=== PATIENT | male | born 1935 | race Caucasian/White ===

== ENCOUNTER 2019-03-29 10:15 | Observation (INO) | payer MEDICARE, SELFPAY ==
[2019-03-29] VITALS (11 sets, daily range): BP systolic 79–135; BP diastolic 46–67; PULSE 70–88; RESP 18–24; TEMP 36.3–36.8; O2SAT 90–99; BMI 31.0
--- NOTE | ~2019-03-29 | XR_ITS ---
EXAMINATION: XR chest 2V DATE: 03/29/2019 10:51 INDICATION: Syncope. TECHNIQUE: Frontal and lateral views of the chest were obtained. COMPARISON: Chest 2 views 10/17/2017 FINDINGS: The chest demonstrates clear lungs without pneumonia, pleural effusion, or pneumothorax. Th e heart size is normal. IMPRESSION: 1. No acute cardiopulmonary disease. Reviewed, dictated and finalized at location A. PRESS OPERATOR
--- NOTE | 2019-03-29 10:15 | ED.SYNCOPE ---
HPI - Syncope General Chief Complaint: Syncope Stated Complaint: SYNCOPE Time Seen by Provider: 03/29/19 10:29 Source: patient, family, EMS and RN notes reviewed Mode of arrival: EMS Limitations: clinical condition History of Present Illness HPI narrative: A 83 y/o male, with a hx of a CVA, presents to the ED via EMS after having a witnessed syncopal episode that last roughly 10 seconds this morning. The pt doesn't remember anything besides waking up on the floor. He states that he did take his insulin this morning and has eaten. He notes that he had a similar syncopal episode roughly 1 year ago. Per EMS reports that the witnessed the fall and states that the pt has LOC for roughly 10 seconds and that he did not hit his head. He denies any dysuria, urinary frequency, CP, decreased intake, body aches, ELLIS, or neck pain. MD complaint: loss of consciousness Onset (ago): minute(s) Duration of episode: 10 -: second(s) Witnessed: Yes - by Bystander () Injuries sustained associated with event: none Current symptoms: none History: previous syncopal episode Related Data Home Medications Medication Instructions Recorded Confirmed aspirin 81 mg PO DAILY 03/29/19 03/29/19 clonidine HCl 0.1 mg PO BID 03/29/19 03/29/19 insulin glargine [Lantus Solostar 30 unit SUBCUT DAILY 03/29/19 03/29/19 U-100 Insulin] metformin 500 mg PO BID 03/29/19 03/29/19 spironolactone 25 mg PO BID 03/29/19 03/29/19 tamsulosin [Flomax] 0.4 mg PO DAILY 03/29/19 03/29/19 Allergies Allergy/AdvReac Type Severity Reaction Status Date / Time No Known Allergies Allergy Unverified 03/29/19 10:26 Review of Systems Review of Systems: All systems reviewed & are unremarkable except as noted in HPI and below Constitutional: Constitutional: Denies body ache(s) and Denies poor appetite Cardiovascular: Cardiovascular: Denies chest pain Genitourinary: Genitourinary: Denies dysuria and Denies urinary frequency Musculoskeletal: Musculoskeletal: Denies neck pain Neurologic: Reports syncope and Denies headache(s) FORMERLY [facility], [facility] Past Medical History Medical History (Updated 03/29/19 @ 12:40 by John Haji MD) Arthritis CVA (cerebral vascular accident) Diverticulitis DM (diabetes mellitus) H/O: HTN (hypertension) History of rectal polyps HLD (hyperlipidemia) HTN (hypertension) Hypercholesteremia Leg fracture, left MVP (mitral valve prolapse) Polyuria Shingles Surgical History Surgical History (Updated 03/29/19 @ 10:41 by Ta Inman) History of orthopedic surgery Lt leg. Family History Family History Sibling Hypertension Cerebrovascular accident Family history of malignant neoplasm Family history of diabetes mellitus in first degree relative Mother Family history of malignant neoplasm, Onset Age: 75 Patient's mother is Father Carcinoma of colon, Onset Age: 67 Patient's father is Social History Social History Smoking status: Never smoker Alcohol intake: never Substance use: never Gender identity (if verbalized by the patient): Male Spiritual care concerns: No Agree to blood products: Yes Comments PCP: Dr. Uribe. Exam Narrative: Exam Narrative: GENERAL: Well-appearing, well-nourished, and in no acute distress. HEAD: Normocephalic, atraumatic. Eyes: Right eye reactive with normal movements. 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 ENT: Mucous membranes moist. CHEST: Clear to auscultation. No respiratory distress. HEART: Regular rate and rhythm. Normal peripheral pulses. ABDOMEN: Soft, nontender, nondistended. EXTREMITIES: Normal range of motion. No edema. SKIN: Warm, dry, no rash. NEURO: No focal deficits. Alert and oriented x3 but slow to answer questions.. Course Consultations Consultation #1: Discussed case with Dr. Kingston (Hospitalist). Accepts the pt. Date: 03/29
[2019-03-29] MEDS: DEXTROSE 50% 25 GM/50 ML SYRINGE IV PUSH (10:43)
[2019-03-29] MEDS: SODIUM CHLORIDE 0.9% IV 1,000 ML 999 ML IV CONT ×2 (10:44→11:47)
--- NOTE | 2019-03-29 10:52 | ECG_ITS ---
Measurements Intervals [place] Rate: 73 P: 88 WV: 178 QRS: -55 QRSD: 120 T: 20 QT: 394 QTc: 436 Interpretive Statements SINUS RHYTHM WITH MARKED SINUS ARRHYTHMIA LEFT ANTERIOR FASCICULAR BLOCK BASELINE WANDER- I, II ABNORMAL ECG Electronically Signed On 03-29-2019 11:51:15 DAILY SALES AUDIT CLERK by Marquis Haynes D.O.
[2019-03-29 11:09] LABS: Basophils Percent Auto 0.1 % (0.2-1.2); Eosinophils Absolute Auto 0.1 K/mm3 (0-0.3); Eosinophils Percent Auto 0.9 % (0-4.4); Hematocrit 34.1 % (42.0-52.0); Immature Granulocyte Absolute 0.03 K/mm3 (0.00-0.031); Immature Granulocyte Percent A 0.4 % (0-0.5); Lymphocytes Percent Auto 27.4 % (18.3-44.2); Mean Corpuscular HGB Conc 32.3 g/dl (32-36); Mean Corpuscular Hemoglobin 30.6 pg (26-34); Mean Platelet Volume 10.6 fl (7.4-10.4); Monocytes Absolute Auto 0.6 K/mm3 (0.1-0.6); Monocytes Percent Auto 7.6 % (2.6-8.5); Neutrophils Absolute Auto 5.1 K/mm3 (1.3-6.7); Neutrophils Percent Auto 63.6 % (45.5-73.1); Platelet Count Result 157 k/mm3 (150-375); Red Blood Count 3.59 M/mm3 (4.6-6.20)
[2019-03-29 11:28] LABS: Blood Urea Nitrogen 33 mg/dL (9-20); Carbon Dioxide 21 mmol/L (22-30); Chloride 100 mmol/L (98-107); Estimated CRCL calculation 43 ml/min; Estimated Glomerular Filt Rate 49; Glucose 116 mg/dL (75-110); Magnesium 2.2 mg/dL (1.6-2.3); Sodium 134 mmol/L (137-145)
[2019-03-29 11:28] LABS: Lactic Acid Reflex 2.2 mmol/L (0.7-2.1)
[2019-03-29 11:30] LABS: Glucose Point of Care 51 (65-105)
[2019-03-29 11:30] LABS: Glucose Point of Care 76 (65-105)
[2019-03-29 11:38] LABS: Troponin I < 0.012 ng/mL (0.000-0.034)
--- NOTE | 2019-03-29 13:41 | PC.NURSE ---
This patient, Derrell Berkowitz, was admitted to [facility] Surg Room 305-02. Patient/family oriented to hospital policies and general routines including ID bracelet, bed and alarms, visiting hours, pain management, procedures, bathroom and other care routines, personal items, smoking policy, room service/diet, and visiting hours. Valuables list has been completed. Information on how to activate the Rapid Response Team has been discussed. Patient/Family are encouraged to report perceived risks to care and to ask questions if they do not understand what they are told or what they should do.
[2019-03-29 14:06] LABS: Reflex Lactic Acid Yes or No Add Lactic
[2019-03-29] MEDS: SODIUM CHLORIDE 0.9% IV 1,000 ML 125 ML IV CONT ×2 (14:37→22:33)
[2019-03-29 14:50] LABS: Lactic Acid 2.5 mmol/L (0.7-2.1)
[2019-03-29 18:24] LABS: Glucose Point of Care 179 (65-105)
[2019-03-29 21:59] LABS: Glucose Point of Care 141 (65-105)
[2019-03-30] VITALS: PULSE 71
[2019-03-30 04:00] VITALS: PULSE 68
--- NOTE | 2019-03-30 04:30 | PM.IMHP ---
H&P: HPI History of Present Illness Chief complaint: Syncopal episode. Narrative: Derrell Berkowitz is a 83 year old male With history of stroke, hypertension, chronic kidney disease, and insulin-dependent type 2 diabetes mellitus who presented to the emergency department earlier this morning via EMS from home for evaluation after a syncopal episode. Upon waking from sleep yesterday, he reports feeling lightheaded /dizzy. That happens on occasion, and fact he has had a previous syncopal episode after similar symptoms about a year ago. Not long prior to arrival, he had a witnessed syncopal episode and was unresponsive for roughly 10 seconds. Patient tells me that he was standing in the kitchen when he felt lightheaded, and he woke up lying on his back on the kitchen floor. He denies sustaining any injuries in the fall. He was found to have orthostatic hypotension on arrival to the emergency department, and he was also hypoglycemic. He did take his insulin this morning, but did not really have much to eat prior to the syncopal episode. He denies recent cold and flu symptoms. He has not had any change in medications. He has not had chest pain, pleuritic pain, or shortness of breath. He denies palpitations. The only complaint he has at the time my evaluation is of sleeping poorly in the hospital and of sinus congestion, which is a chronic finding. Review of Systems Review of Systems: Narrative: Twelve systems were reviewed with pertinent positives and negatives as per HPI. No fever, chills, or sweats. No recent cold or flu-like symptoms. He denies blurry vision, polyuria, and polydipsia. He has not had nausea or vomiting. No diarrhea. No dysuria. Except as documented, all other systems were reviewed and are negative. FORMERLY [facility] Past Medical History Medical History (Updated 03/29/19 @ 23:13 by Delia Velasquez PA-C) Arthritis Chronic kidney disease, stage 3 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 Diverticulitis History of rectal polyps Hyperlipidemia Hypertension Insulin dependent type 2 diabetes mellitus hemoglobin A1c was 7.6 March 21, 2019. MVP (mitral valve prolapse) Prostate cancer Diagnosed in 2008. Shingles Surgical History Surgical History (Updated 03/29/19 @ 23:06 by Delia Velasquez PA-C) History of orthopedic surgery ORIF left tib-fib fracture. Family History Family History Sibling Hypertension Cerebrovascular accident Family history of malignant neoplasm Family history of diabetes mellitus in first degree relative Mother Family history of malignant neoplasm, Onset Age: 75 Patient's mother is Father Carcinoma of colon, Onset Age: 67 Patient's father is Social History Social History (Updated 03/30/19 @ 05:27 by Delia Velasquez PA-C) Social History: The patient lives with his in [place]. He is retired from [employer]. He designates his , Kaye, as his surrogate decision maker and he wishes to be a full code. He is a lifelong nonsmoker and denies alcohol and drug abuse. Spiritual care concerns: No Agree to blood products: Yes Meds Home Medications and Allergies Home Medications Medication Instructions Recorded Confirmed Type amlodipine 5 mg tablet 5 mg PO DAILY #30 tablet 12/19/18 03/29/19 Rx lisinopril 40 mg tablet 40 mg PO DAILY #90 tablet 12/19/18 03/29/19 Rx simvastatin 10 mg tablet 10 mg PO DAILY #90 tablet 02/03/19 03/29/19 Rx aspirin 81 mg PO DAILY 03/29/19 03/29/19 History clonidine HCl 0.1 mg PO BID 03/29/19 03/29/19 History insulin glargine [Lantus Solostar 30 unit SUBCUT DAILY 03/29/19 03/29/19 History U-100 Insulin] metformin 500 mg PO BID 03/29/19 03/29/19 History spironolactone 25 mg PO BID 03/29/19 03/29/19 History tamsulosin [Flomax] 0.4 mg PO DAILY 03/29/19 03/29/19 History Allergies Allergy/
[2019-03-30 06:00] VITALS: BP 117/59; PULSE 66; RESP 20; TEMP 37.1; O2SAT 97
[2019-03-30] MEDS: SODIUM CHLORIDE 0.9% IV 1,000 ML 125 ML IV CONT (06:48)
[2019-03-30 06:57] LABS: Hematocrit 34.1 % (42.0-52.0); Mean Corpuscular HGB Conc 32.3 g/dl (32-36); Mean Corpuscular Hemoglobin 30.4 pg (26-34); Mean Corpuscular Volume 94.2 fl (80-100); Mean Platelet Volume 11.1 fl (7.4-10.4); Platelet Count Result 157 k/mm3 (150-375); Red Blood Count 3.62 M/mm3 (4.6-6.20); Red Cell Distribution Width 12.9 % (11.5-14.5); White Blood Count 8.3 K/mm3 (4.5-10.0)
[2019-03-30 07:14] LABS: Blood Urea Nitrogen 21 mg/dL (9-20); Calcium 8.2 mg/dL (8.4-10.2); Carbon Dioxide 22 mmol/L (22-30); Chloride 108 mmol/L (98-107); Estimated CRCL calculation 54 ml/min; Estimated Glomerular Filt Rate > 60; Glucose 82 mg/dL (75-110); Potassium 4.5 mmol/L (3.4-5.0); Sodium 138 mmol/L (137-145)
[2019-03-30 07:48] LABS: Lactic Acid 0.8 mmol/L (0.7-2.1)
[2019-03-30 08:00] VITALS: PULSE 88
[2019-03-30 08:01] LABS: Glucose Point of Care 159 (65-105)
[2019-03-30] MEDS: INSULIN GLARGINE (*BKC) 100 UNITS/ML 30 UNITS SUB-Q (08:11)
[2019-03-30] MEDS: TAMSULOSIN HCL 0.4 MG CAPSULE PO (08:13)
[2019-03-30] MEDS: SIMVASTATIN 10 MG TABLET PO (08:13)
[2019-03-30] MEDS: ASPIRIN 81 MG CHEWABLE TABLET PO (08:13)
[2019-03-30 11:12] LABS: Glucose Point of Care 144 (65-105)
[2019-03-30 11:57] LABS: Glucose Point of Care 117 (65-105)
[2019-03-30 12:00] VITALS: PULSE 85
--- NOTE | 2019-03-30 13:38 | PC.NURSE ---
Discharged home with spouse, awake, alert, and oriented times four. Left with discharge paperwork and personal affects. PCT escorted out to [facility] in wheelchair.
--- NOTE | 2019-03-30 19:57 | PM.DS ---
DS: Diagnosis Admitting Diagnosis Admitting Diagnosis: Syncope and collapse Discharge Diagnosis (1) Syncope: Code(s): R55 - Syncope and collapse Status: Acute Assessment and Plan: Date of Service 03/30/19 Mr. Berkowitz is an 83yo M with history of stroke, hypertension, chronic kidney disease, and insulin-dependent type 2 diabetes mellitus who presented to the emergency department from home for evaluation after a syncopal episode. He reported standing in the kitchen when he felt lightheaded, and he woke up lying on his back on the kitchen floor, noted to be unresponsive for roughly 10 seconds. He noted he had felt lightheaded and dizzy since he woke up that morning and occasionally feels dizzy when he stands up. Upon arrival to the ED, blood pressures were as low as 79/51 and he was treated with IV fluid hydration. Blood pressures improved into the evening up to 135/66. On arrival his blood glucose was 51 and he was treated with 12.5 g IV dextrose. It was ultimately felt that his hypotension and possibly with the addition of his hypoglycemia caused his syncopal episode and dizziness. Cardiac telemetry revealed no evidence of arrhythmias. Lactic acid level elevated on arrival and resolved the following day, no evidence of infection and likely reactive to above. His home antihypertensive regimen included amlodipine, clonidine, lisinopril, and spironolactone. Blood pressures were stable on day of discharge, but still low at 117/59 and he was instructed to hold off on taking any of the antihypertensives listed above until he can follow up with his primary care provider. He notes that he already has an appointment with Dr. Uribe on Wednesday. His insulin regimen consisted of Lantus 30 units subcu daily which was decreased to 20 units subcu daily at discharge given his risk for hypoglycemia, metformin held. He noted he normally checks his blood sugar once daily. He was encouraged to check his blood sugar before each meal and at bedtime until he can see Dr. Uribe on Wednesday, record a log of his blood sugars to show to Dr. Uribe at his appointment. He was instructed to take his time when moving positions from sitting to standing and to take precautions to avoid falls. Blood pressure and blood sugar were improved day of discharge and the patient was feeling much better. On day of discharge, he denied dizziness. He was hemodynamically stable for discharge with plan to follow up with Dr. Uribe on Wednesday. (2) Orthostatic hypotension: Code(s): I95.1 - Orthostatic hypotension Status: Acute Assessment and Plan: Improved after IV hydration, stable at discharge. (3) Chronic kidney disease, stage 3: Code(s): N18.3 - Chronic kidney disease, stage 3 (moderate) Status: Chronic Assessment and Plan: Creatinine is elevated at 1.4 on arrival, improved to 1.1 after IV hydration, suspect associated with hypoperfusion from soft blood pressures. Baseline Cr is around 1.0 to 1.3 on review of old labs. (4) Elevated lactic acid level: Code(s): R79.89 - Other specified abnormal findings of blood chemistry Status: Resolved Assessment and Plan: No history to suggest underlying infection. Resolved. (5) Hypoglycemia: Code(s): E16.2 - Hypoglycemia, unspecified Status: Resolved Assessment and Plan: Treated with hypoglycemia protocol. Home metformin was held and his Lantus dose was reduced. Resolved, stable at discharge. 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 See above. (7) Hypertension
== END 2019-03-30 13:51 | disposition home or self-care (01) ==
LOC: ANHED 12:29 → ANH3MEDSUR 12:37
PROVIDERS: Physician Assistant; Admitting Provider Internal Medicine; Emergency Provider Emergency Medicine; PCP Emergency Medicine; Visit Provider Physician Assistant
DX: I95.1 Orthostatic hypotension (principal); E11.649 Type 2 diabetes mellitus with hypoglycemia without coma; E11.22 Type 2 diabetes mellitus with diabetic chronic kidney disease; I12.9 Hypertensive chronic kidney disease with stage 1 through stage 4 chronic kidney disease, or unspecified chronic kidney disease; N18.3 Chronic kidney disease, stage 3 (moderate); R79.89 Other specified abnormal findings of blood chemistry; I34.1 Nonrheumatic mitral (valve) prolapse; E78.5 Hyperlipidemia, unspecified; Z79.4 Long term (current) use of insulin; Z79.82 Long term (current) use of aspirin; Z79.899 Other long term (current) drug therapy; Z85.46 Personal history of malignant neoplasm of prostate; Z86.73 Personal history of transient ischemic attack (TIA), and cerebral infarction without residual deficits
CPT/HCPCS: 36415; 71046; 80048; 82948; 83605; 83735; 84484; 85025; 85027; 93005; 96361; 96374; 99291; A9270; G0378; J1815; J7030

== ENCOUNTER 2020-08-08 09:07 | Emergency (ER) | payer MEDICARE, SELFPAY ==
--- NOTE | ~2020-08-08 | CT_ITS ---
EXAMINATION: CT brain wo con DATE: 08/08/2020 10:19 INDICATION: Status post fall. Headache. TECHNIQUE: Computed tomography (CT) of the head was performed without intravenous contrast. The dose- length product was 605.33 mGy-cm. Automated exposure control and iterative reconstruction technique w ere employed. COMPARISON: CT dated 04/21/2017 FINDINGS: Generalized atrophy. There is intracranial atherosclerosis. There are scattered moderate pe riventricular and subcortical white matter changes, most likely related to small vessel ischemic dise ase (microangiopathy). There are chronic left lacunar and thalamic infarctions. No midline shift. Bas ilar cisterns are patent. 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 No significant abnormality of the sinuses or mastoids. IMPRESSION: 1. No acute intracranial abnormality. 2: Chronic left lacunar and thalamic infarctions. 3: Chronic age-related findings. Reviewed, dictated and finalized at location B.
--- NOTE | ~2020-08-08 | CT_ITS ---
EXAMINATION: CT cervical spine wo con DATE: 08/08/2020 10:19 INDICATION: Neck pain after fall TECHNIQUE: Computed tomography (CT) of the cervical spine was performed without intravenous contrast. The dose-length product was 437 mGy-cm. Automated exposure control and iterative reconstruction tech [employer] were employed. COMPARISON: None FINDINGS: Straightening of cervical lordosis. There is degenerative disc disease at C4-5, C5-6 and C6 -7. There is moderate multilevel uncinate and facet hypertrophy. Odontoid process within normal limit s. Craniovertebral junction is unremarkable. No evidence for perched facet. There is an old spinous p rocess avulsion at C7. There is carotid atherosclerosis. Lung apices are normal. No paraspinal soft t issue abnormality. IMPRESSION: 1. No acute abnormality of the cervical spine. 2: Severe cervical spondylosis. Reviewed, dictated and finalized at location B.
--- NOTE | ~2020-08-08 | XR_ITS ---
EXAMINATION: XR chest 2V DATE: 08/08/2020 09:51 INDICATION: Weakness TECHNIQUE: AP and lateral views of the chest are obtained. COMPARISON: 03/29/2019 FINDINGS: The lungs are free of acute opacities. There is no pleural effusion or pneumothorax. The ca rdiomediastinal silhouette is normal. There is moderate thoracic spondylosis. IMPRESSION: 1. No acute cardiopulmonary abnormality. Reviewed, dictated and finalized at location A.
[2020-08-08 09:23] VITALS: BP 129/79; PULSE 82; PULSE 85; RESP 18; TEMP 36.8; O2SAT 96
--- NOTE | 2020-08-08 09:27 | ECG_ITS ---
Measurements Intervals [place] Rate: 80 P: ND: 0 QRS: -17 QRSD: 114 T: -9 QT: 421 QTc: 489 Interpretive Statements SINUS RHYTHM ATRIAL COUPLET, ATRIAL AND VENTRICULAR PREMATURE COMPLEXES INCOMPLETE LEFT BUNDLE BRANCH BLOCK POOR R WAVE PROGRESSION, ANTERIOR LEADS BASELINE ARTIFACT- I, II, III, AVR, AVL, AVF, V1-V6 ABNORMAL ECG Electronically Signed On 08-08-2020 10:26:36 CDT by Marquis Haynes D.O.
--- NOTE | 2020-08-08 10:08 | ED.GENADULT ---
HPI - General Adult General Chief complaint: Weakness Stated complaint: weakness/fall Time Seen by Provider: 08/08/20 09:43 Source: EMS and RN notes reviewed Mode of arrival: EMS Limitations: dementia History of Present Illness HPI narrative: Patient is 84 years old white male brought to the ED by ambulance from home after found on the floor because of a fall probably within the last few hours prior to arrival, dry stools on the bottom, patient is alert to person only. History of multiple falls, weakness, hyperlipidemia, unsteady gait, hypertension, CKD. Related Data Home Medications Medication Instructions Recorded Confirmed aspirin 81 mg PO DAILY 03/29/19 03/29/19 lancets 33 gauge #100 each 06/28/19 Allergies Allergy/AdvReac Type Severity Reaction Status Date / Time No Known Allergies Allergy Verified 08/08/20 09:48 Review of Systems Review of Systems: ROS unobtainable: Yes unobtainable due to mental status PMFSH Past Medical History Medical History Arthritis Chronic kidney disease, stage 3 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 Diverticulitis History of rectal polyps Hyperlipidemia Hypertension Insulin dependent type 2 diabetes mellitus hemoglobin A1c was 7.6 March 21, 2019. MVP (mitral valve prolapse) Prostate cancer Diagnosed in 2008. Shingles Surgical History Surgical History History of orthopedic surgery ORIF left tib-fib fracture. Family History Family History Sibling Hypertension Cerebrovascular accident Family history of malignant neoplasm Family history of diabetes mellitus in first degree relative Mother Family history of malignant neoplasm, Onset Age: 75 Patient's mother is Father Carcinoma of colon, Onset Age: 67 Patient's father is Social History Social History Social History: The patient lives with his in [place]. He is retired from [employer]. He designates his , Kaye, as his surrogate decision maker and he wishes to be a full code. He is a lifelong nonsmoker and denies alcohol and drug abuse. Spiritual care concerns: No Agree to blood products: Yes Exam Narrative: Exam Narrative: General appearance: Well-developed, well-nourished, not in pain or distress Skin: Normal color Head: Normocephalic, nontraumatic Eyes: Clear conjunctiva, skin graft on the left eye ENT: Oropharynx normal, ears normal, nose normal Neck: Supple, nontender Chest and respiratory: Airway patent, no respiratory distress, no accessory muscle use Heart: Regular rate/rhythm Abdomen: Soft, nontender, no organomegaly, quiet bowel sounds Vascular: Normal peripheral pulses, normal capillary refill. Musculoskeletal: Normal range of motion, nontender back Neurologic: Alert and oriented to his name only Course Course Emergency Course: Stable Reevaluation(s) Reevaluation #1: Patient still asymptomatic, laying down comfortably in bed, at the bedside, declined any possibility for intermediate placement at this time and would like to take him home Date: 08/08/20 Time: 12:34 Vital Signs Vital signs: Vital Signs Temperature 36.8 C 08/08/20 09:23 Pulse Rate 85 08/08/20 09:23 Respiratory Rate 18 08/08/20 09:23 Blood Pressure 129/79 08/08/20 09:23 Pulse Oximetry 96 08/08/20 09:23 Temperature 36.8 C 08/08/20 09:23 Pulse Rate 90 08/08/20 11:15 Respiratory Rate 21 H 08/08/20 11:15 Bloo
[2020-08-08 11:02] LABS: Basophils Percent Auto 0.1 % (0.2-1.2); Eosinophils Percent Auto 0.1 % (0-4.4); Hematocrit 39.5 % (42.0-52.0); Hemoglobin 13.1 g/dL (14.0-18.0); Immature Granulocyte Absolute 0.04 K/mm3 (0.00-0.031); Immature Granulocyte Percent A 0.3 % (0-0.5); Lymphocytes Absolute Auto 1.13 K/mm3 (0.9-3.2); Lymphocytes Percent Auto 9.9 % (18.3-44.2); Mean Corpuscular HGB Conc 33.2 g/dl (32-36); Mean Corpuscular Hemoglobin 29.8 pg (26-34); Mean Corpuscular Volume 89.8 fl (80-100); Mean Platelet Volume 11.1 fl (7.4-10.4); Monocytes Absolute Auto 0.4 K/mm3 (0.1-0.6); Monocytes Percent Auto 3.8 % (2.6-8.5); Neutrophils Absolute Auto 9.8 K/mm3 (1.3-6.7); Neutrophils Percent Auto 85.8 % (45.5-73.1); Platelet Count Result 152 k/mm3 (150-375); Red Cell Distribution Width 13.3 % (11.5-14.5); White Blood Count 11.5 K/mm3 (4.5-10.0)
--- NOTE | 2020-08-08 11:02 | PC.NURSE ---
pt states is unable to void. family at bedside.
[2020-08-08 11:13] LABS: Alanine Aminotransferase 20 U/L (4-50); Albumin Level 3.9 g/dL (3.5-5.1); Alkaline Phosphatase 96 U/L (38-126); Anion Gap 9 mmol/L (8-16); Aspartate Amino Transferase 23 U/L (17-59); Bilirubin,Total 1.1 mg/dL (0.2-1.3); Blood Urea Nitrogen 18 mg/dL (9-20); Calcium 9.6 mg/dL (8.4-10.2); Carbon Dioxide 25 mmol/L (22-30); Chloride 103 mmol/L (98-107); Estimated CRCL calculation 50 ml/min; Estimated Glomerular Filt Rate > 60; Glucose 197 mg/dL (75-110); Potassium 3.9 mmol/L (3.4-5.0); Sodium 137 mmol/L (137-145)
[2020-08-08 11:14] LABS: Creatine Kinase 33 U/L (55-170)
[2020-08-08 11:15] VITALS: BP 145/93; PULSE 90; RESP 21; O2SAT 98
--- NOTE | 2020-08-08 11:16 | PC.NURSE ---
Assumed care of pt, pt is alert an upright. Unable to provide u/a, will straight cath per okay. VSS. Denies any pain.
[2020-08-08 12:03] LABS: Add Urine Microscopic? YES; Appearance Urine Cloudy (Clear); Bilirubin Urine Negative (Negative); Blood Urine 1+ (Negative); Color Urine Yellow (Yellow); Glucose Urine UA Negative (Negative); Ketones Urine Negative (Negative); Leukocyte Esterase Ur Negative LEU/UL (Negative); Mucus Urine Rare /lpf; Nitrate Urine Negative (Negative); Protein Urine 2+ mg/dL (Negative); Specific Grav Ur 1.013 (1.001-1.035); Squamous Epithelial Cell Urine Rare /hpf (Few); Urobilinogen Urine Negative mg/dL (<2.0)
[2020-08-08 12:24] VITALS: BP 140/66; PULSE 86; RESP 23; O2SAT 97
[2020-08-08 13:03] VITALS: BP 130/72; PULSE 80; RESP 27; O2SAT 96
== END 2020-08-08 13:10 | disposition home or self-care (01) ==
PROVIDERS: Emergency Provider Emergency Medicine; PCP Emergency Medicine
DX: I48.20 Chronic atrial fibrillation, unspecified (principal); E11.22 Type 2 diabetes mellitus with diabetic chronic kidney disease; I12.9 Hypertensive chronic kidney disease with stage 1 through stage 4 chronic kidney disease, or unspecified chronic kidney disease; N18.30 Chronic kidney disease, stage 3 unspecified; Z79.82 Long term (current) use of aspirin; Z86.73 Personal history of transient ischemic attack (TIA), and cerebral infarction without residual deficits; W18.30XA Fall on same level, unspecified, initial encounter; Y92.009 Unspecified place in unspecified non-institutional (private) residence as the place of occurrence of the external cause
CPT/HCPCS: 36415; 51701; 70450; 71046; 72125; 80053; 81001; 82550; 85025; 93005; 99284

== ENCOUNTER 2021-03-21 09:35 | Emergency (ER) | payer MEDICARE, SELFPAY ==
--- NOTE | ~2021-03-21 | XR_ITS ---
EXAMINATION: XR chest 2V DATE: 03/21/2021 10:26 INDICATION: Generalized weakness TECHNIQUE: frontal and lateral views of the chest were obtained. COMPARISON: Chest radiograph dated FINDINGS: New mild opacities in the bilateral lower lung zones. No pleural effusion or pneumothorax. The cardio mediastinal silhouette is within normal limits accounting for AP technique. There are bridging osteop hytes at multiple levels in the spine, consistent with diffuse idiopathic skeletal hyperostosis (DISH ). IMPRESSION: 1. Mild opacities in bilateral lower lung zones which could represent pneumonia, atelectasis or less likely mild pulmonary edema. Reviewed, dictated and finalized at location A. DITOR IMPRESSION: 1. Mild opacities in bilateral lower lung zones which could represent pneumonia , atelectasis or less likely mild pulmonary edema.
[2021-03-21 09:37] VITALS: BP 164/86; PULSE 86; RESP 29; O2SAT 96
--- NOTE | 2021-03-21 09:49 | ECG_ITS ---
Measurements Intervals [place] Rate: 85 P: 37 CA: 146 QRS: -55 QRSD: 113 T: 43 QT: 393 QTc: 470 Interpretive Statements SINUS RHYTHM WITH SINUS ARRHYTHMIA ATRIAL PREMATURE COMPLEXES LEFT ANTERIOR FASCICULAR BLOCK LEFT VENTRICULAR HYPERTROPHY AND ST-T CHANGE BASELINE WANDER- I, AVL, AVF ABNORMAL ECG Electronically Signed On 03-21-2021 12:06:00 BRICKLAYER APPRENTICE by Marquis Haynes D.O.
[2021-03-21 09:58] LABS: Basophils Percent Auto 0.1 % (0.2-1.2); Hematocrit 41.5 % (42.0-52.0); Hemoglobin 13.5 g/dL (14.0-18.0); Immature Granulocyte Absolute 0.02 K/mm3 (0.00-0.031); Immature Granulocyte Percent A 0.2 % (0-0.5); Lymphocytes Percent Auto 13.4 % (18.3-44.2); Mean Corpuscular HGB Conc 32.5 g/dl (32-36); Mean Corpuscular Hemoglobin 29.9 pg (26-34); Mean Platelet Volume 11.3 fl (7.4-10.4); Monocytes Absolute Auto 0.4 K/mm3 (0.1-0.6); Monocytes Percent Auto 4.6 % (2.6-8.5); Neutrophils Absolute Auto 6.7 K/mm3 (1.3-6.7); Neutrophils Percent Auto 81.7 % (45.5-73.1); Platelet Count Result 144 k/mm3 (150-375); Red Blood Count 4.51 M/mm3 (4.6-6.20); Red Cell Distribution Width 13.1 % (11.5-14.5); White Blood Count 8.2 K/mm3 (4.5-10.0)
[2021-03-21 10:11] LABS: Alanine Aminotransferase 18 U/L (4-50); Albumin Level 3.5 g/dL (3.5-5.1); Alkaline Phosphatase 64 U/L (38-126); Anion Gap 3 mmol/L (8-16); Aspartate Amino Transferase 33 U/L (17-59); Bilirubin,Total 1.5 mg/dL (0.2-1.3); Blood Urea Nitrogen 17 mg/dL (9-20); Calcium 8.6 mg/dL (8.4-10.2); Carbon Dioxide 28 mmol/L (22-30); Chloride 102 mmol/L (98-107); Estimated CRCL calculation 63 ml/min; Estimated Glomerular Filt Rate > 60; Glucose 112 mg/dL (65-110); Potassium 3.1 mmol/L (3.4-5.0); Sodium 133 mmol/L (137-145)
--- NOTE | 2021-03-21 10:19 | ED.WEAKNESS ---
HPI - Weakness General Chief complaint: Weakness Stated complaint: weakness Time Seen by Provider: 03/21/21 10:04 Source: patient History of Present Illness HPI Narrative: Patient presents with weakness has been progressively worse over the past few days. Patient does have a history of diabetes hypertension and prior CVA. Patient also reports mild cough over this time as well as shortness of breath. denies any focal areas of pain such as headache, chest pain, abdominal pain is denying any nausea vomiting or diarrhea denies any known sick contacts. Related Data Home Medications Medication Instructions Recorded Confirmed aspirin 81 mg PO DAILY 03/29/19 11/05/20 lancets 33 gauge #100 each 06/28/19 11/05/20 Allergies Allergy/AdvReac Type Severity Reaction Status Date / Time No Known Allergies Allergy Verified 11/05/20 14:06 Review of Systems Review of Systems: CONSTITUTIONAL: Denies fever, chills, or sweats. EYES: Denies visual changes, redness, or discharge. ENT: Denies rhinorrhea, congestion, sore throat, or otalgia. CARDIOVASCULAR: Denies chest pain, palpitations, or edema. RESPIRATORY: Denies cough or dyspnea. GASTROINTESTINAL: Denies abdominal pain, nausea, vomiting, or diarrhea. GENITOURINARY: Denies dysuria or hematuria. SKIN: Denies rash or itching. MUSCULOSKELETAL: Denies back pain, joint pain, or myalgia. NEUROLOGIC: Denies headache, numbness, dizziness, or focal weakness. PSYCHIATRIC: Denies anxiety or depression. All systems reviewed & are unremarkable except as noted in HPI and below PMFSH Past Medical History Medical History Arthritis Chronic kidney disease, stage 3 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 Diverticulitis History of rectal polyps Hyperlipidemia Hypertension Insulin dependent type 2 diabetes mellitus hemoglobin A1c was 7.6 March 21, 2019. MVP (mitral valve prolapse) Prostate cancer Diagnosed in 2008. Shingles Surgical History Surgical History History of orthopedic surgery ORIF left tib-fib fracture. Family History Family History Sibling Hypertension Cerebrovascular accident Family history of malignant neoplasm Family history of diabetes mellitus in first degree relative Mother Family history of malignant neoplasm, Onset Age: 75 Patient's mother is Father Carcinoma of colon, Onset Age: 67 Patient's father is Social History Social History Social History: The patient lives with his in [place]. He is retired from [employer]. He designates his , Kaye, as his surrogate decision maker and he wishes to be a full code. He is a lifelong nonsmoker and denies alcohol and drug abuse. Spiritual care concerns: No Agree to blood products: Yes Exam Narrative: GENERAL: Well-appearing, well-nourished, and in no acute distress. HEAD: Normocephalic, atraumatic. EYES: PERRLA and EOMI. ENT: Nares clear, no rhinorrhea or epistaxis. Mucous membranes moist. NECK: Supple. No masses. No JVD CHEST: Clear to auscultation. No respiratory distress. No wheezes rales or rhonchi HEART: Regular rate and rhythm. No murmur heard. Normal peripheral pulses. ABDOMEN: Soft, nontender, nondistended, normal active bowel sounds. EXTREMITIES: Normal range of motion. No edema. SKIN: Warm, dry, no rash. NEURO: No focal deficits. Alert and oriented to self, location, situation. PSYCH: Normal mood and affect. Course Reevaluation(s) Reevaluation #1: Patient reports feeling well results and plan reviewed with patient. Patient is comfortable with outpatient plan. Date: 03/21/21 Time: 12:03 Vital Signs Vital signs: Vital Signs Pulse Rate 86 03/21/21 09:37 Respiratory Rate
[2021-03-21 11:11] VITALS: BP 149/87; PULSE 98; RESP 18; O2SAT 97
[2021-03-21 11:54] LABS: Add Urine Microscopic? YES; Appearance Urine Clear (Clear); Bilirubin Urine Negative (Negative); Blood Urine Negative (Negative); Color Urine Yellow (Yellow); Glucose Urine UA Negative (Negative); Ketones Urine Trace mg/dL (Negative); Leukocyte Esterase Ur Negative LEU/UL (Negative); Mucus Urine Rare /lpf; Nitrate Urine Negative (Negative); Protein Urine 2+ mg/dL (Negative); RBC Urine 0-2 /hpf (0-2); Specific Grav Ur 1.025 (1.001-1.035); WBC Urine 0-3 /hpf
[2021-03-21] MEDS: AZITHROMYCIN 250 MG TABLET 500 MG PO (12:14)
[2021-03-21 14:01] VITALS: BP 165/94; PULSE 103; RESP 18; O2SAT 97
[2021-03-22 16:55] LABS: SARS-CoV-2 RNA PCR Positive
== END 2021-03-21 14:04 | disposition home or self-care (01) ==
PROVIDERS: Emergency Provider Emergency Medicine; PCP Emergency Medicine
DX: U07.1 COVID-19 (principal); J18.9 Pneumonia, unspecified organism; E11.22 Type 2 diabetes mellitus with diabetic chronic kidney disease; I12.9 Hypertensive chronic kidney disease with stage 1 through stage 4 chronic kidney disease, or unspecified chronic kidney disease; N18.30 Chronic kidney disease, stage 3 unspecified; E78.5 Hyperlipidemia, unspecified; I34.1 Nonrheumatic mitral (valve) prolapse; I69.954 Hemiplegia and hemiparesis following unspecified cerebrovascular disease affecting left non-dominant side; M19.90 Unspecified osteoarthritis, unspecified site; Z85.46 Personal history of malignant neoplasm of prostate; Z87.19 Personal history of other diseases of the digestive system; Z79.82 Long term (current) use of aspirin; I49.1 Atrial premature depolarization; I44.4 Left anterior fascicular block; I51.7 Cardiomegaly; Z79.4 Long term (current) use of insulin
CPT/HCPCS: 36415; 51701; 71046; 80053; 81001; 85025; 85055; 93005; 99283; A9270; C9803; U0003; U0005

== ENCOUNTER 2022-04-09 10:12 | Outpatient (RCR) | payer MEDICARE, SELFPAY ==
[2022-04-09 10:36] LABS: Alanine Aminotransferase 16 U/L (6-50); Albumin Level 3.9 g/dL (3.5-5.1); Alkaline Phosphatase 94 U/L (38-126); Anion Gap 6 mmol/L (8-16); Aspartate Amino Transferase 20 U/L (17-59); Bilirubin,Total 1.1 mg/dL (0.2-1.3); Blood Urea Nitrogen 20 mg/dL (9-20); Calcium 8.8 mg/dL (8.4-10.2); Carbon Dioxide 26 mmol/L (22-30); Chloride 107 mmol/L (98-107); Cholesterol 172 mg/dL (0-200); Estimated Glomerular Filt Rate > 60; Glucose 101 mg/dL (65-110); HDL Direct 38 mg/dL; LDL Cholesterol Direct 89 mg/dL; Potassium 3.8 mmol/L (3.4-5.0); Sodium 139 mmol/L (137-145); Triglycerides 122 mg/dL (<150)
[2022-04-09 10:37] LABS: Hemoglobin A1C 7.7 % (<5.7)
[2022-04-09 11:15] LABS: Creatinine Urine 173.8 mg/dL
[2022-04-09 11:20] LABS: MALB Creatinine Ratio 16.5 mg/g (0-30); Microalbumin Urine Random 28.7 mg/L (0-16.7)
== END 2022-07-08 23:59 | disposition home or self-care (01) ==
LOC: HOME HLTH 10:12
PROVIDERS: PCP Emergency Medicine; Visit Provider Emergency Medicine
DX: E78.5 Hyperlipidemia, unspecified (principal); E11.9 Type 2 diabetes mellitus without complications; Z79.4 Long term (current) use of insulin
CPT/HCPCS: 80053; 80061; 82043; 83036

== ENCOUNTER 2022-09-11 19:06 | Inpatient (IN) | payer MEDICARE, SELFPAY ==
[2022-09-11] VITALS (7 sets, daily range): BP systolic 145; BP diastolic 83; PULSE 95–100; RESP 22–35; TEMP 37.5; O2SAT 92–94
--- NOTE | ~2022-09-11 | US_ITS ---
EXAMINATION: US carotid duplex BI DATE: 09/11/2022 23:58 INDICATION: Strokelike symptoms TECHNIQUE: Grayscale, color Doppler, and pulsed Doppler images of the cervical carotid arteries were obtained. The degree of vessel stenosis is placed in one of the following categories: normal, <50%, 5 0-69%, >=70% but less than near-occlusion, near-occlusion, or total occlusion. Note that percent sten osis relative to normal distal artery lumen diameter is indirectly measured from velocity measurement s as described by Ajay, et al. Radiology 2003; 229:340-346. COMPARISON: 09/11/2022 CTA brain carotid FINDINGS: Prominent calcified plaque is noted at the carotid bulbs and proximal internal carotid teresa shara. RIGHT: The right common carotid artery (CCA) peak systolic velocity (PSV) is 113.9 cm/s. The right internal carotid artery (ICA) PSV is 96.2 cm/s. The right ICA end-diastolic velocity (EDV) is 23.9 cm/s. The r ight ICA/CCA PSV ratio is 0.84. Grayscale and color Doppler images yield an estimate of less than 50% diameter reduction from plaque in the ICA. The external carotid artery (ECA) PSV is 126.9 cm/s. Ther e is antegrade flow in the right vertebral artery. LEFT: The left CCA PSV is 109.3 cm/s. The left ICA PSV is 120.3 cm/s. The left ICA EDV is 17.3 cm/s. The le ft ICA/CCA PSV ratio is 1.10. Grayscale and color Doppler images yield an estimate of less than 50% d iameter reduction from plaque in the ICA. The ECA PSV is 184.4 cm/s. There is antegrade flow in the l eft vertebral artery. IMPRESSION: Bilateral calcified plaques of carotid bulbs and internal carotid arteries 1. Less than 50% stenosis in the right internal carotid artery. 2. Less than 50% stenosis in the left internal carotid artery. Reviewed, dictated and finalized at Location A. Reviewed, dictated and finalized at location A. IMPRESSION: Bilateral calcified plaques of carotid bulbs and internal carotid a rteries 1. Less than 50% stenosis in the right internal carotid artery. 2. Less than 50% stenosis in the left internal carotid artery.
--- NOTE | ~2022-09-11 | CT_ITS ---
EXAMINATION: CT BRAIN W/O DATE: 09/11/2022 19:49 INDICATION: Altered mental status TECHNIQUE: Computed tomography (CT) of the head was performed without intravenous contrast. The dose- length product was 681.00 mGy-cm. Automated exposure control and iterative reconstruction technique w ere employed. COMPARISON: CT dated 08/08/2020 FINDINGS: Generalized atrophy. There are scattered moderate periventricular and subcortical white mat ter changes, most likely related to small vessel ischemic disease (microangiopathy). There are chroni c left lacunar infarctions. No midline shift. No ventriculomegaly. There is intracranial atherosclero sis IMPRESSION: 1. No acute intracranial abnormality. 2: Chronic left lacunar infarctions. 3: Chronic age-related findings. Reviewed, dictated and finalized at location A.
--- NOTE | ~2022-09-11 | CT_ITS ---
EXAMINATION: CTA brain carotid DATE: 09/11/2022 20:19 INDICATION: neuro def TECHNIQUE: Computed tomographic angiography (CTA) of the head and neck was performed with 100 mL Omni paque-350 intravenous contrast. Automated exposure control and iterative reconstruction technique wer e employed. The dose-length product was 1231.30 mGy-cm. Maximum intensity projection and volume rende red 3D-reconstructions were created by the technologist on a separate workstation. COMPARISON: CT brain, same date; ultrasound carotid duplex 12/26/2015. FINDINGS: CTA HEAD: No large vessel occlusion, aneurysm, high flow vascular malformation, nidus or extravasation. Short s egment noncalcified plaque in the left M1 segment causing moderate stenosis (between 50-75%). Persist ent origin of the right posterior cerebral artery. Calcified plaques in the bilateral cavernous carotids and bilateral intradural distal vertebral arteries, without significant stenosis. Noncalcif ied plaque in the basilar artery, without significant stenosis. Uniform parenchymal enhancement. العلي nt cerebral veins. CTA NECK: Aortic arch and proximal great vessels: Moderate atherosclerotic calcifications at the visualized aor tic arch and proximal great vessels. Right common carotid, carotid bifurcation, and internal carotid artery: Calcified plaque at the bifur cation.There is 20% stenosis of the proximal right internal carotid artery relative to normal distal artery lumen diameter (NASCET criteria). Left common carotid, carotid bifurcation, and internal carotid artery: Calcified plaque at the bifurc ation.There is 40% stenosis of the proximal left internal carotid artery relative to normal distal ar azucena lumen diameter (NASCET criteria). Vertebral arteries: No significant plaque or stenosis. Left vertebral artery is dominant. Calcified p laque at the origin of the left vertebral artery, causing moderate stenosis. Other findings: Absent left globe. Mucoperiosteal thickening in the paranasal sinuses. Dental caries. Degenerative change in the left TMJ. Cervical spondylosis. Senescent/emphysematous changes in the vimal ngs. Mild interstitial edema. Dilated central pulmonary arteries as can be seen with pulmonary arteri al hypertension. IMPRESSION: No large vessel occlusion. No severe carotid or vertebral artery stenosis. Chronic and incidental findings are detailed above. Reviewed, dictated and finalized at location K.
--- NOTE | ~2022-09-11 | MR_ITS ---
EXAMINATION: MR brain/brain stem wo/w con DATE: 09/12/2022 14:48 INDICATION: Left-sided weakness TECHNIQUE: Magnetic resonance imaging (MRI) of the brain and brainstem was performed without and with 18 mL MultiHance intravenous contrast. Sequences included sagittal and axial T1-weighted SE, axial d iffusion-weighted FS EPI ASSET, axial T2*-weighted GRE, axial T2-weighted FLAIR Propeller, and axial T2-weighted Propeller. Postcontrast axial and coronal T1-weighted SE was obtained. Apparent diffusion coefficient (ADC) maps were created. COMPARISON: CT brain and CTA brain/carotid 09/11/2022. FINDINGS: No abnormal restricted diffusion to suggest acute ischemic infarct. Chronic left basal ganglia and pe riventricular lacunar infarction. No MRI evidence of hemorrhage or extra-axial collection. No abnorma l enhancing lesion. No suspicious foci of susceptibility to suggest prior intraparenchymal hemorrhage . Moderate patchy white matter hyperintensity, likely representing moderate small vessel ischemic dis ease. Moderate generalized parenchymal volume loss. The basilar cisterns are patent. Flow voids are p reserved. Pansinus mucosal thickening, with air-fluid levels in the left maxillary and sphenoid sinus es. Absent left globe. Right globe and orbital contents are within normal limits. IMPRESSION: No MR evidence of acute infarct. Possible acute left maxillary and sphenoid sinusitis. Reviewed, dictated and finalized at location K.
--- NOTE | ~2022-09-11 | XR_ITS ---
EXAM: XR ankle RT min 3V DATE: 09/12/2022 14:48 HISTORY: swelling and tenderness, BRUSING MEDIAL AND LATERAL ANKLE . COMPARISON: None available. FINDINGS: Decreased mineralization. Mildly distracted transverse fracture of the medial malleolus. M inimally displaced oblique fracture of the distal right radius at the level of the joint line. No lyt ic or blastic lesion. Mild scattered degenerative changes. Achilles and plantar enthesopathy. No eros ion or periosteal change. Diffuse vascular calcifications. IMPRESSION: Bimalleolar fracture of the right ankle. Reviewed, dictated and finalized at location K.
--- NOTE | ~2022-09-11 | XR_ITS ---
EXAMINATION: XR chest 1V portable 09/11/2022 19:39 INDICATION: Cough PROCEDURE: AP portable chest COMPARISON: 03/21/2021 FINDINGS: The lungs are clear. The cardiomediastinal silhouette is mildly enlarged. There are no ple ural effusions. There is no pneumothorax suspected. IMPRESSION: 1: NO ACUTE CARDIOPULMONARY DISEASE. Reviewed, dictated and finalized at location A.
--- NOTE | ~2022-09-11 | XR_ITS ---
MODIFIED ESOPHAGRAM HISTORY: Witnessed choking. TECHNIQUE: Modified barium esophagram was performed on 09/17/2022. I administered fluoroscopy and perfo rmed the exam with speech pathologist. Patient was seated for lateral fluoroscopic imaging for inges tion of thin liquids, pudding, solids and quantified amounts, followed by thin liquids in uncontrolle d amounts. This was recorded on tape. A single fluoroscopic spot image was also recorded. The DAP for this procedure was 1.2 Gycm2. The amount of fluoroscopy time used during this procedure was 1.9 keyanna moris. FINDINGS: Oral stage: Adequate function. Pharyngeal stage: Reduced tongue base retraction with piriform sinus residue. No laryngeal penetratio n or aspiration. Cervical/esophageal stage: Adequate function. IMPRESSION: Minimal pharyngeal dysphagia without laryngeal penetration or aspiration. Please correla te with speech pathologist findings and specific feeding recommendations. Reviewed, dictated and finalized at location A. IMPRESSION: Minimal pharyngeal dysphagia without laryngeal penetration or aspir ation. Please correlate with speech pathologist findings and specific feeding recommendations.
--- NOTE | 2022-09-11 19:14 | ECG_ITS ---
Measurements Intervals [place] Rate: 93 P: 27 OH: 195 QRS: -53 QRSD: 118 T: 2 QT: 388 QTc: 485 Interpretive Statements SINUS RHYTHM VENTRICULAR PREMATURE COMPLEX LEFT ANTERIOR FASCICULAR BLOCK ABNORMAL ECG COMPARED TO ECG 03/21/2021 10:02:31 NO SIGNIFICANT CHANGES Electronically Signed On 09-11-2022 20:27:33 CDT by Marquis Haynes D.O.
[2022-09-11] MEDS: SODIUM CHLORIDE 0.9% IV 1,000 ML 999 ML IV CONT (19:34)
[2022-09-11 20:05] LABS: Basophils Percent Auto 0.1 % (0.2-1.2); Hemoglobin 11.7 g/dL (14.0-18.0); Immature Granulocyte Absolute 0.05 K/mm3 (0.00-0.031); Immature Granulocyte Percent A 0.5 % (0-0.5); Immature Platelet Fraction Pct 5.9 % (0.9-11.2); Mean Corpuscular HGB Conc 32.5 g/dl (32-36); Mean Corpuscular Hemoglobin 30.1 pg (26-34); Mean Corpuscular Volume 92.5 fl (80-100); Mean Platelet Volume 10.8 fl (7.4-10.4); Monocytes Absolute Auto 0.5 K/mm3 (0.1-0.6); Monocytes Percent Auto 5.2 % (2.6-8.5); Neutrophils Absolute Auto 8.7 K/mm3 (1.3-6.7); Neutrophils Percent Auto 87.2 % (45.5-73.1); Platelet Count Result 126 k/mm3 (150-375); Red Blood Count 3.89 M/mm3 (4.6-6.20); Red Cell Distribution Width 13.5 % (11.5-14.5); White Blood Count 9.9 K/mm3 (4.5-10.0)
[2022-09-11 20:06] LABS: Estimated CRCL calculation 60 ml/min; Estimated Glomerular Filt Rate > 60
--- NOTE | 2022-09-11 20:07 | PC.NURSE ---
Patient in CT at this time.
[2022-09-11 20:10] LABS: Lactic Acid Reflex 1.3 mmol/L (0.7-2.0)
[2022-09-11 20:11] LABS: Alanine Aminotransferase 27 U/L (6-50); Albumin Level 3.3 g/dL (3.5-5.1); Alkaline Phosphatase 79 U/L (38-126); Anion Gap 4 mmol/L (8-16); Aspartate Amino Transferase 31 U/L (17-59); Bilirubin,Total 1.5 mg/dL (0.2-1.3); Blood Urea Nitrogen 21 mg/dL (9-20); Carbon Dioxide 24 mmol/L (22-30); Chloride 104 mmol/L (98-107); Estimated CRCL calculation 74 ml/min; Estimated Glomerular Filt Rate > 60; Glucose 179 mg/dL (65-110); Magnesium 1.8 mg/dL (1.6-2.3); Potassium 3.6 mmol/L (3.4-5.0); Sodium 132 mmol/L (137-145)
[2022-09-11 20:14] LABS: INR 1.1; Partial Thromboplastin Time 31.5 SECONDS (22.3-36.8); Prothrombin Time 14.9 Seconds (11.1-14.7)
[2022-09-11 20:23] LABS: Troponin I 0.012 ng/mL (0.000-0.034)
[2022-09-11 20:27] LABS: Procalcitonin 0.3 ng/mL
--- NOTE | 2022-09-11 21:21 | ED.GENADULT ---
HPI - General Adult General Chief complaint: Altered Mental Status Stated complaint: AMS Time Seen by Provider: 09/11/22 19:12 History of Present Illness HPI narrative: Patient 86-year-old gentleman who presents the emergency department with chief complaint of altered mental status and vomiting. Per the patient's family the patient was last known well around 2 PM but they think maybe an hour to an hour and a half but they are unsure that he was not acting his usual self and had vomited on himself. Patient does normally have a left-sided facial droop from a prior CVA the patient also has some intermittent confusion as well the family's biggest concern was that he had actually vomited on himself while he was playing in the bed. The patient currently has no real significant complaints Related Data Home Medications Medication Instructions Recorded Confirmed aspirin 81 mg chewable tablet 81 mg PO DAILY 03/29/19 03/26/21 Allergies Allergy/AdvReac Type Severity Reaction Status Date / Time No Known Allergies Allergy Verified 07/15/22 14:13 Review of Systems Review of Systems: A 10 system review of systems was completed on the patient and is negative except for what is stated in the HPI. Nursing and ancillary documentation was reviewed. 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 Diverticulitis History of rectal polyps Hyperlipidemia Hypertension Insulin dependent type 2 diabetes mellitus hemoglobin A1c was 7.6 March 21, 2019. MVP (mitral valve prolapse) Prostate cancer Diagnosed in 2008. Shingles Surgical History Surgical History History of orthopedic surgery ORIF left tib-fib fracture. Family History Family History Sibling Hypertension Cerebrovascular accident Family history of malignant neoplasm Family history of diabetes mellitus in first degree relative Mother Family history of malignant neoplasm, Onset Age: 75 Patient's mother is Father Carcinoma of colon, Onset Age: 67 Patient's father is Social History Social History Social History: The patient lives with his in [place]. He is retired from [employer]. He designates his , Kaye, as his surrogate decision maker and he wishes to be a full code. He is a lifelong nonsmoker and denies alcohol and drug abuse. Smoking status: Former smoker Spiritual care concerns: No Agree to blood products: Yes Exam Narrative: GENERAL: Well-appearing, well-nourished, and in no acute distress. HEAD: Normocephalic, atraumatic. EYES: PERRLA and EOMI. on right eye left eye is absent ENT: Nares clear, no rhinorrhea or epistaxis. Mucous membranes moist. Slight facial asymmetry of the left mouth NECK: Supple. CHEST: Clear to auscultation. No respiratory distress. HEART: Regular rate and rhythm. No murmur heard. Normal peripheral pulses. ABDOMEN: Soft, nontender, nondistended, normal active bowel sounds. EXTREMITIES: Normal range of motion. No edema. SKIN: Warm, dry, no rash. NEURO: No focal deficits. Alert and oriented x2. PSYCH: Normal mood and affect. Course Vital Signs Vital signs: Vital Signs Temperature 37.5 C 09/11/22 19:07 Pulse Rate 99 09/11/22 19:07 Respiratory Rate 26 H 09/11/22 19:07 Blood Pressure 145/83 H 09/11/22 19:07 Pulse Oximetry 93 09/11/22 19:07 Oxygen Delivery Room Air 09/11/22 19:07 Temperature 37.5 C 09/11/22 19:07 Pulse Rate 97 09/11/22 20:45 Respiratory Rate 24 H 09/11/22 20:45 Blood Pressure 145/83 H 09/11/22 19:07 Pulse Oximetry 92 09/11/22 20:45 Oxy
[2022-09-11 21:55] LABS: Appearance Urine Clear (Clear); Bacteria Urine None Seen /hpf; Bilirubin Urine Negative (Negative); Blood Urine Negative (Negative); Color Urine Yellow (Yellow); Glucose Urine UA Trace mg/dL (Negative); Ketones Urine Trace mg/dL (Negative); Leukocyte Esterase Ur Negative LEU/UL (Negative); Nitrate Urine Negative (Negative); Non Pathogenic Casts 0-2; Protein Urine 1+ mg/dL (Negative); RBC Urine 0-2 /hpf (0-2); Squamous Epithelial Cell Urine None seen /hpf (Few); WBC Urine 0-5 /hpf; pH Urine 7.5 (5.0-9.0)
[2022-09-11 21:56] LABS: Specific Grav Ur 1.041 (1.001-1.035)
[2022-09-11 21:57] LABS: Add Urine Microscopic? YES
--- NOTE | 2022-09-11 22:12 | PM.IMHP ---
H&P: HPI History of Present Illness Date/Time: 09/11/22 22:12 Chief Complaint: Altered mental status Narrative: This is an 86-year-old male with past medical history significant for hypertension insulin-dependent diabetes mellitus benign prostatic hyperplasia left eye enucleation. Patient was brought to the emergency room for evaluation due to altered mental status, left-sided facial droop. Most of the history has been obtained upon reviewing medical records and emergency room physician. Patient has been in his usual state of health up until this point apparently patient had vomiting and altered mental status with facial droop left-sided. EXAMINATION: XR chest 1V portable 09/11/2022 19:39 INDICATION: Cough PROCEDURE:? AP portable chest COMPARISON: 03/21/2021 FINDINGS: The lungs are clear.? The cardiomediastinal silhouette is mildly enlarged. There are no pleural effusions.? There is no pneumothorax suspected.? IMPRESSION: 1:? NO ACUTE CARDIOPULMONARY DISEASE. EXAMINATION: CT BRAIN W/O DATE: 09/11/2022 19:49 INDICATION: Altered mental status TECHNIQUE: Computed tomography (CT) of the head was performed without intravenous contrast. The dose-length product was 681.00 mGy-cm. Automated exposure control and iterative reconstruction technique were employed. COMPARISON: CT dated 08/08/2020 FINDINGS: Generalized atrophy. There are scattered moderate periventricular and subcortical white matter changes, most likely related to small vessel ischemic disease (microangiopathy). There are chronic left lacunar infarctions. No midline shift. No ventriculomegaly. There is intracranial atherosclerosis ? IMPRESSION: 1. No acute intracranial abnormality. 2: Chronic left lacunar infarctions. 3:? Chronic age-related findings. 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 Diverticulitis History of rectal polyps Hyperlipidemia Hypertension Insulin dependent type 2 diabetes mellitus hemoglobin A1c was 7.6 March 21, 2019. MVP (mitral valve prolapse) Prostate cancer Diagnosed in 2008. Shingles Surgical History Surgical History History of orthopedic surgery ORIF left tib-fib fracture. Family History Family History Sibling Hypertension Cerebrovascular accident Family history of malignant neoplasm Family history of diabetes mellitus in first degree relative Mother Family history of malignant neoplasm, Onset Age: 75 Patient's mother is Father Carcinoma of colon, Onset Age: 67 Patient's father is Social History Social History Social History: The patient lives with his in [place]. He is retired from [employer]. He designates his , Kaye, as his surrogate decision maker and he wishes to be a full code. He is a lifelong nonsmoker and denies alcohol and drug abuse. Smoking status: Never smoker Alcohol intake: unknown Substance use: unknown Spiritual care concerns: No Agree to blood products: Yes Meds Home Medications and Allergies Home Medications Medication Instructions Recorded Confirmed Type aspirin 81 mg chewable tablet 81 mg PO DAILY 03/29/19 09/12/22 History pen needle, diabetic 31 gauge x #100 ea 04/09/20 09/12/22 Rx 3/16 (BD Ultra-Fine Mini Pen Needle) amlodipine 5 mg tablet See Rx Instructions .Route 06/01/22 09/12/22 Rx .COMPLEX #90 tabs lisinopril 10 mg tablet See Rx Instructions .Route 06/15/22 09/12/22 Rx .COMPLEX #90 tabs simvastatin 10 mg tablet See Rx In
[2022-09-11 23:38] LABS: Troponin I 0.013 ng/mL (0.000-0.034)
[2022-09-11] MEDS: SODIUM CHLORIDE 0.9% IV 1,000 ML 125 ML IV CONT (23:53)
[2022-09-12] VITALS (15 sets, daily range): BP systolic 125–154; BP diastolic 57–72; PULSE 77–100; RESP 16–32; TEMP 36.4–37.5; O2SAT 94–100; BMI 28.7
--- NOTE | 2022-09-12 00:44 | ADMGEN ---
This patient, Derrell Berkowitz, was admitted to IMU Room 206-02 at 0025. Patient/family oriented to hospital policies and general routines including ID bracelet, bed and alarms, visiting hours, pain management, procedures, bathroom and other care routines, personal items, smoking policy, room service/diet, and visiting hours. Information on how to activate the Rapid Response Team has been discussed. Patient/Family are encouraged to report perceived risks to care and to ask questions if they do not understand what they are told or what they should do.
--- NOTE | 2022-09-12 00:45 | PC.NURSE ---
Called to ask admit questions due to patient confusion; call went to voicemail and would not accept messages. Call also placed to daughter and voicemail left.
--- NOTE | 2022-09-12 06:00 | ECHO_ITS ---
Patient Info Name: Derrell Berkowitz Age: 86 years : 1935 Gender: Male Ht: 70 in Wt: 250 lbs BSA: 2.41 m2 HR: 89 bpm BP: 129 / 66 mmHg Heart Rhythm: Sinus Rhythm Technical Quality: Fair Exam Date: 09/12/2022 10:24 AM Exam Location: [facility] Exam Room: [facility] Patient Status: Outpatient Admit Date: 09/11/2022 Staff Ordering Physician: Mo Worthington MD [facility] Animal Care: Barb Gonzalez RDCS Attending Provider: Roby Zhang MD Referring Physician: Elin KING; Exam Type: CA echo doppler color flow Study Info Indications - left side weakness Complete two-dimensional, color flow and Doppler transthoracic echocardiogram is performed. Summary 1. Complete two-dimensional, color flow and Doppler transthoracic echocardiogram is performed. 2. Normal left ventricular size and systolic function. 3. Grade 1 diastolic noncompliance. 4. No significant valvular dysfunction. 5. No likely cardioembolic source was identified. 6. Normal sinus rhythm. Left Ventricle Left ventricular chamber dimension is normal. Left ventricular systolic function is normal, estimated at 60-65%. The left ventricular diastolic function is grade I diastolic dysfunction. Right Ventricle Right ventricular chamber dimension is normal. Left Atria Left atrial chamber dimension is normal. Right Atria Right atrial chamber dimension is normal. Aortic Valve The aortic valve is trileaflet. There is mild aortic valve sclerosis. Pulmonic Valve The pulmonic valve is not well visualized. Mitral Valve The mitral valve has normal leaflets. Tricuspid Valve The tricuspid valve leaflets are normal. Pericardium/Pleural The pericardium appears normal. Aorta The aortic root size at the sinus of Valsalva is normal. Left Ventricular Outflow Tract Name Value Normal LVOT 2D LVOT Diameter 2.1 cm LVOT Doppler LVOT Peak Gradient 5 mmHg LVOT Mean Gradient 3 mmHg LVOT VTI 22 cm LVOT VTI/AV VTI Ratio 0.9 LVOT Stroke Volume 77 ml LVOT CO 16.8 l/min LVOT CI 7.0 l/min/m2 Pulmonic Valve Name Value Normal PV Doppler PV Peak Gradient 3 mmHg Mitral Valve Name Value Normal MV Doppler MV Decel [place] 369 cm/s2 MV PHT 55 ms MV Area (PHT) 4.0 cm2 4.0-5.0 MV Diastolic Function MV E Peak Velocity 70 cm/s
--- NOTE | 2022-09-12 06:37 | PC.NURSE ---
Dr Zhang called for VTE prophylaxis and order for SCD received.
[2022-09-12 08:05] LABS: Glucose Point of Care 136 mg/dl (65-105)
[2022-09-12] MEDS: SODIUM CHLORIDE 0.9% IV 1,000 ML 125 ML IV CONT ×2 (09:59→22:38)
[2022-09-12] MEDS: ASPIRIN 81 MG CHEWABLE TABLET PO (10:25)
[2022-09-12] MEDS: amLODIPine BESYLATE 5 MG TABLET BY MOUTH (10:27)
[2022-09-12] MEDS: SIMVASTATIN 10 MG TABLET BY MOUTH (10:28)
[2022-09-12] MEDS: lisinopriL 10 MG TABLET BY MOUTH (10:28)
[2022-09-12] MEDS: INSULIN GLARGINE (*BKC) 100 UNITS/ML 48 UNITS SUB-Q (10:28)
[2022-09-12] MEDS: TAMSULOSIN HCL 0.4 MG CAPSULE BY MOUTH (10:28)
[2022-09-12 13:01] LABS: Glucose Point of Care 240 mg/dl (65-105)
--- NOTE | 2022-09-12 13:47 | PCOTNOTE ---
Attempted OT evaluation. Patient waiting ankle x-ray. Will follow.
--- NOTE | 2022-09-12 13:49 | PCPTNOTE ---
Attempted PT evaluation. Patient waiting ankle x-ray. Will follow.
--- NOTE | 2022-09-12 14:04 | WPDNEURCNPN ---
Assessment and Plan Assessment and plan (1) Acute left-sided muscle weakness: Code(s): M62.81 - Muscle weakness (generalized) Status: Acute (2) Diabetes mellitus: Qualifiers: Diabetes mellitus type: type 2 Diabetes mellitus penitentiary insulin use: with penitentiary use Diabetes mellitus complication status: with neurologic complications Code(s): E11.9 - Type 2 diabetes mellitus without complications Status: Acute Plan 1. Change in the mental status with noted facial droop could very well be related to the TIA, MRI obviously cannot be done but the CTA has already been done which documents a focal plaque in M1 in the left MCA bilateral carotid bulb disease with stenosis (50% but right moderate stenosis of left vertebral artery, considering the will continue aspirin and Plavix for longer duration 2 diabetic neuropathy 3. Other medical problems as documented treatment will be as such along with the physical therapy Consult date: 09/12/22 HPI: Derrell Berkowitz is a 86 year old male Admitted to the hospital through the emergency room where he presented with the complaints of change in the mental status along with vomiting. As per the information available from the family he was last known well around 2:00 p.m. when he was not acting his usual self had vomited was noted to have left-sided facial droop from the previous central cerebrovascular accident along with the intermittent confusion but the family main concern was that he vomited on himself. He has been taking aspirin 81 mg daily, he is not allergic to any medication, in the past has been documented to have the conditions of 1. Chronic renal disease stage III 2. 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 Hypertension 4. Insulin-dependent diabetes mellitus and 5. Mitral valve prolapse 6. History of prostatic cancer diagnosed in 2008 and 7. Shingles. 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 normal vital signs negative CT scan of the head for the bleed and CTA with no large vessel occlusion but focal plaque in the M1 in the left MCA with underlying atherosclerotic disease in bilateral carotid bulbs and 50% stenosis with left and less than 50 on the right side also moderate stenosis of the left vertebral artery initial CBC with low platelet count of 126 hemoglobin of 11.7 negative UA negative chest x-ray Review of Systems Review of Systems: All systems reviewed & are unremarkable except as noted in HPI and below PMFSH Past Medical History Medical History Arthritis Chronic kidney disease, stage 3 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 Diverticulitis History of rectal polyps Hyperlipidemia Hypertension Insulin dependent type 2 diabetes mellitus hemoglobin A1c was 7.6 March 21, 2019. MVP (mitral valve prolapse) Prostate cancer Diagnosed in 2008. Shingles Surgical History Surgical History History of orthopedic surgery ORIF left tib-fib fracture. Family History Family History Sibling Hypertension Cerebrovascular accident Family history of malignant neoplasm Family history of diabetes mellitus in first degree relative Mother Family history of malignant neoplasm, Onset Age: 75 Patient's mother is Father Carcinoma of colon, Onset Age: 67 Patient's father is Social History Social History Social History: The patient lives with his in [place]. He is retired from [employer]. He designates his , Kaye, as his surrogate decision maker and he wishes to be a full code. He is a lifelong nonsmoker and denies alcohol and drug abuse. Smoking status: Never smoker
[2022-09-12 16:40] LABS: Glucose Point of Care 176 mg/dl (65-105)
--- NOTE | 2022-09-12 17:10 | PM.IMPN ---
Progress Note: A&P Assessment and Plan (1) Acute left-sided muscle weakness: Code(s): M62.81 - Muscle weakness (generalized) Status: Acute Assessment and Plan: Neurology consult, MRI, echo (2) Nausea & vomiting: Code(s): R11.2 - Nausea with vomiting, unspecified Status: Acute (3) Hemiparesis affecting right side as late effect of cerebrovascular accident: Code(s): I69.351 - Hemiplegia and hemiparesis following cerebral infarction affecting right dominant side Status: Acute (4) Frequent falls: Code(s): R29.6 - Repeated falls Status: Acute Assessment and Plan: PT/OT (5) Weakness: Code(s): R53.1 - Weakness Status: Acute (6) Chronic kidney disease, stage 3: Code(s): N18.3 - Chronic kidney disease, stage 3 (moderate) Status: Chronic Assessment and Plan: Monitor, stable (7) Insulin dependent type 2 diabetes mellitus: Code(s): E11.9 - Type 2 diabetes mellitus without complications; 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 No overnight events noted. No chest pain or shortness of breath. No nausea, vomiting or diarrhea. No fevers or chills. Review of Systems Review of Systems: 12 point review of systems was assessed and was negative except as noted in the HPI Exam Narrative: General: No acute distress, alert and oriented per baseline HEENT: Atraumatic, normocephalic, mucous membranes moist CV: Regular rate and rhythm, S1, S2 Lungs: Clear to auscultation bilaterally, no rales or crackles noted, no wheezes, good air entry Abdomen: Soft, nontender, nondistended Extremities: Normal to inspection Skin: No rashes noted, no lesions or wounds seen Psych: Euthymic, normal affect Objective Data Vital Signs Vital Signs: Vital Signs - 24 hr 09/11/22 19:07 09/11/22 19:15 09/11/22 19:50 Temperature 99.5 F Pulse Rate 99 96 95 Respiratory Rate 26 H 35 H 31 H Blood Pressure 145/83 H Pulse Oximetry 93 93 94 Oxygen Delivery Room Air 09/11/22 20:02 09/11/22 20:18 09/11/22 20:30 Temperature Pulse Rate 96 100 99 Respiratory Rate 31 H 22 H 27 H Blood Pressure Pulse Oximetry 93 92 93 Oxygen Delivery 09/11/22 20:45 09/12/22 00:13 09/12/22 00:25 Temperature 99.5 F Pulse Rate 97 93 90 Respiratory Rate 24 H 17 20 Blood Pressure 136/67 132/62 Pulse Oximetry 92 97 98 Oxygen Delivery 09/12/22 00:40 09/12/22 02:00 09/12/22 00:33 Temperature Pulse Rate 90 96 Respiratory Rate Blood Pressure Pulse Oximetry Oxygen Delivery Room Air 09/12/22 03:53 09/12/22 04:00 09/12/22 04:00 Temperature 97.5 F L Pulse Rate 88 88 Respiratory Rate 18 Blood Pressure 129/66 Pulse Oximetry 100 Oxygen Delivery Room Air 09/12/22 06:00 09/12/22 08:00 09/12/22 08:00 Temperature 98.7 F Pulse Rate 88 82 100 Respiratory Rate 16 Blood Pressure 125/57 L Pulse Oximetry 96 Oxygen Delivery 09/12/22 10:00 09/12/22 08:00 09/12/22 12:00 Temperature 98.4 F Pulse Rate 78 78 77 Respiratory Rate 16 24 H Blood Pressure 134/61 Pulse Oximetry 96 96 Oxygen Delivery Room Air 09/12/22 12:00 09/12/22 14:00 09/12/22 12:00 Temperature Pulse Rate 78 91 Respiratory Rate Blood Pressure Pulse Oximetry Oxygen Delivery Room Air 09/12/22 16:00 Temperature 98.7 F Pulse Rate 84 Respiratory Rate 20 Blood Pressure 148/72 H Pulse Oximetry 95 Oxygen Delivery Intake/Output Intake/Output: Intake & Output 09/09/22 09/10/22 09/11/22 09/12/22 23:59 23:59 23:59 23:59 Intake Total 100
[2022-09-12 18:48] LABS: Basophils Percent Auto 0.1 % (0.2-1.2); Eosinophils Percent Auto 0.1 % (0-4.4); Hematocrit 36.4 % (42.0-52.0); Hemoglobin 11.5 g/dL (14.0-18.0); Immature Granulocyte Absolute 0.03 K/mm3 (0.00-0.031); Immature Granulocyte Percent A 0.4 % (0-0.5); Immature Platelet Fraction Pct 6.7 % (0.9-11.2); Lymphocytes Absolute Auto 1.53 K/mm3 (0.9-3.2); Lymphocytes Percent Auto 18.3 % (18.3-44.2); Mean Corpuscular HGB Conc 31.6 g/dl (32-36); Mean Corpuscular Hemoglobin 30.2 pg (26-34); Mean Corpuscular Volume 95.5 fl (80-100); Mean Platelet Volume 10.7 fl (7.4-10.4); Monocytes Absolute Auto 0.8 K/mm3 (0.1-0.6); Monocytes Percent Auto 9.2 % (2.6-8.5); Neutrophils Percent Auto 71.9 % (45.5-73.1); Platelet Count Result 125 k/mm3 (150-375); Red Blood Count 3.81 M/mm3 (4.6-6.20); Red Cell Distribution Width 13.7 % (11.5-14.5); White Blood Count 8.4 K/mm3 (4.5-10.0)
[2022-09-12 18:58] LABS: Alanine Aminotransferase 30 U/L (6-50); Albumin Level 3.6 g/dL (3.5-5.1); Alkaline Phosphatase 78 U/L (38-126); Anion Gap 8 mmol/L (8-16); Aspartate Amino Transferase 49 U/L (17-59); Bilirubin,Total 1.4 mg/dL (0.2-1.3); Blood Urea Nitrogen 18 mg/dL (9-20); Calcium 8.3 mg/dL (8.4-10.2); Carbon Dioxide 25 mmol/L (22-30); Chloride 101 mmol/L (98-107); Estimated CRCL calculation 61 ml/min; Estimated Glomerular Filt Rate > 60; Glucose 176 mg/dL (65-110); Potassium 3.5 mmol/L (3.4-5.0); Sodium 134 mmol/L (137-145)
[2022-09-12 21:32] LABS: Glucose Point of Care 178 mg/dl (65-105)
[2022-09-13] VITALS (14 sets, daily range): BP systolic 134–148; BP diastolic 54–79; PULSE 64–91; RESP 16–26; TEMP 36.3–38.4; O2SAT 82–99
[2022-09-13 02:47] LABS: Basophils Percent Auto 0.2 % (0.2-1.2); Eosinophils Percent Auto 0.2 % (0-4.4); Hemoglobin 10.2 g/dL (14.0-18.0); Immature Granulocyte Absolute 0.03 K/mm3 (0.00-0.031); Immature Granulocyte Percent A 0.5 % (0-0.5); Immature Platelet Fraction Pct 6.9 % (0.9-11.2); Lymphocytes Absolute Auto 1.43 K/mm3 (0.9-3.2); Lymphocytes Percent Auto 21.7 % (18.3-44.2); Mean Corpuscular HGB Conc 31.9 g/dl (32-36); Mean Corpuscular Volume 94.1 fl (80-100); Monocytes Absolute Auto 0.6 K/mm3 (0.1-0.6); Monocytes Percent Auto 9.1 % (2.6-8.5); Neutrophils Absolute Auto 4.5 K/mm3 (1.3-6.7); Neutrophils Percent Auto 68.3 % (45.5-73.1); Platelet Count Result 108 k/mm3 (150-375); Red Cell Distribution Width 13.6 % (11.5-14.5); White Blood Count 6.6 K/mm3 (4.5-10.0)
[2022-09-13 02:57] LABS: Alanine Aminotransferase 24 U/L (6-50); Albumin Level 2.8 g/dL (3.5-5.1); Alkaline Phosphatase 67 U/L (38-126); Anion Gap 3 mmol/L (8-16); Aspartate Amino Transferase 40 U/L (17-59); Bilirubin,Total 1.1 mg/dL (0.2-1.3); Blood Urea Nitrogen 16 mg/dL (9-20); Calcium 7.8 mg/dL (8.4-10.2); Carbon Dioxide 26 mmol/L (22-30); Chloride 102 mmol/L (98-107); Estimated CRCL calculation 61 ml/min; Estimated Glomerular Filt Rate > 60; Glucose 147 mg/dL (65-110); Potassium 3.1 mmol/L (3.4-5.0); Sodium 131 mmol/L (137-145)
[2022-09-13] MEDS: SODIUM CHLORIDE 0.9% IV 1,000 ML 125 ML IV CONT ×3 (06:20→22:35)
--- NOTE | 2022-09-13 08:40 | PM.IMPN ---
Progress Note: A&P Assessment and Plan (1) Acute left-sided muscle weakness: Code(s): M62.81 - Muscle weakness (generalized) Status: Acute Assessment and Plan: Neurology consult, MRI, echo (2) Ankle fracture, bimalleolar, closed: Code(s): S82.843A - Displaced bimalleolar fracture of unspecified lower leg, initial encounter for closed fracture Status: Acute Assessment and Plan: uncertain etiology, ortho consult pending (3) Nausea & vomiting: Code(s): R11.2 - Nausea with vomiting, unspecified Status: Acute (4) Hemiparesis affecting right side as late effect of cerebrovascular accident: Code(s): I69.351 - Hemiplegia and hemiparesis following cerebral infarction affecting right dominant side Status: Acute (5) Frequent falls: Code(s): R29.6 - Repeated falls Status: Acute Assessment and Plan: PT/OT (6) Weakness: Code(s): R53.1 - Weakness Status: Acute Assessment and Plan: unsure of etiology, also somnolent 09/13, check ammonia, ABG, urinalysis (7) Chronic kidney disease, stage 3: Code(s): N18.3 - Chronic kidney disease, stage 3 (moderate) Status: Chronic Assessment and Plan: Monitor, stable (8) Insulin dependent type 2 diabetes mellitus: Code(s): E11.9 - Type 2 diabetes mellitus without complications; 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 No overnight events noted. No chest pain or shortness of breath. No nausea, vomiting or diarrhea. No fevers or chills. Still c/o ankle pain, found to have fracture. Seems more somnolent today, easily arousable and alert and appropriate, but then seems more drowsy again. Review of Systems Review of Systems: 12 point review of systems was assessed and was negative except as noted in the HPI Exam Narrative: General: No acute distress, alert and oriented per baseline, somnolent HEENT: Atraumatic, normocephalic, mucous membranes moist CV: Regular rate and rhythm, S1, S2 Lungs: Clear to auscultation bilaterally, diminished at bases, no wheeze Abdomen: Soft, nontender, nondistended Extremities: Normal to inspection Skin: No rashes noted, no lesions or wounds seen Psych: unable to assess Objective Data Vital Signs Vital Signs: Vital Signs - 24 hr 09/12/22 10:00 09/12/22 12:00 09/12/22 12:00 Temperature 98.4 F Pulse Rate 78 77 78 Respiratory Rate 24 H Blood Pressure 134/61 Pulse Oximetry 96 Oxygen Delivery 09/12/22 14:00 09/12/22 12:00 09/12/22 16:00 Temperature 98.7 F Pulse Rate 91 84 Respiratory Rate 20 Blood Pressure 148/72 H Pulse Oximetry 95 Oxygen Delivery Room Air 09/12/22 16:00 09/12/22 16:00 09/12/22 18:00 Temperature Pulse Rate 84 82 92 Respiratory Rate 20 Blood Pressure Pulse Oximetry 95 Oxygen Delivery Room Air 09/12/22 19:45 09/12/22 20:00 09/12/22 22:00 Temperature 98.8 F Pulse Rate 81 81 83 Respiratory Rate 32 H Blood Pressure 154/72 H Pulse Oximetry 94 Oxygen Delivery 09/12/22 20:00 09/13/22 00:00 09/13/22 00:00 Temperature 99.4 F 101.1 F H Pulse Rate 85 Respiratory Rate 26 H Blood Pressure 142/79 H Pulse Oximetry 92 Oxygen Delivery Room Air 09/13/22 00:00 09/13/22 00:00 09/13/22 02:00 Temperature Pulse Rate 82 87 Respiratory Rate Blood Pressure Pulse Oximetry 92 Oxygen Delivery Room Air 09/13/22 04:00 09/13/22 04:00 09/13/22 04:00 Temperature 99.2 F Pul
--- NOTE | 2022-09-13 09:03 | PM.CNOR ---
Assessment and Plan Assessment and plan (1) Ankle fracture, bimalleolar, closed: Qualifiers: Encounter type: initial encounter Laterality: right Qualified Code(s): S82.841A - Displaced bimalleolar fracture of right lower leg, initial encounter for closed fracture Code(s): S82.843A - Displaced bimalleolar fracture of unspecified lower leg, initial encounter for closed fracture Status: Acute Assessment and Plan: 86-year-old gentleman with history of stroke in several falls recently. Found to have right ankle fracture. Fracture is well aligned at this time and may be treated conservatively. We will try to have fracture boot applied tomorrow. nonweightbearing in the interim. Conservative treatment with ice and elevation. Patient is not a very good surgical candidate but at this time there is no surgical indication as the fracture is well aligned. History of Present Illness HPI Consult date: 09/13/22 Requesting physician: Bhavna Marie DO Consult reason: fracture (Right ankle) Chief complaint: right ankle fracture Narrative: 86-year-old with history of stroke admitted for mental status changes and weakness. Found to have swelling, bruising and tenderness of the right ankle by physical therapy working with patient. Radiographs show fracture. Patient unaware of injury although by history has had several recent falls. Review of Systems Constitutional: Constitutional: Denies fever(s) ENT: Reports Normal hearing present Cardiovascular: Cardiovascular: Denies chest pain and Denies dyspnea Respiratory: Respiratory: Denies dyspnea and Denies wheezing Gastrointestinal: Gastrointestinal: Denies abdominal pain Genitourinary: Genitourinary: Denies urinary urgency Musculoskeletal: Musculoskeletal: Reports as per HPI and Denies numbness Integumentary/Breasts: Skin/Breast: Denies changing lesions and Denies sores Endocrine: Endocrine: Denies heat intolerance Hematologic/Lymphatic: Hematologic/Lymphatic: Denies easy bleeding Allergic/Immunologic: Allergic/Immunologic: Denies wheezing PMFSH Past Medical History Medical History Arthritis Chronic kidney disease, stage 3 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 Diverticulitis History of rectal polyps Hyperlipidemia Hypertension Insulin dependent type 2 diabetes mellitus hemoglobin A1c was 7.6 March 21, 2019. MVP (mitral valve prolapse) Prostate cancer Diagnosed in 2008. Shingles Surgical History Surgical History History of orthopedic surgery ORIF left tib-fib fracture. Family History Family History Sibling Hypertension Cerebrovascular accident Family history of malignant neoplasm Family history of diabetes mellitus in first degree relative Mother Family history of malignant neoplasm, Onset Age: 75 Patient's mother is Father Carcinoma of colon, Onset Age: 67 Patient's father is Social History Social History Social History: The patient lives with his in [place]. He is retired from [employer]. He designates his , Kaye, as his surrogate decision maker and he wishes to be a full code. He is a lifelong nonsmoker and denies alcohol and drug abuse. Smoking status: Never smoker Alcohol intake: unknown Substance use: unknown Spiritual care concerns: No Agree to blood products: Yes Meds Home Medications and Allergies Home Medications Medication Instructions Recorded Confirmed Type aspirin 81 mg chewable tablet 81 mg PO DAILY 03/29/19 09/12/22 History pen needle, diabetic 31 gauge x #100 ea 04/09/20 09/12/22 Rx 3/16 (BD Ultra-Fine Mini Pen Needle) amlodipine 5 mg
[2022-09-13 09:19] LABS: Glucose Point of Care 120 mg/dl (65-105)
--- NOTE | 2022-09-13 09:54 | PCPTNOTE ---
Pt will being getting CAM boot for R ankle. CAM boot will likely not be present until tomorrow. Will Follow.
--- NOTE | 2022-09-13 10:50 | PCOTNOTE ---
Pt will be getting CAM boot for R ankle. CAM boot will likely not be present until tomorrow. Will Follow.
[2022-09-13] MEDS: ASPIRIN 81 MG CHEWABLE TABLET PO (11:23)
[2022-09-13] MEDS: amLODIPine BESYLATE 5 MG TABLET BY MOUTH (11:24)
[2022-09-13] MEDS: lisinopriL 10 MG TABLET BY MOUTH (11:36)
[2022-09-13] MEDS: INSULIN GLARGINE (*BKC) 100 UNITS/ML 48 UNITS SUB-Q (11:36)
[2022-09-13] MEDS: SIMVASTATIN 10 MG TABLET BY MOUTH (11:36)
[2022-09-13] MEDS: TAMSULOSIN HCL 0.4 MG CAPSULE BY MOUTH (11:36)
[2022-09-13 12:41] LABS: Glucose Point of Care 275 mg/dl (65-105)
[2022-09-13 15:53] LABS: Ammonia 13 umol/L (9-30)
[2022-09-13 16:23] LABS: Fractional Inspired Oxygen 21 %; HCO3 VBG 23.3 mEq/l (24.0-30.0); PCO2 VBG 40.7 mmHg (42.0-48.0); PO2 VBG 119.8 mmHg (35.0-45.0); pH VBG 7.376 (7.300-7.400)
[2022-09-13 16:24] LABS: Device ROOM AIR
[2022-09-13 17:23] LABS: Glucose Point of Care 213 mg/dl (65-105)
[2022-09-13] MEDS: oxyCODONE/ACETAMINOPHEN (*CRX) 5-325 MG TABLET 1 TABLET PO (20:00)
[2022-09-13 22:06] LABS: Glucose Point of Care 177 mg/dl (65-105)
[2022-09-13 22:22] LABS: Add Urine Microscopic? YES; Appearance Urine Cloudy (Clear); Bacteria Urine 4+ /hpf; Bilirubin Urine Negative (Negative); Blood Urine Trace (Negative); Color Urine Yellow (Yellow); Glucose Urine UA 1+ mg/dL (Negative); Ketones Urine Negative (Negative); Leukocyte Esterase Ur 2+ LEU/UL (Negative); Nitrate Urine Positive (Negative); Non Pathogenic Casts 0-2; Protein Urine 1+ mg/dL (Negative); RBC Urine 0-2 /hpf (0-2); Specific Grav Ur 1.012 (1.001-1.035); Squamous Epithelial Cell Urine None seen /hpf (Few); WBC Urine 21-50 /hpf
[2022-09-14] VITALS (15 sets, daily range): BP systolic 122–153; BP diastolic 61–81; PULSE 70–92; RESP 17–28; TEMP 36.3–37.1; O2SAT 94–100
[2022-09-14 05:21] LABS: Alanine Aminotransferase 26 U/L (6-50); Alkaline Phosphatase 74 U/L (38-126); Anion Gap 0 mmol/L (8-16); Aspartate Amino Transferase 42 U/L (17-59); Bilirubin,Total 0.8 mg/dL (0.2-1.3); Blood Urea Nitrogen 13 mg/dL (9-20); Calcium 7.8 mg/dL (8.4-10.2); Carbon Dioxide 29 mmol/L (22-30); Chloride 104 mmol/L (98-107); Estimated CRCL calculation 78 ml/min; Estimated Glomerular Filt Rate > 60; Glucose 127 mg/dL (65-110); Potassium 3.2 mmol/L (3.4-5.0); Sodium 133 mmol/L (137-145)
[2022-09-14 05:36] LABS: Basophils Percent Auto 0.2 % (0.2-1.2); Eosinophils Absolute Auto 0.1 K/mm3 (0-0.3); Eosinophils Percent Auto 2.5 % (0-4.4); Hematocrit 34.7 % (42.0-52.0); Immature Granulocyte Absolute 0.02 K/mm3 (0.00-0.031); Immature Granulocyte Percent A 0.4 % (0-0.5); Immature Platelet Fraction Pct 6.6 % (0.9-11.2); Lymphocytes Absolute Auto 1.44 K/mm3 (0.9-3.2); Lymphocytes Percent Auto 27.4 % (18.3-44.2); Mean Corpuscular HGB Conc 31.7 g/dl (32-36); Mean Corpuscular Hemoglobin 29.9 pg (26-34); Mean Corpuscular Volume 94.3 fl (80-100); Mean Platelet Volume 11.1 fl (7.4-10.4); Monocytes Absolute Auto 0.4 K/mm3 (0.1-0.6); Monocytes Percent Auto 8.2 % (2.6-8.5); Neutrophils Absolute Auto 3.2 K/mm3 (1.3-6.7); Neutrophils Percent Auto 61.3 % (45.5-73.1); Platelet Count Result 110 k/mm3 (150-375); Red Blood Count 3.68 M/mm3 (4.6-6.20); Red Cell Distribution Width 13.2 % (11.5-14.5); White Blood Count 5.3 K/mm3 (4.5-10.0)
[2022-09-14 07:59] LABS: Glucose Point of Care 119 mg/dl (65-105)
--- NOTE | 2022-09-14 08:11 | PCPTNOTE ---
Waiting for arrival of CAM boot prior to PT evaluation. Will follow
--- NOTE | 2022-09-14 08:31 | PCOTNOTE ---
Waiting for arrival of CAM boot prior to OT evaluation. Will follow
--- NOTE | 2022-09-14 08:36 | PM.IMPN ---
Progress Note: A&P Assessment and Plan (1) Acute left-sided muscle weakness: Code(s): M62.81 - Muscle weakness (generalized) Status: Acute Assessment and Plan: MRI negative for CVA Neurology consult, suspect TIA, recommend DAPT Switch to high intensity statin with crestor 20 mg daily (2) Ankle fracture, bimalleolar, closed: Code(s): S82.843A - Displaced bimalleolar fracture of unspecified lower leg, initial encounter for closed fracture Status: Acute Assessment and Plan: Uncertain etiology, ortho consult appreciated Fracture boot to be applied 09/14 (3) Frequent falls: Code(s): R29.6 - Repeated falls Status: Acute Assessment and Plan: PT/OT once cleared by ortho (4) Weakness: Code(s): R53.1 - Weakness Status: Acute Assessment and Plan: unsure of etiology, also somnolent 09/13, check ammonia, ABG, urinalysis (5) Chronic kidney disease, stage 3: Code(s): N18.3 - Chronic kidney disease, stage 3 (moderate) Status: Chronic Assessment and Plan: Monitor, stable (6) Insulin dependent type 2 diabetes mellitus: Code(s): E11.9 - Type 2 diabetes mellitus without complications; Z79.4 - half-way (current) use of insulin Status: Chronic Assessment and Plan: Accu-Cheks, sliding scale insulin, check A1c Blood glucose reviewed 09/14 (7) Hemiparesis affecting right side as late effect of cerebrovascular accident: Code(s): I69.351 - Hemiplegia and hemiparesis following cerebral infarction affecting right dominant side Status: Acute Assessment and Plan: stable (8) Nausea & vomiting: Code(s): R11.2 - Nausea with vomiting, unspecified Status: Acute Assessment and Plan: resolved Plan DVT prophylaxis with SCDs GI prophylaxis not indicated Code status full code Subjective Date/time seen: 09/14/22 08:36 Interval history: 86-year-old male with history of diabetes presenting with altered mental status and left facial droop and currently being worked up for CVA. No overnight events noted. No chest pain or shortness of breath. No nausea, vomiting or diarrhea. No fevers or chills. Still c/o ankle pain, improving with oxycodone. Review of Systems Review of Systems: 12 point review of systems was assessed and was negative except as noted in the HPI Exam Narrative: General: No acute distress, alert and oriented per baseline, somnolent HEENT: Atraumatic, normocephalic, mucous membranes moist CV: Regular rate and rhythm, S1, S2 Lungs: Clear to auscultation bilaterally, diminished at bases, no wheeze Abdomen: Soft, nontender, nondistended Extremities: Normal to inspection Skin: No rashes noted, no lesions or wounds seen Psych: unable to assess Objective Data Vital Signs Vital Signs: Vital Signs - 24 hr 09/13/22 10:00 09/13/22 12:00 09/13/22 12:00 Temperature 97.7 F Pulse Rate 64 91 74 Respiratory Rate 20 Blood Pressure 139/62 Pulse Oximetry 99 Oxygen Delivery 09/13/22 11:21 09/13/22 12:00 09/13/22 14:00 Temperature Pulse Rate 74 81 Respiratory Rate 20 Blood Pressure Pulse Oximetry 95 99 Oxygen Delivery Room Air Room Air 09/13/22 16:00 09/13/22 16:00 09/13/22 16:00 Temperature 97.3 F L Pulse Rate 82 80 80 Respiratory Rate 16 16 Blood Pressure 148/67 H Pulse Oximetry 97 97 Oxygen Delivery Room Air 09/13/22 18:00 09/13/22 20:00 09/13/22 20:00 Temperature 97.3 F L Pulse Rate 91 82 Respiratory Rate 16 Blood Pressure 134/54 L Pulse Oximetry 82 L Oxygen Delivery Room Air 09/13/22 20:00 09/13/22 22:00 09/13/22 23:17 Temperature 97.8 F Pulse Rate 82 80 86 Respiratory Rate 16 Blood Pressure 148/79 H Pulse Oximetry 98 Oxygen Delivery 09/14/22 00:00 09/14/22 00:00 09/14/22 02:00 Temperature Pulse Rate 80 92 Respiratory Rate B
[2022-09-14] MEDS: lisinopriL 10 MG TABLET BY MOUTH (09:48)
[2022-09-14] MEDS: ACETAMINOPHEN 500 MG TABLET 1000 MG PO (09:48)
[2022-09-14] MEDS: SODIUM CHLORIDE 0.9% IV 1,000 ML 125 ML IV CONT ×2 (09:48→15:31)
[2022-09-14] MEDS: ASPIRIN 81 MG CHEWABLE TABLET PO (09:48)
[2022-09-14] MEDS: amLODIPine BESYLATE 5 MG TABLET BY MOUTH (09:49)
[2022-09-14] MEDS: CLOPIDOGREL BISULFATE 75 MG TABLET PO (09:49)
[2022-09-14] MEDS: INSULIN GLARGINE (*BKC) 100 UNITS/ML 48 UNITS SUB-Q (09:49)
[2022-09-14] MEDS: TAMSULOSIN HCL 0.4 MG CAPSULE BY MOUTH (09:49)
[2022-09-14] MEDS: ROSUVASTATIN 20 MG TABLET PO (09:49)
[2022-09-14] MEDS: POTASSIUM CHLORIDE 20 MEQ ER TABLET 40 MEQ PO (09:57)
[2022-09-14 10:17] LABS: Hemoglobin A1C 7.3 % (<5.7)
[2022-09-14 11:30] LABS: Glucose Point of Care 175 mg/dl (65-105)
[2022-09-14 16:20] LABS: Glucose Point of Care 138 mg/dl (65-105)
[2022-09-14 19:59] LABS: Glucose Point of Care 196 mg/dl (65-105)
[2022-09-14] MEDS: oxyCODONE/ACETAMINOPHEN (*CRX) 5-325 MG TABLET 1 TABLET PO (20:48)
[2022-09-15] VITALS (13 sets, daily range): BP systolic 110–173; BP diastolic 69–82; PULSE 71–119; RESP 18–24; TEMP 36–36.5; O2SAT 96–100
[2022-09-15 05:02] LABS: Basophils Percent Auto 0.2 % (0.2-1.2); Eosinophils Absolute Auto 0.1 K/mm3 (0-0.3); Eosinophils Percent Auto 1.9 % (0-4.4); Hematocrit 35.8 % (42.0-52.0); Hemoglobin 11.5 g/dL (14.0-18.0); Immature Granulocyte Absolute 0.01 K/mm3 (0.00-0.031); Immature Granulocyte Percent A 0.2 % (0-0.5); Immature Platelet Fraction Pct 5.8 % (0.9-11.2); Lymphocytes Absolute Auto 1.45 K/mm3 (0.9-3.2); Lymphocytes Percent Auto 34.1 % (18.3-44.2); Mean Corpuscular HGB Conc 32.1 g/dl (32-36); Mean Corpuscular Hemoglobin 30.1 pg (26-34); Mean Corpuscular Volume 93.7 fl (80-100); Mean Platelet Volume 10.7 fl (7.4-10.4); Monocytes Absolute Auto 0.3 K/mm3 (0.1-0.6); Monocytes Percent Auto 7.8 % (2.6-8.5); Neutrophils Absolute Auto 2.4 K/mm3 (1.3-6.7); Neutrophils Percent Auto 55.8 % (45.5-73.1); Platelet Count Result 130 k/mm3 (150-375); Red Blood Count 3.82 M/mm3 (4.6-6.20); Red Cell Distribution Width 13.4 % (11.5-14.5); White Blood Count 4.3 K/mm3 (4.5-10.0)
[2022-09-15 05:12] LABS: Alanine Aminotransferase 23 U/L (6-50); Alkaline Phosphatase 67 U/L (38-126); Anion Gap 2 mmol/L (8-16); Aspartate Amino Transferase 37 U/L (17-59); Bilirubin,Total 0.8 mg/dL (0.2-1.3); Blood Urea Nitrogen 11 mg/dL (9-20); Calcium 7.9 mg/dL (8.4-10.2); Carbon Dioxide 29 mmol/L (22-30); Chloride 101 mmol/L (98-107); Estimated CRCL calculation 79 ml/min; Estimated Glomerular Filt Rate > 60; Glucose 91 mg/dL (65-110); Sodium 132 mmol/L (137-145)
--- NOTE | 2022-09-15 07:53 | PM.IMPN ---
Progress Note: A&P Assessment and Plan (1) Acute left-sided muscle weakness: Code(s): M62.81 - Muscle weakness (generalized) Status: Acute Assessment and Plan: MRI negative for CVA Neurology consult, suspect TIA, recommend DAPT Switch to high intensity statin with crestor 20 mg daily (2) Ankle fracture, bimalleolar, closed: Code(s): S82.843A - Displaced bimalleolar fracture of unspecified lower leg, initial encounter for closed fracture Status: Acute Assessment and Plan: Uncertain etiology, ortho consult appreciated Fracture boot applied 09/14 Schedule pain meds (3) Frequent falls: Code(s): R29.6 - Repeated falls Status: Acute Assessment and Plan: PT/OT once cleared by ortho (4) Weakness: Code(s): R53.1 - Weakness Status: Acute Assessment and Plan: unsure of etiology, also somnolent 09/13, check ammonia, ABG, urinalysis resolved (5) Chronic kidney disease, stage 3: Code(s): N18.3 - Chronic kidney disease, stage 3 (moderate) Status: Chronic Assessment and Plan: Monitor, stable (6) Insulin dependent type 2 diabetes mellitus: Code(s): E11.9 - Type 2 diabetes mellitus without complications; 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 Status: Chronic Assessment and Plan: Accu-Cheks, sliding scale insulin, check A1c Blood glucose reviewed 09/15 (7) Hemiparesis affecting right side as late effect of cerebrovascular accident: Code(s): I69.351 - Hemiplegia and hemiparesis following cerebral infarction affecting right dominant side Status: Acute Assessment and Plan: stable (8) Nausea & vomiting: Code(s): R11.2 - Nausea with vomiting, unspecified Status: Acute Assessment and Plan: resolved Plan DVT prophylaxis with SCDs GI prophylaxis not indicated Code status full code Subjective Date/time seen: 09/15/22 07:53 Interval history: 86-year-old male with history of diabetes presenting with altered mental status and left facial droop and currently being worked up for CVA. No overnight events noted. No chest pain or shortness of breath. No nausea, vomiting or diarrhea. No fevers or chills. Still c/o ankle pain, improving with oxycodone. Requesting it be scheduled. Review of Systems Review of Systems: 12 point review of systems was assessed and was negative except as noted in the HPI Exam Narrative: General: No acute distress, alert and oriented per baseline, somnolent HEENT: Atraumatic, normocephalic, mucous membranes moist CV: Regular rate and rhythm, S1, S2 Lungs: Clear to auscultation bilaterally, diminished at bases, no wheeze Abdomen: Soft, nontender, nondistended Extremities: Normal to inspection Skin: No rashes noted, no lesions or wounds seen Psych: unable to assess Objective Data Vital Signs Vital Signs: Vital Signs - 24 hr 09/14/22 08:00 09/14/22 08:00 09/14/22 08:00 Temperature 98.0 F Pulse Rate 85 92 Respiratory Rate 17 Blood Pressure 146/81 H Pulse Oximetry 97 97 Oxygen Delivery Room Air 09/14/22 10:00 09/14/22 11:44 09/14/22 12:00 Temperature 98.8 F Pulse Rate 82 80 86 Respiratory Rate 28 H Blood Pressure 148/71 H Pulse Oximetry 94 Oxygen Delivery 09/14/22 12:00 09/14/22 14:00 09/14/22 16:00 Temperature Pulse Rate 80 Respiratory Rate Blood Pressure Pulse Oximetry 94 94 Oxygen Delivery Room Air Room Air 09/14/22 16:00 09/14/22 16:00 09/14/22 18:00 Temperature 98.6 F Pulse Rate 82 79 87 Respiratory Rate 19 Blood Pressure 132/77 Pulse Oximetry 96 Oxygen Delivery 09/14/22 20:00 09/14/22 23:58 09/14/22 20:00 Temperature 97.3 F L 97.6 F Pulse Rate 84 82 84 Respiratory Rate 18 18 Blood Pressure 148/61 H 153/80 H Pulse Oximetry 96 97 Oxygen Delivery 09/14/22 22:00 09/15/22 00:00 09/14/22 20:00 Tem
[2022-09-15 08:15] LABS: Glucose Point of Care 78 mg/dl (65-105)
[2022-09-15] MEDS: ROSUVASTATIN 20 MG TABLET PO (09:40)
[2022-09-15] MEDS: ASPIRIN 81 MG CHEWABLE TABLET PO (09:40)
[2022-09-15] MEDS: CLOPIDOGREL BISULFATE 75 MG TABLET PO (09:40)
[2022-09-15] MEDS: POTASSIUM CHLORIDE 20 MEQ ER TABLET 80 MEQ PO (09:40)
[2022-09-15] MEDS: TAMSULOSIN HCL 0.4 MG CAPSULE BY MOUTH (09:40)
[2022-09-15] MEDS: lisinopriL 10 MG TABLET BY MOUTH (09:40)
[2022-09-15] MEDS: amLODIPine BESYLATE 5 MG TABLET BY MOUTH (09:40)
[2022-09-15] MEDS: INSULIN GLARGINE (*BKC) 100 UNITS/ML 35 UNITS SUB-Q (09:59)
[2022-09-15 12:30] LABS: Glucose Point of Care 181 mg/dl (65-105)
--- NOTE | 2022-09-15 12:48 | PM.PNORT ---
Progress Note: A&P Assessment and Plan (1) Ankle fracture, bimalleolar, closed: Qualifiers: Encounter type: subsequent encounter Laterality: right Fracture healing: with routine healing Qualified Code(s): S82.841D - Displaced bimalleolar fracture of right lower leg, subsequent encounter for closed fracture with routine healing Code(s): S82.843A - Displaced bimalleolar fracture of unspecified lower leg, initial encounter for closed fracture Status: Acute Assessment and Plan: 86-year-old gentleman with history of stroke. Right ankle bimalleolar fracture. Fracture boot applied yesterday. Continue with therapy. Will advance weight-bearing restrictions. Okay to discharge from an orthopedic standpoint when medically stable. Subjective Subjective Date/Time Seen: 09/15/22 12:48 Principal diagnosis: Right ankle bimalleolar fracture Interval history: patient awake and alert. Up in chair eating lunch. Fracture boot applied yesterday. States pain better. Exam Neck: Neck: supple and nontender Chest: Chest palpation & inspection: normal inspection of the chest Neuro: Cranial nerves: Yes Normal hearing present Extrem: General: capillary refill normal Right upper extremity: normal to inspection Left upper extremity: normal to inspection Right lower extremity: hip/thigh Details: no tenderness, knee Details: abnormal ROM ( Knee range of motion deferred secondary to fracture); no tenderness and no swelling, ankle Details: tenderness Location: of the lateral malleolus and anteromedially, swelling ( moderate) Details: laterally and medially, abnormal ROM Details: pain with active ROM and ecchymosis ( moderate diffusely ankle) and foot Details: vascular exam Details: dorsalis pedis pulse present and normal capillary refill, tendon exam (intact, able to flex and extend toes) and motor-sensory exam Details: light-touch normal Location: in all toes Left lower extremity: normal to inspection, hip/thigh Details: normal to inspection, knee Details: normal to inspection, ankle Details: normal to inspection and normal ROM ( Active flexion and extension intact); no tenderness and no swelling and foot Details: vascular exam Details: dorsalis pedis pulse present and normal capillary refill, tendon exam active flexion normal and active flexion abnormal and motor-sensory exam light-touch normal; no tenderness Objective Data Vital Signs Vital Signs: Vital Signs - 24 hr 09/14/22 14:00 09/14/22 16:00 09/14/22 16:00 Temperature Pulse Rate 80 82 Respiratory Rate Blood Pressure Pulse Oximetry 94 Oxygen Delivery Room Air 09/14/22 16:00 09/14/22 18:00 09/14/22 20:00 Temperature 98.6 F 97.3 F L Pulse Rate 79 87 84 Respiratory Rate 19 18 Blood Pressure 132/77 148/61 H Pulse Oximetry 96 96 Oxygen Delivery 09/14/22 23:58 09/14/22 20:00 09/14/22 22:00 Temperature 97.6 F Pulse Rate 82 84 85 Respiratory Rate 18 Blood Pressure 153/80 H Pulse Oximetry 97 Oxygen Delivery 09/15/22 00:00 09/14/22 20:00 09/14/22 22:07 Temperature Pulse Rate 82 Respiratory Rate Blood Pressure Pulse Oximetry 95 Oxygen Delivery Room Air Room Air 09/15/22 02:00 09/15/22 00:00 09/15/22 04:00 Temperature 97.3 F L Pulse Rate 84 83 Respiratory Rate 18 Blood Pressure 148/77 H Pulse Oximetry 96 Oxygen Delivery Room Air 09/15/22 04:00 09/15/22 04:00 09/15/22 06:00 Temperature Pulse Rate 82 76 Respiratory Rate Blood Pressure Pulse Oximetry Oxygen Delivery Room Air 09/15/22 08:00 09/15/22 09:31 09/15/22 08:00 Temperature 97.2 F L Pulse Rate 78 Respiratory Rate 22 H Blood Pressure 150/78 H Pulse Oximetry 98 Oxygen Delivery Room Air Room Air 09/15/22 12:00 Temperature 96.8 F L Pulse Rate 112 H Respiratory Rate 20 Blood Pressure 110/72 Pulse Oximetry 97 Oxygen Delivery Intake/Output Intake/Output: Intake & Outp
[2022-09-15] MEDS: oxyCODONE/ACETAMINOPHEN (*CRX) 5-325 MG TABLET 1 TABLET PO ×2 (13:00→21:26)
[2022-09-15 16:39] LABS: Glucose Point of Care 216 mg/dl (65-105)
[2022-09-15 20:09] LABS: Glucose Point of Care 216 mg/dl (65-105)
[2022-09-16] VITALS (11 sets, daily range): BP systolic 110–154; BP diastolic 59–78; PULSE 74–110; RESP 13–20; TEMP 36.1–37.5; O2SAT 98–100
[2022-09-16 05:06] LABS: Basophils Percent Auto 0.4 % (0.2-1.2); Eosinophils Absolute Auto 0.1 K/mm3 (0-0.3); Eosinophils Percent Auto 2.3 % (0-4.4); Hematocrit 33.7 % (42.0-52.0); Hemoglobin 10.8 g/dL (14.0-18.0); Immature Granulocyte Absolute 0.02 K/mm3 (0.00-0.031); Immature Granulocyte Percent A 0.4 % (0-0.5); Immature Platelet Fraction Pct 5.6 % (0.9-11.2); Lymphocytes Absolute Auto 1.99 K/mm3 (0.9-3.2); Lymphocytes Percent Auto 42.3 % (18.3-44.2); Mean Corpuscular Hemoglobin 29.8 pg (26-34); Mean Corpuscular Volume 93.1 fl (80-100); Mean Platelet Volume 10.4 fl (7.4-10.4); Monocytes Absolute Auto 0.4 K/mm3 (0.1-0.6); Monocytes Percent Auto 8.1 % (2.6-8.5); Neutrophils Absolute Auto 2.2 K/mm3 (1.3-6.7); Neutrophils Percent Auto 46.5 % (45.5-73.1); Platelet Count Result 137 k/mm3 (150-375); Red Blood Count 3.62 M/mm3 (4.6-6.20); Red Cell Distribution Width 13.3 % (11.5-14.5); White Blood Count 4.7 K/mm3 (4.5-10.0)
[2022-09-16 05:18] LABS: Alanine Aminotransferase 23 U/L (6-50); Alkaline Phosphatase 65 U/L (38-126); Anion Gap 4 mmol/L (8-16); Aspartate Amino Transferase 30 U/L (17-59); Bilirubin,Total 0.8 mg/dL (0.2-1.3); Blood Urea Nitrogen 13 mg/dL (9-20); Calcium 8.1 mg/dL (8.4-10.2); Carbon Dioxide 30 mmol/L (22-30); Chloride 102 mmol/L (98-107); Estimated CRCL calculation 69 ml/min; Estimated Glomerular Filt Rate > 60; Glucose 147 mg/dL (65-110); Potassium 3.6 mmol/L (3.4-5.0); Sodium 136 mmol/L (137-145)
[2022-09-16] MEDS: oxyCODONE/ACETAMINOPHEN (*CRX) 5-325 MG TABLET 1 TABLET PO ×3 (06:10→21:24)
[2022-09-16 08:40] LABS: Glucose Point of Care 126 mg/dl (65-105)
[2022-09-16] MEDS: INSULIN GLARGINE (*BKC) 100 UNITS/ML 48 UNITS SUB-Q (09:13)
[2022-09-16] MEDS: ROSUVASTATIN 20 MG TABLET PO (09:18)
[2022-09-16] MEDS: CLOPIDOGREL BISULFATE 75 MG TABLET PO (09:18)
[2022-09-16] MEDS: amLODIPine BESYLATE 5 MG TABLET BY MOUTH (09:18)
[2022-09-16] MEDS: ASPIRIN 81 MG CHEWABLE TABLET PO (09:18)
[2022-09-16] MEDS: TAMSULOSIN HCL 0.4 MG CAPSULE BY MOUTH (09:18)
[2022-09-16] MEDS: lisinopriL 10 MG TABLET BY MOUTH (09:18)
[2022-09-16 11:47] LABS: Glucose Point of Care 155 mg/dl (65-105)
--- NOTE | 2022-09-16 15:34 | PCSTNOTE ---
Please refer to the Bedside Swallow Evaluation in the EMR. Please note, silent aspiration cannot be ruled out at bedside.
[2022-09-16 17:11] LABS: Glucose Point of Care 187 mg/dl (65-105)
--- NOTE | 2022-09-16 17:20 | PM.IMPN ---
Progress Note: A&P Assessment and Plan (1) Acute left-sided muscle weakness: Code(s): M62.81 - Muscle weakness (generalized) Status: Acute Assessment and Plan: MRI negative for CVA Neurology consult, suspect TIA, recommend DAPT Switch to high intensity statin with crestor 20 mg daily (2) Ankle fracture, bimalleolar, closed: Qualifiers: Encounter type: subsequent encounter Laterality: right Fracture healing: with routine healing Qualified Code(s): S82.841D - Displaced bimalleolar fracture of right lower leg, subsequent encounter for closed fracture with routine healing Code(s): S82.843A - Displaced bimalleolar fracture of unspecified lower leg, initial encounter for closed fracture Status: Acute Assessment and Plan: Uncertain etiology, ortho consult appreciated Fracture boot applied 09/14 Schedule pain meds (3) Frequent falls: Code(s): R29.6 - Repeated falls Status: Acute Assessment and Plan: PT/OT once cleared by ortho (4) Weakness: Code(s): R53.1 - Weakness Status: Acute Assessment and Plan: unsure of etiology, son states he has generalized weakness normally (5) Chronic kidney disease, stage 3: Code(s): N18.3 - Chronic kidney disease, stage 3 (moderate) Status: Chronic Assessment and Plan: Monitor, stable (6) Insulin dependent type 2 diabetes mellitus: Code(s): E11.9 - Type 2 diabetes mellitus without complications; Z79.4 - [facility] (current) use of insulin Status: Chronic Assessment and Plan: Accu-Cheks, sliding scale insulin, check A1c Blood glucose reviewed 09/15 (7) Hemiparesis affecting right side as late effect of cerebrovascular accident: Code(s): I69.351 - Hemiplegia and hemiparesis following cerebral infarction affecting right dominant side Status: Acute Assessment and Plan: stable (8) Nausea & vomiting: Code(s): R11.2 - Nausea with vomiting, unspecified Status: Acute Assessment and Plan: resolved Plan DVT prophylaxis with SCDs GI prophylaxis not indicated Code status full code Subjective Date/time seen: 09/16/22 1045 Interval history: on rounding patient in the mid fowlers position alert and oriented to person only. Has somewhat slurred speech and asks repetitive questions stating he wants to go home. Patient denies any complaints of pain, shortness a breath, nausea. Patient gave me permission to call his son Derrell since he was having some confusion. Patient's son Derrell Berkowitz states they have extra help coming to help him at home and when he is discharged he would like to go home and not to the [facility]. States they have a lift chair and wheelchair any current received home health. Review of Systems Review of Systems: All systems reviewed & are unremarkable except as noted in HPI and below Musculoskeletal: Musculoskeletal: Reports arthralgias (right ankle/foot pain) Neurologic: Reports Abnormal speech present (H/O CVA with left sided facial droop and slurred speech) and Reports confusion Exam Narrative: General: No acute distress, alert and oriented per baseline, somnolent HEENT: Atraumatic, normocephalic, mucous membranes moist CV: Regular rate and rhythm, S1, S2 Lungs: Clear to auscultation bilaterally, diminished at bases, no wheeze Abdomen: Soft, nontender, nondistended Extremities: Normal to inspection Skin: No rashes noted, no lesions or wounds seen Psych: unable to assess Const: General: comfortable, no acute distress, well developed, alert, awake and average body habitus Nutritional Appearance: average body habitus Orientation/consciousness: oriented to person HENMT: Head: normal to inspection, normocephalic and atraumatic Ears: hearing grossly normal bilaterally Face/Nose/Sinus: normal facial exam Face and sinus: normal facial exam Other: Left eye enucle
[2022-09-16] MEDS: CEPHALEXIN 500 MG CAPSULE BY MOUTH ×2 (18:12→21:24)
[2022-09-16 20:12] LABS: Glucose Point of Care 181 mg/dl (65-105)
--- NOTE | 2022-09-16 21:34 | PC.NURSE ---
This patient, Derrell Berkowitz, was transferred to [room 261 ] on 09/16/22 at 2134. Personal belongings sent with patient. Report given to [ CHARMAINE Mcconnell]. Appropriate documentation sent with patient. Notified pt's son, Derrell, of transfer to 261.
[2022-09-17] VITALS: BP 156/70; PULSE 82; RESP 18; TEMP 36.3; O2SAT 99
[2022-09-17 05:54] LABS: Basophils Percent Auto 0.1 % (0.2-1.2); Eosinophils Absolute Auto 0.1 K/mm3 (0-0.3); Eosinophils Percent Auto 1.3 % (0-4.4); Hematocrit 34.6 % (42.0-52.0); Hemoglobin 10.9 g/dL (14.0-18.0); Immature Granulocyte Absolute 0.02 K/mm3 (0.00-0.031); Immature Granulocyte Percent A 0.3 % (0-0.5); Immature Platelet Fraction Pct 6.2 % (0.9-11.2); Lymphocytes Absolute Auto 2.67 K/mm3 (0.9-3.2); Lymphocytes Percent Auto 38.6 % (18.3-44.2); Mean Corpuscular HGB Conc 31.5 g/dl (32-36); Mean Corpuscular Hemoglobin 29.9 pg (26-34); Mean Corpuscular Volume 94.8 fl (80-100); Mean Platelet Volume 10.3 fl (7.4-10.4); Monocytes Absolute Auto 0.4 K/mm3 (0.1-0.6); Monocytes Percent Auto 5.8 % (2.6-8.5); Neutrophils Absolute Auto 3.7 K/mm3 (1.3-6.7); Neutrophils Percent Auto 53.9 % (45.5-73.1); Platelet Count Result 158 k/mm3 (150-375); Red Blood Count 3.65 M/mm3 (4.6-6.20); Red Cell Distribution Width 13.4 % (11.5-14.5); White Blood Count 6.9 K/mm3 (4.5-10.0)
[2022-09-17 06:00] VITALS: BP 136/66; PULSE 76; RESP 18; TEMP 36.4; O2SAT 95
[2022-09-17 06:11] LABS: Alanine Aminotransferase 23 U/L (6-50); Albumin Level 3.1 g/dL (3.5-5.1); Alkaline Phosphatase 64 U/L (38-126); Anion Gap 2 mmol/L (8-16); Aspartate Amino Transferase 31 U/L (17-59); Bilirubin,Total 0.9 mg/dL (0.2-1.3); Blood Urea Nitrogen 15 mg/dL (9-20); Calcium 8.2 mg/dL (8.4-10.2); Carbon Dioxide 31 mmol/L (22-30); Chloride 102 mmol/L (98-107); Estimated CRCL calculation 69 ml/min; Estimated Glomerular Filt Rate > 60; Glucose 64 mg/dL (65-110); Potassium 3.8 mmol/L (3.4-5.0); Sodium 135 mmol/L (137-145)
[2022-09-17 08:51] LABS: Glucose Point of Care 57 mg/dl (65-105)
[2022-09-17] MEDS: DEXTROSE 50% 25 GM/50 ML SYRINGE IV PUSH ×2 (09:13→09:16)
[2022-09-17] MEDS: lisinopriL 10 MG TABLET BY MOUTH (09:14)
[2022-09-17] MEDS: ASPIRIN 81 MG CHEWABLE TABLET PO (09:14)
[2022-09-17] MEDS: CEPHALEXIN 500 MG CAPSULE BY MOUTH ×4 (09:14→21:27)
[2022-09-17] MEDS: CLOPIDOGREL BISULFATE 75 MG TABLET PO (09:14)
[2022-09-17] MEDS: TAMSULOSIN HCL 0.4 MG CAPSULE BY MOUTH (09:14)
--- NOTE | 2022-09-17 09:20 | PM.IMPN ---
Progress Note: A&P Assessment and Plan (1) Acute left-sided muscle weakness: Code(s): M62.81 - Muscle weakness (generalized) Status: Acute Assessment and Plan: MRI negative for CVA Neurology consult, suspect TIA, recommend DAPT Switch to high intensity statin with crestor 20 mg daily (2) Ankle fracture, bimalleolar, closed: Qualifiers: Encounter type: subsequent encounter Fracture healing: with routine healing Laterality: right Qualified Code(s): S82.841D - Displaced bimalleolar fracture of right lower leg, subsequent encounter for closed fracture with routine healing Code(s): S82.843A - Displaced bimalleolar fracture of unspecified lower leg, initial encounter for closed fracture Status: Acute Assessment and Plan: Uncertain etiology, ortho consult appreciated Fracture boot applied 09/14 Schedule pain meds (3) Frequent falls: Code(s): R29.6 - Repeated falls Status: Acute Assessment and Plan: PT/OT once cleared by ortho (4) Weakness: Code(s): R53.1 - Weakness Status: Acute Assessment and Plan: unsure of etiology, son states he has generalized weakness normally (5) Chronic kidney disease, stage 3: Code(s): N18.3 - Chronic kidney disease, stage 3 (moderate) Status: Chronic Assessment and Plan: Monitor, stable (6) Insulin dependent type 2 diabetes mellitus: Code(s): E11.9 - Type 2 diabetes mellitus without complications; Z79.4 - [facility] (current) use of insulin Status: Chronic Assessment and Plan: Accu-Cheks, sliding scale insulin, check A1c Blood glucose reviewed 09/17 (7) Hemiparesis affecting right side as late effect of cerebrovascular accident: Code(s): I69.351 - Hemiplegia and hemiparesis following cerebral infarction affecting right dominant side Status: Acute Assessment and Plan: stable (8) Nausea & vomiting: Code(s): R11.2 - Nausea with vomiting, unspecified Status: Acute Assessment and Plan: resolved Plan DVT prophylaxis with SCDs GI prophylaxis not indicated Code status full code Subjective Date/time seen: 09/17/22 09:20 Interval history: 86-year-old male with history of diabetes presenting with altered mental status and left facial droop and currently being worked up for CVA. No overnight events noted. No chest pain or shortness of breath. No nausea, vomiting or diarrhea. No fevers or chills. Still c/o ankle pain, improving with oxycodone. Requesting it be scheduled. Review of Systems Review of Systems: 12 point review of systems was assessed and was negative except as noted in the HPI Exam Narrative: General: No acute distress, alert and oriented per baseline, somnolent HEENT: Atraumatic, normocephalic, mucous membranes moist CV: Regular rate and rhythm, S1, S2 Lungs: Clear to auscultation bilaterally, diminished at bases, no wheeze Abdomen: Soft, nontender, nondistended Extremities: Normal to inspection Skin: No rashes noted, no lesions or wounds seen Psych: unable to assess Objective Data Vital Signs Vital Signs: Vital Signs - 24 hr 09/16/22 12:00 09/16/22 10:00 09/16/22 12:00 Temperature 99.5 F Pulse Rate 110 H 98 105 H Respiratory Rate 19 Blood Pressure 154/78 H Pulse Oximetry 100 Oxygen Delivery 09/16/22 14:00 09/16/22 12:00 09/16/22 16:00 Temperature 97.8 F Pulse Rate 96 95 Respiratory Rate 13 Blood Pressure 110/59 L Pulse Oximetry 100 Oxygen Delivery Room Air 09/16/22 16:00 09/16/22 16:00 09/16/22 18:00 Temperature Pulse Rate 96 88 Respiratory Rate Blood Pressure Pulse Oximetry Oxygen Delivery Room Air 09/16/22 20:00 09/16/22 20:00 09/17/22 00:00 Temperature 97.0 F L 97.3 F L Pulse Rate 79 82 Respiratory Rate 18 18 Blood Pressure 154/68 H 156/70 H Pulse Oximetry 98 99 Oxygen Delive
[2022-09-17] MEDS: ROSUVASTATIN 20 MG TABLET PO (09:22)
[2022-09-17] MEDS: oxyCODONE/ACETAMINOPHEN (*CRX) 5-325 MG TABLET 1 TABLET PO ×2 (09:22→21:28)
[2022-09-17] MEDS: amLODIPine BESYLATE 5 MG TABLET BY MOUTH (09:22)
--- NOTE | 2022-09-17 09:26 | PM.DS ---
DS: Admitting Diagnosis Discharge Date 09/17/22 <Bhavna Marie DO - Last Filed: 10/21/22 08:49> 09/18/22 <Sowmya Urbina MD - Last Filed: 09/18/22 11:58> Admitting Diagnosis ams <Bhavna MaximusBriseida Marie DO - Last Filed: 10/21/22 08:49> Altered Mental Status <Sowmya Urbina MD - Last Filed: 09/18/22 11:58> DS: Discharge Diagnosis Discharge Diagnosis (1) Acute left-sided muscle weakness: Code(s): M62.81 - Muscle weakness (generalized) <Bhavna MaximusBriseida Marie DO - Last Filed: 10/21/22 08:49> Status: Acute <Bhavna Marie DO - Last Filed: 10/21/22 08:49> Assessment and Plan: MRI negative for CVA Neurology consult, suspect TIA, recommend DAPT Switch to high intensity statin with crestor 20 mg daily <Bhavna Marie DO - Last Filed: 10/21/22 08:49> (2) Ankle fracture, bimalleolar, closed: Qualifiers: Encounter type: subsequent encounter Fracture healing: with routine healing Laterality: right Qualified Code(s): S82.841D - Displaced bimalleolar fracture of right lower leg, subsequent encounter for closed fracture with routine healing <Bhavna Marie DO - Last Filed: 10/21/22 08:49> Code(s): S82.843A - Displaced bimalleolar fracture of unspecified lower leg, initial encounter for closed fracture <Bhavna Marie DO - Last Filed: 10/21/22 08:49> Status: Acute <Bhavna Marie DO - Last Filed: 10/21/22 08:49> Assessment and Plan: Uncertain etiology, ortho consult appreciated Fracture boot applied 09/14 Schedule pain meds <Bhavna Marie DO - Last Filed: 10/21/22 08:49> (3) Frequent falls: Code(s): R29.6 - Repeated falls <Bhavna Marie DO - Last Filed: 10/21/22 08:49> Status: Acute <Bhavna Marie DO - Last Filed: 10/21/22 08:49> Assessment and Plan: PT/OT once cleared by ortho <Bhavna Marie, DO - Last Filed: 10/21/22 08:49> (4) Weakness: Code(s): R53.1 - Weakness <Bhavna Marie, DO - Last Filed: 10/21/22 08:49> Status: Acute <Bhavna Marie DO - Last Filed: 10/21/22 08:49> Assessment and Plan: unsure of etiology, son states he has generalized weakness normally <Bhavna Marie, DO - Last Filed: 10/21/22 08:49> (5) Chronic kidney disease, stage 3: Code(s): N18.3 - Chronic kidney disease, stage 3 (moderate) <Bhavna Marie DO - Last Filed: 10/21/22 08:49> Status: Chronic <Bhavna Maire, DO - Last Filed: 10/21/22 08:49> Assessment and Plan: Monitor, stable <Bhavna Marie DO - Last Filed: 10/21/22 08:49> (6) Insulin dependent type 2 diabetes mellitus: Code(s): E11.9 - Type 2 diabetes mellitus without complications; Z79.4 - [employer] (current) use of insulin <Bhavna Marie DO - Last Filed: 10/21/22 08:49> Status: Chronic <Bhavna Marie DO - Last Filed: 10/21/22 08:49> Assessment and Plan: Accu-Cheks, sliding scale insulin, check A1c Blood glucose reviewed 09/17 <Bhavna Marie, DO - Last Filed: 10/21/22 08:49> (7) Hemiparesis affecting right side as late effect of cerebrovascular accident: Code(s): I69.351 - Hemiplegia and hemiparesis following cerebral infarction affecting right dominant side <Bhavna Marie DO - Last Filed: 10/21/22 08:49> Status: Acute <Bhavna Marie, DO - Last Filed: 10/21/22 08:49> Assessment and Plan: stable <Bhavna Marie DO - Last Filed: 10/21/22 08:49> (8) Nausea & vomiting: Code(s): R11.2 - Nausea with vomiting, unspecified <Bhavna Marie DO - Last Filed: 10/21/22 08:49> Status: Acute <Bhavna Marie DO - Last Filed: 10/21/22 08:49> Assessment and Plan: resolved <Bhavna Marie, DO - Last Filed: 10/21/22 08:49> Assessment and Plan: DVT prophylaxis with SCDs GI prophylaxis not indicated Code status full code <Bhavna Espinoza
[2022-09-17 11:14] LABS: Glucose Point of Care 89 mg/dl (65-105)
--- NOTE | 2022-09-17 13:09 | PC.NURSE ---
0600 dose of scheduled Q8hr Percocet 5mg not given on previous shift. Percocet given late @ 09. Subsequent doses will be given accordingly.
[2022-09-17 14:43] VITALS: BP 113/68; PULSE 88; RESP 18; TEMP 36.4; O2SAT 99
--- NOTE | 2022-09-17 17:31 | PCCCNOTE ---
Late entry: Phone call received from Arnaldo, bedside RN stating that patient has a dc order and asking about a packet and which facility. Called to Bertha at [facility], who confirms acceptance and that patient can be transferred this evening. Will need a CHARMAINE REYEZ Report and Fax written on packet. Called to brendon Bacon with no answer, left vm message that patient has a dc and he has been accepted to [facility] for admission tonight to start his rehab. Requested a call back to confirm that message was received and to confirm transportation. Provided [address] [place] [address] [facility] phone number for a return call. CHARMAINE Mcintosh aware, will proceed with rowdy while awaiting phone call from daughter.
[2022-09-17 17:38] LABS: Glucose Point of Care 200 mg/dl (65-105)
[2022-09-17 21:21] VITALS: BP 133/63; PULSE 84; RESP 16; TEMP 36.9; O2SAT 100
[2022-09-17 21:33] LABS: Glucose Point of Care 202 mg/dl (65-105)
[2022-09-18 01:19] LABS: SARS-CoV-2 RNA PCR Positive (Negative)
[2022-09-18 05:48] VITALS: BP 119/60; PULSE 83; RESP 16; TEMP 36.5; O2SAT 95
[2022-09-18] MEDS: oxyCODONE/ACETAMINOPHEN (*CRX) 5-325 MG TABLET 1 TABLET PO ×2 (06:01→13:01)
[2022-09-18 07:08] LABS: Basophils Percent Auto 0.3 % (0.2-1.2); Eosinophils Absolute Auto 0.1 K/mm3 (0-0.3); Eosinophils Percent Auto 1.7 % (0-4.4); Hematocrit 34.3 % (42.0-52.0); Hemoglobin 10.6 g/dL (14.0-18.0); Immature Granulocyte Absolute 0.02 K/mm3 (0.00-0.031); Immature Granulocyte Percent A 0.3 % (0-0.5); Lymphocytes Absolute Auto 2.17 K/mm3 (0.9-3.2); Lymphocytes Percent Auto 36.2 % (18.3-44.2); Mean Corpuscular HGB Conc 30.9 g/dl (32-36); Mean Corpuscular Hemoglobin 29.2 pg (26-34); Mean Corpuscular Volume 94.5 fl (80-100); Mean Platelet Volume 10.1 fl (7.4-10.4); Monocytes Absolute Auto 0.4 K/mm3 (0.1-0.6); Monocytes Percent Auto 7.2 % (2.6-8.5); Neutrophils Absolute Auto 3.3 K/mm3 (1.3-6.7); Neutrophils Percent Auto 54.3 % (45.5-73.1); Platelet Count Result 150 k/mm3 (150-375); Red Blood Count 3.63 M/mm3 (4.6-6.20); Red Cell Distribution Width 13.3 % (11.5-14.5)
[2022-09-18 07:22] LABS: Alanine Aminotransferase 23 U/L (6-50); Alkaline Phosphatase 75 U/L (38-126); Anion Gap 2 mmol/L (8-16); Aspartate Amino Transferase 25 U/L (17-59); Bilirubin,Total 1.1 mg/dL (0.2-1.3); Blood Urea Nitrogen 18 mg/dL (9-20); Calcium 8.2 mg/dL (8.4-10.2); Carbon Dioxide 30 mmol/L (22-30); Chloride 100 mmol/L (98-107); Estimated CRCL calculation 56 ml/min; Estimated Glomerular Filt Rate > 60; Glucose 139 mg/dL (65-110); Potassium 4.6 mmol/L (3.4-5.0); Sodium 132 mmol/L (137-145)
[2022-09-18 08:00] VITALS: PULSE 83; RESP 16; O2SAT 95
[2022-09-18] MEDS: amLODIPine BESYLATE 5 MG TABLET BY MOUTH (08:49)
[2022-09-18] MEDS: CEPHALEXIN 500 MG CAPSULE BY MOUTH ×2 (08:49→13:01)
[2022-09-18] MEDS: lisinopriL 10 MG TABLET BY MOUTH (08:49)
[2022-09-18] MEDS: ASPIRIN 81 MG CHEWABLE TABLET PO (08:49)
[2022-09-18] MEDS: TAMSULOSIN HCL 0.4 MG CAPSULE BY MOUTH (08:49)
[2022-09-18] MEDS: CLOPIDOGREL BISULFATE 75 MG TABLET PO (08:49)
[2022-09-18] MEDS: ROSUVASTATIN 20 MG TABLET PO (08:52)
[2022-09-18 09:05] LABS: Glucose Point of Care 118 mg/dl (65-105)
[2022-09-18] MEDS: INSULIN GLARGINE (*BKC) 100 UNITS/ML 48 UNITS SUB-Q (09:05)
--- NOTE | 2022-09-18 11:25 | PM.IMPN ---
Progress Note: A&P Assessment and Plan (1) Acute left-sided muscle weakness: Code(s): M62.81 - Muscle weakness (generalized) Status: Acute (2) Ankle fracture, bimalleolar, closed: Qualifiers: Encounter type: subsequent encounter Laterality: right Fracture healing: with routine healing Qualified Code(s): S82.841D - Displaced bimalleolar fracture of right lower leg, subsequent encounter for closed fracture with routine healing Code(s): S82.843A - Displaced bimalleolar fracture of unspecified lower leg, initial encounter for closed fracture Status: Acute (3) Frequent falls: Code(s): R29.6 - Repeated falls Status: Acute (4) Weakness: Code(s): R53.1 - Weakness Status: Acute (5) Chronic kidney disease, stage 3: Code(s): N18.3 - Chronic kidney disease, stage 3 (moderate) Status: Chronic (6) Insulin dependent type 2 diabetes mellitus: Code(s): E11.9 - Type 2 diabetes mellitus without complications; Z79.4 - intermediate [employer] (current) use of insulin Status: Chronic (7) Hemiparesis affecting right side as late effect of cerebrovascular accident: Code(s): I69.351 - Hemiplegia and hemiparesis following cerebral infarction affecting right dominant side Status: Acute (8) Nausea & vomiting: Code(s): R11.2 - Nausea with vomiting, unspecified Status: Acute Plan 86-year-old male with history of diabetes presenting with altered mental status and left facial droop. 1)Acute Left sided Weakness: MRI negative for CVA Neurology consult, suspect TIA, recommend DAPT Switch to high intensity statin with crestor 20 mg daily 2)Right Ankle Fracture: Uncertain etiology, ortho consult appreciated Fracture boot applied 09/14 c/w pain meds 3)CKD Stage 3: Stable kidney function 4)Diabetes Mellitus: BG check TID AC and HS C/w Insulin Adjust dose as needed 5)COVID 19: On RA Asymptomatic c/w isolation precautions 6)DVT ppx:Hep SQ 7)Code:Full 8)Dispo:Await placement, could have discharged to Rehab yesterday, but tested positive for COVID 19 Time Spent With Patient Time with patient: 15 - 25 minutes Subjective Date/time seen: 09/18/22 11:25 Interval history: no acute events tested positive for COVID 19, asymptomatic Is ready for Discharge since yesterday, but tested positive for COVID 19 Review of Systems Review of Systems: 12 point review of systems was assessed and was negative except as noted in the HPI Exam Narrative: General: No acute distress, alert and oriented per baseline, somnolent HEENT: Atraumatic, normocephalic, mucous membranes moist CV: Regular rate and rhythm, S1, S2 Lungs: Clear to auscultation bilaterally, diminished at bases, no wheeze Abdomen: Soft, nontender, nondistended Extremities: Normal to inspection Skin: No rashes noted, no lesions or wounds seen Psych: unable to assess Objective Data Vital Signs Vital Signs: Vital Signs - 24 hr 09/17/22 14:43 09/17/22 21:21 09/18/22 05:48 Temperature 97.6 F 98.5 F 97.7 F Pulse Rate 88 84 83 Respiratory Rate 18 16 16 Blood Pressure 113/68 133/63 119/60 Pulse Oximetry 99 100 95 Intake/Output Intake/Output: Intake & Output 09/15/22 09/16/22 09/17/22 09/18/22 23:59 23:59 23:59 23:59 Intake Total 1790 810 490 660 Output Total 2050 1500 1025 1650 Balance -260 -690 -535 -990 Meds/Results Medications: Active Medications Generic Name Dose Route Start Last Admin Trade Name Freq PRN Reason Stop Dose Admin Acetaminophen 1,000 mg 09/13/22 13:25 09/14/22 09:48 Acetaminophen 500 Mg Tablet PO 1,000 mg Q6H PRN Administration Mild Pain (1-3) or Fever Amlodipine Besylate 5 mg 09/12/22 09:00 09/18/22 08:49 Amlodipine Besylate 5 Mg Tablet BY MOUTH 5 mg DAILY JESSI Administration Aspirin 81 mg 09/12/22 08:00 09/18/22 08:49 Aspirin 81 Mg Chewable Tablet PO 81 mg DAILY@0800 [facility] Administ
[2022-09-18 12:16] LABS: Glucose Point of Care 157 mg/dl (65-105)
== END 2022-09-18 17:00 | disposition home health service (06) | DRG 69 ==
LOC: ANHED 22:50 → ANHIMU 09-12 00:05 → ANH2MED 09-16 21:43
PROVIDERS: Admitting Provider Internal Medicine; Emergency Provider Emergency Medicine; PCP Emergency Medicine; Visit Provider Student in an Organized Health Care Education/Training Program
DX: G45.9 Transient cerebral ischemic attack, unspecified (principal); U07.1 COVID-19; I69.351 Hemiplegia and hemiparesis following cerebral infarction affecting right dominant side; M62.81 Muscle weakness (generalized); R29.810 Facial weakness; R41.82 Altered mental status, unspecified; R11.2 Nausea with vomiting, unspecified; S82.843A Displaced bimalleolar fracture of unspecified lower leg, initial encounter for closed fracture; I12.9 Hypertensive chronic kidney disease with stage 1 through stage 4 chronic kidney disease, or unspecified chronic kidney disease; N18.30 Chronic kidney disease, stage 3 unspecified; E11.22 Type 2 diabetes mellitus with diabetic chronic kidney disease; I25.10 Atherosclerotic heart disease of native coronary artery without angina pectoris; R29.6 Repeated falls; E78.5 Hyperlipidemia, unspecified; I34.1 Nonrheumatic mitral (valve) prolapse; E11.42 Type 2 diabetes mellitus with diabetic polyneuropathy; I69.392 Facial weakness following cerebral infarction; Z85.46 Personal history of malignant neoplasm of prostate; Z87.891 Personal history of nicotine dependence; Z79.4 Long term (current) use of insulin
CPT/HCPCS: 36415; 70450; 70496; 70498; 70553; 71045; 73610; 80053; 81001; 82140; 82803; 82948; 83036; 83605; 83735; 84145; 84484; 85025; 85055; 85610; 85730; 87040; 87077; 87086; 87186; 87635; 92610; 92611; 93005; 93306; 93880; 96360; 96361; 97110; 97161; 97165; 97530; 97535; 99285; A9270; A9577; G0378; J0696; J1815; J7030; Q9967

== ENCOUNTER 2022-12-09 12:33 | Outpatient (CLI) | payer MEDICARE, SELFPAY ==
--- NOTE | ~2022-12-09 | PE_ITS ---
EXAMINATION: PET_PETPSMAST_PT DATE: 12/09/2022 14:53 INDICATION: Rising PSA level following treatment for prostate cancer TECHNIQUE: 8.867 mCi of pipflufolastat F-18 (18-F-DCFPyL) was administered i.v. Low dose computed to mography (CT) images were acquired from the base of the brain to the base of the brain to the proxima l thighs for attenuation correction and anatomic localization. Positron emission tomography (PET) angie ges were acquired in the same distribution beginning 85 minutes after injection. Images including fus ed PET/CT images were reconstructed in axial, coronal, and sagittal planes. Automated exposure contro l technique was employed. The dose-length product was 936.23mGy-cm. COMPARISON: None FINDINGS: Head/neck: Some involvement of the head compared between the CT and PET images resulting in misregistration of t he PET and CT images on the fused images. Typical pattern of symmetric physiologic increased activity in the parotid and submandibular glands as well as along the mucosa of the nasal and oral cavities, the joshua-, naso- and hypopharynx, the glottis and esophagus. Typical uptake at the right lacrimal glan d. 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 There is also a typical pattern of symmetr ic tiny foci of mild likely physiologic neural ganglia uptake at a few bilateral cervical neural fora elmer. No pathologically enlarged cervical lymphadenopathy or suspicious foci of increased uptake in t he visualized head or neck. Chest: Lungs are clear with no suspicious pulmonary nodules, pneumonia or other pulmonary infiltrates. No pl eural effusion. Heart size is normal. No pericardial effusion. Atherosclerotic coronary artery calcif ications. Thoracic aorta is normal in caliber. Calcified mediastinal lymph nodes consistent with old granulomatous disease. There is diffuse mild synovial uptake about the left glenohumeral joint and le ft supraspinatus muscle belly which are without radiologic correlate and likely physiologic. Abdomen/pelvis/proximal thighs: Physiologic renal accumulation and excretion of activity in the kidneys, bladder and along portions o f ureters. There a few low-attenuation renal cysts in the right kidney measuring up to 2 cm with ortega esponding photopenic defects on PET images. Additional indeterminate 1.5 cm low-attenuation lesion at the lateral interpolar region of the right kidney without corresponding photopenic defect on the sta ndard windowing. With window just to the higher level of activity in the kidneys or does appear to be a corresponding defect with maximal SUV of 21.9 relative to the adjacent renal cortex with maximal S UV of 56.9. Prostatomegaly with approximately 3.5 x 2 cm region of prominent increased FDG uptake wit h maximal SUV of 19.8 at the anterior inferior gland consistent with primary prostate cancer. This is more prominent on the right where there is a subtle bulge in the contour of the gland on CT imaging. There is a left obturator lymph node measuring 1.5 x 0.6 cm which is slightly larger and with higher but still not significantly elevated PSMA activity with maximal SUV of 3.4 which are equivocal for e carly metastatic disease. Normal degree and slightly heterogenous pattern of increased uptake througho ut the liver and spleen without radiologic correlate or dominant PSMA avid lesion. The gallbladder, p ancreas and right adrenal glands are normal. 2 cm low-attenuation left adrenal adenoma which without PSMA activity. Moderate uptake scattered throughout the bowels with typical duodenal and proximal jej unal predominance and without radiologic correlate, also likely physiologic. No other abnormal foci o f increased uptake or pathologically enlarged lymphadenopathy in the abdomen, pelvis or proximal thig hs. Musculoskeletal: Severe lower cervical and mild to moderate thoracic and lumbar spondylosis. No suspicious lytic, alfa tic or PSMA avid bone lesions.
== END 2022-12-09 12:34 | disposition home or self-care (01) ==
PROVIDERS: PCP Emergency Medicine; Visit Provider Nurse Practitioner Adult Health
DX: R97.21 Rising PSA following treatment for malignant neoplasm of prostate (principal); R59.0 Localized enlarged lymph nodes; N28.1 Cyst of kidney, acquired
CPT/HCPCS: 78815; A9595

== ENCOUNTER 2022-12-29 09:38 | Outpatient (CLI) | payer MEDICARE, SELFPAY ==
--- NOTE | ~2022-12-29 | MR_ITS ---
EXAMINATION: MR pelvis wo/w con DATE: 12/29/2022 12:01 INDICATION: Prostate cancer metastatic to multiple sites. TECHNIQUE: Magnetic resonance imaging (MRI) of the pelvis was performed without and with 18 mL MultiH ance intravenous contrast. COMPARISON: PET/CT 12/09/2022 FINDINGS: The bladder is markedly distended. The prostate is moderately enlarged. There are no pathologically e nlarged lymph nodes. There is no free intraperitoneal fluid. There are no dilated loops of bowel. IMPRESSION: 1. No evidence of metastatic disease. Reviewed, dictated and finalized at location A. IT DRESSER
--- NOTE | ~2022-12-29 | MR_ITS ---
EXAMINATION: MR abdomen wo/w con DATE: 12/29/2022 12:01 INDICATION: Prostate cancer metastatic to multiple sites. TECHNIQUE: Magnetic resonance imaging (MRI) of the abdomen was performed without and with 18 mL Multi Dawit intravenous contrast. COMPARISON: PET/CT 12/09/2022 FINDINGS: The liver, gallbladder, spleen, pancreas, and right adrenal gland are normal. There is a 2.2 cm mass in left kidney containing microscopic fat, consistent with an adenoma. There are cysts and hemorrhagi c cysts in the kidneys measuring up to 2.0 cm on the right. There is mild bilateral hydronephrosis, l ikely secondary to the marked bladder distention. There are no dilated loops of bowel. There are no p athologically enlarged lymph nodes. There is no free intraperitoneal fluid. IMPRESSION: 1. No evidence of metastatic disease. 2. Benign cysts in the kidneys. Reviewed, dictated and finalized at location A. ADMINISTRATOR
== END 2022-12-29 09:39 | disposition home or self-care (01) ==
PROVIDERS: PCP Emergency Medicine; Visit Provider Nurse Practitioner Adult Health
DX: C61 Malignant neoplasm of prostate (principal); Q61.02 Congenital multiple renal cysts
CPT/HCPCS: 72197; 74183; A9577

== ENCOUNTER 2022-12-30 15:40 | Outpatient (CLI) | payer MEDICARE, SELFPAY ==
--- NOTE | ~2022-12-30 | XR_ITS ---
Supine and upright views of the abdomen Clinical history: Abdominal pain Findings: Multiple air distention of the large and small bowel are present. No evidence for obstructi on or free air. No abnormal mass lesion or calcification is seen. Osseous structures are intact. Impression: Possible generalized ileus. Reviewed, dictated and finalized at [facility]. CUT OUT WORKER Impression: Possible generalized ileus.
== END 2022-12-30 15:41 | disposition home or self-care (01) ==
PROVIDERS: PCP Emergency Medicine; Visit Provider Emergency Medicine
DX: R10.9 Unspecified abdominal pain (principal)
CPT/HCPCS: 74019

== ENCOUNTER 2022-12-31 11:47 | Inpatient (IN) | payer MEDICARE, SELFPAY ==
[2022-12-31] VITALS (19 sets, daily range): BP systolic 119–152; BP diastolic 61–90; PULSE 88–101; RESP 15–26; TEMP 36.3–37.1; O2SAT 95–98; BMI 31.1
--- NOTE | ~2022-12-31 | US_ITS ---
EXAMINATION: US renal BI DATE: 01/01/2023 08:21 INDICATION: Bilateral hydronephrosis. TECHNIQUE: Multiple ultrasound grayscale images of the kidneys were obtained. COMPARISON: CT abdomen and pelvis 12/31/2022 FINDINGS: The right kidney measures 12.5 x 6.2 x 5.4 cm. The left kidney measures 12.2 x 5.7 x 5.1 cm. The kidn eys demonstrate normal parenchymal echogenicity. There are cysts in the kidneys measuring up to 2.2 c m on the left. There is no hydronephrosis. The bladder is decompressed by a Singh catheter. IMPRESSION: 1. Normal kidney sizes. No hydronephrosis. Reviewed, dictated and finalized at location A. MERCERIZER OPERATOR
--- NOTE | ~2022-12-31 | CT_ITS ---
EXAMINATION: CT abdomen pelvis w con DATE: 12/31/2022 13:42 INDICATION: Abdominal distention TECHNIQUE: Computed tomography (CT) of the abdomen and pelvis was performed with 100 CC Omnipaque 350 intravenous contrast. Automated exposure control and iterative reconstruction technique were employe d. Exam dose: 995.89 mGy-cm total exam DLP. COMPARISON: 12/30/2022 obstructive series 12/29/2022 MRI abdomen FINDINGS: There is discoid atelectasis at the middle and right lower lobes. Cardiomegaly. Prominent coronary artery calcifications. No pericardial or pleural effusion. No hepatic, splenic, pancreatic space-occupying mass lesion. There is a calcification of the pancreat ic head which may be due to mild chronic pancreatitis. No peripancreatic fluid or fat stranding. No b ile duct or pancreatic duct dilatation. The gallbladder is unremarkable. 1.5 x 2.2 cm left adrenal mass with attenuation of 59.7 Hounsfield units. The adrenal glands are othe rwise unremarkable. Multiple bilateral renal cysts, measuring up to 2 cm on the right, 2.3 cm on the left. Mild to moderate bilateral hydroureteronephrosis. There is severe urinary bladder distention which ex tends above the umbilicus, measuring 21 cm vertical, 1.5 cm anteroposterior and 15.4 cm transverse di mension. No urinary bladder wall thickening is evident. There is prominent prostatomegaly, impressing the base of the urinary bladder. There are prostate calcifications. There is atherosclerotic calcification of the abdominal aorta and calcification at the origins of the celiac and particularly superior mesenteric artery addition to some proximal bilateral renal artery calcifications. No abdominal aortic aneurysm. No intraperitoneal or retroperitoneal or pelvic mass le stan or adenopathy or ascites is evident. Moderately prominent bilateral hip osteoarthritis. Diffuse idiopathic skeletal hyperostosis of the th oracic spine Degenerative change at the apophyseal joints of the lumbar spine with associated minimal grade 1 ante rolisthesis at L4-5. No suspicious osteolytic or osteoblastic lesions are noted. IMPRESSION: Very prominent distention of the urinary bladder likely secondary to prostatomegaly; ass ociated mild to moderate right and left hydroureteronephrosis Cardiomegaly 1.5 x 2.2 cm left adrenal mass Bilateral renal cysts Calcification pancreatic head which may be due to mild chronic pancreatitis Reviewed, dictated and finalized at Location A. Reviewed, dictated and finalized at location L. OLE BASTER HAND IMPRESSION: Very prominent distention of the urinary bladder likely secondary to prostatomegaly; associated mild to moderate right and left hydroureteronephr osis Cardiomegaly 1.5 x 2.2 cm left adrenal mass Bilateral renal cysts Calcification pancreatic head which may be due to mild chronic pancreatitis
--- NOTE | ~2022-12-31 | US_ITS ---
EXAMINATION: US venous doppler LE RT DATE: 12/31/2022 14:08 INDICATION: Right lower limb swelling. TECHNIQUE: Grayscale ultrasound images without and with compression and Doppler ultrasound images of the right lower extremity veins were obtained. COMPARISON: None. FINDINGS: The visualized portions of right common femoral vein, profunda (deep) femoral vein, popliteal vein, p eroneal veins, posterior tibial veins, and greater saphenous vein outflow are patent. There is nonocc lusive thrombus in femoral vein. IMPRESSION: 1. Deep vein thrombosis involving right femoral vein. I called this result to José Miguel. Reviewed, dictated and finalized at location A. LIFE POLICY PROFESSIONAL
--- NOTE | ~2022-12-31 | XR_ITS ---
EXAMINATION: XR abdomen/kub 1V DATE: 01/04/2023 06:29 INDICATION: Adynamic ileus. TECHNIQUE: A supine view of the abdomen on 2 radiographs was obtained. COMPARISON: Abdomen radiographs 12/30/2022, CT abdomen and pelvis 12/31/2022 FINDINGS: There is gaseous distention of the sigmoid colon. There is a moderate volume of stool in th e colon. A catheter overlies the bladder. IMPRESSION: 1. Gaseous distention of the sigmoid colon, likely adynamic ileus. Reviewed, dictated and finalized at location E. IER TICKET SELLING
--- NOTE | 2022-12-31 12:32 | ED.GENADULT ---
HPI - General Adult General Chief complaint: Recheck/Abnormal Lab/Rx Stated complaint: constipation Time Seen by Provider: 12/31/22 12:18 History of Present Illness HPI narrative: Patient is an 87-year-old male with history of prostate cancer, not currently receiving chemotherapy or radiation, here with abdominal distension and abnormal outpatient x-ray. Family notes that it has been about 4 days since he last had a bowel movement. They have noted progressive abdominal distention. He does notice that he continues to have flatulence with the last flatulence this morning. He denies any fever or chills. Denies any urinary symptoms. Of note patient additionally is having some right lower leg swelling. believes that it has been present for about 2 weeks. No prior history of PE or DVT. 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 Diverticulitis History of rectal polyps Hyperlipidemia Hypertension Insulin dependent type 2 diabetes mellitus hemoglobin A1c was 7.6 March 21, 2019. MVP (mitral valve prolapse) Prostate cancer Diagnosed in 2008. Shingles Surgical History Surgical History History of orthopedic surgery ORIF left tib-fib fracture. Family History Family History Sibling Hypertension Cerebrovascular accident Family history of malignant neoplasm Family history of diabetes mellitus in first degree relative Mother Family history of malignant neoplasm, Onset Age: 75 Patient's mother is Father Carcinoma of colon, Onset Age: 67 Patient's father is Social History Social History Social History: The patient lives with his in [place]. He is retired from [employer]. He designates his , Kaye, as his surrogate decision maker and he wishes to be a full code. He is a lifelong nonsmoker and denies alcohol and drug abuse. Smoking status: Never smoker Alcohol intake: never Substance use: never Substance use type: does not use Lack of Transportation: No Lack of Food: Never True Current Housing: I Do Not Have Housing Concerned About Future Housing: No Difficulty Paying Gas/Electric Bills: No Difficulty Paying for Meds: No Currently Unemployed: No Education: High School Diploma/GED Difficulty w/ Childcare or Family Care: No Spiritual care concerns: No Agree to blood products: Yes Exam Narrative: GENERAL: Well-appearing, well-nourished, and in no acute distress. HEAD: Normocephalic, atraumatic. EYES: Normal EOMI on the right, eye patch present on the left ENT: Nares clear. Mucous membranes moist. NECK: Supple. CHEST: Clear to auscultation. No respiratory distress. HEART: Regular rate and rhythm. Normal peripheral pulses. ABDOMEN: Soft, distended. Diffusely tender. No rebound or guarding. EXTREMITIES: Normal range of motion. Pitting edema on the right past the knee, non on the left. SKIN: Warm, dry, no rash. NEURO: No focal deficits. Alert and oriented x2. Course Course Emergency Course: Chart review performed. Patient was called to come to the ED due to bowel obstruction. Haja
[2022-12-31 13:01] LABS: Basophils Percent Auto 0.1 % (0.2-1.2); Eosinophils Percent Auto 0.3 % (0-4.4); Hematocrit 34.2 % (42.0-52.0); Hemoglobin 10.8 g/dL (14.0-18.0); Immature Granulocyte Absolute 0.02 K/mm3 (0.00-0.031); Immature Granulocyte Percent A 0.2 % (0-0.5); Lymphocytes Absolute Auto 1.54 K/mm3 (0.9-3.2); Lymphocytes Percent Auto 16.5 % (18.3-44.2); Mean Corpuscular HGB Conc 31.6 g/dl (32-36); Mean Corpuscular Hemoglobin 28.4 pg (26-34); Mean Platelet Volume 10.7 fl (7.4-10.4); Monocytes Absolute Auto 0.7 K/mm3 (0.1-0.6); Monocytes Percent Auto 7.2 % (2.6-8.5); Neutrophils Absolute Auto 7.1 K/mm3 (1.3-6.7); Neutrophils Percent Auto 75.7 % (45.5-73.1); Platelet Count Result 179 k/mm3 (150-375); Red Cell Distribution Width 14.2 % (11.5-14.5); White Blood Count 9.3 K/mm3 (4.5-10.0)
[2022-12-31 13:09] LABS: Alanine Aminotransferase 20 U/L (6-50); Albumin Level 3.9 g/dL (3.5-5.1); Alkaline Phosphatase 79 U/L (38-126); Anion Gap 10 mmol/L (8-16); Aspartate Amino Transferase 23 U/L (17-59); Bilirubin,Total 1.2 mg/dL (0.2-1.3); Blood Urea Nitrogen 36 mg/dL (9-20); Carbon Dioxide 24 mmol/L (22-30); Chloride 100 mmol/L (98-107); Estimated CRCL calculation 30 ml/min; Estimated Glomerular Filt Rate 34; Glucose 149 mg/dL (65-110); Lipase 35 U/L (23-300); Potassium 5.1 mmol/L (3.4-5.0); Sodium 134 mmol/L (137-145)
[2022-12-31 13:10] LABS: Lactic Acid Reflex 1.2 mmol/L (0.7-2.0)
[2022-12-31 13:11] LABS: INR 1.1; Partial Thromboplastin Time 33.5 SECONDS (22.3-36.8); Prothrombin Time 14.5 Seconds (11.1-14.7)
[2022-12-31 13:20] LABS: NT Pro B Type Natriuretic Pept 1940 pg/mL (19.9-100)
[2022-12-31] MEDS: ENOXAPARIN 100 MG/ML SYRINGE SUB-Q (15:38)
--- NOTE | 2022-12-31 16:00 | PC.NURSE ---
2500mL of dark yellow urine emptied from patient' saini bag. Catheter is patent and still flowing
[2022-12-31 16:23] LABS: Appearance Urine Clear (Clear); Bacteria Urine None Seen /hpf; Bilirubin Urine Negative (Negative); Blood Urine 1+ (Negative); Color Urine Yellow (Yellow); Glucose Urine UA Trace mg/dL (Negative); Ketones Urine Negative (Negative); Leukocyte Esterase Ur Trace LEU/UL (Negative); Nitrate Urine Negative (Negative); Non Pathogenic Casts 0-2; Protein Urine Trace mg/dL (Negative); Specific Grav Ur 1.016 (1.001-1.035); Squamous Epithelial Cell Urine None seen /hpf (Few); Urobilinogen Urine 0.2 mg/dL (<2.0); WBC Urine 0-5 /hpf; pH Urine 5.5 (5.0-9.0)
[2022-12-31 16:26] LABS: Add Urine Microscopic? YES
--- NOTE | 2022-12-31 16:42 | PC.NURSE ---
food tray ordered for patient
--- NOTE | 2022-12-31 17:31 | PM.IMHP ---
H&P: HPI History of Present Illness Date/Time: 12/31/22 17:31 Chief Complaint: This very pleasant 87-year-old male patient with significant past medical history of prostate cancer not currently undergoing any treatment with chemotherapy, immunotherapy or radiation, chronic kidney disease stage 3, prior CVA in 2008 with residual left-sided weakness, diverticulitis, hyperlipidemia, hypertension, insulin-dependent type 2 diabetes mellitus, mitral valve prolapse, diverticulitis, deficit of having a left eye, and rectal polyps presents to the emergency room today with complaints of having lower abdominal pain and right lower extremity swelling and pain. Patient endorses constipation and notes that it had been 4 days since he last had a bowel movement. Over those 4 days he has had progressive abdominal distention despite some flatulence. There has been no nausea and/or vomiting. Patient has been afebrile and just complains that his belly feels ?tight. ? According to his the patient has also had 2 weeks of right lower extremity swelling and tenderness. There was no acute injury, fall, trauma. He has not been evaluated for this to this point. At current time patient denies any chest pain, dyspnea, nausea, vomiting, diarrhea. In the emergency room workup was performed and it was found that patient was having urinary retention. CT scan of the abdomen pelvis showing a prominently distended urinary bladder secondary to prostatomegaly with mild to moderate bilateral hydroureteronephrosis. There also noted bilateral renal cysts and a 1.5 x 2.2 left adrenal mass. A Singh catheter was placed and patient had greater than 2 L of urine held in the bladder. It is felt to be due to possibly his constipation and a combination of his prostate cancer. It is noted that the Singh catheter was placed without meeting resistance, and therefore Urology was not readily consult. While in the emergency room his vital signs remained stable and his workup consisting of labs which were notable for a normal white blood cell count, mild anemia with a hemoglobin of 10.8, MYLENE with a creatinine of 1.9 and BUN of 36, mild hyponatremia with sodium level 134 and marginally elevated potassium 5.1. Patient did not meet sepsis criteria upon admission. They urinalysis that was performed off of his urine demonstrated 1+ blood, however no other infectious signs. Venous Doppler was performed of the right lower extremity that demonstrated a DVT present in the right femoral vein. Patient was initial dosed on therapeutic Lovenox. This patient lives with his and [place], [place] who is his POA and together they have decided the patient will remain a full code. He is being admitted to the hospitalist service at this time as a medical inpatient for continued evaluation and treatment of his urinary retention, MYLENE, DVT, constipation and anemia without any other complaints except as noted in HPI. At the time of admission patient's home medications had not yet been reviewed with exception of his dose of Lantus that he takes with myself. These will need to be reconciled after admission to hospital. 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 Diverticulitis History of rectal polyps Hyperlipidemia Hypertension Insulin dependent type 2 diabetes mellitus hemoglobin A1c was 7.6 March 21, 2019. MVP (mitral valve prolapse) Prostate cancer Diagnosed in 2008. [place] Surgical History Surgical History History of orthopedic surgery ORIF left tib-fib fracture. Family History Family History Nafisa
--- NOTE | 2022-12-31 19:16 | PC.NURSE ---
Another 1000mL of urine emptied from patient's saini bag
--- NOTE | 2022-12-31 21:35 | ADMGEN ---
This patient, Derrell Berkowitz, was admitted to Medical Room 345-01. Patient/family oriented to hospital policies and general routines including ID bracelet, bed and alarms, visiting hours, pain management, procedures, bathroom and other care routines, personal items, smoking policy, room service/diet, and visiting hours. Information on how to activate the Rapid Response Team has been discussed. Patient/Family are encouraged to report perceived risks to care and to ask questions if they do not understand what they are told or what they should do.
[2022-12-31] MEDS: SODIUM CHLORIDE 0.9% IV 1,000 ML 100 ML IV CONT (22:02)
[2022-12-31 22:38] LABS: Glucose Point of Care 184 mg/dl (65-105)
[2023-01-01 05:03] VITALS: BP 122/63; PULSE 77; RESP 16; TEMP 36.3; O2SAT 97
[2023-01-01 05:48] LABS: Basophils Percent Auto 0.3 % (0.2-1.2); Eosinophils Absolute Auto 0.1 K/mm3 (0-0.3); Eosinophils Percent Auto 1.6 % (0-4.4); Hematocrit 31.3 % (42.0-52.0); Hemoglobin 9.6 g/dL (14.0-18.0); Immature Granulocyte Absolute 0.02 K/mm3 (0.00-0.031); Immature Granulocyte Percent A 0.3 % (0-0.5); Lymphocytes Absolute Auto 1.72 K/mm3 (0.9-3.2); Lymphocytes Percent Auto 27.1 % (18.3-44.2); Mean Corpuscular HGB Conc 30.7 g/dl (32-36); Mean Corpuscular Hemoglobin 28.4 pg (26-34); Mean Corpuscular Volume 92.6 fl (80-100); Mean Platelet Volume 10.9 fl (7.4-10.4); Monocytes Absolute Auto 0.5 K/mm3 (0.1-0.6); Neutrophils Percent Auto 62.7 % (45.5-73.1); Platelet Count Result 146 k/mm3 (150-375); Red Blood Count 3.38 M/mm3 (4.6-6.20); White Blood Count 6.4 K/mm3 (4.5-10.0)
[2023-01-01 06:03] LABS: Anion Gap 5 mmol/L (8-16); Blood Urea Nitrogen 28 mg/dL (9-20); Calcium 8.1 mg/dL (8.4-10.2); Carbon Dioxide 25 mmol/L (22-30); Chloride 105 mmol/L (98-107); Estimated CRCL calculation 38 ml/min; Estimated Glomerular Filt Rate 44; Glucose 106 mg/dL (65-110); Sodium 135 mmol/L (137-145)
--- NOTE | 2023-01-01 07:15 | WPDURCON ---
Assessment and Plan Assessment and plan (1) Acute constipation: Code(s): K59.00 - Constipation, unspecified Status: Acute (2) Acute urinary retention: Code(s): R33.8 - Other retention of urine Status: Acute (3) Prostate cancer: Code(s): C61 - Malignant neoplasm of prostate Status: Acute Assessment and Plan: Urine retention secondary to underlying prostate enlargement ( calculated volume 55 g) complicated by profound constipation and overactive bladder medications Stop all OAB meds and start tamsulosin Voiding trial in 5-7 days. He will likely go home with his indwelling catheter. Renal ultrasound Wednesday morning to make sure hydronephrosis resolves following bladder decompression Urology Consult Note HPI Date Seen: 01/01/23 Requesting Physician: Roby Zhang MD Primary Care Provider: Quan Uribe MD Consult Narrative Narrative: Derrell Berkowitz is a 87 year old male who is known to our practice with a history of prostate cancer managed with androgen deprivation therapy since August 2019. Recent PSMA PET scan showed slight local progression without definitive metastatic disease - Hence, decision to continue with androgen deprivation alone without the additional anti neoplastic drugs. He does have a history of overactive bladder complaints of urinary frequency and urgency. The attempts at managing this with overactive bladder medications has met with minimal success. He is now admitted with profound constipation and urinary retention. He was catheterized for a volume of over 2000 cc Review of Systems Review of Systems: ROS unobtainable: Yes unobtainable due to mental status Cardiovascular: Cardiovascular: Denies chest pain, Denies lightheadedness, Denies palpitations and Denies dyspnea Respiratory: Respiratory: Denies dyspnea Gastrointestinal: Gastrointestinal: Denies diarrhea, Denies nausea and Denies vomiting Genitourinary: Genitourinary: Denies hematuria and Denies dysuria Endocrine: Endocrine: Denies palpitations [facility] Past Medical History Medical History (Updated 12/31/22 @ 18:09 by MICHELLE Restrepo) Anemia Arthritis Chronic kidney disease, stage 3 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 Diverticulitis History of rectal polyps Hyperlipidemia Hypertension Insulin dependent type 2 diabetes mellitus hemoglobin A1c was 7.6 March 21, 2019. MVP (mitral valve prolapse) Prostate cancer Diagnosed in 2008. [place] Surgical History Surgical History History of orthopedic surgery ORIF left tib-fib fracture. Family History Family History Sibling Hypertension Cerebrovascular accident Family history of malignant neoplasm Family history of diabetes mellitus in first degree relative Mother Family history of malignant neoplasm, Onset Age: 75 Patient's mother is Father Carcinoma of colon, Onset Age: 67 Patient's father is Social History Social History Social History: The patient lives with his in [place]. He is retired from [employer]. He designates his , Kaye, as his surrogate decision maker and he wishes to be a full code. He is a lifelong nonsmoker and denies alcohol and drug abuse. Smoking status: Never smoker Alcohol intake: never Substance use: never Substance use type: does not use Lack of Transportation: No Lack of Food: Never True Current Housing: I Have Housing Concerned About Future Housing: No Difficulty Paying Gas/Electric Bills: No Difficulty Paying for Meds: No Currently Unemployed: No Education: Don't Know Difficulty w/ Childcare or Family Care: No Spiritual care concerns: No Agree to blood products: Yes Me
--- NOTE | 2023-01-01 07:52 | PC.NURSE ---
Patient off of unit to ultrasound
[2023-01-01 08:40] LABS: Glucose Point of Care 104 mg/dl (65-105)
--- NOTE | 2023-01-01 08:51 | P.PNIM_ITS ---
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 * Renal US shown normal kidney size, no hydronephrosis * BUN 28, creatinine 1.50, eGFR 44, creatinine clearance 38, Na+ 135, K+ 4.0 * Singh catheter in place draining without difficulty * Initial output greater than 2000ml residual * Continue I and O * Urology following, patient was started on Tamsulosin and overactive bladder medications were held. * Plan for repeat renal US tomorrow to see if hydronephrosis has resolved now that bladder is decompressed. (2) MYLENE (acute kidney injury): Code(s): N17.9 - Acute kidney failure, unspecified Status: Acute Assessment and Plan: 12/31/22: * Acute kidney injury * Baseline creatinine is 0.7-1.0. * Creatinine today is 1.9. * Patient will be given gentle hydration with normal saline at 100 mils per hour * Recheck a.m. labs with renal function. 01/01/23: * BUN 28, Creatinine 1.50, eGFR 44, trending down to baseline * IVF discontinued * Continue to trend labs (3) Acute deep vein thrombosis (DVT) of femoral vein of right lower extremity: Code(s): I82.411 - Acute embolism and thrombosis of right femoral vein Status: Acute Assessment and Plan: 12/31/22: * As evidenced by venous Doppler. * Therapeutic Lovenox started. * Distal neurovascular status is otherwise intact with intact pulses and capillary refill. 01/01/23: * Dopplers revealed DVT to right femoral vein * Continue therapeutic Lovenox (4) Acute constipation: Code(s): K59.00 - Constipation, unspecified Status: Acute Assessment and Plan: 12/31/22: * Daily MiraLax * No evidence of obstruction as noted per CT scan of abdomen and pelvis * Dulcolax suppository 10 mg p.r.n. * Colace b.i.d. 01/01/23: * Continue with current treatment plan (5) Diabetes mellitus: Qualifiers: Diabetes mellitus complication detail: with unspecified neuropathy Diabetes mellitus complication status: with neurologic complications Diabetes mellitus termite exterminator helper insulin use: with group home use Diabetes mellitus type: type 2 Qualified Code(s): E11.40 - Type 2 diabetes mellitus with diabetic neuropathy, unspecified; Z79.4 - [facility] (current) use of insulin Code(s): E11.9 - Type 2 diabetes mellitus without complications Status: Acute Assessment and Plan: 12/31/22: * Accu-Cheks a.c. and HS * Hypoglycemic protocol * Continue home dose of Lantus 48 units every a.m. * Sliding scale insulin protocol initiated, moderate dose * Check A1c * Heart healthy diet 01/01/23: * Hgb A1C 7.0 * BG ranging 104-106 * Continue with current treatment plan (6) Anemia: Code(s): D64.9 - Anemia, unspecified Status: Chronic Assessment and Plan: 12/31/22: * Chronic in nature but stable. * Monitor CBC daily 01/01/23: * Hgb 9.6/ Hct 31.3 * stable (7) Abnormal CT scan: Code(s)
--- NOTE | 2023-01-01 08:51 | PM.IMPN ---
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 Renal US shown normal kidney size, no hydronephrosis BUN 28, creatinine 1.50, eGFR 44, creatinine clearance 38, Na+ 135, K+ 4.[address] draining without difficulty Initial output greater than 2000ml residual Continue I and O Urology following, patient was started on Tamsulosin and overactive bladder medications were held. Plan for repeat renal US tomorrow to see if hydronephrosis has resolved now that bladder is decompressed. (2) MYLENE (acute kidney injury): Code(s): N17.9 - Acute kidney failure, unspecified Status: Acute Assessment and Plan: 12/31/22: Acute kidney injury Baseline creatinine is 0.7-1.0. Creatinine today is 1.9. Patient will be given gentle hydration with normal saline at 100 mils per hour Recheck a.m. labs with renal function. 01/01/23: BUN 28, Creatinine 1.50, eGFR 44, trending down to baseline IVF discontinued Continue to trend labs (3) Acute deep vein thrombosis (DVT) of femoral vein of right lower extremity: Code(s): I82.411 - Acute embolism and thrombosis of right femoral vein Status: Acute Assessment and Plan: 12/31/22: As evidenced by venous Doppler. Therapeutic Lovenox started. Distal neurovascular status is otherwise intact with intact pulses and capillary refill. 01/01/23: Dopplers revealed DVT to right femoral vein Continue therapeutic Lovenox (4) Acute constipation: Code(s): K59.00 - Constipation, unspecified Status: Acute Assessment and Plan: 12/31/22: Daily MiraLax No evidence of obstruction as noted per CT scan of abdomen and pelvis Dulcolax suppository 10 mg p.r.n. Colace b.i.d. 01/01/23: Continue with current treatment plan (5) Diabetes mellitus: Qualifiers: Diabetes mellitus complication detail: with unspecified neuropathy Diabetes mellitus complication status: with neurologic complications Diabetes mellitus half-way insulin use: with licensing registration examiner use Diabetes mellitus type: type 2 Qualified Code(s): E11.40 - Type 2 diabetes mellitus with diabetic neuropathy, unspecified; Z79.4 - ent surgeon (current) use of insulin Code(s): E11.9 - Type 2 diabetes mellitus without complications Status: Acute Assessment and Plan: 12/31/22: Accu-Cheks a.c. and HS Hypoglycemic protocol Continue home dose of Lantus 48 units every a.m. Sliding scale insulin protocol initiated, moderate dose Check A1c Heart healthy diet 01/01/23: Hgb A1C 7.0 BG ranging 104-106 Continue with current treatment plan (6) Anemia: Code(s): D64.9 - Anemia, unspecified Status: Chronic Assessment and Plan: 12/31/22: Chronic in nature but stable. Monitor CBC daily 01/01/23: Hgb 9.6/ Hct 31.3 stable (7) Abnormal CT scan: Code(s): R93.89 - Abnormal findings on diagnostic imaging of other specified body structures Status: Acute Assessment and Plan: 12/31/22: CT abdomen and pelvis with findings of bilateral renal cysts and a 1.5 x 2.2 left adrenal mass. This will need to be worked up on discharge. 01/01/23: of note (8) Hyponatremia: Code(s): E87.1 - Hypo-osmolality and hyponatremia Status: Acute Assessment and Plan: 12/31/22: Mild degree of hyponat
[2023-01-01] MEDS: amLODIPine BESYLATE 5 MG TABLET PO (09:35)
[2023-01-01] MEDS: INSULIN GLARGINE (*BKC) 100 UNITS/ML 48 UNITS SUB-Q (09:35)
[2023-01-01] MEDS: ASPIRIN 81 MG CHEWABLE TABLET PO (09:35)
[2023-01-01] MEDS: polyethylene glycoL 3350 17 GM POWD.PACK PO (09:35)
[2023-01-01] MEDS: ROSUVASTATIN 10 MG TABLET 20 MG PO (09:35)
[2023-01-01] MEDS: DOCUSATE SODIUM 100 MG CAPSULE PO ×2 (09:35→17:32)
[2023-01-01 11:07] VITALS: BP 108/66; PULSE 88; RESP 16; TEMP 36.3; O2SAT 99
[2023-01-01 12:03] LABS: Glucose Point of Care 168 mg/dl (65-105)
[2023-01-01 15:20] VITALS: BP 116/57; PULSE 79; RESP 16; TEMP 36.6; O2SAT 100
[2023-01-01 16:52] LABS: Glucose Point of Care 118 mg/dl (65-105)
[2023-01-01] MEDS: ENOXAPARIN 100 MG/ML SYRINGE SUB-Q (20:21)
[2023-01-01] MEDS: TAMSULOSIN HCL 0.4 MG CAPSULE PO (20:21)
[2023-01-01 21:07] LABS: Glucose Point of Care 132 mg/dl (65-105)
[2023-01-01 21:19] VITALS: BP 132/69; PULSE 73; RESP 18; TEMP 36.9; O2SAT 97
[2023-01-02 06:00] VITALS: BP 123/68; PULSE 81; RESP 18; TEMP 36.7; O2SAT 96
[2023-01-02 08:10] LABS: Glucose Point of Care 81 mg/dl (65-105)
[2023-01-02] MEDS: amLODIPine BESYLATE 5 MG TABLET PO (08:13)
[2023-01-02] MEDS: DOCUSATE SODIUM 100 MG CAPSULE PO ×2 (08:13→17:06)
[2023-01-02] MEDS: ROSUVASTATIN 10 MG TABLET 20 MG PO (08:13)
[2023-01-02] MEDS: ASPIRIN 81 MG CHEWABLE TABLET PO (08:13)
[2023-01-02] MEDS: polyethylene glycoL 3350 17 GM POWD.PACK PO (08:13)
[2023-01-02] MEDS: INSULIN GLARGINE (*BKC) 100 UNITS/ML 48 UNITS SUB-Q (08:24)
[2023-01-02] MEDS: ENOXAPARIN 100 MG/ML SYRINGE SUB-Q ×2 (10:52→20:17)
[2023-01-02 11:50] LABS: Glucose Point of Care 181 mg/dl (65-105)
[2023-01-02 14:00] VITALS: BP 120/76; PULSE 81; RESP 16; TEMP 36.8; O2SAT 96
--- NOTE | 2023-01-02 15:40 | P.PNIM_ITS ---
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 * Renal US shown normal kidney size, no hydronephrosis * BUN 28, creatinine 1.50, eGFR 44, creatinine clearance 38, Na+ 135, K+ 4.0 * Singh catheter in place draining without difficulty * Initial output greater than 2000ml residual * Continue I and O * Urology following, patient was started on Tamsulosin and overactive bladder medications were held. * Plan for repeat renal US tomorrow to see if hydronephrosis has resolved now that bladder is decompressed. 01/02/23: * Renal ultrasound showed normal kidney size, no hydronephrosis * Will obtain more labs today to check his BUN and creatinine. If he is stable on his BUN and creatinine we will send him home in the morning. * Continue Singh catheter, he will likely go home with this and follow-up with Urology outpatient for removal. * Continue accurate I&O (2) MYLENE (acute kidney injury): Code(s): N17.9 - Acute kidney failure, unspecified Status: Acute Assessment and Plan: 12/31/22: * Acute kidney injury * Baseline creatinine is 0.7-1.0. * Creatinine today is 1.9. * Patient will be given gentle hydration with normal saline at 100 mils per hour * Recheck a.m. labs with renal function. 01/01/23: * BUN 28, Creatinine 1.50, eGFR 44, trending down to baseline * IVF discontinued * Continue to trend labs 01/02/23: * We will recheck labs in the morning, creatinine trending towards baseline (3) Acute deep vein thrombosis (DVT) of femoral vein of right lower extremity: Code(s): I82.411 - Acute embolism and thrombosis of right femoral vein Status: Acute Assessment and Plan: 12/31/22: * As evidenced by venous Doppler. * Therapeutic Lovenox started. * Distal neurovascular status is otherwise intact with intact pulses and capillary refill. 01/01/23: * Dopplers revealed DVT to right femoral vein * Continue therapeutic Lovenox 01/02/23: * Continue therapeutic Lovenox * No change to current treatment plan (4) Acute constipation: Code(s): K59.00 - Constipation, unspecified Status: Acute Assessment and Plan: 12/31/22: * Daily MiraLax * No evidence of obstruction as noted per CT scan of abdomen and pelvis * Dulcolax suppository 10 mg p.r.n. * Colace b.i.d. 01/01/23: * Continue with current treatment plan (5) Diabetes mellitus: Qualifiers: Diabetes mellitus type: type 2 Diabetes mellitus custodial insulin use: with custodial use Diabetes mellitus complication status: with neurologic complications Diabetes mellitus complication detail: with unspecified neuropathy Qualified Code(s): E11.40 - Type 2 diabetes mellitus with diabetic neuropathy, unspecified; Z79.4 - custodial (current) use of insulin Code(s): E11.9 - Type 2 diabetes mellitus without complications Status: Acute Assessment and Plan: 12/31/22: * Accu-Cheks a.c. and HS * Hypo
--- NOTE | 2023-01-02 15:40 | PM.IMPN ---
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 Renal US shown normal kidney size, no hydronephrosis BUN 28, creatinine 1.50, eGFR 44, creatinine clearance 38, Na+ 135, K+ 4.[address] draining without difficulty Initial output greater than 2000ml residual Continue I and O Urology following, patient was started on Tamsulosin and overactive bladder medications were held. Plan for repeat renal US tomorrow to see if hydronephrosis has resolved now that bladder is decompressed. 01/02/23: Renal ultrasound showed normal kidney size, no hydronephrosis Will obtain more labs today to check his BUN and creatinine. If he is stable on his BUN and creatinine we will send him home in the morning. Continue Singh catheter, he will likely go home with this and follow-up with Urology outpatient for removal. Continue accurate I&O (2) MYLENE (acute kidney injury): Code(s): N17.9 - Acute kidney failure, unspecified Status: Acute Assessment and Plan: 12/31/22: Acute kidney injury Baseline creatinine is 0.7-1.0. Creatinine today is 1.9. Patient will be given gentle hydration with normal saline at 100 mils per hour Recheck a.m. labs with renal function. 01/01/23: BUN 28, Creatinine 1.50, eGFR 44, trending down to baseline IVF discontinued Continue to trend labs 01/02/23: We will recheck labs in the morning, creatinine trending towards baseline (3) Acute deep vein thrombosis (DVT) of femoral vein of right lower extremity: Code(s): I82.411 - Acute embolism and thrombosis of right femoral vein Status: Acute Assessment and Plan: 12/31/22: As evidenced by venous Doppler. Therapeutic Lovenox started. Distal neurovascular status is otherwise intact with intact pulses and capillary refill. 01/01/23: Dopplers revealed DVT to right femoral vein Continue therapeutic Lovenox 01/02/23: Continue therapeutic Lovenox No change to current treatment plan (4) Acute constipation: Code(s): K59.00 - Constipation, unspecified Status: Acute Assessment and Plan: 12/31/22: Daily MiraLax No evidence of obstruction as noted per CT scan of abdomen and pelvis Dulcolax suppository 10 mg p.r.n. Colace b.i.d. 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 and HS Hypoglycemic protocol Continue home dose of Lantus 48 units every a.m. Sliding scale insulin protocol initiated, moderate dose Check A1c Heart healthy diet 01/01/23: Hgb A1C 7.0 BG ranging 104-106 Continue with current treatment plan 01/02/23: No change to current treatment plan (6) Anemia: Code(s): D64.9 - Anemia, unspecified Status: Chronic Assessment and Plan: 12/31/22: Chronic in nature but stable.
[2023-01-02 16:00] VITALS: BP 120/76; PULSE 81; RESP 16; TEMP 36.8; O2SAT 96
[2023-01-02 16:16] LABS: Hematocrit 34.9 % (42.0-52.0); Hemoglobin 10.9 g/dL (14.0-18.0); Mean Corpuscular HGB Conc 31.2 g/dl (32-36); Mean Corpuscular Hemoglobin 28.2 pg (26-34); Mean Corpuscular Volume 90.4 fl (80-100); Mean Platelet Volume 10.5 fl (7.4-10.4); Platelet Count Result 168 k/mm3 (150-375); Red Blood Count 3.86 M/mm3 (4.6-6.20); Red Cell Distribution Width 13.8 % (11.5-14.5); White Blood Count 7.5 K/mm3 (4.5-10.0)
[2023-01-02 16:31] LABS: Alanine Aminotransferase 16 U/L (6-50); Albumin Level 3.2 g/dL (3.5-5.1); Alkaline Phosphatase 74 U/L (38-126); Anion Gap 9 mmol/L (8-16); Aspartate Amino Transferase 20 U/L (17-59); Blood Urea Nitrogen 20 mg/dL (9-20); Calcium 8.2 mg/dL (8.4-10.2); Carbon Dioxide 22 mmol/L (22-30); Chloride 101 mmol/L (98-107); Estimated CRCL calculation 46 ml/min; Estimated Glomerular Filt Rate 57; Glucose 118 mg/dL (65-110); Potassium 3.6 mmol/L (3.4-5.0); Sodium 132 mmol/L (137-145)
[2023-01-02 17:22] LABS: Glucose Point of Care 137 mg/dl (65-105)
[2023-01-02 20:00] VITALS: PULSE 81; RESP 16; O2SAT 96
[2023-01-02] MEDS: TAMSULOSIN HCL 0.4 MG CAPSULE PO (20:17)
[2023-01-02 21:54] LABS: Glucose Point of Care 86 mg/dl (65-105)
[2023-01-02 22:00] VITALS: BP 132/66; PULSE 94; RESP 18; TEMP 36.5; O2SAT 96
[2023-01-03 06:00] VITALS: BP 152/84; PULSE 78; RESP 18; TEMP 36.3; O2SAT 96
[2023-01-03 06:10] LABS: Hematocrit 34.7 % (42.0-52.0); Mean Corpuscular HGB Conc 31.7 g/dl (32-36); Mean Corpuscular Hemoglobin 28.6 pg (26-34); Mean Corpuscular Volume 90.4 fl (80-100); Mean Platelet Volume 10.4 fl (7.4-10.4); Platelet Count Result 164 k/mm3 (150-375); Red Blood Count 3.84 M/mm3 (4.6-6.20); Red Cell Distribution Width 13.5 % (11.5-14.5); White Blood Count 8.2 K/mm3 (4.5-10.0)
[2023-01-03 06:37] LABS: Alanine Aminotransferase 21 U/L (6-50); Albumin Level 3.2 g/dL (3.5-5.1); Alkaline Phosphatase 71 U/L (38-126); Anion Gap 8 mmol/L (8-16); Aspartate Amino Transferase 21 U/L (17-59); Bilirubin,Total 0.8 mg/dL (0.2-1.3); Blood Urea Nitrogen 19 mg/dL (9-20); Calcium 8.3 mg/dL (8.4-10.2); Carbon Dioxide 26 mmol/L (22-30); Chloride 102 mmol/L (98-107); Estimated CRCL calculation 50 ml/min; Estimated Glomerular Filt Rate > 60; Glucose 49 mg/dL (65-110); Potassium 3.1 mmol/L (3.4-5.0); Sodium 136 mmol/L (137-145)
[2023-01-03] MEDS: DEXTROSE 50% 25 GM/50 ML SYRINGE IV PUSH (06:43)
[2023-01-03 07:05] LABS: Glucose Point of Care 101 mg/dl (65-105)
[2023-01-03 07:53] LABS: Glucose Point of Care 90 mg/dl (65-105)
[2023-01-03] MEDS: amLODIPine BESYLATE 5 MG TABLET PO (08:14)
[2023-01-03] MEDS: APIXABAN 5 MG TABLET 10 MG PO ×2 (08:15→20:47)
[2023-01-03] MEDS: polyethylene glycoL 3350 17 GM POWD.PACK PO (08:15)
[2023-01-03] MEDS: DOCUSATE SODIUM 100 MG CAPSULE PO ×2 (08:15→17:39)
[2023-01-03] MEDS: ROSUVASTATIN 10 MG TABLET 20 MG PO (08:15)
[2023-01-03] MEDS: ASPIRIN 81 MG CHEWABLE TABLET PO (08:15)
--- NOTE | 2023-01-03 09:30 | PM.DS ---
DS: Admitting Diagnosis Discharge Date 01/03/23 Admitting Diagnosis Acute urinary retention MYLENE Acute deep vein thrombosis Acute constipation DM anemia\hyponatremia abnormal CT scan DS: Summary Hospital Course Reason for hospitalization: Urinary retention Hospital Course: This is an 87 year old male who presented to the hospital with Status at Discharge Cognitive/behavioral status at discharge: Alert and oriented x3 Functional status at discharge: uses cane/walker Overall status at discharge: patient is progressing back to baseline Time Spent with Patient Time attestation: Total time spent providing and/or coordinating discharge services: Time spent: Greater than 30 minutes Exam Narrative: General: In no acute distress, well nourished Head: atraumatic, no encephalopathy Eyes: EOMI, PERRLA, slcera clear ENT: moist mucous membranes, nasal passages clear Neck: supple, no JVD, no adenopathy, trachea midline Cardiac: Normal S1 and S2. No murmur, gallops or friction rubs, peripheral pulses intact. Respiratory: Lungs clear to auscultation, no adventitious lung sounds Gastrointestinal: soft, non-distended, non-tender, normoactive bowel sounds. : voiding without difficulty. Extremities: moves all extremities well, no edema, good ROM, strength 5/5 Skin: clean, dry, intact. No wounds or lesions. Neuro: Alert and oriented x4, cranial nerves intact, no neuro deficits. Psych: normal mood, normal affect, interactive DS: Data Data Completed and Pending Completed studies during hospitalization: Abdominal MRI Pelvis MRI Abdomen x-ray Abdomen/pelvis CT Venous doppler study renal US Pending studies at discharge: None Labs on day of discharge: Labs from last 24 hours 01/03/23 01/03/23 01/03/23 07:40 07:03 05:59 WBC 8.2 RBC 3.84 L Hgb 11.0 L Hct 34.7 L MCV 90.4 MCH 28.6 MCHC 31.7 L RDW 13.5 Plt Count 164 MPV 10.4 Sodium 136 L Potassium 3.1 L Chloride 102 Carbon Dioxide 26 Anion Gap 8 BUN 19 Creatinine 1.10 Estim Creat Clear Calc 50 Estimated GFR > 60 Glucose 49 L* POC Capillary Glucose 90 101 Calcium 8.3 L Total Bilirubin 0.8 AST 21 ALT 21 Alkaline Phosphatase 71 Total Protein 6.0 L Albumin 3.2 L 01/02/23 01/02/23 01/02/23 21:51 17:04 15:53 WBC 7.5 RBC 3.86 L Hgb 10.9 L Hct 34.9 L MCV 90.4 MCH 28.2 MCHC 31.2 L RDW 13.8 Plt Count 168 MPV 10.5 H Sodium 132 L Potassium 3.6 Chloride 101 Carbon Dioxide 22 Anion Gap 9 BUN 20 Creatinine 1.20 Estim Creat Clear Calc 46 Estimated GFR 57 L Glucose 118 H POC Capillary Glucose 86 137 H Calcium 8.2 L Total Bilirubin 1.0 AST 20 ALT 16 Alkaline Phosphatase 74 Total Protein 7.0 Albumin 3.2 L 01/02/23 11:44 WBC RBC Hgb Hct MCV MCH MCHC RDW Plt Count MPV Sodium Potassium Chloride Carbon Dioxide Anion Gap BUN Creatinine Estim Creat Clear Calc Estimated GFR Glucose POC Capillary Glucose 181 H Calcium Total Bilirubin AST ALT Alkaline Phosphatase Total Protein Albumin Procedures/Treatments: Indwelling catheter placement for urinary retention Discharge Plan Discharge Attending physician on discharge: Bhavna Marie Consulting providers: Steven Gill Discharging Clinician: Lisa De La Rosa Anticipated Discharge Date/Time: 01/03/23 09:25 Patient Disposition: Home, Self-Care Activity: as tolerated Diet: as tolerated Patient Language: [place] Stand Alone Forms: General Discharge Information Follow-up/Referrals: Quan Uribe MD [Primary Care Provider] - 1 Week Discharge Medications: Continued rosuvastatin 20 mg tablet 20 mg PO QAM 30 Days Qty: 30 5RF docusate sodium 50 mg capsule 50 mg PO DAILY PRN (Reason: constipation) Qty: 90 2RF furosemide [Lasix] 20 mg tablet
[2023-01-03] MEDS: ACETAMINOPHEN 325 MG TABLET 650 MG PO (10:07)
--- NOTE | 2023-01-03 11:18 | PM.DS ---
DS: Admitting Diagnosis Discharge Date 01/03/23 Admitting Diagnosis Acute urinary retention Acute kidney injury Acute deep vein thrombosis of femoral vein the right lower extremity Acute constipation Diabetes mellitus DS: Discharge Diagnosis Discharge Diagnosis (1) Acute urinary retention: Code(s): R33.8 - Other retention of urine Status: Acute (2) MYLENE (acute kidney injury): Code(s): N17.9 - Acute kidney failure, unspecified Status: Acute (3) Acute deep vein thrombosis (DVT) of femoral vein of right lower extremity: Code(s): I82.411 - Acute embolism and thrombosis of right femoral vein Status: Acute (4) Acute constipation: Code(s): K59.00 - Constipation, unspecified Status: Acute (5) Diabetes mellitus: Qualifiers: Diabetes mellitus complication detail: with unspecified neuropathy Diabetes mellitus complication status: with neurologic complications Diabetes mellitus residential insulin use: with termite control representative use Diabetes mellitus type: type 2 Qualified Code(s): E11.40 - Type 2 diabetes mellitus with diabetic neuropathy, unspecified; Z79.4 - nursing home (current) use of insulin Code(s): E11.9 - Type 2 diabetes mellitus without complications Status: Acute (6) Anemia: Code(s): D64.9 - Anemia, unspecified Status: Chronic (7) Abnormal CT scan: Code(s): R93.89 - Abnormal findings on diagnostic imaging of other specified body structures Status: Acute DS: Summary Hospital Course Reason for hospitalization: Acute urinary retention Acute kidney injury Acute DVT of femoral vein of the right lower extremity Hospital Course: This is an 87-year-old male who presented to the emergency room on 12/31/2022 with complaints of lower abdominal pain and right lower extremity swelling and pain. Workup in the hospital included an abdominal x-ray showing possible generalized ileus. He also had a CT of the abdomen pelvis which revealed a very prominent distension of the urinary bladder likely secondary to enlarged prostate, associated mild to moderate right and left hydroureteronephrosis, 1.5 x 2.2 cm left adrenal mass, bilateral renal cyst, calcification of the pancreatic head which may be due to mild chronic pancreatitis. He also had bilateral lower extremity Dopplers which revealed a DVT in the right femoral vein. Renal ultrasound showed normal kidneys, no hydronephrosis on 01/01/2023. Patient had Singh catheter placed while in the emergency room where he had 2 L of urine out initially. Urology was consulted and patient was taken off his overactive bladder medication and placed on tamsulosin. Acute kidney injury resolved while admitted. On examination today patient is alert and oriented x3, lying in the bed. His vital signs are stable, he is on room air, he has remained afebrile. He denies any pain or discomfort at this time. Labs today reveal WBC 8.2, hemoglobin 11.0, hematocrit 34.7, sodium 136, potassium 3.1, chloride 102, BUN 19, creatinine 1.1, blood sugars ranging 86-90, calcium 8.3, liver enzymes normal, albumin 3.2. Patient is stable for discharge. He will need to follow up with Urology on an outpatient basis for removal of the catheter and and further treatment. Status at Discharge Cognitive/behavioral status at discharge: Alert and oriented x3 Time Spent with Patient Time attestation: Total time spent providing and/or coordinating discharge services: Exam Narrative: General: In no acute distress, well nourished Head: atraumatic, no encephalopathy Eyes: EOMI, PERRLA, slcera clear ENT: moist mucous membranes, nasal passages clear Neck: supple, no JVD, no adenopathy, trachea midline Cardiac: Normal S1 and S2. No murmur, gallops or friction rubs, peripheral pulses intact. Respiratory: Lungs clear to auscultation, no adventitious lung sounds Gastrointestinal: soft, non-distended, non-tender, normoactive bowel sounds. : voiding without d
[2023-01-03 12:03] LABS: Glucose Point of Care 176 mg/dl (65-105)
[2023-01-03 14:00] VITALS: BP 118/72; PULSE 88; RESP 22; TEMP 36.4; O2SAT 97
--- NOTE | 2023-01-03 16:03 | PC.NURSE ---
RN spoke with Kaye via telephone as she had questions regarding patient's bowel movements.
--- NOTE | 2023-01-03 16:05 | PC.NURSE ---
RN called Kaye back via telephone and told her that RN had spoken with the hospitalist (see provider communication assessment).
[2023-01-03 16:41] LABS: Glucose Point of Care 199 mg/dl (65-105)
[2023-01-03] MEDS: TAMSULOSIN HCL 0.4 MG CAPSULE PO (20:47)
[2023-01-03 22:00] VITALS: BP 133/68; PULSE 89; RESP 18; TEMP 36.7; O2SAT 96
[2023-01-04 03:57] LABS: Glucose Point of Care 252 mg/dl (65-105)
[2023-01-04 06:00] VITALS: BP 125/73; PULSE 84; RESP 21; TEMP 36.6; O2SAT 100
[2023-01-04 06:32] LABS: Hematocrit 34.9 % (42.0-52.0); Hemoglobin 10.9 g/dL (14.0-18.0); Mean Corpuscular HGB Conc 31.2 g/dl (32-36); Mean Corpuscular Hemoglobin 28.4 pg (26-34); Mean Corpuscular Volume 90.9 fl (80-100); Mean Platelet Volume 10.5 fl (7.4-10.4); Platelet Count Result 162 k/mm3 (150-375); Red Blood Count 3.84 M/mm3 (4.6-6.20); Red Cell Distribution Width 13.7 % (11.5-14.5); White Blood Count 7.6 K/mm3 (4.5-10.0)
[2023-01-04 06:42] LABS: Alanine Aminotransferase 25 U/L (6-50); Alkaline Phosphatase 75 U/L (38-126); Anion Gap 6 mmol/L (8-16); Aspartate Amino Transferase 24 U/L (17-59); Bilirubin,Total 0.7 mg/dL (0.2-1.3); Blood Urea Nitrogen 17 mg/dL (9-20); Calcium 8.3 mg/dL (8.4-10.2); Carbon Dioxide 27 mmol/L (22-30); Chloride 102 mmol/L (98-107); Estimated CRCL calculation 50 ml/min; Estimated Glomerular Filt Rate > 60; Glucose 140 mg/dL (65-110); Potassium 3.2 mmol/L (3.4-5.0); Sodium 135 mmol/L (137-145)
[2023-01-04 08:01] VITALS: O2SAT 94
[2023-01-04 08:22] LABS: Glucose Point of Care 134 mg/dl (65-105)
[2023-01-04] MEDS: amLODIPine BESYLATE 5 MG TABLET PO (08:41)
[2023-01-04] MEDS: ASPIRIN 81 MG CHEWABLE TABLET PO (08:42)
[2023-01-04] MEDS: DOCUSATE SODIUM 100 MG CAPSULE PO (08:42)
[2023-01-04] MEDS: polyethylene glycoL 3350 17 GM POWD.PACK PO (08:42)
[2023-01-04] MEDS: APIXABAN 5 MG TABLET 10 MG PO (08:42)
[2023-01-04] MEDS: INSULIN GLARGINE (*BKC) 100 UNITS/ML 48 UNITS SUB-Q (08:42)
[2023-01-04] MEDS: ROSUVASTATIN 10 MG TABLET 20 MG PO (08:42)
--- NOTE | 2023-01-04 09:33 | PM.DS ---
DS: Admitting Diagnosis Discharge Date 01/04/23 Admitting Diagnosis Acute urinary retention Acute kidney injury Acute deep vein thrombosis of femoral vein the right lower extremity Acute constipation Diabetes mellitus DS: Summary Hospital Course Reason for hospitalization: Acute urinary retention Acute kidney injury Acute DVT of femoral vein of the right lower extremity Hospital Course: This is an 87-year-old male who presented to the emergency room on 12/31/2022 with complaints of lower abdominal pain and right lower extremity swelling and pain.? Workup in the hospital included an abdominal x-ray showing possible generalized ileus.? He also had a CT of the abdomen pelvis which revealed a very prominent distension of the urinary bladder likely secondary to enlarged prostate, associated mild to moderate right and left hydroureteronephrosis, 1.5 x 2.2 cm left adrenal mass, bilateral renal cyst, calcification of the pancreatic head which may be due to mild chronic pancreatitis.? He also had bilateral lower extremity Dopplers which revealed a DVT in the right femoral vein.? Renal ultrasound showed normal kidneys, no hydronephrosis on 01/01/2023.? Patient had Singh catheter placed while in the emergency room where he had 2 L of urine out initially.? Urology was consulted and patient was taken off his overactive bladder medication and placed on tamsulosin.? Acute kidney injury resolved while admitted.? On examination today patient is alert and oriented x3, lying in the bed.? His vital signs are stable, he is on room air, he has remained afebrile.? He denies any pain or discomfort at this time.? Labs today reveal WBC 8.2, hemoglobin 11.0, hematocrit 34.7, sodium 136, potassium 3.1, chloride 102, BUN 19, creatinine 1.1, blood sugars ranging 86-90, calcium 8.3, liver enzymes normal, albumin 3.2. ? had some concerns about the patient not having a bowel movement in greater than 4 days which is not normal for him. She was requesting him to stay and at least get an enema before going home. We went ahead and held off on his discharge for night and gave him a soapsuds enema which resulted in 2 large bowel movements. I did check a KUB this morning which showed gaseous distention of the sigmoid colon likely adynamic ileus. Patient is not symptomatic for an ileus and considering he has had 2 large bowel movements, he is stable to be discharged this morning. He will need to follow up with his primary care physician in 1 week and also with the urologist in 1 week. He will continue tamsulosin and keep his Singh catheter in place until he sees a urologist. Status at Discharge Cognitive/behavioral status at discharge: Alert and oriented x3 Functional status at discharge: uses cane/walker Overall status at discharge: patient is progressing back to baseline Time Spent with Patient Time attestation: Total time spent providing and/or coordinating discharge services: Time spent: Greater than 30 minutes Exam Narrative: General: In no acute distress, well nourished Head: atraumatic, no encephalopathy Eyes: EOMI, PERRLA, slcera clear ENT: moist mucous membranes, nasal passages clear Neck: supple, no JVD, no adenopathy, trachea midline Cardiac: Normal S1 and S2. No murmur, gallops or friction rubs, peripheral pulses intact. Respiratory: Lungs clear to auscultation, no adventitious lung sounds Gastrointestinal: soft, non-distended, non-tender, normoactive bowel sounds. : voiding without difficulty. Extremities: moves all extremities well, no edema, good ROM, strength 5/5 Skin: clean, dry, intact. No wounds or lesions. Neuro: Alert and oriented x4, cranial nerves intact, no neuro deficits. Psych: normal mood, normal affect, interactive DS: Data Data Completed and Pending Completed studies during hospitalization: Abdominal MRI Pelvis MRI Abdomen x-ray Abdomen pelvis CT Venous Doppler study Renal ultrasound Pending studies at discharge: none Labs on day of d
--- NOTE | 2023-01-04 11:25 | PC.NURSE ---
Kaye patients called via telephone and RN gave her an update on patient.
[2023-01-04 12:06] LABS: Glucose Point of Care 254 mg/dl (65-105)
[2023-01-04] MEDS: INSULIN ASPART (*BKC) 100 UNITS/ML SUB-Q (12:22)
== END 2023-01-04 13:30 | disposition home or self-care (01) | DRG 683 ==
LOC: ANHED 16:39 → ANH3MED 01-01 09:28
PROVIDERS: Internal Medicine; Nurse Practitioner Adult Health; Admitting Provider Student in an Organized Health Care Education/Training Program; Emergency Provider Student in an Organized Health Care Education/Training Program; PCP Emergency Medicine; Visit Provider Nurse Practitioner Acute Care
DX: N17.9 Acute kidney failure, unspecified (principal); E87.1 Hypo-osmolality and hyponatremia; I82.411 Acute embolism and thrombosis of right femoral vein; I69.354 Hemiplegia and hemiparesis following cerebral infarction affecting left non-dominant side; I12.9 Hypertensive chronic kidney disease with stage 1 through stage 4 chronic kidney disease, or unspecified chronic kidney disease; N18.30 Chronic kidney disease, stage 3 unspecified; N40.1 Benign prostatic hyperplasia with lower urinary tract symptoms; N13.30 Unspecified hydronephrosis; R33.8 Other retention of urine; E11.22 Type 2 diabetes mellitus with diabetic chronic kidney disease; N32.81 Overactive bladder; T50.995A Adverse effect of other drugs, medicaments and biological substances, initial encounter; C61 Malignant neoplasm of prostate; D64.9 Anemia, unspecified; I34.1 Nonrheumatic mitral (valve) prolapse; E78.5 Hyperlipidemia, unspecified; K59.00 Constipation, unspecified; K57.30 Diverticulosis of large intestine without perforation or abscess without bleeding; M19.90 Unspecified osteoarthritis, unspecified site; Z79.82 Long term (current) use of aspirin; Z87.19 Personal history of other diseases of the digestive system; Z79.4 Long term (current) use of insulin
CPT/HCPCS: 36415; 72197; 74018; 74019; 74177; 74183; 76775; 80048; 80053; 81001; 82948; 83036; 83605; 83690; 83880; 85025; 85027; 85610; 85730; 93971; 96372; 99285; A9270; A9577; J1650; J1815; J7030; Q9967

== ENCOUNTER 2023-01-13 09:53 | Inpatient (IN) | payer MEDICARE, SELFPAY ==
[2023-01-13] VITALS (22 sets, daily range): BP systolic 118–159; BP diastolic 64–115; PULSE 78–94; RESP 14–28; TEMP 36.3–37.4; O2SAT 94–100; BMI 27.8
--- NOTE | ~2023-01-13 | XR_ITS ---
EXAMINATION: XR chest 2V 01/13/2023 15:53 INDICATION: Altered mental status PROCEDURE: 2 view chest COMPARISON: Comparison to multiple prior studies sequentially, with oldest reviewed study dated 03/29. FINDINGS: The lungs are clear. The cardiomediastinal silhouette is within normal limits. There are no pleural effusions. There is no pneumothorax suspected. IMPRESSION: 1: NO ACUTE CARDIOPULMONARY DISEASE. Reviewed, dictated and finalized at location B. CAR DRIVER
--- NOTE | ~2023-01-13 | CT_ITS ---
EXAMINATION: CT brain wo con DATE: 01/13/2023 10:33 INDICATION: Altered mental status. TECHNIQUE: Computed tomography (CT) of the head was performed without intravenous contrast. The mA wa s adjusted according to patient size. Iterative reconstruction technique was employed. The dose-lengt h product was 605.33 mGy-cm. COMPARISON: Head CT 09/11/2022 FINDINGS: There are old infarcts involving the basal ganglia, left internal capsule, left thalamus, a nd left frontal lobe deep white matter. There are scattered areas of low attenuation in the cerebral white matter. There is no intracranial hemorrhage, acute infarction, or abnormal intracranial mass le stan. There is ex vacuo dilatation of body of left lateral ventricle. 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 Th ere are chronic bone deformities in left periorbital region. The mastoid air cells are normal. IMPRESSION: 1. Old infarcts involving the left basal ganglia, left internal capsule, left thalamus, and left fron dorinda lobe deep white matter. 2. Stable moderate nonspecific cerebral white matter disease, which likely represents chronic small v essel ischemic disease. Reviewed, dictated and finalized at location A. IBILITY TECHNICIAN IMPRESSION: 1. Old infarcts involving the left basal ganglia, left internal capsule, left t halamus, and left frontal lobe deep white matter. 2. Stable moderate nonspecific cerebral white matter disease, which likely repr esents chronic small vessel ischemic disease.
--- NOTE | 2023-01-13 10:27 | ED.AMS ---
HPI - Altered Mental Status General Chief Complaint: Altered Mental Status Stated Complaint: AMS Time Seen by Provider: 01/13/23 10:07 History of Present Illness HPI narrative: 87-year-old male presenting to the emergency department for evaluation of altered mental status. Patient apparently walked in to his kitchen and was found to be nonverbal. EMS was called and patient was transported to the emergency department. Upon arrival to the emergency department patient appears to be at his neuro baseline. patient currently has an indwelling Singh catheter that was initially placed due to urinary retention. Patient states he had the Singh catheter exchanged approximately 1 week ago at the urology office. Discussed case with Dr. Hernandez and he was okay with us exchanging the Singh catheter. Singh catheter was changed yesterday per his documentation. Related Data Home Medications Medication Instructions Recorded Confirmed aspirin 81 mg chewable tablet 81 mg PO DAILY 03/29/19 12/31/22 insulin glargine 100 unit/mL (3 48 unit subcut QAM 09/12/22 01/13/23 mL) subcutaneous pen (Lantus Solostar U-100 Insulin) amlodipine 5 mg tablet 5 mg PO DAILY 12/31/22 01/13/23 lisinopril 10 mg tablet 10 mg PO DAILY 12/31/22 01/13/23 mirabegron 50 mg tablet,extended 50 mg PO HS 12/31/22 01/13/23 release 24 hr (Myrbetriq) apixaban 5 mg (74 tabs) tablets in 5 mg PO BID 01/13/23 01/13/23 a dose pack (Eliquis DVT-PE Treat 30D Start) Allergies Allergy/AdvReac Type Severity Reaction Status Date / Time No Known Allergies Allergy Verified 01/13/23 13:11 Review of Systems Review of Systems: All systems reviewed & are unremarkable except as noted in HPI and below PMFSH Past Medical History Medical History Anemia Arthritis Chronic kidney disease, stage 3 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 Diverticulitis History of rectal polyps Hyperlipidemia Hypertension Insulin dependent type 2 diabetes mellitus hemoglobin A1c was 7.6 March 21, 2019. MVP (mitral valve prolapse) Prostate cancer Diagnosed in 2008. Shingles Surgical History Surgical History History of orthopedic surgery ORIF left tib-fib fracture. Family History Family History Sibling Hypertension Cerebrovascular accident Family history of malignant neoplasm Family history of diabetes mellitus in first degree relative Mother Family history of malignant neoplasm, Onset Age: 75 Patient's mother is Father Carcinoma of colon, Onset Age: 67 Patient's father is Social History Social History Social History: The patient lives with his in [place]. He is retired from [employer]. He designates his , Kaye, as his surrogate decision maker and he wishes to be a full code. He is a lifelong nonsmoker and denies alcohol and drug abuse. Smoking status: Never smoker Alcohol intake: never Substance use: never Substance use type: does not use Lack of Transportation: No Lack of Food: Never True Current Housing: I Have Housing Concerned About Future Housing: No Difficulty Paying Gas/Electric Bills: No Difficulty Paying for Meds: No Currently Unemployed: No Education: Decline to Answer Difficulty w/ Childcare or Family Care: No Spiritual care concerns: No Agree to blood products: Yes Exam Narrative: APPEARANCE: Well appearing, no pain, no distress, well-nourished. HEAD: normocephalic, atraumatic. EYES: PERRLA/EOMI, conjunctivae clear. NOSE: Normal no drainage EARS:TMS clear with good light reflex. THROAT: Pharynx clear, no exudate. NECK: Supple. No adenopathy, no masses. RESPIRATORY: Airway patent, respirations
[2023-01-13 10:30] LABS: Basophils Percent Auto 0.2 % (0.2-1.2); Eosinophils Percent Auto 0.4 % (0-4.4); Hematocrit 34.7 % (42.0-52.0); Immature Granulocyte Absolute 0.03 K/mm3 (0.00-0.031); Immature Granulocyte Percent A 0.3 % (0-0.5); Lymphocytes Absolute Auto 1.02 K/mm3 (0.9-3.2); Lymphocytes Percent Auto 9.9 % (18.3-44.2); Mean Corpuscular HGB Conc 31.7 g/dl (32-36); Mean Corpuscular Hemoglobin 28.4 pg (26-34); Mean Corpuscular Volume 89.4 fl (80-100); Mean Platelet Volume 10.2 fl (7.4-10.4); Monocytes Absolute Auto 0.5 K/mm3 (0.1-0.6); Monocytes Percent Auto 4.6 % (2.6-8.5); Neutrophils Absolute Auto 8.7 K/mm3 (1.3-6.7); Neutrophils Percent Auto 84.6 % (45.5-73.1); Platelet Count Result 174 k/mm3 (150-375); Red Blood Count 3.88 M/mm3 (4.6-6.20); White Blood Count 10.3 K/mm3 (4.5-10.0)
[2023-01-13 10:43] LABS: INR 1.6; Prothrombin Time 19.7 Seconds (11.1-14.7)
[2023-01-13 10:44] LABS: Partial Thromboplastin Time 37.1 SECONDS (22.3-36.8)
[2023-01-13 11:06] LABS: Influenza A QL RT-PCR Negative (Negative); Influenza B QL RT-PCR Negative (Negative); RSV RNA, RT-PCR Negative (Negative); SARS-CoV-2 RNA PCR Negative (Negative)
[2023-01-13 11:08] LABS: Appearance Urine Turbid (Clear); Bacteria Urine 4+ /hpf; Bilirubin Urine Negative (Negative); Blood Urine 3+ (Negative); Color Urine Dark Yellow (Yellow); Glucose Urine UA Negative (Negative); Ketones Urine Trace mg/dL (Negative); Leukocyte Esterase Ur 3+ LEU/UL (Negative); Need Manual Microscopic Reviewed; Nitrate Urine Positive (Negative); Non Pathogenic Casts >20; Protein Urine 3+ mg/dL (Negative); RBC Urine >100 /hpf (0-2); Specific Grav Ur 1.019 (1.001-1.035); Squamous Epithelial Cell Urine Occasional /hpf (Few); WBC Urine >100 /hpf; pH Urine 6.5 (5.0-9.0)
[2023-01-13 11:11] LABS: Add Urine Microscopic? YES
[2023-01-13 11:15] LABS: Alanine Aminotransferase 27 U/L (6-50); Albumin Level 3.4 g/dL (3.5-5.1); Alkaline Phosphatase 87 U/L (38-126); Anion Gap 8 mmol/L (8-16); Aspartate Amino Transferase 25 U/L (17-59); Blood Urea Nitrogen 20 mg/dL (9-20); Calcium 8.7 mg/dL (8.4-10.2); Carbon Dioxide 28 mmol/L (22-30); Chloride 99 mmol/L (98-107); Estimated CRCL calculation 39 ml/min; Estimated Glomerular Filt Rate 57; Glucose 143 mg/dL (65-110); Potassium 3.2 mmol/L (3.4-5.0); Sodium 135 mmol/L (137-145)
--- NOTE | 2023-01-13 13:02 | ADMGEN ---
This patient, Derrell Berkowitz, was admitted to [facility] Surg Room 322-02. Patient/family oriented to hospital policies and general routines including ID bracelet, bed and alarms, visiting hours, pain management, procedures, bathroom and other care routines, personal items, smoking policy, room service/diet, and visiting hours. Information on how to activate the Rapid Response Team has been discussed. Patient/Family are encouraged to report perceived risks to care and to ask questions if they do not understand what they are told or what they should do.
--- NOTE | 2023-01-13 13:28 | PM.IMHP ---
H&P: HPI History of Present Illness Date/Time: 01/13/23 13:28 Chief Complaint: Weakness Narrative: 87 y/o M presents here with generalized weakness with PMH of recent UTI/urinary retention, anemia, CKD3, CVA w/R sided deficits, HLD, HTN, DM2, prostate cx and mitral valve prolapse. Patient presents here with generalized weakness and increased altered mental status with last known well as yesterday evening. HPI given her daughter at bedside. Minimal input from patient. She reports that this morning her mother (patient's spouse) was directing him to the kitchen. However he was having a difficult time I ambulating due to generalized weakness and presyncope feeling. No report patient being nonverbal, however this was reported to the ED provider. Baseline mentation is orientated to self, place, and people but does not typically know the year with R sided deficits due to previous CVA. No other neuro deficits reported or endorsed. Patient was recently admitted for UTI, hydronephrosis and urinary retention (2L) on 12/31 - Urology attributed this to underlying prostate enlargement that was complicated by profound constipation and overactive bladder medications. Discharged on 01/04 with resolution of hydronephrosis, OAB meds held, tamsulosin initiated, and Singh in place with f/u with urology for void trial. Saw Urology yesterday, Singh exchanged. ED discussed case with Urology today, no Singh exchange needed today. Patient denies abdominal pain, suprapubic pain, or flank pain. Denies chills or body aches. However, endorsing feeling feverish with current temp of 97.4F. Also diagnosed with DVT of the R femoral vein during last admission, placed on Eliquis, but continues to endorse some discomfort in the RLE without swelling or erythema. 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 Diverticulitis History of rectal polyps Hyperlipidemia Hypertension Insulin dependent type 2 diabetes mellitus hemoglobin A1c was 7.6 March 21, 2019. MVP (mitral valve prolapse) Prostate cancer Diagnosed in 2008. Shingles Surgical History Surgical History History of orthopedic surgery ORIF left tib-fib fracture. Family History Family History Sibling Hypertension Cerebrovascular accident Family history of malignant neoplasm Family history of diabetes mellitus in first degree relative Mother Family history of malignant neoplasm, Onset Age: 75 Patient's mother is Father Carcinoma of colon, Onset Age: 67 Patient's father is Social History Social History Social History: The patient lives with his in [place]. He is retired from [employer]. He designates his , Kaye, as his surrogate decision maker and he wishes to be a full code. He is a lifelong nonsmoker and denies alcohol and drug abuse. Smoking status: Never smoker Alcohol intake: never Substance use: never Substance use type: does not use Lack of Transportation: No Lack of Food: Never True Current Housing: I Have Housing Concerned About Future Housing: No Difficulty Paying Gas/Electric Bills: No Difficulty Paying for Meds: No Currently Unemployed: No Education: Decline to Answer Difficulty w/ Childcare or Family Care: No Spiritual care concerns: No Agree to blood products: Yes Meds Home Medications and Allergies Home Medications Medication Instructions Recorded Confirmed Type aspirin 81 mg chewable tablet 81 mg PO DAILY 03/29/19 12/31/22 H
--- NOTE | 2023-01-13 13:33 | ECG_ITS ---
Measurements Intervals [place] Rate: 93 P: 89 MO: 183 QRS: -54 QRSD: 115 T: 53 QT: 381 QTc: 475 Interpretive Statements SINUS RHYTHM ATRIAL PREMATURE COMPLEXES LEFT ANTERIOR FASCICULAR BLOCK BASELINE ARTIFACT- I, II, AVR ABNORMAL ECG COMPARED TO ECG 09/11/2022 19:30:49 NO SIGNIFICANT CHANGES Electronically Signed On 01-13-2023 15:14:45 [employer] by Marquis Haynes D.O.
[2023-01-13 13:46] LABS: Glucose Point of Care 125 mg/dl (65-105)
[2023-01-13 14:10] LABS: Troponin I 0.023 ng/mL (0.000-0.034)
[2023-01-13 14:37] LABS: Procalcitonin 0.2 ng/mL
[2023-01-13] MEDS: POTASSIUM CHLORIDE INJ 40 MEQ in SODIUM CHLORIDE 0.9% IV 500 ML 130 MEQ IVPB (14:49)
[2023-01-13 16:17] LABS: Glucose Point of Care 126 mg/dl (65-105)
[2023-01-13 17:20] LABS: Troponin I 0.024 ng/mL (0.000-0.034)
--- NOTE | 2023-01-13 20:37 | PC.NURSE ---
Spoke with family members who added additional information to reason why pt was admitted . Family members stated that this morning pt's BP was 77/49. He had a syncopal episode, which led them to call EMS. When EMS arrived, pt was assisted to stand and had another syncopal episode. EMS reportedly lifted pt into stretcher, where he then vomited on himself. Pt's family states that pt's BP is frequently low, as keeps log of glucose and BPs. They also have concerns that the eliquis ordered for his DVT is causing this. Educated pt on eliquis, as well as BP medications and orthostatic hypotension. This information passed on to H&P provider. Additional orders received: tele, Q4 vitals, and Qshift orthos. Family states that pt has difficulty with swallowing sometimes.
[2023-01-13 20:46] LABS: Glucose Point of Care 224 mg/dl (65-105)
[2023-01-13] MEDS: TAMSULOSIN HCL 0.4 MG CAPSULE PO (20:51)
[2023-01-13] MEDS: SODIUM CHLORIDE 0.9% IV 1,000 ML 100 ML IV CONT (20:51)
[2023-01-13] MEDS: APIXABAN 5 MG TABLET PO (20:52)
[2023-01-13] MEDS: INSULIN ASPART (*BKC) 100 UNITS/ML SUB-Q (21:16)
[2023-01-14] VITALS (9 sets, daily range): BP systolic 97–144; BP diastolic 55–79; PULSE 79–100; RESP 14–20; TEMP 36.2–37.6; O2SAT 93–98; BMI 27.8
[2023-01-14 06:30] LABS: Basophils Percent Auto 0.1 % (0.2-1.2); Eosinophils Percent Auto 0.3 % (0-4.4); Hematocrit 33.4 % (42.0-52.0); Hemoglobin 10.4 g/dL (14.0-18.0); Immature Granulocyte Absolute 0.03 K/mm3 (0.00-0.031); Immature Granulocyte Percent A 0.4 % (0-0.5); Lymphocytes Percent Auto 15.5 % (18.3-44.2); Mean Corpuscular HGB Conc 31.1 g/dl (32-36); Mean Corpuscular Hemoglobin 28.3 pg (26-34); Mean Platelet Volume 11.1 fl (7.4-10.4); Monocytes Absolute Auto 0.4 K/mm3 (0.1-0.6); Monocytes Percent Auto 5.2 % (2.6-8.5); Neutrophils Absolute Auto 6.1 K/mm3 (1.3-6.7); Neutrophils Percent Auto 78.5 % (45.5-73.1); Platelet Count Result 165 k/mm3 (150-375); Red Blood Count 3.67 M/mm3 (4.6-6.20); Red Cell Distribution Width 13.9 % (11.5-14.5); White Blood Count 7.7 K/mm3 (4.5-10.0)
[2023-01-14 06:45] LABS: Anion Gap 7 mmol/L (8-16); Blood Urea Nitrogen 18 mg/dL (9-20); Calcium 8.4 mg/dL (8.4-10.2); Carbon Dioxide 25 mmol/L (22-30); Chloride 101 mmol/L (98-107); Estimated CRCL calculation 52 ml/min; Estimated Glomerular Filt Rate > 60; Glucose 146 mg/dL (65-110); Potassium 3.6 mmol/L (3.4-5.0); Sodium 133 mmol/L (137-145)
[2023-01-14 07:53] LABS: Glucose Point of Care 161 mg/dl (65-105)
--- NOTE | 2023-01-14 09:37 | PM.IMPN ---
Progress Note: A&P Assessment and Plan (1) Weakness: Code(s): R53.1 - Weakness Status: Acute Assessment and Plan: Multifactorial, likely secondary to UTI with orthostatic hypotension Check orthostatics, gentle IV fluid hydration PT/OT Follow-up urine culture (2) Urinary tract infection: Code(s): N39.0 - Urinary tract infection, site not specified Status: Acute Assessment and Plan: Started on ceftriaxone 01/13 Follow-up urine culture (3) Hypokalemia: Code(s): E87.6 - Hypokalemia Status: Acute Assessment and Plan: Replete and recheck (4) Insulin dependent type 2 diabetes mellitus: Code(s): E11.9 - Type 2 diabetes mellitus without complications; Z79.4 - long-term (current) use of insulin Status: Chronic Assessment and Plan: Accu-Cheks, sliding scale insulin, continue home Lantus 48 U SQ AM A1C 7.0 12/31/22 Blood glucose reviewed 01/14 Plan Home Meds/Chronic Conditions - HTN: continue amlodipine, Lasix, and lisinopril, monitor. - HLD: continue Rosuvastatin - constipation: continue to docusate - DVT: continue Eliquis. Diet: diabetic, soft/bite sized. some reported baseline dysphagia with straws etc. GI Prophylaxis: not indicated DVT Prophylaxis: on Eliquis Code Status: Full Code Subjective Date/time seen: 01/14/23 09:37 Interval history: 87 y/o M w/PMH of recent UTI/urinary retention, anemia, CKD3, CVA w/R sided deficits, HLD, HTN, DM2, prostate cx and mitral valve prolapse is presenting with generalized weakness and syncopal episode x2 and is being treated for UTI and suspected orthostatic hypotension. No overnight events noted. No chest pain or shortness of breath. No nausea, vomiting or diarrhea. No fevers or chills. Patient states he feels much better since coming in. No syncopal episodes nor presyncope feelings. 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 CV: Regular rate and rhythm, S1, S2 Lungs: Clear to auscultation bilaterally, no rales or crackles noted, no wheezes, good air entry Abdomen: Soft, nontender, nondistended Extremities: Normal to inspection Skin: No rashes noted, no lesions or wounds seen Psych: Euthymic, normal affect Objective Data Vital Signs Vital Signs: Vital Signs - 24 hr 01/13/23 09:57 01/13/23 10:11 01/13/23 09:59 Temperature 98.4 F Pulse Rate 91 89 Respiratory Rate 16 Blood Pressure 130/64 130/64 Pulse Oximetry 97 97 Oxygen Delivery Room Air 01/13/23 10:00 01/13/23 10:01 01/13/23 10:17 Temperature Pulse Rate 88 89 91 Respiratory Rate 18 28 H 14 Blood Pressure 118/70 Pulse Oximetry 99 100 Oxygen Delivery 01/13/23 10:33 01/13/23 10:45 01/13/23 11:06 Temperature Pulse Rate 90 Respiratory Rate 22 H Blood Pressure Pulse Oximetry 98 94 98 Oxygen Delivery 01/13/23 11:15 01/13/23 11:44 01/13/23 11:45 Temperature Pulse Rate 90 92 Respiratory Rate 25 H 27 H Blood Pressure Pulse Oximetry 100 100 97 Oxygen Delivery 01/13/23 11:53 01/13/23 12:00 01/13/23 12:01 Temperature Pulse Rate 89 92 90 Respiratory Rate 26 H 21 H 20 Blood Pressure 138/64 131/72 Pulse Oximetry 99 100 100 Oxygen Delivery 01/13/23 12:15 01/13/23 12:16 01/13/23 13:58 Temperature 97.4 F L Pulse Rate 90 92 94 Respiratory Rate 21 H 27 H 16 Blood Pressure 159/115 H 120/71 Pulse Oximetry 95 97 Oxygen Delivery 01/13/23 14:17 01/13/23 20:48 01/13/23 20:00 Temperature 98.6 F Pulse Rate 78 78 Respiratory Rate 20 Blood Pressure 132/74 Pulse Oximetry 99 96 Oxygen Delivery Room Air 01/13/23 20:00 01/13/23 23:37 01/14/23
[2023-01-14] MEDS: ROSUVASTATIN 10 MG TABLET 20 MG PO (09:52)
[2023-01-14] MEDS: FUROSEMIDE 20 MG TABLET PO ×2 (09:53→17:25)
[2023-01-14] MEDS: APIXABAN 5 MG TABLET PO ×2 (09:53→20:39)
[2023-01-14] MEDS: amLODIPine BESYLATE 5 MG TABLET PO (09:53)
[2023-01-14] MEDS: lisinopriL 10 MG TABLET PO (09:53)
[2023-01-14] MEDS: INSULIN GLARGINE (*BKC) 100 UNITS/ML 48 UNITS SUB-Q (10:03)
[2023-01-14 11:53] LABS: Glucose Point of Care 224 mg/dl (65-105)
[2023-01-14] MEDS: INSULIN ASPART (*BKC) 100 UNITS/ML SUB-Q (12:26)
--- NOTE | 2023-01-14 13:16 | PCCCNOTE ---
On 01/14/23, the student, [Milli Camacho], provided care and completed [facility] documentation on this patient. I have reviewed the student's documentation and agree with the findings.
[2023-01-14] MEDS: DOCUSATE SODIUM 100 MG CAPSULE PO (20:39)
[2023-01-14] MEDS: TAMSULOSIN HCL 0.4 MG CAPSULE PO (20:40)
[2023-01-14 21:52] LABS: Glucose Point of Care 173 mg/dl (65-105)
[2023-01-15] VITALS (10 sets, daily range): BP systolic 86–131; BP diastolic 45–79; PULSE 74–96; RESP 14–20; TEMP 36.1–36.7; O2SAT 93–100
[2023-01-15 03:17] LABS: Glucose Point of Care 145 mg/dl (65-105)
[2023-01-15 06:22] LABS: Basophils Percent Auto 0.1 % (0.2-1.2); Eosinophils Absolute Auto 0.1 K/mm3 (0-0.3); Eosinophils Percent Auto 0.7 % (0-4.4); Hematocrit 33.4 % (42.0-52.0); Hemoglobin 10.3 g/dL (14.0-18.0); Immature Granulocyte Absolute 0.03 K/mm3 (0.00-0.031); Immature Granulocyte Percent A 0.4 % (0-0.5); Lymphocytes Percent Auto 23.6 % (18.3-44.2); Mean Corpuscular HGB Conc 30.8 g/dl (32-36); Mean Corpuscular Hemoglobin 27.9 pg (26-34); Mean Corpuscular Volume 90.5 fl (80-100); Mean Platelet Volume 10.4 fl (7.4-10.4); Monocytes Absolute Auto 0.5 K/mm3 (0.1-0.6); Monocytes Percent Auto 7.2 % (2.6-8.5); Neutrophils Absolute Auto 4.9 K/mm3 (1.3-6.7); Platelet Count Result 156 k/mm3 (150-375); Red Blood Count 3.69 M/mm3 (4.6-6.20); White Blood Count 7.2 K/mm3 (4.5-10.0)
[2023-01-15 06:33] LABS: Anion Gap 5 mmol/L (8-16); Blood Urea Nitrogen 20 mg/dL (9-20); Calcium 8.3 mg/dL (8.4-10.2); Carbon Dioxide 27 mmol/L (22-30); Chloride 101 mmol/L (98-107); Estimated CRCL calculation 47 ml/min; Estimated Glomerular Filt Rate > 60; Glucose 85 mg/dL (65-110); Potassium 2.9 mmol/L (3.4-5.0); Sodium 133 mmol/L (137-145)
[2023-01-15 08:05] LABS: Glucose Point of Care 80 mg/dl (65-105)
[2023-01-15] MEDS: polyethylene glycoL 3350 17 GM POWD.PACK PO (08:08)
[2023-01-15] MEDS: FUROSEMIDE 20 MG TABLET PO ×2 (08:08→16:10)
[2023-01-15] MEDS: ACETAMINOPHEN 500 MG TABLET PO (08:08)
[2023-01-15] MEDS: APIXABAN 5 MG TABLET PO ×2 (08:08→21:08)
[2023-01-15] MEDS: ROSUVASTATIN 10 MG TABLET 20 MG PO (08:09)
--- NOTE | 2023-01-15 08:22 | PCPTNOTE ---
attempted PT eval, discussed with Karen, HOLD per RN, orthostatic hypotension
--- NOTE | 2023-01-15 08:35 | PCOTNOTE ---
PT attempted evaluation, per nurse Jones, wait on therapy services at this time due to orthostatic hypotension. Following
[2023-01-15] MEDS: lisinopriL 10 MG TABLET PO (08:53)
[2023-01-15] MEDS: POTASSIUM CHLORIDE INJ 40 MEQ in SODIUM CHLORIDE 0.9% IV 500 ML 75 MEQ IVPB ×2 (08:54→16:10)
--- NOTE | 2023-01-15 11:28 | PM.IMPN ---
Progress Note: A&P Assessment and Plan (1) Weakness: Code(s): R53.1 - Weakness Status: Acute Assessment and Plan: Multifactorial, likely secondary to UTI with orthostatic hypotension Check orthostatics, gentle IV fluid hydration PT/OT, Follow-up urine culture, ecoli, sens pending (2) Urinary tract infection: Code(s): N39.0 - Urinary tract infection, site not specified Status: Acute Assessment and Plan: Started on ceftriaxone 01/13 Follow-up urine culture (3) Hypokalemia: Code(s): E87.6 - Hypokalemia Status: Acute Assessment and Plan: Replete and recheck (4) Insulin dependent type 2 diabetes mellitus: Code(s): E11.9 - Type 2 diabetes mellitus without complications; Z79.4 - intermediate card tender (current) use of insulin Status: Chronic Assessment and Plan: Accu-Cheks, sliding scale insulin, continue home Lantus, decrease from 48 to 40 units due to slightly lower BG A1C 7.0 12/31/22 Blood glucose reviewed 01/15 Plan Home Meds/Chronic Conditions - HTN: continue amlodipine, Lasix, and lisinopril, monitor. - HLD: continue Rosuvastatin - constipation: continue to docusate - DVT: continue Eliquis. Diet: diabetic, soft/bite sized. some reported baseline dysphagia with straws etc. GI Prophylaxis: not indicated DVT Prophylaxis: on Eliquis Code Status: Full Code Subjective Date/time seen: 01/15/23 11:28 Interval history: 87 y/o M w/PMH of recent UTI/urinary retention, anemia, CKD3, CVA w/R sided deficits, HLD, HTN, DM2, prostate cx and mitral valve prolapse is presenting with generalized weakness and syncopal episode x2 and is being treated for UTI and suspected orthostatic hypotension. No overnight events noted. No chest pain or shortness of breath. No nausea, vomiting or diarrhea. No fevers or chills. ready to go when testing complete. 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 CV: Regular rate and rhythm, S1, S2 Lungs: Clear to auscultation bilaterally, no rales or crackles noted, no wheezes, good air entry Abdomen: Soft, nontender, nondistended Extremities: Normal to inspection Skin: No rashes noted, no lesions or wounds seen Psych: Euthymic, normal affect Objective Data Vital Signs Vital Signs: Vital Signs - 24 hr 01/14/23 12:00 01/14/23 16:00 01/14/23 12:00 Temperature 98.9 F 98.4 F Pulse Rate 92 93 93 Respiratory Rate 18 16 Blood Pressure 134/67 121/76 Pulse Oximetry 96 98 Oxygen Delivery 01/14/23 16:00 01/14/23 20:00 01/14/23 20:00 Temperature 97.5 F L Pulse Rate 90 94 Respiratory Rate 20 Blood Pressure 109/57 L Pulse Oximetry 95 Oxygen Delivery Room Air 01/14/23 20:00 01/15/23 00:00 01/15/23 00:00 Temperature 97.3 F L Pulse Rate 100 93 87 Respiratory Rate 20 Blood Pressure 121/63 Pulse Oximetry 95 Oxygen Delivery 01/15/23 04:00 01/15/23 04:00 01/15/23 06:40 Temperature Pulse Rate 96 Respiratory Rate Blood Pressure 121/55 L 95/67 L Pulse Oximetry Oxygen Delivery 01/15/23 06:40 01/15/23 04:00 01/15/23 08:00 Temperature 97.1 F L Pulse Rate 86 Respiratory Rate 14 Blood Pressure 86/66 L 121/55 L Pulse Oximetry 93 Oxygen Delivery Room Air 01/15/23 08:00 01/15/23 10:00 Temperature 97.0 F L Pulse Rate 78 Respiratory Rate 18 Blood Pressure 112/67 105/45 L Pulse Oximetry 95 Oxygen Delivery Intake/Output Intake/Output: Intake & Output 01/12/23 01/13/23 01/14/23 01/15/23 23:59 23:59 23:59 23:59 Intake Total 290 676 568 Output Total 9342 531 Balance Meds/Results Medications: Ac
[2023-01-15 11:47] LABS: Glucose Point of Care 183 mg/dl (65-105)
[2023-01-15 16:10] LABS: Glucose Point of Care 196 mg/dl (65-105)
[2023-01-15] MEDS: INSULIN ASPART (*BKC) 100 UNITS/ML SUB-Q (20:55)
[2023-01-15] MEDS: TAMSULOSIN HCL 0.4 MG CAPSULE PO (21:07)
[2023-01-15] MEDS: DOCUSATE SODIUM 100 MG CAPSULE PO (21:07)
[2023-01-15 21:16] LABS: Glucose Point of Care 242 mg/dl (65-105)
[2023-01-16] VITALS (10 sets, daily range): BP systolic 102–151; BP diastolic 52–78; PULSE 77–110; RESP 16–20; TEMP 36.4–36.6; O2SAT 97–98
--- NOTE | 2023-01-16 05:53 | PC.NURSE ---
Patient was complaining of pain at saini catheter site during AM rounds. This nurse went in to assess and noticed bag was not this facility's equipment and there was no charting of catheter being changed upon admittance. Old catheter removed at 0500, full melissa care was complete and new catheter was placed at 0510 without complication. This nurse noticed some sediment upon insertion and patient was complaining of pain/tenderness. Denied any medication, says it was normal .
[2023-01-16 07:35] LABS: Basophils Percent Auto 0.1 % (0.2-1.2); Eosinophils Absolute Auto 0.2 K/mm3 (0-0.3); Eosinophils Percent Auto 2.2 % (0-4.4); Hematocrit 34.4 % (42.0-52.0); Hemoglobin 10.6 g/dL (14.0-18.0); Immature Granulocyte Absolute 0.02 K/mm3 (0.00-0.031); Immature Granulocyte Percent A 0.3 % (0-0.5); Lymphocytes Absolute Auto 1.71 K/mm3 (0.9-3.2); Mean Corpuscular HGB Conc 30.8 g/dl (32-36); Mean Corpuscular Volume 90.8 fl (80-100); Monocytes Absolute Auto 0.5 K/mm3 (0.1-0.6); Neutrophils Absolute Auto 4.7 K/mm3 (1.3-6.7); Neutrophils Percent Auto 66.4 % (45.5-73.1); Platelet Count Result 171 k/mm3 (150-375); Red Blood Count 3.79 M/mm3 (4.6-6.20); White Blood Count 7.1 K/mm3 (4.5-10.0)
[2023-01-16 07:49] LABS: Anion Gap 9 mmol/L (8-16); Blood Urea Nitrogen 21 mg/dL (9-20); Calcium 8.6 mg/dL (8.4-10.2); Carbon Dioxide 25 mmol/L (22-30); Chloride 101 mmol/L (98-107); Estimated CRCL calculation 52 ml/min; Estimated Glomerular Filt Rate > 60; Glucose 188 mg/dL (65-110); Potassium 3.7 mmol/L (3.4-5.0); Sodium 135 mmol/L (137-145)
[2023-01-16 08:22] LABS: Glucose Point of Care 199 mg/dl (65-105)
[2023-01-16] MEDS: INSULIN GLARGINE (*BKC) 100 UNITS/ML 40 UNITS SUB-Q (09:17)
[2023-01-16] MEDS: amLODIPine BESYLATE 5 MG TABLET PO (09:18)
[2023-01-16] MEDS: ROSUVASTATIN 10 MG TABLET 20 MG PO (09:18)
[2023-01-16] MEDS: APIXABAN 5 MG TABLET PO (09:18)
[2023-01-16] MEDS: lisinopriL 10 MG TABLET PO (09:19)
[2023-01-16] MEDS: FUROSEMIDE 20 MG TABLET PO (09:19)
[2023-01-16] MEDS: polyethylene glycoL 3350 17 GM POWD.PACK PO (09:20)
--- NOTE | 2023-01-16 12:12 | PM.DS ---
DS: Admitting Diagnosis Discharge Date 01/16/23 Admitting Diagnosis weakness DS: Discharge Diagnosis Discharge Diagnosis (1) Weakness: Code(s): R53.1 - Weakness Status: Acute Assessment and Plan: Multifactorial, likely secondary to UTI with orthostatic hypotension Check orthostatics, gentle IV fluid hydration PT/OT, Follow-up urine culture, ecoli, sens pending (2) Urinary tract infection: Code(s): N39.0 - Urinary tract infection, site not specified Status: Acute Assessment and Plan: Started on ceftriaxone 01/13 Follow-up urine culture (3) Hypokalemia: Code(s): E87.6 - Hypokalemia Status: Acute Assessment and Plan: Replete and recheck (4) Insulin dependent type 2 diabetes mellitus: Code(s): E11.9 - Type 2 diabetes mellitus without complications; Z79.4 - marine oil terminal superintendent (current) use of insulin Status: Chronic Assessment and Plan: Accu-Cheks, sliding scale insulin, continue home Lantus, decrease from 48 to 40 units due to slightly lower BG A1C 7.0 12/31/22 Blood glucose reviewed 01/15 Plan Home Meds/Chronic Conditions - HTN: continue amlodipine, Lasix, and lisinopril, monitor. - HLD: continue Rosuvastatin - constipation: continue to docusate - DVT: continue Eliquis. Diet: diabetic, soft/bite sized. some reported baseline dysphagia with straws etc. GI Prophylaxis: not indicated DVT Prophylaxis: on Eliquis Code Status: Full Code DS: Summary Hospital Course Hospital Course: 87 y/o M w/PMH of recent UTI/urinary retention, anemia, CKD3, CVA w/R sided deficits, HLD, HTN, DM2, prostate cx and mitral valve prolapse is presenting with generalized weakness and syncopal episode x2 and is being treated for UTI and suspected orthostatic hypotension. Multifactorial, likely secondary to UTI with orthostatic hypotension Check orthostatics, gentle IV fluid hydration PT/OT, Follow-up urine culture, ecoli, gonsalves sens Patient was discharged in stable condition with close outpatient follow-up. Please see above and med rec for details. 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 CV: Regular rate and rhythm, S1, S2 Lungs: Clear to auscultation bilaterally, no rales or crackles noted, no wheezes, good air entry Abdomen: Soft, nontender, nondistended Extremities: Normal to inspection Skin: No rashes noted, no lesions or wounds seen Psych: Euthymic, normal affect DS: Data Data Completed and Pending Labs on day of discharge: Labs from last 24 hours 01/16/23 01/16/23 01/15/23 08:02 06:45 20:16 WBC 7.1 RBC 3.79 L Hgb 10.6 L Hct 34.4 L MCV 90.8 MCH 28.0 MCHC 30.8 L RDW 14.0 Plt Count 171 MPV 11.0 H Immature Gran % (Auto) 0.3 Neut % (Auto) 66.4 Lymph % (Auto) 24.0 [place] % (Auto) 7.0 Eos % (Auto) 2.2 Baso % (Auto) 0.1 L Lymph # (Auto) 1.71 [place] # (Auto) 0.5 Eos # (Auto) 0.2 Baso # (Auto) 0.0 Abs Immat Gran (auto) 0.02 Absolute Neuts (auto) 4.7 Absolute Nucleated RBC 0.0 Nucleated RBC % 0.0 Sodium 135 L Potassium 3.7 Chloride 101 Carbon Dioxide 25 Anion Gap 9 BUN 21 H Creatinine 0.90 Estim Creat Clear Calc 52 Estimated GFR > 60 Glucose 188 H POC Capillary Glucose 199 H 242 H Calcium 8.6 01/15/23 15:58 WBC RBC Hgb Hct MCV MCH MCHC RDW Plt Count MPV Immature Gran % (Auto) Neut % (Auto) Lymph % (Auto) [place] % (Auto) Eos % (Auto) Baso % (Auto) Lymph # (Auto) [place] # (Auto) Eos # (Auto) Baso # (Auto) Abs Immat Gran (auto) Absolute Neuts (auto) Absolute Nucleated RBC Nucleated RBC % Sodium Potassium Chloride
[2023-01-16 12:52] LABS: Glucose Point of Care 189 mg/dl (65-105)
[2023-01-16 16:51] LABS: Glucose Point of Care 174 mg/dl (65-105)
== END 2023-01-16 18:10 | disposition home health service (06) | DRG 690 ==
LOC: ANHED 10:12 → ANH3MEDSUR 12:06
PROVIDERS: Student in an Organized Health Care Education/Training Program; Admitting Provider General Practice; Emergency Provider Emergency Medicine; PCP Emergency Medicine; Visit Provider Student in an Organized Health Care Education/Training Program
DX: N39.0 Urinary tract infection, site not specified (principal); I69.351 Hemiplegia and hemiparesis following cerebral infarction affecting right dominant side; I12.9 Hypertensive chronic kidney disease with stage 1 through stage 4 chronic kidney disease, or unspecified chronic kidney disease; N18.30 Chronic kidney disease, stage 3 unspecified; E11.22 Type 2 diabetes mellitus with diabetic chronic kidney disease; E87.6 Hypokalemia; E78.5 Hyperlipidemia, unspecified; D64.9 Anemia, unspecified; C61 Malignant neoplasm of prostate; I34.1 Nonrheumatic mitral (valve) prolapse; I95.1 Orthostatic hypotension; K57.30 Diverticulosis of large intestine without perforation or abscess without bleeding; M19.90 Unspecified osteoarthritis, unspecified site; R33.9 Retention of urine, unspecified; Z20.822 Contact with and (suspected) exposure to COVID-19; Z79.82 Long term (current) use of aspirin; Z79.01 Long term (current) use of anticoagulants; Z87.19 Personal history of other diseases of the digestive system; Z80.0 Family history of malignant neoplasm of digestive organs; Z86.718 Personal history of other venous thrombosis and embolism; Z90.01 Acquired absence of eye
CPT/HCPCS: 36415; 70450; 71046; 80048; 80053; 81001; 82948; 84145; 84484; 85025; 85610; 85730; 87077; 87086; 87186; 87637; 93005; 96365; 97161; 97165; 99285; A9270; G0378; J0696; J1815; J3480; J7030; J7040

== ENCOUNTER 2023-04-10 14:16 | Inpatient (IN) | payer MEDICARE, SELFPAY ==
[2023-04-10] VITALS (11 sets, daily range): BP systolic 116–171; BP diastolic 75–88; PULSE 103–120; RESP 16–22; TEMP 36.5–37; O2SAT 95–100; BMI 25.5; BMI 25.4
--- NOTE | ~2023-04-10 | CT_ITS ---
EXAMINATION: CT abdomen pelvis w con DATE: 04/10/2023 18:49 INDICATION: UTI, leukocytosis, tachycardia TECHNIQUE: Computed tomography (CT) of the abdomen and pelvis was performed with 100 mL Omnipaque-350 intravenous contrast. Automated exposure control and iterative reconstruction technique were employe d. The dose-length product was 1133.62 mGy-cm. COMPARISON: 12/31/2022; 12/24/2010. FINDINGS: Exam limited by arm down positioning. Lower thorax: Bilateral dependent atelectasis. Coronary artery calcifications. Liver: Normal. Biliary/Gallbladder: Gallbladder is normal. No bile duct dilation. Pancreas: No mass or duct dilation. Spleen: Normal. Adrenals:Bilateral nodular adrenal thickening, indeterminate density left adrenal nodule, all demonst rating long-term stability. Kidneys: No suspicious mass, obstructing stone, or hydronephrosis. Multiple bilateral simple renal cy sts and subcentimeter hypodensities that likely also represent cysts. GI tract: Mild distal esophageal and gastric wall edema. No small or large bowel dilation. Normal antwon endix. Diverticulosis without diverticulitis. Mesentery/Peritoneum: No ascites, mass, or free air. Retroperitoneum: No mass. Atherosclerotic abdominal aortic and/or arterial calcifications. Pelvis: The urinary bladder is decompressed by Singh catheter. Marked urinary bladder wall edema/infl ammation. Soft Tissues: Soft tissues and body wall unremarkable. Bones: No acute osseous finding. IMPRESSION: Mild esophagitis/gastritis. Severe cystitis. Reviewed, dictated and finalized at location [facility]
--- NOTE | 2023-04-10 15:19 | ED.MALEGU ---
HPI - Male Genitourinary General Chief complaint: Urogenital-Male Stated complaint: catheter not draining Time Seen by Provider: 04/10/23 14:34 Source: patient Mode of arrival: EMS Limitations: no limitations History of Present Illness HPI Narrative: This is a 87 year old male that presents to the ER for Singh catheter malfunction. Patient's catheter is not draining properly. This was replaced. Patient is feeling much better now. His urine is cloudy. He has no other complaints. Denies fevers, flank pain or vomiting. Related Data Home Medications Medication Instructions Recorded Confirmed aspirin 81 mg chewable tablet 81 mg PO DAILY 03/29/19 02/18/23 insulin glargine 100 unit/mL (3 48 unit subcut QAM 09/12/22 02/18/23 mL) subcutaneous pen (Lantus Solostar U-100 Insulin) mirabegron 50 mg tablet,extended 50 mg PO HS 12/31/22 02/18/23 release 24 hr (Myrbetriq) Allergies Allergy/AdvReac Type Severity Reaction Status Date / Time No Known Allergies Allergy Verified 01/22/23 11:16 Review of Systems Review of Systems: CONSTITUTIONAL: Denies fever GASTROINTESTINAL: Denies abdominal pain, nausea, vomiting GENITOURINARY: Denies hematuria. 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 Diverticulitis Ear lesion Elevated lactic acid level Frequent falls History of rectal polyps Hyperlipidemia Hypertension Hypoglycemic reaction Insulin dependent type 2 diabetes mellitus hemoglobin A1c was 7.6 March 21, 2019. MVP (mitral valve prolapse) Nausea & vomiting Primary osteoarthritis of left shoulder Prostate cancer Diagnosed in 2008. Shingles Syncope Urinary tract infection Surgical History Surgical History History of orthopedic surgery ORIF left tib-fib fracture. Family History Family History Sibling Hypertension Cerebrovascular accident Family history of malignant neoplasm Family history of diabetes mellitus in first degree relative Mother Family history of malignant neoplasm, Onset Age: 75 Patient's mother is Father Carcinoma of colon, Onset Age: 67 Patient's father is Social History Social History Social History: The patient lives with his in [place]. He is retired from [employer]. He designates his , Kaye, as his surrogate decision maker and he wishes to be a full code. He is a lifelong nonsmoker and denies alcohol and drug abuse. Smoking status: Never smoker Alcohol intake: never Substance use: never Substance use type: does not use Lack of Transportation: No Lack of Food: Never True Current Housing: I Have Housing Concerned About Future Housing: No Difficulty Paying Gas/Electric Bills: No Difficulty Paying for Meds: No Currently Unemployed: No Education: Decline to Answer Difficulty w/ Childcare or Family Care: No Spiritual care concerns: No Agree to blood products: Yes Exam Narrative: GENERAL: Elderly, well-nourished, and in no acute distress. HEAD: Atraumatic. EYES: EOMI. Left sided enucleation CHEST: Clear to auscultation. No respiratory distress. No wheezes rales or rhonchi HEART: Regular rate and rhythm. No murmur heard. Normal peripheral pulses. ABDOMEN: Soft,
[2023-04-10 16:04] LABS: Bacteria Urine 4+ /hpf; RBC Urine >100 /hpf (0-2); Squamous Epithelial Cell Urine None seen /hpf (Few); Triple Phosphate Crystal Urine Present /hpf; WBC Urine >100 /hpf
[2023-04-10 16:07] LABS: Appearance Urine Turbid (Clear); Bilirubin Urine Negative (Negative); Blood Urine 3+ (Negative); Color Urine Red (Yellow); Glucose Urine UA Trace mg/dL (Negative); Ketones Urine Negative (Negative); Leukocyte Esterase Ur 3+ LEU/UL (Negative); Nitrate Urine Negative (Negative); Protein Urine 4+ mg/dL (Negative); Specific Grav Ur 1.015 (1.001-1.035); pH Urine 8.5 (5.0-9.0)
[2023-04-10 16:08] LABS: Add Urine Microscopic? YES
--- NOTE | 2023-04-10 16:56 | ECG_ITS ---
Measurements Intervals [place] Rate: 114 P: 87 NJ: 179 QRS: -61 QRSD: 113 T: 71 QT: 336 QTc: 463 Interpretive Statements SINUS TACHYCARDIA WITH OCCASIONAL VENTRICULAR PREMATURE COMPLEXES BASELINE ARTIFACT PATTERN CONSISTENT WITH PULMONARY DISEASE LEFT ANTERIOR FASCICULAR BLOCK [QRS AXIS <= -45, QR IN I, RS IN II] NONSPECIFIC ST ABNORMALITY ABNORMAL ECG COMPARED TO ECG 01/13/2023 13:54:59 HEART RATE HAS INCREASED Electronically Signed On 04-11-2023 18:02:55 SQL ARCHITECT by Jeremy Camara M.D.
[2023-04-10 17:33] LABS: Basophils Percent Auto 0.2 % (0.2-1.2); Eosinophils Percent Auto 0.1 % (0-4.4); Hematocrit 39.3 % (42.0-52.0); Hemoglobin 12.6 g/dL (14.0-18.0); Immature Granulocyte Absolute 0.05 K/mm3 (0.00-0.031); Immature Granulocyte Percent A 0.3 % (0-0.5); Lymphocytes Absolute Auto 1.46 K/mm3 (0.9-3.2); Mean Corpuscular HGB Conc 32.1 g/dl (32-36); Mean Corpuscular Volume 87.3 fl (80-100); Mean Platelet Volume 10.5 fl (7.4-10.4); Monocytes Absolute Auto 0.9 K/mm3 (0.1-0.6); Monocytes Percent Auto 5.2 % (2.6-8.5); Neutrophils Absolute Auto 15.8 K/mm3 (1.3-6.7); Neutrophils Percent Auto 86.2 % (45.5-73.1); Platelet Count Result 178 k/mm3 (150-375); Red Cell Distribution Width 14.1 % (11.5-14.5); White Blood Count 18.3 K/mm3 (4.5-10.0)
[2023-04-10 17:44] LABS: Alanine Aminotransferase 20 U/L (6-50); Albumin Level 3.8 g/dL (3.5-5.1); Alkaline Phosphatase 107 U/L (38-126); Anion Gap 5 mmol/L (8-16); Aspartate Amino Transferase 25 U/L (17-59); Bilirubin,Total 0.9 mg/dL (0.2-1.3); Blood Urea Nitrogen 22 mg/dL (9-20); Calcium 9.1 mg/dL (8.4-10.2); Carbon Dioxide 26 mmol/L (22-30); Chloride 99 mmol/L (98-107); Estimated CRCL calculation 67 ml/min; Estimated Glomerular Filt Rate > 60; Glucose 199 mg/dL (65-110); Potassium 3.6 mmol/L (3.4-5.0); Sodium 130 mmol/L (137-145)
[2023-04-10] MEDS: SODIUM CHLORIDE 0.9% IV 1,000 ML 999 ML IV CONT (19:21)
--- NOTE | 2023-04-10 20:35 | PM.IMHP ---
H&P: HPI History of Present Illness Date/Time: 04/10/23 20:35 Chief Complaint: Catheter not draining. Narrative: This is an 87-year-old male patient with a past medical history of type 2 diabetes chronic indwelling Singh catheter history of CVA with right-sided weakness hyperlipidemia chronic hypertension who came to the emergency room because of malfunctioning Singh's catheter. The patient's Singh catheter was replaced. But his urine was cloudy. Patient is awake alert not in acute distress. Patient denies any fever chills dizziness lightheadedness no blurred vision no chest pains no shortness on breath no cough no nausea no vomiting no diarrhea. Vital signs in the emergency room were stable. CBC was significant for WBC of 18.3 hemoglobin 12.6 hematocrit 39.[address] scan of abdomen and pelvis showed mild esophagitis/gastritis. C virus cystitis. EKG showed sinus tachycardia with occasional PVCs. Patient was given IV ceftriaxone in the emergency room. Review of Systems Review of Systems: A 12 point review of system is done and is only positive what is dictated in the history of present illness. 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 Diverticulitis Ear lesion Elevated lactic acid level Frequent falls History of rectal polyps Hyperlipidemia Hypertension Hypoglycemic reaction Insulin dependent type 2 diabetes mellitus hemoglobin A1c was 7.6 March 21, 2019. MVP (mitral valve prolapse) Nausea & vomiting Primary osteoarthritis of left shoulder Prostate cancer Diagnosed in 2008. Shingles Syncope Urinary tract infection Surgical History Surgical History History of orthopedic surgery ORIF left tib-fib fracture. Family History Family History Sibling Hypertension Cerebrovascular accident Family history of malignant neoplasm Family history of diabetes mellitus in first degree relative Mother Family history of malignant neoplasm, Onset Age: 75 Patient's mother is Father Carcinoma of colon, Onset Age: 67 Patient's father is Social History Social History Social History: The patient lives with his in [place]. He is retired from [employer]. He designates his , Kaye, as his surrogate decision maker and he wishes to be a full code. He is a lifelong nonsmoker and denies alcohol and drug abuse. Smoking status: Never smoker Alcohol intake: never Substance use: never Substance use type: does not use Lack of Transportation: No Lack of Food: Never True Current Housing: I Have Housing Concerned About Future Housing: No Difficulty Paying Gas/Electric Bills: No Difficulty Paying for Meds: No Currently Unemployed: No Education: Decline to Answer Difficulty w/ Childcare or Family Care: No Spiritual care concerns: No Agree to blood products: Yes Meds Home Medications and Allergies Home Medications Medication Instructions Recorded Confirmed Type aspirin 81 mg chewable tablet 81 mg PO DAILY 03/29/19 02/18/23 History insulin glargine 100 unit/mL (3 48 unit subcut QAM 09/12/22 02/18/23 History mL) subcutaneous pen (Lantus Solostar U-100 Insulin) pen needle, diabetic 31 gauge x #100 ea 10/08/22 02/18/23 Rx 3/16 (BD Ultra-Fine Mini Pen Needle)
--- NOTE | 2023-04-10 21:07 | ADMGEN ---
This patient, Derrell Berkowitz, was admitted to Medical Room 240-01. Patient/family oriented to hospital policies and general routines including ID bracelet, bed and alarms, visiting hours, pain management, procedures, bathroom and other care routines, personal items, smoking policy, room service/diet, and visiting hours. Information on how to activate the Rapid Response Team has been discussed. Patient/Family are encouraged to report perceived risks to care and to ask questions if they do not understand what they are told or what they should do.
[2023-04-10 21:17] LABS: Glucose Point of Care 208 mg/dl (65-105)
[2023-04-10] MEDS: SODIUM CHLORIDE 0.9% IV 1,000 ML 100 ML IV CONT (21:40)
[2023-04-10 21:41] LABS: Basophils Percent Auto 0.1 % (0.2-1.2); Eosinophils Percent Auto 0.1 % (0-4.4); Hematocrit 40.9 % (42.0-52.0); Immature Granulocyte Absolute 0.07 K/mm3 (0.00-0.031); Immature Granulocyte Percent A 0.5 % (0-0.5); Lymphocytes Absolute Auto 1.43 K/mm3 (0.9-3.2); Lymphocytes Percent Auto 9.3 % (18.3-44.2); Mean Corpuscular HGB Conc 31.8 g/dl (32-36); Mean Corpuscular Hemoglobin 28.2 pg (26-34); Mean Corpuscular Volume 88.7 fl (80-100); Mean Platelet Volume 10.3 fl (7.4-10.4); Monocytes Absolute Auto 0.6 K/mm3 (0.1-0.6); Monocytes Percent Auto 3.8 % (2.6-8.5); Neutrophils Absolute Auto 13.2 K/mm3 (1.3-6.7); Neutrophils Percent Auto 86.2 % (45.5-73.1); Platelet Count Result 175 k/mm3 (150-375); Red Blood Count 4.61 M/mm3 (4.6-6.20); Red Cell Distribution Width 14.1 % (11.5-14.5); White Blood Count 15.3 K/mm3 (4.5-10.0)
[2023-04-10 21:51] LABS: Anion Gap 7 mmol/L (8-16); Blood Urea Nitrogen 17 mg/dL (9-20); Carbon Dioxide 26 mmol/L (22-30); Chloride 101 mmol/L (98-107); Estimated CRCL calculation 67 ml/min; Estimated Glomerular Filt Rate > 60; Glucose 197 mg/dL (65-110); Potassium 3.6 mmol/L (3.4-5.0); Sodium 134 mmol/L (137-145)
[2023-04-11] VITALS (8 sets, daily range): BP systolic 111–131; BP diastolic 69–71; PULSE 50–90; RESP 16–18; TEMP 36.4–36.6; O2SAT 97–100
--- NOTE | 2023-04-11 05:52 | PC.NURSE ---
Patient unable to complete home med reconciliation. States has list at home that she will bring in when she comes this morning. Prefers to wait to verify meds to make sure everything is accounted for
--- NOTE | 2023-04-11 07:19 | P.PNIM_ITS ---
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 supervisor insulin use: with watermelon harvesting supervisor use Diabetes mellitus type: type 2 Qualified Code(s): E11.40 - Type 2 diabetes mellitus with diabetic neuropathy, unspecified; Z79.4 - buttermaker (current) use of insulin Code(s): E11.9 - Type 2 diabetes mellitus without complications Status: Acute (4) Acute UTI: Code(s): N39.0 - Urinary tract infection, site not specified Status: Acute (5) Urinary retention: Code(s): R33.9 - Retention of urine, unspecified Status: Acute Plan Sepsis without septic shock secondary to cystitis * empiric IV antibiotic therapy: Ceftriaxone on pending culture and sensitivities * Patient with indwelling catheter replaced in the ER * Patient with sinus tachycardia 120/WBCs 18.3/UA positive nitrates and leukocyte with bacteriuria * Monitor lactic acid levels q6hr. Was ordered in the ER but never drawn * Repeat CBC, CMP. * Two sets of blood cultures pending * urine cultures. Cystitis pending cultures * PTT and PT, INR. * neuro status checks * glucose monitoring and control UTI * Urine cultures and blood cultures pending * Chronic indwelling catheter * Singh catheter changed in the emergency department * Continue IV hydration. * WBC trending down 18.3 POA * Monitor vital signs. * Rocephin IV pending cultures * CT scan showed cystitis * Monitor for obstructive uropathy and pyelonephritis Urinary retention * Malfunction of patient's indwelling chronic urinary catheter * Replaced in the emergency department now draining * Resume patient's home medication Hyponatremia with hypo-osmolality * Sodium 130 BUN * IV fluids * Follow-up Na 134 Diabetes * Accu-Cheks a.c. HS * sliding scale insulin * hold oral diabetic medications * resume patient's home long-acting * Hemoglobin A1c goal less than 7 * Resume patient's statin * Diabetic diet * consult to dietitian * encourage lifestyle modifications and weight loss * Watch for hypoglycemia/hypoglycemic protocol ordered Secondary hypercoagulability * HX DVT/CVA * INR/PT pending * Resume patient Coumadin Code status: Full code per patient DVT prophylaxis: Coumadin Stress ulcer prophylaxis: Protonix 40 daily PT/OT notes: PT/OT pending Disposition: Patient continues admission to the medical-surgical unit for further evaluation treatment of UTI due to indwelling urinary Singh catheter. Patient's sepsis resolving current treatment pending culture and sensitivities patient will likely discharge back to longterm facility tomorrow if no events overnight. Time Spent With Patient Time with patient: 25 - 35 minutes Subjective Date/time seen: 04/11/23 07:20 Interval history: H&P: (Medical Record) Chief Complaint: Catheter not draining. Narrative: This is an 87-year-old male patient with a past medical history of type 2 diabetes chronic indwelling Singh catheter history of CVA with right-sided weakness hyperlipidemia chronic hypertension who came to the emergency room b
--- NOTE | 2023-04-11 07:19 | PM.IMPN ---
Progress Note: A&P Assessment and Plan (1) Sepsis without septic shock: Code(s): A41.9 - Sepsis, unspecified organism Status: Acute (2) Hyponatremia: Code(s): E87.1 - Hypo-osmolality and hyponatremia Status: Acute (3) Diabetes mellitus: Qualifiers: Diabetes mellitus complication detail: with unspecified neuropathy Diabetes mellitus complication status: with neurologic complications Diabetes mellitus intermediate manager insulin use: with intermediate manager use Diabetes mellitus type: type 2 Qualified Code(s): E11.40 - Type 2 diabetes mellitus with diabetic neuropathy, unspecified; Z79.4 - local intermodal truck driver (current) use of insulin Code(s): E11.9 - Type 2 diabetes mellitus without complications Status: Acute (4) Acute UTI: Code(s): N39.0 - Urinary tract infection, site not specified Status: Acute (5) Urinary retention: Code(s): R33.9 - Retention of urine, unspecified Status: Acute Plan Sepsis without septic shock secondary to cystitis empiric IV antibiotic therapy: Ceftriaxone on pending culture and sensitivities Patient with indwelling catheter replaced in the ER Patient with sinus tachycardia 120/WBCs 18.3/UA positive nitrates and leukocyte with bacteriuria Monitor lactic acid levels q6hr. Was ordered in the ER but never drawn Repeat CBC, CMP. Two sets of blood cultures pending urine cultures. Cystitis pending cultures PTT and PT, INR. neuro status checks glucose monitoring and control UTI Urine cultures and blood cultures pending Chronic indwelling catheter Singh catheter changed in the emergency department Continue IV hydration. WBC trending down 18.3 POA Monitor vital signs. Rocephin IV pending cultures CT scan showed cystitis Monitor for obstructive uropathy and pyelonephritis Urinary retention Malfunction of patient's indwelling chronic urinary catheter Replaced in the emergency department now draining Resume patient's home medication Hyponatremia with hypo-osmolality Sodium 130 BUN IV fluids Follow-up Na 134 Diabetes Accu-Cheks a.c. HS sliding scale insulin hold oral diabetic medications resume patient's home long-acting Hemoglobin A1c goal less than 7 Resume patient's statin Diabetic diet consult to dietitian encourage lifestyle modifications and weight loss Watch for hypoglycemia/hypoglycemic protocol ordered Secondary hypercoagulability HX DVT/CVA INR/PT pending Resume patient Coumadin Code status: Full code per patient DVT prophylaxis: Coumadin Stress ulcer prophylaxis: Protonix 40 daily PT/OT notes: PT/OT pending Disposition: Patient continues admission to the medical-surgical unit for further evaluation treatment of UTI due to indwelling urinary Singh catheter. Patient's sepsis resolving current treatment pending culture and sensitivities patient will likely discharge back to [facility] facility tomorrow if no events overnight. Time Spent With Patient Time with patient: 25 - 35 minutes Subjective Date/time seen: 04/11/23 07:20 Interval history: H&P: (Medical Record) Chief Complaint: Catheter not draining. Narrative: This is an 87-year-old male patient with a past medical history of type 2 diabetes chronic indwelling Singh catheter history of CVA with right-sided weakness hyperlipidemia chronic hypertension who came to the emergency room because of malfunctioning Singh's catheter.? The patient's Singh catheter was replaced.? But his urine was cloudy.? Patient is awake alert not in acute distress.? Patient denies any fever chills dizziness lightheadedness no blurred vision no chest pains no shortness on breath no cough no nausea no vomiting no diarrhea.? Vital signs in the emergency room were stable.? CBC was significant for WBC of 18.3 hemoglobin 12.6 hematocrit 39.3 platelet count 178.? CT scan of abdomen and pelvis showed mild esophagitis/gastritis.?
[2023-04-11 08:30] LABS: Glucose Point of Care 123 mg/dl (65-105)
[2023-04-11 08:38] LABS: Hematocrit 39.1 % (42.0-52.0); Mean Corpuscular HGB Conc 30.7 g/dl (32-36); Mean Corpuscular Hemoglobin 27.8 pg (26-34); Mean Corpuscular Volume 90.7 fl (80-100); Mean Platelet Volume 11.4 fl (7.4-10.4); Platelet Count Result 169 k/mm3 (150-375); Red Blood Count 4.31 M/mm3 (4.6-6.20); Red Cell Distribution Width 14.1 % (11.5-14.5); White Blood Count 9.7 K/mm3 (4.5-10.0)
[2023-04-11 08:47] LABS: INR 3.2; Prothrombin Time 35.8 Seconds (11.1-14.7)
[2023-04-11] MEDS: PANTOPRAZOLE 40 MG TABLET PO (09:07)
[2023-04-11 09:46] LABS: Alanine Aminotransferase 17 U/L (6-50); Albumin Level 3.3 g/dL (3.5-5.1); Alkaline Phosphatase 85 U/L (38-126); Anion Gap 3 mmol/L (8-16); Aspartate Amino Transferase 37 U/L (17-59); Bilirubin,Total 0.7 mg/dL (0.2-1.3); Blood Urea Nitrogen 15 mg/dL (9-20); Carbon Dioxide 29 mmol/L (22-30); Chloride 104 mmol/L (98-107); Estimated CRCL calculation 60 ml/min; Estimated Glomerular Filt Rate > 60; Glucose 123 mg/dL (65-110); Magnesium 2.3 mg/dL (1.6-2.3); Potassium 3.3 mmol/L (3.4-5.0); Sodium 136 mmol/L (137-145)
[2023-04-11 12:12] LABS: Glucose Point of Care 249 mg/dl (65-105)
[2023-04-11] MEDS: SODIUM CHLORIDE 0.9% IV 1,000 ML 100 ML IV CONT ×2 (12:33→20:52)
[2023-04-11] MEDS: INSULIN ASPART (*BKC) 100 UNITS/ML SUB-Q ×2 (12:33→17:06)
[2023-04-11] MEDS: ROSUVASTATIN 10 MG TABLET 20 MG PO (17:04)
[2023-04-11 17:05] LABS: Glucose Point of Care 215 mg/dl (65-105)
[2023-04-11] MEDS: lisinopriL 10 MG TABLET PO (17:05)
[2023-04-11] MEDS: amLODIPine BESYLATE 5 MG TABLET PO (17:05)
[2023-04-11] MEDS: INSULIN GLARGINE (*BKC) 100 UNITS/ML 38 UNITS SUB-Q (17:06)
[2023-04-11] MEDS: TAMSULOSIN HCL 0.4 MG CAPSULE PO (20:53)
--- NOTE | 2023-04-11 21:21 | PC.NURSE ---
A medication list was supposed to be brought in today but was not
[2023-04-11 21:23] LABS: Glucose Point of Care 186 mg/dl (65-105)
[2023-04-12 05:35] LABS: Hematocrit 35.7 % (42.0-52.0); Hemoglobin 10.9 g/dL (14.0-18.0); Mean Corpuscular HGB Conc 30.5 g/dl (32-36); Mean Corpuscular Hemoglobin 28.1 pg (26-34); Mean Platelet Volume 11.8 fl (7.4-10.4); Platelet Count Result 157 k/mm3 (150-375); Red Blood Count 3.88 M/mm3 (4.6-6.20); Red Cell Distribution Width 14.4 % (11.5-14.5); White Blood Count 8.3 K/mm3 (4.5-10.0)
[2023-04-12 05:50] LABS: INR 3.1; Prothrombin Time 34.7 Seconds (11.1-14.7)
[2023-04-12 05:51] LABS: Alanine Aminotransferase 16 U/L (6-50); Albumin Level 3.1 g/dL (3.5-5.1); Alkaline Phosphatase 77 U/L (38-126); Anion Gap 5 mmol/L (8-16); Aspartate Amino Transferase 19 U/L (17-59); Bilirubin,Total 0.6 mg/dL (0.2-1.3); Blood Urea Nitrogen 14 mg/dL (9-20); Calcium 8.4 mg/dL (8.4-10.2); Carbon Dioxide 25 mmol/L (22-30); Chloride 108 mmol/L (98-107); Estimated CRCL calculation 60 ml/min; Estimated Glomerular Filt Rate > 60; Glucose 117 mg/dL (65-110); Potassium 3.2 mmol/L (3.4-5.0); Sodium 138 mmol/L (137-145)
--- NOTE | 2023-04-12 07:06 | P.DS_ITS ---
DS: Admitting Diagnosis Discharge Date 04/12/2023 Admitting Diagnosis Sepsis without septic shock secondary to UTI DS: Discharge Diagnosis Discharge Diagnosis (1) Sepsis without septic shock: Code(s): A41.9 - Sepsis, unspecified organism Status: Acute (2) Hyponatremia: Code(s): E87.1 - Hypo-osmolality and hyponatremia Status: Acute (3) Diabetes mellitus: Qualifiers: Diabetes mellitus complication detail: with unspecified neuropathy Diabetes mellitus complication status: with neurologic complications Diabetes mellitus half-way insulin use: with buttermaker use Diabetes mellitus type: type 2 Qualified Code(s): E11.40 - Type 2 diabetes mellitus with diabetic neuropathy, unspecified; Z79.4 - long term care phlebotomist (current) use of insulin Code(s): E11.9 - Type 2 diabetes mellitus without complications Status: Acute (4) Acute UTI: Code(s): N39.0 - Urinary tract infection, site not specified Status: Acute (5) Urinary retention: Code(s): R33.9 - Retention of urine, unspecified Status: Acute Plan Sepsis without septic shock secondary to cystitis * empiric IV antibiotic therapy: Ceftriaxone on pending culture and sensitivities * Patient with indwelling catheter replaced in the ER * Patient with sinus tachycardia 120/WBCs 18.3/UA positive nitrates and leukocyte with bacteriuria * Monitor lactic acid levels q6hr. Was ordered in the ER but never drawn * Repeat CBC, CMP. * Two sets of blood cultures pending * urine cultures. Cystitis pending cultures * PTT and PT, INR. * neuro status checks * glucose monitoring and control UTI * Urine cultures and blood cultures pending * Chronic indwelling catheter * Singh catheter changed in the emergency department * Continue IV hydration. * WBC trending down 18.3 POA * Monitor vital signs. * Rocephin IV pending cultures * CT scan showed cystitis * Monitor for obstructive uropathy and pyelonephritis Urinary retention * Malfunction of patient's indwelling chronic urinary catheter * Replaced in the emergency department now draining * Resume patient's home medication Hyponatremia with hypo-osmolality * Sodium 130 BUN * IV fluids * Follow-up Na 134 Diabetes * Accu-Cheks a.c. HS * sliding scale insulin * hold oral diabetic medications * resume patient's home long-acting * Hemoglobin A1c goal less than 7 * Resume patient's statin * Diabetic diet * consult to dietitian * encourage lifestyle modifications and weight loss * Watch for hypoglycemia/hypoglycemic protocol ordered Secondary hypercoagulability * HX DVT/CVA * INR/PT pending * Resume patient Coumadin Disposition: Patient to discharge back home with home health. will transport patient back home. DS: Summary Hospital Course Reason for hospitalization: UTI Hospital Course: H&P: (Medical Record) Chief Complaint: Catheter not draining. Narrative: This is an 87-year-old male patient with a past medical history of type 2 diabetes chronic indwelling Singh catheter history of CVA with right-sided weakness hyperlipidemia chronic hypertension who came to the emergency room because of malfunctioning Singh's catheter.? The patient's Singh catheter was replaced.? But his urine was cloudy.? Patient is awake alert not in acute distress.? Patient denies any fever chills dizziness lightheadedness no blurred vision no chest pains no shortness on breath no cough no nausea no vomiting no
--- NOTE | 2023-04-12 07:06 | PM.DS ---
DS: Admitting Diagnosis Discharge Date 04/12/2023 Admitting Diagnosis Sepsis without septic shock secondary to UTI DS: Discharge Diagnosis Discharge Diagnosis (1) Sepsis without septic shock: Code(s): A41.9 - Sepsis, unspecified organism Status: Acute (2) Hyponatremia: Code(s): E87.1 - Hypo-osmolality and hyponatremia Status: Acute (3) Diabetes mellitus: Qualifiers: Diabetes mellitus complication detail: with unspecified neuropathy Diabetes mellitus complication status: with neurologic complications Diabetes mellitus mcfp insulin use: with termite inspector use Diabetes mellitus type: type 2 Qualified Code(s): E11.40 - Type 2 diabetes mellitus with diabetic neuropathy, unspecified; Z79.4 - termite inspector (current) use of insulin Code(s): E11.9 - Type 2 diabetes mellitus without complications Status: Acute (4) Acute UTI: Code(s): N39.0 - Urinary tract infection, site not specified Status: Acute (5) Urinary retention: Code(s): R33.9 - Retention of urine, unspecified Status: Acute Plan Sepsis without septic shock secondary to cystitis empiric IV antibiotic therapy: Ceftriaxone on pending culture and sensitivities Patient with indwelling catheter replaced in the ER Patient with sinus tachycardia 120/WBCs 18.3/UA positive nitrates and leukocyte with bacteriuria Monitor lactic acid levels q6hr. Was ordered in the ER but never drawn Repeat CBC, CMP. Two sets of blood cultures pending urine cultures. Cystitis pending cultures PTT and PT, INR. neuro status checks glucose monitoring and control UTI Urine cultures and blood cultures pending Chronic indwelling catheter Singh catheter changed in the emergency department Continue IV hydration. WBC trending down 18.3 POA Monitor vital signs. Rocephin IV pending cultures CT scan showed cystitis Monitor for obstructive uropathy and pyelonephritis Urinary retention Malfunction of patient's indwelling chronic urinary catheter Replaced in the emergency department now draining Resume patient's home medication Hyponatremia with hypo-osmolality Sodium 130 BUN IV fluids Follow-up Na 134 Diabetes Accu-Cheks a.c. HS sliding scale insulin hold oral diabetic medications resume patient's home long-acting Hemoglobin A1c goal less than 7 Resume patient's statin Diabetic diet consult to dietitian encourage lifestyle modifications and weight loss Watch for hypoglycemia/hypoglycemic protocol ordered Secondary hypercoagulability HX DVT/CVA INR/PT pending Resume patient Coumadin Disposition: Patient to discharge back home with home health. will transport patient back home. DS: Summary Hospital Course Reason for hospitalization: UTI Hospital Course: H&P: (Medical Record) Chief Complaint: Catheter not draining. Narrative: This is an 87-year-old male patient with a past medical history of type 2 diabetes chronic indwelling Singh catheter history of CVA with right-sided weakness hyperlipidemia chronic hypertension who came to the emergency room because of malfunctioning Singh's catheter.? The patient's Singh catheter was replaced.? But his urine was cloudy.? Patient is awake alert not in acute distress.? Patient denies any fever chills dizziness lightheadedness no blurred vision no chest pains no shortness on breath no cough no nausea no vomiting no diarrhea.? Vital signs in the emergency room were stable.? CBC was significant for WBC of 18.3 hemoglobin 12.6 hematocrit 39.[address] CT scan of abdomen and pelvis showed mild esophagitis/gastritis.? C virus cystitis.? EKG showed sinus tachycardia with occasional PVCs.? Patient was given IV ceftriaxone in the emergency room. 04/11: Patient feeling good today with no complaints reports catheter draining well with good output and clear color.? UA pending previous UTI was ECOLI.? WBC retur
[2023-04-12 07:07] VITALS: BP 123/64; PULSE 85; RESP 16; TEMP 36.6; O2SAT 99
[2023-04-12] MEDS: POTASSIUM CHLORIDE INJ 40 MEQ in SODIUM CHLORIDE 0.9% IV 500 ML 130 MEQ IVPB (08:03)
[2023-04-12] MEDS: PANTOPRAZOLE 40 MG TABLET PO (08:07)
[2023-04-12] MEDS: ROSUVASTATIN 10 MG TABLET 20 MG PO (08:07)
[2023-04-12] MEDS: amLODIPine BESYLATE 5 MG TABLET PO (08:07)
[2023-04-12 08:08] VITALS: RESP 16; O2SAT 99
[2023-04-12] MEDS: lisinopriL 10 MG TABLET PO (08:08)
[2023-04-12] MEDS: ASPIRIN 81 MG ENTERIC TABLET PO (08:08)
[2023-04-12 08:21] LABS: Glucose Point of Care 110 mg/dl (65-105)
[2023-04-12] MEDS: INSULIN GLARGINE (*BKC) 100 UNITS/ML 45 UNITS SUB-Q (08:23)
[2023-04-12] MEDS: INSULIN GLARGINE (*BKC) 100 UNITS/ML SUB-Q (12:10)
[2023-04-12 12:17] LABS: Glucose Point of Care 181 mg/dl (65-105)
[2023-04-12 13:46] VITALS: BP 124/55; PULSE 92; TEMP 36.3; O2SAT 100
== END 2023-04-12 15:50 | disposition home or self-care (01) | DRG 698 ==
LOC: ANHED 19:54 → ANH2MED 20:20
PROVIDERS: Physician Assistant; Admitting Provider Internal Medicine Infectious Disease; Emergency Provider Physician Assistant; PCP Emergency Medicine; Visit Provider Nurse Practitioner Family
DX: T83.511A Infection and inflammatory reaction due to indwelling urethral catheter, initial encounter (principal); A41.9 Sepsis, unspecified organism; E87.1 Hypo-osmolality and hyponatremia; I69.354 Hemiplegia and hemiparesis following cerebral infarction affecting left non-dominant side; T83.091A Other mechanical complication of indwelling urethral catheter, initial encounter; N39.0 Urinary tract infection, site not specified; I12.9 Hypertensive chronic kidney disease with stage 1 through stage 4 chronic kidney disease, or unspecified chronic kidney disease; N18.30 Chronic kidney disease, stage 3 unspecified; E11.40 Type 2 diabetes mellitus with diabetic neuropathy, unspecified; E11.22 Type 2 diabetes mellitus with diabetic chronic kidney disease; E78.5 Hyperlipidemia, unspecified; I34.1 Nonrheumatic mitral (valve) prolapse; C61 Malignant neoplasm of prostate; K57.30 Diverticulosis of large intestine without perforation or abscess without bleeding; M19.012 Primary osteoarthritis, left shoulder; N40.1 Benign prostatic hyperplasia with lower urinary tract symptoms; R29.6 Repeated falls; R33.9 Retention of urine, unspecified; Z79.01 Long term (current) use of anticoagulants; Z79.82 Long term (current) use of aspirin; Z79.4 Long term (current) use of insulin; Z86.718 Personal history of other venous thrombosis and embolism; Z87.19 Personal history of other diseases of the digestive system
CPT/HCPCS: 36415; 74177; 80048; 80053; 81001; 82948; 83735; 85025; 85027; 85610; 87040; 87086; 87186; 93005; 96361; 96365; 97161; 97165; 97530; 97535; 99285; A9270; G0378; J0696; J1815; J3480; J7030; J7040; Q9967

== ENCOUNTER 2023-04-19 21:14 | Emergency (ER) | payer MEDICARE, SELFPAY ==
[2023-04-19 21:31] VITALS: BP 149/63; PULSE 50; RESP 16; TEMP 36.8; O2SAT 98
--- NOTE | 2023-04-20 01:37 | PC.NURSE ---
Pt came to ed with catheter in place. Catheter removed due to bleeding around insertion site and catheter not properly flowing. When catheter was removed pt was passing blood clots. Verbal order from Dr. Babcock to insert 3-way urethral catheter.
[2023-04-20] MEDS: LIDOCAINE HCL 2% GEL UROJET 10 ML PKG (02:30)
--- NOTE | 2023-04-20 02:30 | PC.NURSE ---
Attempted to place 20f [address] catheter and irrigate without success. Unable to inflate balloon. Attempted to irrigate to clear clot but still unable to pass catheter. Dr Babcock notified.
--- NOTE | 2023-04-20 02:30 | ED.GENADULT ---
HPI - General Adult General Chief complaint: Urogenital-Male <Arik Babcock MD - Last Filed: 04/21/23 02:02> Stated complaint: blood in catheter bag <Arik Babcock MD - Last Filed: 04/21/23 02:02> Time Seen by Provider: 04/20/23 01:19 <Arik Babcock MD - Last Filed: 04/21/23 02:02> History of Present Illness HPI narrative: Patient is an 87-year-old male with past medical history of BPH who presents to the emergency department this evening after his Singh catheter got dislodged while he was getting out of the bed. Patient is currently on Coumadin and states that ever since the Singh catheter was dislodged he has been bleeding and passing clots. This happened approximately 1 hour prior to arrival. Family member present at bedside states that he is not had any urine output since the Singh catheter got dislodged. Patient is complaining of some penile/urethra discomfort otherwise is denying any additional symptoms. Patient is a poor historian secondary to history of CVA. The majority of history of present illness and review of systems is provided from the patient's currently present at bedside. <Arik Babcock MD - Last Filed: 04/21/23 02:02> Related Data Home medications: Home Medications Medication Instructions Recorded Confirmed insulin glargine 100 unit/mL (3 48 unit subcut QAM 09/12/22 02/18/23 mL) subcutaneous pen (Lantus Solostar U-100 Insulin) mirabegron 50 mg tablet,extended 50 mg PO HS 12/31/22 02/18/23 release 24 hr (Myrbetriq) amlodipine 5 mg tablet 5 mg PO DAILY 04/11/23 04/11/23 aspirin 81 mg tablet,delayed 81 mg PO DAILY 04/11/23 04/11/23 release insulin glargine 100 unit/mL (3 See Rx Instructions .Route .COMPLEX 04/11/23 04/11/23 mL) subcutaneous pen (Lantus Solostar U-100 Insulin) lisinopril 10 mg tablet 10 mg PO DAILY 04/11/23 04/11/23 rosuvastatin 20 mg tablet 20 mg PO DAILY 04/11/23 04/11/23 tamsulosin 0.4 mg capsule 0.4 mg PO HS 04/11/23 04/11/23 warfarin 5 mg tablet 5 mg PO DAILY 04/11/23 04/11/23 <Arik Babcock MD - Last Filed: 04/21/23 02:02> Allergies/adverse reactions: Allergies Allergy/AdvReac Type Severity Reaction Status Date / Time No Known Allergies Allergy Verified 01/22/23 11:16 <Arik Babcock MD - Last Filed: 04/21/23 02:02> Review of Systems Review of Systems: All systems are reviewed and are negative unless stated otherwise in the HPI. 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 Diverticulitis Ear lesion Elevated lactic acid level Frequent falls History of rectal polyps Hyperlipidemia Hypertension Hypoglycemic reaction Insulin dependent type 2 diabetes mellitus hemoglobin A1c was 7.6 March 21, 2019. MVP (mitral valve prolapse) Nausea & vomiting Primary osteoarthritis of left shoulder Prostate cancer Diagnosed in 2008. Shingles Syncope Urinary tract infection <Arik Babcock MD - Last Filed: 04/21/23 02:02> Surgical History Surgical History: Surgical History History of orthopedic surgery ORIF left tib-fib fracture. <Arik Babcock MD - Last Filed: 04/21/23 02:02> Family History Family History: Family History Sibling Hypertension Cerebrovascular accident Family history of malignant
[2023-04-20 02:51] LABS: Basophils Percent Auto 0.1 % (0.2-1.2); Hematocrit 39.3 % (42.0-52.0); Hemoglobin 12.2 g/dL (14.0-18.0); Immature Granulocyte Absolute 0.09 K/mm3 (0.00-0.031); Immature Granulocyte Percent A 0.5 % (0-0.5); Lymphocytes Absolute Auto 1.96 K/mm3 (0.9-3.2); Lymphocytes Percent Auto 11.6 % (18.3-44.2); Mean Corpuscular Hemoglobin 28.2 pg (26-34); Monocytes Absolute Auto 0.8 K/mm3 (0.1-0.6); Monocytes Percent Auto 4.6 % (2.6-8.5); Neutrophils Absolute Auto 14.1 K/mm3 (1.3-6.7); Neutrophils Percent Auto 83.2 % (45.5-73.1); Platelet Count Result 220 k/mm3 (150-375); Red Blood Count 4.32 M/mm3 (4.6-6.20); White Blood Count 16.9 K/mm3 (4.5-10.0)
[2023-04-20] MEDS: LIDOCAINE HCL 2% GEL UROJET 10 ML PKG MUCOUS MEM (03:00)
[2023-04-20 03:03] LABS: INR 1.2; Prothrombin Time 15.5 Seconds (11.1-14.7)
[2023-04-20 03:04] LABS: Partial Thromboplastin Time 27.4 SECONDS (22.3-36.8)
[2023-04-20 03:12] LABS: Alanine Aminotransferase 32 U/L (6-50); Albumin Level 3.8 g/dL (3.5-5.1); Alkaline Phosphatase 79 U/L (38-126); Anion Gap 8 mmol/L (8-16); Aspartate Amino Transferase 41 U/L (17-59); Bilirubin,Total 1.5 mg/dL (0.2-1.3); Blood Urea Nitrogen 20 mg/dL (9-20); Calcium 9.2 mg/dL (8.4-10.2); Carbon Dioxide 22 mmol/L (22-30); Chloride 101 mmol/L (98-107); Estimated CRCL calculation 51 ml/min; Estimated Glomerular Filt Rate > 60; Glucose 265 mg/dL (65-110); Potassium 4.8 mmol/L (3.4-5.0); Sodium 131 mmol/L (137-145)
--- NOTE | 2023-04-20 03:21 | PC.NURSE ---
This RN attempted to cath pt, initially about 100mL of urine with blood clots came out and then urine flow stopped. This RN as well as Bhakti MONTANO attempted to irrigate cath.
--- NOTE | 2023-04-20 03:26 | ECG_ITS ---
Measurements Intervals [place] Rate: 117 P: 93 MN: 185 QRS: -63 QRSD: 111 T: 66 QT: 331 QTc: 463 Interpretive Statements SINUS TACHYCARDIA VENTRICULAR PREMATURE COMPLEX LEFT ANTERIOR FASCICULAR BLOCK BORDERLINE ST-T WAVE ABNORMALITY- HIGH LATERAL LEADS BASELINE ARTIFACT- I, II, AVR, V1 ABNORMAL ECG COMPARED TO ECG 04/10/2023 17:20:32 NO SIGNIFICANT CHANGES Electronically Signed On 04-20-2023 6:50:16 CERTIFIED HYPERBARIC TECHNOLOGIST by Marquis Haynes D.O.
--- NOTE | 2023-04-20 03:29 | PC.NURSE ---
Attempted to insert a 24fr three way catheter to no success.
[2023-04-20 03:34] VITALS: BP 142/90; PULSE 118; RESP 21; O2SAT 98
[2023-04-20 04:18] LABS: Appearance Urine Turbid (Clear); Color Urine Red (Yellow)
[2023-04-20 04:19] LABS: Bilirubin Urine 3+ (Negative); Blood Urine 3+ (Negative); Glucose Urine UA Trace mg/dL (Negative); Ketones Urine 1+ mg/dL (Negative); Leukocyte Esterase Ur 3+ LEU/UL (Negative); Nitrate Urine Negative (Negative); Protein Urine 2+ mg/dL (Negative)
[2023-04-20 04:20] LABS: Bacteria Urine 3+ /hpf; RBC Urine >100 /hpf (0-2); WBC Urine 51-75 /hpf
[2023-04-20 04:21] LABS: Add Urine Microscopic? YES
[2023-04-20 04:24] VITALS: BP 145/81; PULSE 121; RESP 26; O2SAT 98
[2023-04-20 05:05] VITALS: BP 143/71; PULSE 115; RESP 17; O2SAT 98
[2023-04-20] MEDS: ONDANSETRON INJ 4 MG/2 ML VIAL IV PUSH (05:34)
[2023-04-20] MEDS: MORPHINE SULFATE (*CRX) 2 MG/ML INJ IV PUSH (05:34)
--- NOTE | 2023-04-20 05:48 | PC.NURSE ---
Discussed with ERP large clotting found by previous writer editor. New orders obtained for H/H.
--- NOTE | 2023-04-20 05:49 | PC.NURSE ---
This RN went into room to check if pt was clean at 0510. Pt was found in large pool of blood. Provider made aware, provider assessed pt. No further orders given at this time.
[2023-04-20 06:04] LABS: Hematocrit 37.5 % (42.0-52.0); Hemoglobin 11.6 g/dL (14.0-18.0)
--- NOTE | 2023-04-20 07:21 | WPDURCON ---
Assessment and Plan Assessment and plan (1) Acute urinary retention: Code(s): R33.8 - Other retention of urine Status: Acute Assessment and Plan: cystoscopy performed at bedside with placement of a 18 [place] tip catheter. 1800 cc return of urine. Singh irrigated nicely without any evidence clots. If remains clear to be discharged home with Singh catheter and follow-up with Dr. acosta at his regularly scheduled appointment (2) Hematuria: Code(s): R31.9 - Hematuria, unspecified Status: Acute Assessment and Plan: secondary to Singh trauma. This will heal with indwelling Singh. (3) Urethral trauma: Code(s): S37.30XA - Unspecified injury of urethra, initial encounter Status: Acute Assessment and Plan: Maintain Singh for minimum of 1 week prior to any other voiding trials if needed. Urology Consult Note HPI Date Seen: 04/20/23 Time Seen: 07:21 Primary Care Provider: Quan Uribe MD Consult Narrative Reason for consult: urinary retention with urethral trauma and hematuria Narrative: Derrell Berkowitz is a 87 year old male was known to my partner Dr. Gill. he has a history retention as well as prostate carcinoma treated with androgen deprivation therapy. Patient was at home and accidentally pulled his Singh catheter. He developed hematuria with clots and presented to the emergency room. Has a history of stroke and thus most information was gathered from the chart at this time. Multiple attempts at Singh catheter were made by the emergency room staff unsuccessfully. Were asked to see him for placement of Singh catheter. Bladder scan had greater than 900 cc present. 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 Diverticulitis Ear lesion Elevated lactic acid level Frequent falls History of rectal polyps Hyperlipidemia Hypertension Hypoglycemic reaction Insulin dependent type 2 diabetes mellitus hemoglobin A1c was 7.6 March 21, 2019. MVP (mitral valve prolapse) Nausea & vomiting Primary osteoarthritis of left shoulder Prostate cancer Diagnosed in 2008. Shingles Syncope Urinary tract infection Surgical History Surgical History History of orthopedic surgery ORIF left tib-fib fracture. Family History Family History Sibling Hypertension Cerebrovascular accident Family history of malignant neoplasm Family history of diabetes mellitus in first degree relative Mother Family history of malignant neoplasm, Onset Age: 75 Patient's mother is Father Carcinoma of colon, Onset Age: 67 Patient's father is Social History Social History Social History: The patient lives with his in [place]. He is retired from [employer]. He designates his , Kaye, as his surrogate decision maker and he wishes to be a full code. He is a lifelong nonsmoker and denies alcohol and drug abuse. Smoking status: Never smoker Alcohol intake: never Substance use: never Substance use type: does not use Do You Feel Safe in your Home?: Yes Lack of Transportation: No Lack of Food: Never True Current Housing: I Have Housing
--- NOTE | 2023-04-20 07:26 | W.PM.PROC2 ---
Procedure Note - Detailed Date of Procedure 04/20/23 Pre-op Diagnosis blood in catheter bag Urinary retention, hematuria and urethral trauma Post-op Diagnosis Same Procedure Performed flexible cystoscopy with complex Singh catheter placement Surgeon Arben Interiano MD Anesthesia Local Description of Procedure procedure was performed at the bedside in the emergency room. He was prepped and draped usual sterile fashion. 2% viscous lidocaine was inserted into the urethra. Sixteen Serbian flexible scope was placed. Patient had visible urethral trauma in the bulbar urethra. Was able to manipulate the scope by following it the urethra anteriorly. Prostate was enlarged but difficult to evaluate due to some clots. Upon entering the bladder there was no evidence of clots at this time. Superstiff guidewire was then inserted through the scope. Eighteen [place] tip catheter was placed without difficulty and inflated with 10 cc of saline. 1800 cc of tea-colored urine was retrieved. The Singh catheter was then manually irrigated no clots were retrieved it was fairly clear. Singh catheter was then placed to gravity drainage. This completes dictation. Please send a copy to my office. Estimated Blood Loss 0 Drains Yes Packing No Pathology None sent Complications No immediate complications Condition Stable Disposition No change
[2023-04-20 09:15] VITALS: PULSE 95; RESP 18; O2SAT 100
== END 2023-04-20 11:05 | disposition home or self-care (01) ==
PROVIDERS: Emergency Provider Emergency Medicine; PCP Emergency Medicine
DX: N40.1 Benign prostatic hyperplasia with lower urinary tract symptoms (principal); R33.8 Other retention of urine; R31.9 Hematuria, unspecified; S37.30XA Unspecified injury of urethra, initial encounter; I69.954 Hemiplegia and hemiparesis following unspecified cerebrovascular disease affecting left non-dominant side; I12.9 Hypertensive chronic kidney disease with stage 1 through stage 4 chronic kidney disease, or unspecified chronic kidney disease; E11.22 Type 2 diabetes mellitus with diabetic chronic kidney disease; N18.30 Chronic kidney disease, stage 3 unspecified; M19.012 Primary osteoarthritis, left shoulder; Z86.718 Personal history of other venous thrombosis and embolism; Z87.19 Personal history of other diseases of the digestive system; Z85.46 Personal history of malignant neoplasm of prostate; Z87.440 Personal history of urinary (tract) infections; Z79.4 Long term (current) use of insulin; Z79.01 Long term (current) use of anticoagulants; Z79.82 Long term (current) use of aspirin; X58.XXXA Exposure to other specified factors, initial encounter; R00.0 Tachycardia, unspecified; I49.3 Ventricular premature depolarization; I44.4 Left anterior fascicular block; R94.31 Abnormal electrocardiogram [ECG] [EKG]
CPT/HCPCS: 36415; 51703; 52000; 80053; 81001; 85014; 85018; 85025; 85610; 85730; 87086; 93005; 96374; 96375; 99284; C1769; J2270; J2405; J7030

== ENCOUNTER 2023-05-19 16:42 | Outpatient (CLI) | payer MEDICARE, SELFPAY ==
[2023-05-19 20:57] LABS: LDL Cholesterol Direct 76 mg/dL
== END 2023-05-19 16:43 | disposition home or self-care (01) ==
LOC: ANHLAB 16:45
PROVIDERS: PCP Emergency Medicine; Visit Provider Student in an Organized Health Care Education/Training Program
DX: E11.40 Type 2 diabetes mellitus with diabetic neuropathy, unspecified (principal); Z79.4 Long term (current) use of insulin
CPT/HCPCS: 36415; 83721

== ENCOUNTER 2023-06-01 07:11 | Emergency (ER) | payer MEDICARE, SELFPAY ==
[2023-06-01 07:19] VITALS: O2SAT 95
[2023-06-01 07:20] VITALS: BP 184/94; PULSE 98; RESP 16; TEMP 37.1; O2SAT 16
--- NOTE | 2023-06-01 07:27 | PC.NURSE ---
Per pt & son pt has had indwelling saini for 3-4 month. Leg strap came off during the night, noted bleeding. Pt denies any c/o. Saini draining without difficulty. Pt states it is time to change saini. Pt goes to Dr. Gill office for saini replacement. Pt states Dr. Gill has set up home health, has not called home health to finalize admission to home health. RN encouraged family to follow thru with home health admission, explained benefits to the pt
--- NOTE | 2023-06-01 07:27 | ED.GENADULT ---
HPI - General Adult General Chief complaint: Urogenital-Male Stated complaint: catheter issues Time Seen by Provider: 06/01/23 07:11 History of Present Illness HPI narrative: 87-year-old male present to the emergency department for evaluation of his Singh catheter. Patient has had a Singh catheter indwelling for about the last 3 months. Family states that his leg bag came undone last night and patient did have some bleeding from the urethral meatus this morning. Patient does report some discomfort at the tip of his penis secondary to the Singh catheter. Urine in the Singh bag does not appear to be bloody. Patient states that he does need the Singh catheter changed and this will occur in the emergency department. Patient denies any pain complaints. Related Data Home Medications Medication Instructions Recorded Confirmed insulin glargine 100 unit/mL (3 48 unit subcut QAM 09/12/22 04/28/23 mL) subcutaneous pen (Lantus Solostar U-100 Insulin) mirabegron 50 mg tablet,extended 50 mg PO HS 12/31/22 04/28/23 release 24 hr (Myrbetriq) amlodipine 5 mg tablet 5 mg PO DAILY 04/11/23 04/28/23 aspirin 81 mg tablet,delayed 81 mg PO DAILY 04/11/23 04/28/23 release insulin glargine 100 unit/mL (3 See Rx Instructions .Route .COMPLEX 04/11/23 04/28/23 mL) subcutaneous pen (Lantus Solostar U-100 Insulin) lisinopril 10 mg tablet 10 mg PO DAILY 04/11/23 04/28/23 rosuvastatin 20 mg tablet 20 mg PO DAILY 04/11/23 04/28/23 tamsulosin 0.4 mg capsule 0.4 mg PO HS 04/11/23 04/28/23 warfarin 5 mg tablet 5 mg PO DAILY 04/11/23 04/28/23 Allergies Allergy/AdvReac Type Severity Reaction Status Date / Time No Known Allergies Allergy Verified 05/19/23 15:35 Review of Systems Review of Systems: All systems reviewed & are unremarkable except as noted in HPI and below PMFSH Past Medical History Medical History Abnormal CT scan Acute constipation Acute deep vein thrombosis (DVT) of femoral vein of right lower extremity Acute urinary retention MYLENE (acute kidney injury) MYLENE (acute kidney injury) Anemia Ankle fracture, bimalleolar, closed Arthritis BPH (benign prostatic hyperplasia) Chronic kidney disease, stage 3 Chronic pain Complete tear of left rotator cuff 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 Diverticulitis Ear lesion Elevated lactic acid level Frailty Frequent falls History of rectal polyps Hyperlipidemia Hypertension Hypoglycemic reaction Insulin dependent type 2 diabetes mellitus hemoglobin A1c was 7.6 March 21, 2019. MVP (mitral valve prolapse) Nausea & vomiting Primary osteoarthritis of left shoulder Prostate cancer Diagnosed in 2008. Shingles Syncope Urinary tract infection Surgical History Surgical History History of orthopedic surgery ORIF left tib-fib fracture. Family History Family History Sibling Hypertension Cerebrovascular accident Family history of malignant neoplasm Family history of diabetes mellitus in first degree relative Mother Family history of malignant neoplasm, Onset Age: 75 Patient's mother is Father Carcinoma of colon, Onset Age: 67 Patient's father is Social History Social History Social History: The patient lives with his in [place]. He is retired from [employer]. He designates his , Kaye, as his surrogate decision maker and he wishes to be a full code. He is a lifelong nonsmoker and denies alcohol and drug abuse. Smoking status: Never smoker Alcohol intake: never Substance use: never Substance use type: does not use Do You Feel Safe in your Home?: Yes Lack of Transportation: No Lack of Food: Never True Current Housing: I Have Housing
[2023-06-01 07:31] VITALS: BP 159/90; PULSE 104; RESP 16; TEMP 36.7; O2SAT 100
[2023-06-01] MEDS: LIDOCAINE HCL 2% GEL UROJET 10 ML PKG (08:02)
--- NOTE | 2023-06-01 08:03 | PC.NURSE ---
Pt saini removed, 10 ml balloon deflated. Inserted #[id number] with 10ml balloon inserted with mild resistance. Blood tinged urine return. Procedure performed by Becky rubalcava with this RN monitor.
[2023-06-01 09:13] LABS: Bacteria Urine Rare /hpf; Need Manual Microscopic Reviewed; Non Pathogenic Casts 0-2; RBC Urine >100 /hpf (0-2); Squamous Epithelial Cell Urine None Seen /hpf (Few); WBC Urine >100 /hpf (0-3)
[2023-06-01 09:16] LABS: Appearance Urine Turbid (Clear); Color Urine Red (Yellow)
[2023-06-01 09:19] LABS: Add Urine Microscopic? YES
--- NOTE | 2023-06-01 09:25 | PC.NURSE ---
Singh output remains red. PO water encouraged
--- NOTE | 2023-06-01 09:43 | PC.NURSE ---
Pt urinary output increased with clear urine. Pt denies any c/o at this time. Drinking water
[2023-06-01 09:44] VITALS: BP 140/88; PULSE 84; RESP 18; O2SAT 96
== END 2023-06-01 09:45 | disposition home or self-care (01) ==
PROVIDERS: Emergency Provider Emergency Medicine; PCP Emergency Medicine
DX: R82.998 Other abnormal findings in urine (principal); Z46.6 Encounter for fitting and adjustment of urinary device; E11.9 Type 2 diabetes mellitus without complications; Z79.4 Long term (current) use of insulin; M19.90 Unspecified osteoarthritis, unspecified site; I12.9 Hypertensive chronic kidney disease with stage 1 through stage 4 chronic kidney disease, or unspecified chronic kidney disease; N18.30 Chronic kidney disease, stage 3 unspecified; Z85.46 Personal history of malignant neoplasm of prostate
CPT/HCPCS: 51702; 81001; 87077; 87086; 87088; 87186; 99283

== ENCOUNTER 2023-06-01 11:15 | Inpatient (IN) | payer MEDICARE, SELFPAY ==
[2023-06-01] VITALS (11 sets, daily range): BP systolic 119–163; BP diastolic 57–103; PULSE 81–111; RESP 14–28; TEMP 36.3–36.7; O2SAT 98–100; BMI 31.5
--- NOTE | ~2023-06-01 | US_ITS ---
EXAMINATION: US carotid duplex BI DATE: 06/02/2023 09:32 INDICATION: Syncope TECHNIQUE: Grayscale, color Doppler, and pulsed Doppler images of the cervical carotid arteries were obtained. The degree of vessel stenosis is placed in one of the following categories: normal, <50%, 5 0-69%, >=70% but less than near-occlusion, near-occlusion, or total occlusion. Note that percent sten osis relative to normal distal artery lumen diameter is indirectly measured from velocity measurement s as described by Ajay, et al. Radiology 2003; 229:340-346. Notes: Normal: Peak systolic velocity <125 centimeters/sec and no plaque <50%. Peak systolic velocity <125 ( EDV <40; ICA/CCA PSV ratio <2.0; used these factors only a tandem lesions or low cardiac output or co ntralateral disease) 50-69 %: PSV 125-230 (EDV 40-100; ratio 2-4) >= 70% but less than near occlusion: PSV greater than 230 (EDV > 100; ratio> 4.0) Near Occlusion: PSV that is variable; markedly narrowed lumen Occlusion: Absent flow on color/spectral Doppler and no lumen on seymour scale. COMPARISON: Ultrasound dated 09/11/2022. FINDINGS: RIGHT: The right common carotid artery (CCA) peak systolic velocity (PSV) is 98 cm/s. The right internal car otid artery (ICA) PSV is 62 cm/s. The right ICA end-diastolic velocity (EDV) is 11 cm/s. The right IC A/CCA PSV ratio is 0.6. The external carotid artery (ECA) PSV is 78 cm/s. There is antegrade flow in the right vertebral artery. LEFT: The left CCA PSV is 105 cm/s. The left ICA PSV is 60 cm/s. The left ICA EDV is 17 cm/s. The left ICA/ CCA PSV ratio is 0.6. The ECA PSV is 108 cm/s. There is antegrade flow in the left vertebral artery. IMPRESSION: 1. Less than 50% stenosis in the right internal carotid artery by sonographic criteria. 2. Less than 50% stenosis in the left internal carotid artery by sonographic criteria. Reviewed, dictated and finalized at location B. IMPRESSION: 1. Less than 50% stenosis in the right internal carotid artery by sonographic c riteria. 2. Less than 50% stenosis in the left internal carotid artery by sonographic cr iteria.
--- NOTE | ~2023-06-01 | XR_ITS ---
EXAMINATION: XR chest 1V portable 06/01/2023 12:07 INDICATION: Patient unresponsive. Diaphoresis. PROCEDURE: AP portable chest COMPARISON: No prior studies for comparison. FINDINGS: Subtle right perihilar infiltrate. The cardiomediastinal silhouette is within normal limits . There are no pleural effusions. There is no pneumothorax suspected. IMPRESSION: 1: Subtle right perihilar infiltrate which may represent atelectasis or developing pneumonia.. Reviewed, dictated and finalized at location B. IMPRESSION: 1: Subtle right perihilar infiltrate which may represent atelectasis or develo ping pneumonia..
--- NOTE | 2023-06-01 11:17 | ECG_ITS ---
SEE SCANNED COPY FOR CONFIRMED REPORT MTDD
[2023-06-01 11:32] LABS: Glucose Point of Care 173 mg/dl (65-105)
[2023-06-01 11:34] LABS: Basophils Percent Auto 0.2 % (0.2-1.2); Eosinophils Percent Auto 0.3 % (0-4.4); Hematocrit 36.3 % (42.0-52.0); Hemoglobin 11.6 g/dL (14.0-18.0); Immature Granulocyte Absolute 0.05 K/mm3 (0.00-0.031); Immature Granulocyte Percent A 0.4 % (0-0.5); Lymphocytes Absolute Auto 2.42 K/mm3 (0.9-3.2); Lymphocytes Percent Auto 17.8 % (18.3-44.2); Mean Corpuscular Hemoglobin 28.9 pg (26-34); Mean Corpuscular Volume 90.3 fl (80-100); Mean Platelet Volume 10.9 fl (7.4-10.4); Monocytes Absolute Auto 0.6 K/mm3 (0.1-0.6); Monocytes Percent Auto 4.4 % (2.6-8.5); Neutrophils Absolute Auto 10.5 K/mm3 (1.3-6.7); Neutrophils Percent Auto 76.9 % (45.5-73.1); Platelet Count Result 153 k/mm3 (150-375); Red Blood Count 4.02 M/mm3 (4.6-6.20); Red Cell Distribution Width 14.3 % (11.5-14.5); White Blood Count 13.6 K/mm3 (4.5-10.0)
--- NOTE | 2023-06-01 11:35 | ED.AMS ---
HPI - Altered Mental Status General Chief Complaint: Altered Mental Status Stated Complaint: ams History of Present Illness HPI narrative: 87-year-old male presenting to the emergency department for evaluation after having a syncopal episode. Patient was evaluated in the emergency department earlier today for evaluation of bleeding from his Singh catheter. Patient completed his medical workup had no complaints was discharged home. After patient got home he reported he felt tired and hungry sat down on the couch and had a syncopal episode. EMS was called. EMS arrived patient had a low blood pressure. After patient was moved from his chair to the [place] patient had normalization of his vital signs and patient became alert appropriate. Upon arrival to emergency department patient denies any complaints. Related Data Home Medications Medication Instructions Recorded Confirmed insulin glargine 100 unit/mL (3 48 unit subcut QAM 09/12/22 06/01/23 mL) subcutaneous pen (Lantus Solostar U-100 Insulin) amlodipine 5 mg tablet 5 mg PO DAILY 04/11/23 06/01/23 aspirin 81 mg tablet,delayed 81 mg PO DAILY 04/11/23 06/01/23 release lisinopril 10 mg tablet 10 mg PO DAILY 04/11/23 06/01/23 rosuvastatin 20 mg tablet 20 mg PO DAILY 04/11/23 06/01/23 tamsulosin 0.4 mg capsule 0.4 mg PO HS 04/11/23 06/01/23 Allergies Allergy/AdvReac Type Severity Reaction Status Date / Time No Known Allergies Allergy Verified 06/01/23 16:34 Review of Systems Review of Systems: All systems reviewed & are unremarkable except as noted in HPI and below PMFSH Past Medical History Medical History (Updated 06/01/23 @ 14:45 by Delia Velasquez PA-C) Anemia Arthritis Benign prostatic hyperplasia Cerebrovascular accident (05/2008) Residual left-sided weakness. Chronic kidney disease, stage 3 Chronic pain Deep vein thrombosis of right lower extremity Diverticulitis Frequent falls History of rectal polyps Hyperlipidemia Hypertension Insulin dependent type 2 diabetes mellitus Mitral valve prolapse Prostate cancer Diagnosed in 2008. Shingles Syncope Urinary tract infection Surgical History Surgical History History of orthopedic surgery ORIF left tib-fib fracture. Family History Family History Sibling Hypertension Cerebrovascular accident Family history of malignant neoplasm Family history of diabetes mellitus in first degree relative Mother Family history of malignant neoplasm, Onset Age: 75 Patient's mother is Father Carcinoma of colon, Onset Age: 67 Patient's father is Social History Social History (Updated 06/01/23 @ 14:38 by Delia Velasquez PA-C) Social History: Surrogate medical decision maker: Kaye Berkowitz, spouse. Code status: Full code. Smoking status: Never smoker Alcohol intake: never Substance use: never Substance use type: does not use Do You Feel Safe in your Home?: Yes Lack of Transportation: YES Lack of Food: Never True Current Housing: I Have Housing Concerned About Future Housing: No Difficulty Paying Gas/Electric Bills: No Difficulty Paying for Meds: No Currently Unemployed: No Education: Decline to Answer Difficulty w/ Childcare or Family Care: No Additional occupation/education comments: Retired from [employer]. Spiritual care concerns: No Agree to blood products: Yes Exam Narrative: APPEARANCE: Well appearing, no pain, no distress, well-nourished. HEAD: normocephalic, atraumatic. EYES: PERRLA/EOMI, conjunctivae clear. NOSE: Normal no drainage EARS:TMS clear with good light reflex. THROAT: Pharynx clear, no exudate. NECK: Supple. No adenopathy, no masses. RESPIRATORY: Airway patent, respirations nonlabored. Clear to auscultation bilaterally, no rales, rhonchi, wheezing. CARDIOVASCULAR: Re
[2023-06-01 11:44] LABS: Alanine Aminotransferase 14 U/L (6-50); Albumin Level 3.6 g/dL (3.5-5.1); Alkaline Phosphatase 82 U/L (38-126); Anion Gap 7 mmol/L (4-12); Aspartate Amino Transferase 20 U/L (17-59); Blood Urea Nitrogen 16 mg/dL (9-20); Calcium 8.9 mg/dL (8.4-10.2); Carbon Dioxide 22 mmol/L (22-30); Chloride 108 mmol/L (98-107); Estimated CRCL calculation 58 ml/min; Estimated Glomerular Filt Rate > 60; Glucose 176 mg/dL (65-110); Potassium 3.4 mmol/L (3.4-5.0); Sodium 137 mmol/L (137-145)
[2023-06-01 11:48] LABS: INR 1.1; Prothrombin Time 14.3 Seconds (11.1-14.7)
[2023-06-01 11:49] LABS: Partial Thromboplastin Time 31.3 Seconds (22.3-36.8)
[2023-06-01] MEDS: AZITHROMYCIN 500 MG/NS 250 ML 500 MG/250 ML BAG 250 MG IVPB (13:16)
[2023-06-01 13:25] LABS: Influenza A QL RT-PCR Negative (Negative); Influenza B QL RT-PCR Negative (Negative); RSV RNA, RT-PCR Negative (Negative); SARS-CoV-2 RNA PCR Negative (Negative)
--- NOTE | 2023-06-01 14:35 | PM.IMHP ---
H&P: HPI History of Present Illness Date/Time: 06/01/23 14:45 Chief Complaint: Near syncope. Narrative: This is an 87-year-old male with history of stroke, hypertension, chronic kidney disease, and insulin-dependent type 2 diabetes mellitus who presented to the emergency department via EMS from home for evaluation after a near syncopal episode. The patient provides the following history. He was seen in the emergency department earlier this morning for evaluation of catheter issues. Apparently his leg bag became detached over the course of the night and he had some bleeding from the urethral meatus. Singh catheter was exchanged and he was discharged home for follow-up with Urology. Urine culture was obtained though due to lack of urinary symptoms he was not prescribed an antibiotic, pending culture. When he returned home he told his that he was feeling tired and hungry. They went to the kitchen to get him something to eat and while seated in a chair he became pale, diaphoretic, and minimally responsive. EMS was summoned and on their arrival he was hypotensive with decreased responsiveness however once he was moved from his chair to the r[place]a his blood pressure had normalized and he was alert and appropriate. He remembers feeling weak and dizzy prior to the episode. He denies chest pain, pleuritic pain, shortness of breath, palpitations, and sensations of racing heart. In the ED: Vital signs were stable on arrival to the ED with a blood pressure of 136/70. Labs were significant for WBC count of 13.6, hemoglobin 11.6, glucose 176. He tested negative for influenza, RSV, and COVID. Chest x-ray showed subtle right perihilar infiltrate which may represent atelectasis or developing pneumonia. He received azithromycin and ceftriaxone for possible pneumonia (he has not had fever, sweats, or cough) and he is being admitted in this setting for further treatment and evaluation. Review of Systems Review of Systems: 12 systems were reviewed and are negative except for as per HPI. [facility] Past Medical History Medical History Anemia Arthritis Benign prostatic hyperplasia Cerebrovascular accident (05/2008) Residual left-sided weakness. Chronic kidney disease, stage 3 Chronic pain Deep vein thrombosis of right lower extremity Diverticulitis Frequent falls History of rectal polyps Hyperlipidemia Hypertension Insulin dependent type 2 diabetes mellitus Mitral valve prolapse Prostate cancer Diagnosed in 2008. Shingles Syncope Urinary tract infection Surgical History Surgical History History of orthopedic surgery ORIF left tib-fib fracture. Family History Family History Sibling Hypertension Cerebrovascular accident Family history of malignant neoplasm Family history of diabetes mellitus in first degree relative Mother Family history of malignant neoplasm, Onset Age: 75 Patient's mother is Father Carcinoma of colon, Onset Age: 67 Patient's father is Social History Social History Social History: Surrogate medical decision maker: Kaye Berkowitz, spouse. Code status: Full code. Smoking status: Never smoker Alcohol intake: never Substance use: never Substance use type: does not use Do You Feel Safe in your Home?: Yes Lack of Transportation: YES Lack of Food: Never True Current Housing: I Have Housing Concerned About Future Housing: No Difficulty Paying Gas/Electric Bills: No Difficulty Paying for Meds: No Currently Unemployed: No Education: Decline to Answer Difficulty w/ Childcare or Family Care: No Additional occupation/education comments: Retired from [employer]. Spiritual care concerns: No Agree to blood products: Y
--- NOTE | 2023-06-01 14:50 | ECHO_ITS ---
Patient Info Name: Derrell Berkowitz Age: 87 years : 1935 Gender: Male Ht: 65 in Wt: 289 lbs BSA: 2.53 m2 HR: 97 bpm BP: 163 / 103 mmHg Heart Rhythm: Sinus Rhythm Technical Quality: Good Exam Date: 06/01/2023 3:22 PM Exam Location: Echo Lab Patient Status: Outpatient Admit Date: 06/01/2023 Staff Ordering Physician: Delia Velasquez PA-C Hair Boiler Operator: Rowdy Warren RDCS Attending Provider: Joanne Holm MD Referring Physician: Ron STOVER; Exam Type: CA echo doppler color flow Study Info Indications R55 - Syncope and collapse Complete two-dimensional, color flow and Doppler transthoracic echocardiogram is performed. Summary 1. Complete two-dimensional, color flow and Doppler transthoracic echocardiogram is performed. 2. Concentric left ventricular hypertrophy with normal size and normal systolic function ejection fraction 60%. 3. Grade 1 diastolic noncompliance. 4. Mildly sclerotic aortic valve which is nonstenotic. 5. Trivial amounts of mitral and tricuspid valve regurgitation. 6. Compared to echocardiogram done in this laboratory August of last year the findings are essentially identical. Left Ventricle Left ventricular chamber dimension is normal. Left ventricular systolic function is normal, estimated at 55-60%. There is mild concentric increased left ventricular wall thickness. The left ventricular diastolic function is grade I diastolic dysfunction. Right Ventricle Right ventricular chamber dimension is normal. Left Atria Left atrial chamber dimension is normal. Right Atria Right atrial chamber dimension is normal. Aortic Valve The aortic valve is trileaflet. There is mild aortic valve sclerosis. There is no aortic valve stenosis. Pulmonic Valve The pulmonic valve is not well visualized. Mitral Valve The mitral valve has normal leaflets. There is trace mitral valve regurgitation. Tricuspid Valve The tricuspid valve leaflets are normal. There is trace tricuspid valve regurgitation. Pericardium/Pleural The pericardium appears normal. Aorta The aortic root size at the sinus of Valsalva is normal. Left Ventricular Outflow Tract Name Value Normal LVOT 2D LVOT Diameter 2.0 cm LVOT Doppler LVOT Peak Gradient 2 mmHg LVOT Mean Gradient 1 mmHg LVOT VTI 14 cm LVOT VTI/AV VTI Ratio 0.6 LVOT Stroke Volume 42 ml LVOT CO 3.4 l/min LVOT CI 1.3 l/min/m2 Pulmonic Valve Name Value Normal RVOT Doppler RVOT Peak Gradient 1 mmHg PV Doppler PV Peak Gradient 3 mmHg PV Regurgitation Doppler VA Peak End Diastolic
[2023-06-01 15:19] LABS: CRP < 0.5 mg/dL (<1.0)
[2023-06-01 15:34] LABS: Procalcitonin 0.1 ng/mL
[2023-06-01 16:35] LABS: Glucose Point of Care 139 mg/dl (65-105)
[2023-06-01] MEDS: INSULIN ASPART (*BKC) 100 UNITS/ML SUB-Q (21:25)
[2023-06-01 21:29] LABS: Glucose Point of Care 250 mg/dl (65-105)
[2023-06-02] VITALS (9 sets, daily range): BP systolic 137–147; BP diastolic 69–80; PULSE 71–82; RESP 16–20; TEMP 36.2–36.7; O2SAT 100
[2023-06-02 06:31] LABS: Hematocrit 36.2 % (42.0-52.0); Hemoglobin 11.1 g/dL (14.0-18.0); Mean Corpuscular HGB Conc 30.7 g/dl (32-36); Mean Corpuscular Hemoglobin 28.4 pg (26-34); Mean Corpuscular Volume 92.6 fl (80-100); Mean Platelet Volume 11.6 fl (7.4-10.4); Platelet Count Result 157 k/mm3 (150-375); Red Blood Count 3.91 M/mm3 (4.6-6.20); Red Cell Distribution Width 14.4 % (11.5-14.5); White Blood Count 7.7 K/mm3 (4.5-10.0)
[2023-06-02 06:45] LABS: Anion Gap 4 mmol/L (4-12); Blood Urea Nitrogen 13 mg/dL (9-20); Calcium 8.9 mg/dL (8.4-10.2); Carbon Dioxide 26 mmol/L (22-30); Chloride 107 mmol/L (98-107); Estimated CRCL calculation 58 ml/min; Estimated Glomerular Filt Rate > 60; Glucose 108 mg/dL (65-110); Magnesium 2.2 mg/dL (1.6-2.3); Potassium 3.5 mmol/L (3.4-5.0); Sodium 137 mmol/L (137-145)
[2023-06-02 07:31] LABS: Glucose Point of Care 125 mg/dl (65-105)
[2023-06-02] MEDS: AZITHROMYCIN 500 MG/NS 250 ML 500 MG/250 ML BAG 250 MG IVPB (08:21)
[2023-06-02 11:28] LABS: Glucose Point of Care 213 mg/dl (65-105)
[2023-06-02] MEDS: INSULIN ASPART (*BKC) 100 UNITS/ML SUB-Q ×3 (12:51→21:09)
--- NOTE | 2023-06-02 13:05 | P.PNIM_ITS ---
Progress Note: A&P Assessment and Plan (1) Near syncope: Code(s): R55 - Syncope and collapse Status: Acute Assessment and Plan: 06/02/2023: * Patient he was seen in the ER earlier this morning due to catheter issues when his leg bag became detached over the course of the night he had some bleeding from his urethral meatus. Singh catheter was exchanged and he was discharged home with follow-up with Urology. Urine culture was obtained at that time however no antibiotics were giving pending culture. When he returned home he told his that he was feeling tired and hungry and then went into the kitchen to get himself something to eat and while seated in the chair he became pale, diaphoretic, and minimally responsive. EMS was called and on their arrival he was found to be hypotensive with decreased responsiveness however when he moved from the chair to the gurney his blood pressure normalized and he was alert and appropriate. He states he remembers feeling weak and dizzy prior to that episode. * Echo results showing left ventricular hypertrophy however normal systolic function with an ejection fraction of 60%, grade 1 diastolic noncompliance, essentially unchanged from his previous echocardiogram * Carotid Dopplers showing less than 50% stenosis in bilateral internal carotid arteries * Orthostatic blood pressure was done and shown a blood pressure of 134/57 while supine, 150/84 while sitting, 119/83 while standing. His heart rate remained in the upper 80s to low 90s during that time. * Chest x-ray was showing possible pneumonia * Azithromycin and Rocephin was started * Initial labs shown a white blood cell count of 13.6, hemoglobin 11.6, sodium level is 137, blood sugar was 173-176. * UA showing red colored urine, greater than 100 urine RBCs, greater than 100 urine wbc's, rare bacteria * Urine and blood cultures were obtained * Continue neuro checks q.4 hour * Orthostatic blood pressure Q shift * Continuous cardiac monitoring ordered (2) Hematuria: Code(s): R31.9 - Hematuria, unspecified Status: Acute Assessment and Plan: 06/02/2023 * Patient he was seen in the ER earlier this morning due to catheter issues when his leg bag became detached over the course of the night he had some bleeding from his urethral meatus. Singh catheter was exchanged and he was discharged home with follow-up with Urology. Urine culture was obtained at that time however no antibiotics were giving pending culture. * UA showing red colored urine, greater than 100 urine RBCs, greater than 100 urine wbc's, rare bacteria * Urine cultures obtained and is pending * Singh was exchanged earlier yesterday morning when he presented to the emergency room. * Hgb and blood pressure stable (3) Abnormal chest x-ray: Code(s): R93.89 - Abnormal findings on diagnostic imaging of other specified body structures Status: Chronic Assessment and Plan: 06/02/2023: * Chest x-ray showing possible pneumonia * Patient was started on azithromycin and Rocephin and will continue (4) Insulin dependent type 2 diabetes mellitus: Code(s): E11.9 - Type 2 diabetes mellitus without complications; Z79.4 - halfway (current) use of insulin Status: Chronic Assessment and Plan: 06/02/2023: * Blood sugars 125-213 * Hemoglobin A1c 7.0 on 12/31/2022, we will go ahead and recheck that in the morning * Patient started on high-dose sliding scale insulin * Lantus 48 units subQ q.a.m. reordered * Hypoglycemic protocol in place * Accu-Cheks AC and HS * Diabetic diet ordered (5) Hypertension: Code(s
--- NOTE | 2023-06-02 13:05 | PM.IMPN ---
Progress Note: A&P Assessment and Plan (1) Near syncope: Code(s): R55 - Syncope and collapse Status: Acute Assessment and Plan: 06/02/2023: Patient he was seen in the ER earlier this morning due to catheter issues when his leg bag became detached over the course of the night he had some bleeding from his urethral meatus. Singh catheter was exchanged and he was discharged home with follow-up with Urology. Urine culture was obtained at that time however no antibiotics were giving pending culture. When he returned home he told his that he was feeling tired and hungry and then went into the kitchen to get himself something to eat and while seated in the chair he became pale, diaphoretic, and minimally responsive. EMS was called and on their arrival he was found to be hypotensive with decreased responsiveness however when he moved from the chair to the gurney his blood pressure normalized and he was alert and appropriate. He states he remembers feeling weak and dizzy prior to that episode. Echo results showing left ventricular hypertrophy however normal systolic function with an ejection fraction of 60%, grade 1 diastolic noncompliance, essentially unchanged from his previous echocardiogram Carotid Dopplers showing less than 50% stenosis in bilateral internal carotid arteries Orthostatic blood pressure was done and shown a blood pressure of 134/57 while supine, 150/84 while sitting, 119/83 while standing. His heart rate remained in the upper 80s to low 90s during that time. Chest x-ray was showing possible pneumonia Azithromycin and Rocephin was started Initial labs shown a white blood cell count of 13.6, hemoglobin 11.6, sodium level is 137, blood sugar was 173-176. UA showing red colored urine, greater than 100 urine RBCs, greater than 100 urine wbc's, rare bacteria Urine and blood cultures were obtained Continue neuro checks q.4 hour Orthostatic blood pressure Q shift Continuous cardiac monitoring ordered (2) Hematuria: Code(s): R31.9 - Hematuria, unspecified Status: Acute Assessment and Plan: 06/02/2023 Patient he was seen in the ER earlier this morning due to catheter issues when his leg bag became detached over the course of the night he had some bleeding from his urethral meatus. Singh catheter was exchanged and he was discharged home with follow-up with Urology. Urine culture was obtained at that time however no antibiotics were giving pending culture. UA showing red colored urine, greater than 100 urine RBCs, greater than 100 urine wbc's, rare bacteria Urine cultures obtained and is pending Singh was exchanged earlier yesterday morning when he presented to the emergency room. Hgb and blood pressure stable (3) Abnormal chest x-ray: Code(s): R93.89 - Abnormal findings on diagnostic imaging of other specified body structures Status: Chronic Assessment and Plan: 06/02/2023: Chest x-ray showing possible pneumonia Patient was started on azithromycin and Rocephin and will continue (4) Insulin dependent type 2 diabetes mellitus: Code(s): E11.9 - Type 2 diabetes mellitus without complications; Z79.4 - nursing home (current) use of insulin Status: Chronic Assessment and Plan: 06/02/2023: Blood sugars 125-213 Hemoglobin A1c 7.0 on 12/31/2022, we will go ahead and recheck that in the morning Patient started on high-dose sliding scale insulin Lantus 48 units subQ q.a.m. reordered Hypoglycemic protocol in place Accu-Cheks AC and HS Diabetic diet ordered (5) Hypertension: Code(s): I10 - Essential (primary) hypertension Status: Chronic Assessment and Plan: 06/02/2023: Blood pressures ranging 137/76 to 148/88 Will go ahead and restart amlodipine 5 mg daily Continue to hold lisinopril for now how he tolerates just his amlodipine Continue with orthostatic blood pressures Time Spent With Patient Time with patient: 25 - 35 minutes S
[2023-06-02 16:41] LABS: Glucose Point of Care 206 mg/dl (65-105)
[2023-06-02 20:57] LABS: Glucose Point of Care 213 mg/dl (65-105)
[2023-06-02] MEDS: TAMSULOSIN HCL 0.4 MG CAPSULE PO (21:08)
[2023-06-03] VITALS (8 sets, daily range): BP systolic 112–133; BP diastolic 63–99; PULSE 78–101; RESP 16; TEMP 36.5–36.6; O2SAT 93–99
[2023-06-03 06:36] LABS: Basophils Percent Auto 0.2 % (0.2-1.2); Eosinophils Absolute Auto 0.2 K/mm3 (0-0.3); Eosinophils Percent Auto 2.2 % (0-4.4); Hematocrit 35.2 % (42.0-52.0); Hemoglobin 10.8 g/dL (14.0-18.0); Immature Granulocyte Absolute 0.02 K/mm3 (0.00-0.031); Immature Granulocyte Percent A 0.2 % (0-0.5); Lymphocytes Absolute Auto 2.88 K/mm3 (0.9-3.2); Mean Corpuscular HGB Conc 30.7 g/dl (32-36); Mean Corpuscular Hemoglobin 28.3 pg (26-34); Mean Corpuscular Volume 92.1 fl (80-100); Mean Platelet Volume 12.2 fl (7.4-10.4); Monocytes Absolute Auto 0.5 K/mm3 (0.1-0.6); Monocytes Percent Auto 6.1 % (2.6-8.5); Neutrophils Absolute Auto 4.6 K/mm3 (1.3-6.7); Neutrophils Percent Auto 56.3 % (45.5-73.1); Platelet Count Result 157 k/mm3 (150-375); Red Blood Count 3.82 M/mm3 (4.6-6.20); Red Cell Distribution Width 14.3 % (11.5-14.5); White Blood Count 8.2 K/mm3 (4.5-10.0)
[2023-06-03 06:43] LABS: Alanine Aminotransferase 12 U/L (6-50); Albumin Level 3.2 g/dL (3.5-5.1); Alkaline Phosphatase 79 U/L (38-126); Anion Gap 4 mmol/L (4-12); Aspartate Amino Transferase 18 U/L (17-59); Bilirubin,Total 0.9 mg/dL (0.2-1.3); Blood Urea Nitrogen 16 mg/dL (9-20); Calcium 8.7 mg/dL (8.4-10.2); Carbon Dioxide 25 mmol/L (22-30); Chloride 107 mmol/L (98-107); Estimated CRCL calculation 53 ml/min; Estimated Glomerular Filt Rate > 60; Glucose 127 mg/dL (65-110); Potassium 3.4 mmol/L (3.4-5.0); Sodium 136 mmol/L (137-145)
[2023-06-03 07:48] LABS: Glucose Point of Care 147 mg/dl (65-105)
[2023-06-03] MEDS: AZITHROMYCIN 500 MG/NS 250 ML 500 MG/250 ML BAG 250 MG IVPB (08:21)
[2023-06-03] MEDS: amLODIPine BESYLATE 5 MG TABLET PO (08:26)
[2023-06-03] MEDS: INSULIN GLARGINE (*BKC) 100 UNITS/ML 48 UNITS SUB-Q (08:26)
[2023-06-03] MEDS: ROSUVASTATIN 20 MG TABLET PO (08:26)
[2023-06-03 11:33] LABS: Glucose Point of Care 223 mg/dl (65-105)
[2023-06-03] MEDS: INSULIN ASPART (*BKC) 100 UNITS/ML SUB-Q (12:17)
--- NOTE | 2023-06-03 15:34 | PM.DS ---
DS: Admitting Diagnosis Discharge Date 06/03/23 Admitting Diagnosis Near syncopal event DS: Discharge Diagnosis Discharge Diagnosis (1) Near syncope: Code(s): R55 - Syncope and collapse Status: Acute (2) UTI (urinary tract infection): Code(s): N39.0 - Urinary tract infection, site not specified Status: Acute DS: Summary Hospital Course Reason for hospitalization: Near syncopal event Hospital Course: 87-year-old male with history of stroke, hypertension, chronic kidney disease, and insulin-dependent type 2 diabetes mellitus who presented to the emergency department via EMS from home for evaluation after a near syncopal episode.??Apparently his leg bag became detached over the course of the night and he had some bleeding from the urethral meatus. Singh catheter was exchanged and he was discharged home for follow-up with Urology. Urine culture was obtained though due to lack of urinary symptoms he was not prescribed an antibiotic, pending culture.When he returned home he told his that he was feeling tired and hungry. They went to the kitchen to get him something to eat and while seated in a chair he became pale, diaphoretic, and minimally responsive. EMS was summoned and on their arrival he was hypotensive with decreased responsiveness however once he was moved from his chair to the gurney his blood pressure had normalized and he was alert and appropriate. Urine culture is growing Enterobacter. Echo results showing left ventricular hypertrophy however normal systolic function with an ejection fraction of 60%, grade 1 diastolic noncompliance, essentially unchanged from his previous echocardiogram.Carotid Dopplers showing less than 50% stenosis in bilateral internal carotid arteries. Was evaluated by PT/OT recommended for home health. Discharged on 7 day course of ciprofloxacin for Enterobacter UTI. Status at Discharge Overall status at discharge: patient is back to baseline Time Spent with Patient Time attestation: Total time spent providing and/or coordinating discharge services: Time spent: Greater than 30 minutes Exam Narrative: General: In no acute distress, well nourished Head: atraumatic, no encephalopathy Eyes: EOMI, PERRLA, sclera clear, missing left eye. ENT: moist mucous membranes, nasal passages clear Neck: supple, no JVD, no adenopathy, trachea midline Cardiac: Normal S1 and S2. RRR, No murmur, gallops or friction rubs, peripheral pulses intact. Respiratory: Lungs clear to auscultation, no adventitious lung sounds, currently on room air Gastrointestinal: soft, non-distended, non-tender, normoactive bowel sounds. : voiding without difficulty. Extremities: moves all extremities well, no edema Skin: clean, dry, intact. No wounds or lesions. Neuro: Alert and oriented x3, cranial nerves intact, no neuro deficits. Psych: normal mood, normal affect, interactive DS: Data Data Completed and Pending Labs on day of discharge: Labs from last 24 hours 06/03/23 06/03/23 06/03/23 11:27 07:44 05:51 WBC 8.2 RBC 3.82 L Hgb 10.8 L Hct 35.2 L MCV 92.1 MCH 28.3 MCHC 30.7 L RDW 14.3 Plt Count 157 MPV 12.2 H Immature Gran % (Auto) 0.2 Neut % (Auto) 56.3 Lymph % (Auto) 35.0 [place] % (Auto) 6.1 Eos % (Auto) 2.2 Baso % (Auto) 0.2 Lymph # (Auto) 2.88 [place] # (Auto) 0.5 Eos # (Auto) 0.2 Baso # (Auto) 0.0 Abs Immat Gran (auto) 0.02 Absolute Neuts (auto) 4.6 Absolute Nucleated RBC 0.000 Nucleated RBC % 0.0 Sodium 136 L Potassium 3.4 Chloride 107 Carbon Dioxide 25 Anion Gap 4 BUN 16 Creatinine 0.90 Estim Creat Clear Calc 53 Estimated GFR > 60 Glucose 127 H POC Capillary Glucose 223 H 147 H Calcium 8.7 Total Bilirubin 0.9 AST 18 ALT 12 Alkaline Phosphatase 79 Total Protein 6.0 L Albumin 3.2 L 06/02/23 06/02/23 20:15 16:39 WBC RBC Hgb Hct MCV MCH
--- NOTE | 2023-06-04 12:53 | PCCDE ---
06/04/23 - Pt previously discharged -> I called (A1C: 12/2022: 7.0) Pt H/O stroke; difficulty speaking authorized me to speak with daughter, Arleen. I reached out to pt due to inpatient DM Assessment indicating weekly low blood sugars. (IRDM) Upon conversation with daughter, they are in process of Home Health Aide due to medical hx and difficulties with ADLs. - Educ & Defined hypoglycemia and discussed treatment - Ideas discussed if glucose 100 with symptoms/concerns FSJ
== END 2023-06-03 16:00 | disposition home health service (06) | DRG 312 ==
LOC: ANHED 12:11 → ANH3MEDSUR 13:58
PROVIDERS: Nurse Practitioner Acute Care; Physician Assistant; Admitting Provider General Practice; Emergency Provider Emergency Medicine; PCP Emergency Medicine; Visit Provider Internal Medicine
DX: R55 Syncope and collapse (principal); J18.9 Pneumonia, unspecified organism; T83.511A Infection and inflammatory reaction due to indwelling urethral catheter, initial encounter; I69.354 Hemiplegia and hemiparesis following cerebral infarction affecting left non-dominant side; J98.11 Atelectasis; N39.0 Urinary tract infection, site not specified; S37.39XA Other injury of urethra, initial encounter; R31.9 Hematuria, unspecified; E11.9 Type 2 diabetes mellitus without complications; I10 Essential (primary) hypertension; D64.9 Anemia, unspecified; M19.90 Unspecified osteoarthritis, unspecified site; N40.0 Benign prostatic hyperplasia without lower urinary tract symptoms; I12.9 Hypertensive chronic kidney disease with stage 1 through stage 4 chronic kidney disease, or unspecified chronic kidney disease; E11.22 Type 2 diabetes mellitus with diabetic chronic kidney disease; N18.30 Chronic kidney disease, stage 3 unspecified; E78.5 Hyperlipidemia, unspecified; R29.6 Repeated falls; I65.23 Occlusion and stenosis of bilateral carotid arteries; D72.829 Elevated white blood cell count, unspecified; B96.89 Other specified bacterial agents as the cause of diseases classified elsewhere; Z85.46 Personal history of malignant neoplasm of prostate; Z86.718 Personal history of other venous thrombosis and embolism; Z79.4 Long term (current) use of insulin
CPT/HCPCS: 36415; 51702; 71045; 80048; 80053; 81001; 82948; 83735; 84145; 84443; 85025; 85027; 85610; 85730; 86140; 87040; 87077; 87086; 87088; 87186; 87637; 93005; 93306; 93880; 96365; 96366; 96367; 97161; 97166; 99283; 99285; A9270; G0378; J0456; J0696; J1815

== ENCOUNTER 2023-06-11 15:05 | Outpatient (NON) | payer MEDICARE, SELFPAY | END 2023-06-11 15:06 | disposition home or self-care (01) | PROVIDERS: PCP Emergency Medicine; Visit Provider Emergency Medicine | DX: E03.9 Hypothyroidism, unspecified (principal); E53.9 Vitamin B deficiency, unspecified; E55.9 Vitamin D deficiency, unspecified | CPT/HCPCS: 82306; 84443 ==

== ENCOUNTER 2023-06-18 09:28 | Outpatient (NON) | payer MEDICARE, SELFPAY ==
[2023-06-18 10:11] LABS: INR 0.9; Prothrombin Time 12.9 Seconds (11.1-14.7)
[2023-06-18 10:17] LABS: Cholesterol 153 mg/dL (0-200); HDL Direct 42 mg/dL; Triglycerides 135 mg/dL (<150)
[2023-06-18 10:28] LABS: LDL Cholesterol Direct 80 mg/dL
[2023-06-18 10:38] LABS: Vitamin D 25 Hydroxy 53.3 ng/mL
== END 2023-06-18 09:29 | disposition home or self-care (01) ==
LOC: HOME HLTH 09:32
PROVIDERS: PCP Emergency Medicine; Visit Provider Emergency Medicine
DX: E78.5 Hyperlipidemia, unspecified (principal); R79.1 Abnormal coagulation profile; E55.9 Vitamin D deficiency, unspecified
CPT/HCPCS: 80061; 82306; 85610

== ENCOUNTER 2023-08-06 10:19 | Emergency (ER) | payer MEDICARE, SELFPAY ==
[2023-08-06 10:20] VITALS: BP 130/83; PULSE 118; RESP 18; TEMP 36.7; O2SAT 100
--- NOTE | 2023-08-06 12:01 | ED.MALEGU ---
HPI - Male Genitourinary General Chief complaint: Urogenital-Male Stated complaint: hematuria Time Seen by Provider: 08/06/23 12:00 Source: patient, EMS and other (home health RN phone report) Mode of arrival: EMS Limitations: no limitations History of Present Illness HPI Narrative: patient presents with report of hematuria. He states he has had an indwelling catheter for approximately 1 week and the home health care nurse by report removed 1 today and tried to replace the catheter but was unable to. She reports to charge nurse via telephone that there were blockages blood clots and gross hematuria. Patient's reported that he has not urinated since 9:00 a.m.. He was complaining of low abdominal/suprapubic pain and distension. Denies any fevers. Denies any anticoagulation. Related Data Home Medications Medication Instructions Recorded Confirmed insulin glargine 100 unit/mL (3 48 unit subcut QAM 09/12/22 06/01/23 mL) subcutaneous pen (Lantus Solostar U-100 Insulin) aspirin 81 mg tablet,delayed 81 mg PO DAILY 04/11/23 06/01/23 release lisinopril 10 mg tablet 10 mg PO DAILY 04/11/23 06/01/23 Allergies Allergy/AdvReac Type Severity Reaction Status Date / Time No Known Allergies Allergy Verified 08/06/23 10:24 [facility] Past Medical History Medical History (Updated 08/07/23 @ 00:00 by Monalisa Dexter) Anemia Arthritis Benign prostatic hyperplasia Blind left eye Cerebrovascular accident (05/2008) Residual left-sided weakness. Chronic kidney disease, stage 3 Chronic pain Deep vein thrombosis of right lower extremity Diverticulitis Frequent falls History of rectal polyps Hyperlipidemia Hypertension Insulin dependent type 2 diabetes mellitus Mitral valve prolapse Prostate cancer Diagnosed in 2008. Shingles Syncope Urinary tract infection Surgical History Surgical History History of orthopedic surgery ORIF left tib-fib fracture. Family History Family History Sibling Hypertension Cerebrovascular accident Family history of malignant neoplasm Family history of diabetes mellitus in first degree relative Mother Family history of malignant neoplasm, Onset Age: 75 Patient's mother is Father Carcinoma of colon, Onset Age: 67 Patient's father is Social History Social History Social History: Surrogate medical decision maker: Kaye Berkowitz, spouse. Code status: Full code. Smoking status: Never smoker Alcohol intake: never Substance use: never Substance use type: does not use Do You Feel Safe in your Home?: Yes Lack of Transportation: YES Lack of Food: Never True Current Housing: I Have Housing Concerned About Future Housing: No Difficulty Paying Gas/Electric Bills: No Difficulty Paying for Meds: No Currently Unemployed: No Education: Decline to Answer Difficulty w/ Childcare or Family Care: No Additional occupation/education comments: Retired from [employer]. Spiritual care concerns: No Agree to blood products: Yes Exam Narrative: GENERAL: Well-appearing, well-nourished, and in no acute distress. HEAD: Normocephalic, atraumatic. EYES: Non injected, non icteric Right eye. patient's left eye / orbit is covered with skin/scar. ENT: Nares clear, no rhinorrhea or epistaxis. NECK: Supple. CHEST: Speaking in full sentences. No respiratory distress. HEART: tachycardic rate and rhythm. . ABDOMEN: Soft, distended. mild tenderness to palpation of the lower abdomen/ suprapubic area. : normal male genitalia though patient does have blood at the urethral meatus. EXTREMITIES: Normal range of motion. No edema. SKIN: Warm, dry, no rash. NEURO: No focal deficits. Alert and oriented. PSYCH: Normal mood and affect. Co
[2023-08-06 12:14] VITALS: BP 138/81; PULSE 107; RESP 15; O2SAT 95
[2023-08-06 12:38] LABS: Appearance Urine Clear (Clear); Bacteria Urine 4+ /hpf; Bilirubin Urine Negative (Negative); Blood Urine 3+ (Negative); Color Urine Yellow (Yellow); Glucose Urine UA Negative (Negative); Ketones Urine Negative (Negative); Leukocyte Esterase Ur 2+ LEU/UL (Negative); Nitrate Urine Negative (Negative); Non Pathogenic Casts 0-2; Protein Urine 1+ mg/dL (Negative); RBC Urine >100 /hpf (0-2); Squamous Epithelial Cell Urine None Seen /hpf (Few); Urobilinogen Urine 0.2 mg/dL (<2.0); WBC Urine 21-50 /hpf (0-3); pH Urine 5.5 (5.0-9.0)
[2023-08-06 12:40] LABS: Add Urine Microscopic? YES
[2023-08-06] MEDS: SODIUM CHLORIDE 0.9% IV 1,000 ML 999 ML IV CONT (13:03)
[2023-08-06 13:09] LABS: Basophils Percent Auto 0.2 % (0.2-1.2); Eosinophils Percent Auto 0.4 % (0-4.4); Hematocrit 36.7 % (42.0-52.0); Hemoglobin 11.8 g/dL (14.0-18.0); Immature Granulocyte Absolute 0.04 K/mm3 (0.00-0.031); Immature Granulocyte Percent A 0.4 % (0-0.5); Lymphocytes Absolute Auto 1.76 K/mm3 (0.9-3.2); Lymphocytes Percent Auto 15.8 % (18.3-44.2); Mean Corpuscular HGB Conc 32.2 g/dl (32-36); Mean Corpuscular Hemoglobin 28.6 pg (26-34); Mean Corpuscular Volume 89.1 fl (80-100); Mean Platelet Volume 11.3 fl (7.4-10.4); Monocytes Absolute Auto 0.7 K/mm3 (0.1-0.6); Monocytes Percent Auto 6.7 % (2.6-8.5); Neutrophils Absolute Auto 8.5 K/mm3 (1.3-6.7); Neutrophils Percent Auto 76.5 % (45.5-73.1); Platelet Count Result 162 k/mm3 (150-375); Red Blood Count 4.12 M/mm3 (4.6-6.20); Red Cell Distribution Width 14.3 % (11.5-14.5); White Blood Count 11.1 K/mm3 (4.5-10.0)
[2023-08-06 13:19] LABS: Alanine Aminotransferase 20 U/L (6-50); Albumin Level 3.6 g/dL (3.5-5.1); Alkaline Phosphatase 77 U/L (38-126); Anion Gap 6 mmol/L (4-12); Aspartate Amino Transferase 19 U/L (17-59); Bilirubin,Total 1.3 mg/dL (0.2-1.3); Blood Urea Nitrogen 15 mg/dL (9-20); Carbon Dioxide 24 mmol/L (22-30); Chloride 104 mmol/L (98-107); Estimated CRCL calculation 60 ml/min; Estimated Glomerular Filt Rate > 60; Glucose 139 mg/dL (65-110); Potassium 3.9 mmol/L (3.4-5.0); Sodium 134 mmol/L (137-145)
[2023-08-06 13:22] LABS: INR 1.1; Prothrombin Time 14.2 Seconds (11.1-14.7)
[2023-08-06 13:23] LABS: Partial Thromboplastin Time 34.5 Seconds (22.3-36.8)
[2023-08-06 14:45] VITALS: BP 137/67; PULSE 92; RESP 14; TEMP 36.6; O2SAT 98
== END 2023-08-06 15:55 | disposition home or self-care (01) ==
PROVIDERS: Physician Assistant; Emergency Provider Student in an Organized Health Care Education/Training Program; PCP Emergency Medicine
DX: N39.0 Urinary tract infection, site not specified (principal); D72.829 Elevated white blood cell count, unspecified; D64.9 Anemia, unspecified; N40.0 Benign prostatic hyperplasia without lower urinary tract symptoms; E11.22 Type 2 diabetes mellitus with diabetic chronic kidney disease; I12.9 Hypertensive chronic kidney disease with stage 1 through stage 4 chronic kidney disease, or unspecified chronic kidney disease; N18.30 Chronic kidney disease, stage 3 unspecified; E78.5 Hyperlipidemia, unspecified; I34.1 Nonrheumatic mitral (valve) prolapse; M19.90 Unspecified osteoarthritis, unspecified site; Z85.46 Personal history of malignant neoplasm of prostate; Z87.19 Personal history of other diseases of the digestive system; Z86.718 Personal history of other venous thrombosis and embolism; Z87.440 Personal history of urinary (tract) infections; Z79.4 Long term (current) use of insulin; Z79.82 Long term (current) use of aspirin; Z79.899 Other long term (current) drug therapy
CPT/HCPCS: 36415; 51702; 80053; 81001; 85025; 85610; 85730; 87077; 87086; 87088; 87186; 96361; 96365; 99284; J0696; J7030

== ENCOUNTER 2023-09-03 19:22 | Inpatient (IN) | payer MEDICARE, SELFPAY ==
[2023-09-03] VITALS (25 sets, daily range): BP systolic 128–153; BP diastolic 75–108; PULSE 88–126; RESP 17–36; TEMP 36.8; O2SAT 92–99
--- NOTE | ~2023-09-03 | CT_ITS ---
CT brain wo con Ordering provider: Roxanne Sheldon PA-C History: 87 years Male with . syncope . Comparison: January 13, 2023 Technique: CT of the head without contrast. Radiation reduction technique utilized. DLP is 681 mGy-cm. FINDINGS: BRAIN PARENCHYMA AND CSF SPACES: Mild leukoaraiosis and diffuse cortical atrophy. Mild atheromatous d isease. Ventricular dilatation is seen which is more prominent than the brain atrophy. Evaluation for normal pressure hydrocephalus should be considered. Old lacunar infarcts seen in the left basal gang tay, left thalamus and left internal capsule. No midline shift, mass effect or hemorrhage. The brain parenchyma and CSF spaces are otherwise normal. VISUALIZED PARANASAL SINUSES: Left maxillary sinus disease. MASTOIDS: Well aerated. BONES: The bones appear intact. SOFT TISSUES: Visualized nasopharynx is normal. Superficial soft tissues are normal. IMPRESSION: No acute intracranial findings. Other appearances are unchanged from previous examination. Reviewed, dictated and finalized at location A.
--- NOTE | ~2023-09-03 | XR_ITS ---
XR chest 2V Ordering provider: Roxanne Sheldon PA-C History: 87 years Male with . syncope . Comparison: June 01, 2023 FINDINGS: MEDIASTINUM: The cardiac silhouette is slightly enlarged. LUNGS: No infiltrates, effusions or pneumothorax. OTHER: No free air under the diaphragm. Degenerative changes of the spine. IMPRESSION: No acute cardiopulmonary pathology. Reviewed, dictated and finalized at location A.
--- NOTE | 2023-09-03 19:23 | ECG_ITS ---
Test Date: 2023-09-03 19:24:23 Measurements Intervals [place] Rate: 90 P: 0 CT: 0 QRS: 238 QRSD: 112 T: 168 QT: 363 QTc: 446 Interpretive Statements SINUS RHYTHM ATRIAL AND VENTRICULAR PREMATURE COMPLEXES LIMB LEAD REVERSAL INTRAVENTRICULAR CONDUCTION DELAY POOR R WAVE PROGRESSION BASELINE ARTIFACT- I, II, III, AVR, AVL, AVF, V1-V6 ABNORMAL ECG No previous ECG available for comparison Electronically Signed On 09-03-2023 20:20:17 CDT by Marquis Haynes D.O.
--- NOTE | 2023-09-03 19:39 | ED.AMS ---
HPI - Altered Mental Status General Chief Complaint: Altered Mental Status Stated Complaint: AMS Time Seen by Provider: 09/03/23 19:25 Source: patient Mode of arrival: EMS Limitations: other (patient does not remember incident) History of Present Illness HPI narrative: This is an 87-year-old male that presents to the emergency department for an episode of unresponsiveness. Patient's son found him slumped over on a bench outside. He was repositioned and then became more alert. Patient is now alert and oriented and has no current complaints. He does not remember the incident. Denies chest pain, shortness of breath, palpitations, current pain. Related Data Home Medications Medication Instructions Recorded Confirmed insulin glargine 100 unit/mL (3 48 unit subcut QAM 09/12/22 06/01/23 mL) subcutaneous pen (Lantus Solostar U-100 Insulin) aspirin 81 mg tablet,delayed 81 mg PO DAILY 04/11/23 06/01/23 release lisinopril 10 mg tablet 10 mg PO DAILY 04/11/23 06/01/23 Allergies Allergy/AdvReac Type Severity Reaction Status Date / Time No Known Allergies Allergy Verified 08/06/23 10:24 Review of Systems Review of Systems: CONSTITUTIONAL: Denies fever, CARDIOVASCULAR: Denies chest pain GASTROINTESTINAL: Denies vomiting GENITOURINARY: Denies hematuria. MUSCULOSKELETAL: Denies back pain, joint pain, or myalgia. NEUROLOGIC: Denies new numbness, or weakness. All systems reviewed & are unremarkable except as noted in HPI and below PMFSH Past Medical History Medical History (Updated 09/04/23 @ 01:01 by Roxanne Sheldon PA-C) Anemia Arthritis Benign prostatic hyperplasia Blind left eye Cerebrovascular accident (05/2008) Residual left-sided weakness. Chronic kidney disease, stage 3 Chronic pain Deep vein thrombosis of right lower extremity Diverticulitis Frequent falls History of rectal polyps Hyperlipidemia Hypertension Insulin dependent type 2 diabetes mellitus Mitral valve prolapse Pneumonia Prostate cancer Diagnosed in 2008. Shingles Syncope Urinary tract infection UTI (urinary tract infection) Surgical History Surgical History History of orthopedic surgery ORIF left tib-fib fracture. Family History Family History Sibling Hypertension Cerebrovascular accident Family history of malignant neoplasm Family history of diabetes mellitus in first degree relative Mother Family history of malignant neoplasm, Onset Age: 75 Patient's mother is Father Carcinoma of colon, Onset Age: 67 Patient's father is Social History Social History Social History: Surrogate medical decision maker: Kaye Berkowitz, spouse. Code status: Full code. Smoking status: Never smoker Alcohol intake: never Substance use: never Substance use type: does not use Do You Feel Safe in your Home?: Yes Lack of Transportation: YES Lack of Food: Never True Current Housing: I Have Housing Concerned About Future Housing: No Difficulty Paying Gas/Electric Bills: No Difficulty Paying for Meds: No Currently Unemployed: No Education: Decline to Answer Difficulty w/ Childcare or Family Care: No Additional occupation/education comments: Retired from [employer]. Spiritual care concerns: No Agree to blood products: Yes Exam Narrative: GENERAL: Elderly, well-nourished, and in no acute distress. HEAD: Normocephalic, atraumatic. EYES: Right pupil is round and reactive and EOMI. Left anophthalmia ENT: Nares clear, no rhinorrhea or epistaxis. Mucous membranes moist. Oropharynx without tonsillar hypertrophy exudate or other lesions. Bilateral TMs pearly seymour non-bulging NECK: Supple. No adenopathy or masses. CHEST: Clear to auscultation. No respiratory distress. No wheezes rales
--- NOTE | 2023-09-03 19:46 | ECG_ITS ---
Test Date: 2023-09-03 20:51:52 Measurements Intervals [place] Rate: 90 P: 68 SD: 194 QRS: -55 QRSD: 118 T: 57 QT: 374 QTc: 459 Interpretive Statements SINUS RHYTHM ATRIAL AND VENTRICULAR PREMATURE COMPLEXES LEFT ANTERIOR FASCICULAR BLOCK LEFT VENTRICULAR HYPERTROPHY AND ST-T CHANGE BASELINE ARTIFACT- I, II, III, AVR, AVL, AVF, V1-V2 ABNORMAL ECG Compared to ECG 09/03/2023 19:24:23 NO SIGNIFICANT CHANGE Electronically Signed On 09-04-2023 08:49:21 CDT by Marquis Haynes D.O.
[2023-09-03 20:58] LABS: Basophils Percent Auto 0.2 % (0.2-1.2); Eosinophils Percent Auto 0.2 % (0-4.4); Hematocrit 37.8 % (42.0-52.0); Hemoglobin 12.3 g/dL (14.0-18.0); Immature Granulocyte Absolute 0.03 K/mm3 (0.00-0.031); Immature Granulocyte Percent A 0.3 % (0-0.5); Immature Platelet Fraction Pct 7.5 % (0.9-11.2); Lymphocytes Percent Auto 10.9 % (18.3-44.2); Mean Corpuscular HGB Conc 32.5 g/dl (32-36); Mean Corpuscular Hemoglobin 28.8 pg (26-34); Mean Corpuscular Volume 88.5 fl (80-100); Mean Platelet Volume 10.9 fl (7.4-10.4); Monocytes Absolute Auto 0.7 K/mm3 (0.1-0.6); Monocytes Percent Auto 6.2 % (2.6-8.5); Neutrophils Absolute Auto 9.9 K/mm3 (1.3-6.7); Neutrophils Percent Auto 82.2 % (45.5-73.1); Platelet Count Result 145 k/mm3 (150-375); Red Blood Count 4.27 M/mm3 (4.6-6.20); Red Cell Distribution Width 14.6 % (11.5-14.5)
[2023-09-03 21:02] LABS: Appearance Urine Cloudy (Clear); Bacteria Urine None Seen /hpf; Bilirubin Urine Negative (Negative); Blood Urine 2+ (Negative); Color Urine Yellow (Yellow); Glucose Urine UA 3+ mg/dL (Negative); Ketones Urine Trace mg/dL (Negative); Leukocyte Esterase Ur 2+ LEU/UL (Negative); Nitrate Urine Negative (Negative); Protein Urine 2+ mg/dL (Negative); RBC Urine 21-50 /hpf (0-2); Specific Grav Ur 1.024 (1.001-1.035); Squamous Epithelial Cell Urine None Seen /hpf (Few); WBC Urine >100 /hpf (0-3)
[2023-09-03 21:07] LABS: Alanine Aminotransferase 18 U/L (6-50); Albumin Level 3.8 g/dL (3.5-5.1); Alkaline Phosphatase 86 U/L (38-126); Anion Gap 9 mmol/L (4-12); Aspartate Amino Transferase 21 U/L (17-59); Blood Urea Nitrogen 16 mg/dL (9-20); Carbon Dioxide 26 mmol/L (22-30); Chloride 99 mmol/L (98-107); Creatine Kinase 40 U/L (55-170); Estimated CRCL calculation 60 ml/min; Estimated Glomerular Filt Rate > 60; Glucose 187 mg/dL (65-110); Potassium 3.4 mmol/L (3.4-5.0); Sodium 134 mmol/L (137-145)
[2023-09-03 21:09] LABS: Add Urine Microscopic? YES
[2023-09-03 21:11] LABS: Prothrombin Time 13.6 Seconds (11.1-14.7)
[2023-09-03 21:12] LABS: Partial Thromboplastin Time 28.2 Seconds (22.3-36.8)
[2023-09-03] MEDS: SODIUM CHLORIDE 0.9% IV 500 ML 999 ML IV CONT (22:59)
[2023-09-03 23:25] LABS: Lactic Acid Reflex 1.7 mmol/L (0.7-2.0)
[2023-09-03] MEDS: CEFEPIME 2 GM/NS 50 ML 2 GM/50 ML BAG IVPB (23:29)
[2023-09-04] VITALS (15 sets, daily range): BP systolic 127–170; BP diastolic 51–88; PULSE 78–112; RESP 18–26; TEMP 36.3–37; O2SAT 95–99; BMI 27.0
[2023-09-04] MEDS: SODIUM CHLORIDE 0.9% IV 1,000 ML 100 ML IV CONT (01:15)
--- NOTE | 2023-09-04 01:29 | ADMGEN ---
This patient, Derrell Berkowitz, was admitted to Medical Room 340-01. Patient/family oriented to hospital policies and general routines including ID bracelet, bed and alarms, visiting hours, pain management, procedures, bathroom and other care routines, personal items, smoking policy, room service/diet, and visiting hours. Information on how to activate the Rapid Response Team has been discussed. Patient/Family are encouraged to report perceived risks to care and to ask questions if they do not understand what they are told or what they should do.
--- NOTE | 2023-09-04 05:11 | PM.IMHP ---
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 The patient was evidently sitting on a bench outside and was seen be slumped over. He had his head leaning forward and was not responding usual. The patient is on reposition patient in patient was more alert and slowly became more responsive. Reportedly the patient was alert orient x3 by the time he came to the ER. Patient did not remember they episode of being less responsive. He told me he did not know why he was brought to the hospital. Is difficult for me to evaluate the patient's mental status as he does have a history of expressive aphasia and he reports that he has word substitution issues. He stated that the month was April. When I asked him what the year was he stated February. He was able to name the president. He nods yes when I ask about his facial droop which he says is chronic. He denies any nausea or vomiting. He denies any abdominal pain or respiratory symptoms. He does report dysuria but had his Singh catheter changed yesterday. Review of Systems Review of Systems: 12 systems were reviewed with pertinent positives and negatives per HPI. Except as documented in the HPI, all other systems were reviewed and are negative. Although review of system difficult to obtain due to the patient's difficulty with expressive aphasia. [facility] Past Medical History Medical History (Updated 09/04/23 @ 13:06 by Марина Venegas PA-C) Anemia Arthritis Benign prostatic hyperplasia Blind left eye Cerebrovascular accident (05/2008) Residual left-sided weakness. Chronic indwelling Singh catheter Chronic kidney disease, stage 3 Chronic pain Deep vein thrombosis of right lower extremity Diverticulitis Frequent falls History of rectal polyps Hyperlipidemia Hypertension Insulin dependent type 2 diabetes mellitus Mitral valve prolapse Pneumonia Prostate cancer Diagnosed in 2008. Shingles Syncope Urinary tract infection UTI (urinary tract infection) Surgical History Surgical History History of orthopedic surgery ORIF left tib-fib fracture. Family History Family History Sibling Hypertension Cerebrovascular accident Family history of malignant neoplasm Family history of diabetes mellitus in first degree relative Mother Family history of malignant neoplasm, Onset Age: 75 Patient's mother is Father Carcinoma of colon, Onset Age: 67 Patient's father is Social History Social History (Updated 09/04/23 @ 09:13 by Cori Dennis DO) Social History: Surrogate medical decision maker: Kaye Berkowitz, spouse. Code status: Full code. Smoking status: Never smoker Alcohol intake: never Substance use: never Substance use type: does not use Do You Feel Safe in your Home?: Yes Lack of Transportation: No Lack of Food: Never True Current Housing: I Have Housing Concerned About Future Housing: No Difficulty Paying Gas/Electric Bills: No Difficulty Paying for Meds: No Currently Unemployed: No Education: High School Diploma/GED Difficulty w/ Childcare or Family Care: No Additional living arrangements comments: He lives at home with his . Additional occupation/education comments: Retired from [employer]. Spiritual care concerns: No Agree to blood products: Yes Meds Home Medications and Allergies Home Medications Medication Instructions Recorded Confirmed Type insulin glargine 100 unit/mL (3 48 u
--- NOTE | 2023-09-04 06:49 | PC.NURSE ---
Call placed to [facility] to verify home medications. No answer and unable to leave voicemail.
[2023-09-04 07:54] LABS: Glucose Point of Care 226 mg/dl (65-105)
[2023-09-04 08:14] LABS: Basophils Percent Auto 0.1 % (0.2-1.2); Eosinophils Absolute Auto 0.1 K/mm3 (0-0.3); Eosinophils Percent Auto 0.8 % (0-4.4); Hematocrit 35.8 % (42.0-52.0); Hemoglobin 11.3 g/dL (14.0-18.0); Immature Granulocyte Absolute 0.02 K/mm3 (0.00-0.031); Immature Granulocyte Percent A 0.2 % (0-0.5); Lymphocytes Absolute Auto 2.42 K/mm3 (0.9-3.2); Lymphocytes Percent Auto 26.8 % (18.3-44.2); Mean Corpuscular HGB Conc 31.6 g/dl (32-36); Mean Corpuscular Hemoglobin 28.4 pg (26-34); Mean Corpuscular Volume 89.9 fl (80-100); Mean Platelet Volume 10.7 fl (7.4-10.4); Monocytes Absolute Auto 0.8 K/mm3 (0.1-0.6); Monocytes Percent Auto 9.1 % (2.6-8.5); Neutrophils Absolute Auto 5.7 K/mm3 (1.3-6.7); Platelet Count Result 118 k/mm3 (150-375); Red Blood Count 3.98 M/mm3 (4.6-6.20); Red Cell Distribution Width 14.7 % (11.5-14.5)
[2023-09-04 08:30] LABS: Anion Gap 6 mmol/L (4-12); Blood Urea Nitrogen 16 mg/dL (9-20); Calcium 8.5 mg/dL (8.4-10.2); Carbon Dioxide 27 mmol/L (22-30); Chloride 103 mmol/L (98-107); Estimated CRCL calculation 60 ml/min; Estimated Glomerular Filt Rate > 60; Glucose 202 mg/dL (65-110); Potassium 3.3 mmol/L (3.4-5.0); Sodium 136 mmol/L (137-145)
[2023-09-04] MEDS: ROSUVASTATIN 20 MG TABLET PO (09:19)
[2023-09-04] MEDS: ASPIRIN 81 MG ENTERIC TABLET PO (09:19)
[2023-09-04] MEDS: TAMSULOSIN HCL 0.4 MG CAPSULE PO (09:19)
[2023-09-04] MEDS: lisinopriL 10 MG TABLET PO (09:19)
[2023-09-04] MEDS: CEFEPIME 2 GM/NS 50 ML 2 GM/50 ML BAG IVPB ×2 (09:20→20:04)
[2023-09-04] MEDS: INSULIN ASPART (*BKC) 100 UNITS/ML SUB-Q ×2 (09:20→20:05)
[2023-09-04 12:02] LABS: Glucose Point of Care 179 mg/dl (65-105)
--- NOTE | 2023-09-04 13:03 | PM.IMPN ---
Progress Note: A&P Assessment and Plan (1) Altered awareness, transient: Code(s): R40.4 - Transient alteration of awareness Status: Acute Assessment and Plan: Slight decline from his baseline cognitive function. Possibly related to urinary tract infection, though etiology not entirely clear. Laboratory workup not consistent with infection and electrolytes are stable. Head CT with no acute findings. Continue to monitor mental status (2) Acute UTI: Code(s): N39.0 - Urinary tract infection, site not specified Status: Suspected Assessment and Plan: Urinalysis abnormal on presentation, concerning for possible UTI given patient's change in mental status. Urine culture is pending at this time. Continue IV cefepime while awaiting culture results. Patient has a chronic indwelling Singh catheter. (3) Type 2 diabetes mellitus with hyperglycemia, with long-term current use of insulin: Code(s): E11.65 - Type 2 diabetes mellitus with hyperglycemia; Z79.4 - correction (current) use of insulin Status: Acute Assessment and Plan: Blood sugars reasonable during admission, ranging 180-200. Continue Accu-Cheks, sliding scale insulin, hypoglycemic protocol. Monitor glucose trends Plan Potassium 3.3. Will supplement. Decline in hemoglobin by 1 point overnight. Likely dilutional secondary to IV fluids. Will discontinue IV fluids at this time as patient is tolerating oral intake and has been adequately rehydrated. Subjective Date/time seen: 09/04/23 13:03 Interval history: Derrell is a somewhat poor historian. He is A&O x2 and not able to give much medical history. States he came to the hospital for dizziness which she reports has resolved at this time. Denies lightheadedness. Denies headache. Denies shortness of breath, cough, chest pain, abdominal pain, nausea, vomiting, fever, or chills. He is tolerating his diet. Reports no concerns with his Singh catheter. Review of Systems Review of Systems: All systems reviewed & are unremarkable except as noted in HPI and below Exam Narrative: General: Chronically ill-appearing 87 year-old male, sitting up in bed, comfortable, NARD Neuro: awake, alert and oriented x2, speech clear, no focal neuro deficits noted HEENMT: normocephalic, atraumatic, EOMI, sclerae anicteric, wearing an eye patch over left eye Respiratory: clear to auscultation bilaterally, nonlabored breathing Cardio: regular rate, regular rhythm with S1-S2 Abdomen: nondistended, normoactive bowel sounds, soft, nontender to palpation : Singh catheter draining clear yellow urine Extremities: no edema, erythema, or tenderness to palpation Skin: no rashes or lesions, warm and dry Psych: appropriate mood and affect, judgment and insight fair Objective Data Vital Signs Vital Signs: Vital Signs - 24 hr 09/03/23 19:16 09/03/23 19:24 09/03/23 19:26 Temperature 98.3 F Pulse Rate 92 94 Respiratory Rate 20 Blood Pressure 153/75 H Pulse Oximetry 97 97 Oxygen Delivery Room Air Room Air Fraction of Inspired Oxygen 09/03/23 19:22 09/03/23 19:30 09/03/23 19:31 Temperature Pulse Rate 95 88 94 Respiratory Rate 21 H 26 H 36 H Blood Pressure 128/83 Pulse Oximetry 97 99 95 Oxygen Delivery Fraction of Inspired Oxygen 09/03/23 20:01 09/03/23 20:04 09/03/23 20:19 Temperature Pulse Rate 92 Respiratory Rate 27 H 20 Blood Pressure 145/82 H Pulse Oximetry 92 Oxygen Delivery Fraction of Inspired Oxygen 09/03/23 20:45 09/03/23 21:00 09/03/23 21:01 Temperature Pulse Rate 98 126 H 108 H Respiratory Rate 32 H 27 H 19 Blood Pressure 138/98 H Pulse Oximetry 98 97 Oxygen Delivery Fraction of Inspired Oxygen 09/03/23 21:17 09/03/23 21:43 09/03/23 21:45 Temperature Pulse Rate 98 99 112 H Respiratory Rate 29 H 24 H 23 H Blood Pressure Pulse Oximetry 95 Oxygen Delivery Fraction of Inspi
[2023-09-04] MEDS: POTASSIUM CHLORIDE 20 MEQ ER TABLET PO (14:20)
[2023-09-04] MEDS: ACETAMINOPHEN 325 MG TABLET 650 MG PO ×2 (14:32→20:04)
[2023-09-04 17:05] LABS: Glucose Point of Care 187 mg/dl (65-105)
[2023-09-04 20:08] LABS: Glucose Point of Care 276 mg/dl (65-105)
[2023-09-05] VITALS (10 sets, daily range): BP systolic 101–152; BP diastolic 51–96; PULSE 83–99; RESP 18–20; TEMP 36.3–37.3; O2SAT 96–98
[2023-09-05 06:28] LABS: Hematocrit 35.3 % (42.0-52.0); Hemoglobin 11.2 g/dL (14.0-18.0); Immature Platelet Fraction Pct 8.7 % (0.9-11.2); Mean Corpuscular HGB Conc 31.7 g/dl (32-36); Mean Corpuscular Hemoglobin 28.9 pg (26-34); Mean Platelet Volume 11.6 fl (7.4-10.4); Platelet Count Result 125 k/mm3 (150-375); Red Blood Count 3.88 M/mm3 (4.6-6.20); Red Cell Distribution Width 14.8 % (11.5-14.5); White Blood Count 7.7 K/mm3 (4.5-10.0)
[2023-09-05 06:39] LABS: Anion Gap 6 mmol/L (4-12); Blood Urea Nitrogen 16 mg/dL (9-20); Calcium 8.8 mg/dL (8.4-10.2); Carbon Dioxide 27 mmol/L (22-30); Chloride 103 mmol/L (98-107); Estimated CRCL calculation 60 ml/min; Estimated Glomerular Filt Rate > 60; Glucose 136 mg/dL (65-110); Potassium 3.1 mmol/L (3.4-5.0); Sodium 136 mmol/L (137-145)
[2023-09-05 08:21] LABS: Glucose Point of Care 155 mg/dl (65-105)
[2023-09-05] MEDS: CEFEPIME 2 GM/NS 50 ML 2 GM/50 ML BAG IVPB ×2 (09:13→21:00)
[2023-09-05] MEDS: ENOXAPARIN 40 MG/0.4 ML SYRINGE SUB-Q (09:13)
[2023-09-05] MEDS: lisinopriL 10 MG TABLET PO (09:14)
[2023-09-05] MEDS: ASPIRIN 81 MG ENTERIC TABLET PO (09:14)
[2023-09-05] MEDS: POTASSIUM CHLORIDE 20 MEQ ER TABLET 40 MEQ PO (09:14)
[2023-09-05] MEDS: ROSUVASTATIN 20 MG TABLET PO (09:14)
[2023-09-05] MEDS: TAMSULOSIN HCL 0.4 MG CAPSULE PO (09:14)
[2023-09-05 12:33] LABS: Glucose Point of Care 232 mg/dl (65-105)
[2023-09-05] MEDS: INSULIN ASPART (*BKC) 100 UNITS/ML SUB-Q ×3 (12:49→21:02)
[2023-09-05 16:52] LABS: Glucose Point of Care 233 mg/dl (65-105)
[2023-09-05] MEDS: POTASSIUM CHLORIDE 10 MEQ ER TABLET PO (17:28)
--- NOTE | 2023-09-05 17:44 | PM.IMPN ---
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 Previous organism resistant to multiple antibiotics Empiric Cefepime pending culture Time Spent With Patient Time: >30 minutes Subjective Date/time seen: 09/05/23 17:44 Interval history: Feeling ok. He is A&O x2 and not able to give much medical history. States he came to the hospital for falls but didn't hurt himself. Previously noted dizziness. Review of Systems Review of Systems: 12 systems were reviewed with pertinent positives and negatives per HPI. Except as documented in the HPI, all other systems were reviewed and are negative. Although review of system difficult to obtain due to the patient's difficulty with expressive aphasia. Denies headache. Denies shortness of breath, cough, chest pain, abdominal pain, nausea, vomiting, fever, or chills. He is tolerating his diet. Reports no concerns with his Singh catheter. All systems reviewed & are unremarkable except as noted in HPI and below Exam Narrative: General: Chronically ill-appearing 87 year-old male, sitting up in bed, comfortable, NARD Neuro: awake, alert and oriented x2, speech clear, no focal neuro deficits noted HEENMT: normocephalic, atraumatic, EOMI, sclerae anicteric, wearing an eye patch over left eye Respiratory: clear to auscultation bilaterally, nonlabored breathing Cardio: regular rate, regular rhythm with S1-S2 Abdomen: nondistended, normoactive bowel sounds, soft, nontender to palpation : Singh catheter draining clear yellow urine Extremities: no edema, erythema, or tenderness to palpation Skin: no rashes or lesions, warm and dry Psych: appropriate mood and affect, judgment and insight fair Urinary Catheter: Urinary Catheter: patent and draining and urine clear Objective Data Vital Signs Vital Signs: Vital Signs - 24 hr 09/04/23 19:50 09/04/23 20:00 09/04/23 20:00 Temperature 98.6 F Pulse Rate 99 94 Respiratory Rate 18 Blood Pressure 127/88 Pulse Oximetry 99 Oxygen Delivery Room Air 09/05/23 00:00 09/05/23 04:00 09/05/23 05:31 Temperature 98.1 F Pulse Rate 93 85 91 Respiratory Rate 20 Blood Pressure 152/96 H Pulse Oximetry 96 Oxygen Delivery 09/05/23 09:15 09/05/23 14:00 09/05/23 08:00 Temperature 97.4 F L Pulse Rate 99 83 Respiratory Rate 18 Blood Pressure 101/75 Pulse Oximetry 96 98 Oxygen Delivery Room Air 09/05/23 12:00 09/05/23 16:00 Temperature Pulse Rate 99 96 Respiratory Rate Blood Pressure Pulse Oximetry Oxygen Delivery Intake/Output Intake/Output: Intake & Output 09/02/23 09/03/23 09/04/23 09/05/23 23:59 23:59 23:59 23:59 Intake Total 1390 520 Output Total 2500 650 Balance -1110 -130 Meds/Results Medications: Active Medications Generic Name Dose Route Start Last Admin Trade Name Freq PRN Reason Stop Dose Admin Acetaminophen 650 mg 09/04/23 14:19 09/04/23 20:04 Acetaminophen 325 Mg Tablet PO 650 mg Q4H PRN Administration Mild pain Aspirin 81 mg 09/04/23 09:00 09/05/23 09:14 Aspirin 81 Mg Enteric Tablet PO 81 mg DAILY JESSI Administration Dex
[2023-09-05] MEDS: INSULIN GLARGINE (*BKC) 100 UNITS/ML 15 UNITS SUB-Q (18:13)
[2023-09-05] MEDS: ACETAMINOPHEN 325 MG TABLET 650 MG PO (18:58)
[2023-09-05] MEDS: PHENAZOPYRIDINE HCL 100 MG TABLET PO (21:00)
[2023-09-05 21:01] LABS: Glucose Point of Care 207 mg/dl (65-105)
[2023-09-06] VITALS: PULSE 83
[2023-09-06 04:00] VITALS: PULSE 84
[2023-09-06 05:58] VITALS: BP 125/59; PULSE 82; RESP 20; TEMP 36.7; O2SAT 98
[2023-09-06 07:38] LABS: Basophils Percent Auto 0.3 % (0.2-1.2); Eosinophils Absolute Auto 0.1 K/mm3 (0-0.3); Hematocrit 35.8 % (42.0-52.0); Hemoglobin 11.1 g/dL (14.0-18.0); Immature Granulocyte Absolute 0.01 K/mm3 (0.00-0.031); Immature Granulocyte Percent A 0.1 % (0-0.5); Immature Platelet Fraction Pct 7.6 % (0.9-11.2); Lymphocytes Percent Auto 29.3 % (18.3-44.2); Mean Corpuscular Hemoglobin 28.1 pg (26-34); Mean Corpuscular Volume 90.6 fl (80-100); Mean Platelet Volume 11.2 fl (7.4-10.4); Monocytes Absolute Auto 0.5 K/mm3 (0.1-0.6); Monocytes Percent Auto 6.6 % (2.6-8.5); Neutrophils Absolute Auto 4.2 K/mm3 (1.3-6.7); Neutrophils Percent Auto 61.7 % (45.5-73.1); Platelet Count Result 135 k/mm3 (150-375); Red Blood Count 3.95 M/mm3 (4.6-6.20); Red Cell Distribution Width 14.8 % (11.5-14.5); White Blood Count 6.8 K/mm3 (4.5-10.0)
[2023-09-06 07:49] LABS: Anion Gap 3 mmol/L (4-12); Blood Urea Nitrogen 16 mg/dL (9-20); Calcium 8.7 mg/dL (8.4-10.2); Carbon Dioxide 29 mmol/L (22-30); Chloride 104 mmol/L (98-107); Estimated CRCL calculation 60 ml/min; Estimated Glomerular Filt Rate > 60; Glucose 112 mg/dL (65-110); Potassium 3.5 mmol/L (3.4-5.0); Sodium 136 mmol/L (137-145)
[2023-09-06 08:23] LABS: Glucose Point of Care 119 mg/dl (65-105)
[2023-09-06] MEDS: CEFEPIME 2 GM/NS 50 ML 2 GM/50 ML BAG IVPB (08:59)
[2023-09-06] MEDS: ASPIRIN 81 MG ENTERIC TABLET PO (08:59)
[2023-09-06] MEDS: ROSUVASTATIN 20 MG TABLET PO (09:00)
[2023-09-06] MEDS: ENOXAPARIN 40 MG/0.4 ML SYRINGE SUB-Q (09:00)
[2023-09-06] MEDS: TAMSULOSIN HCL 0.4 MG CAPSULE PO (09:00)
[2023-09-06] MEDS: lisinopriL 10 MG TABLET PO (09:13)
[2023-09-06] MEDS: INSULIN GLARGINE (*BKC) 100 UNITS/ML 15 UNITS SUB-Q (09:13)
[2023-09-06] MEDS: INSULIN ASPART (*BKC) 100 UNITS/ML SUB-Q ×2 (09:16→12:56)
[2023-09-06 12:03] LABS: Glucose Point of Care 154 mg/dl (65-105)
[2023-09-06 12:06] LABS: Magnesium 2.1 mg/dL (1.6-2.3)
[2023-09-06] MEDS: POTASSIUM CHLORIDE 20 MEQ ER TABLET PO (12:54)
--- NOTE | 2023-09-06 19:00 | PM.DS ---
DS: Admitting Diagnosis Discharge Date 09/06/23 Admitting Diagnosis Altered mental status DS: Discharge Diagnosis Discharge Diagnosis (1) NSVT (nonsustained ventricular tachycardia): Code(s): I47.29 - Other ventricular tachycardia Status: Acute (2) PVC (premature ventricular contraction): Code(s): I49.3 - Ventricular premature depolarization Status: Acute (3) Syncope: Code(s): R55 - Syncope and collapse Status: Acute (4) Asymptomatic bacteriuria: Code(s): R82.71 - Bacteriuria Status: Acute Plan Follow-up with PCP. BMP, CBC in a week. 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 The patient was evidently sitting on a bench outside and was seen be slumped over. He had his head leaning forward and was not responding usual. The patient is on reposition patient in patient was more alert and slowly became more responsive. Reportedly the patient was alert orient x3 by the time he came to the ER. Patient did not remember they episode of being less responsive. He told me he did not know why he was brought to the hospital. Is difficult for me to evaluate the patient's mental status as he does have a history of expressive aphasia and he reports that he has word substitution issues. He stated that the month was April. When I asked him what the year was he stated February. He was able to name the president. He nods yes when I ask about his facial droop which he says is chronic. He denies any nausea or vomiting. He denies any abdominal pain or respiratory symptoms. He does report dysuria but had his Singh catheter changed yesterday. Hospital Course: Syncope NSVT Frequent PVC's Hypokalemia Chronic indwelling catheter Patient was admitted for a syncopal event reported by family. patient is aphasic and a poor historian, did not remember the event. discussed with was at the bedside, and he was suddenly unresponsive, lasting a few minutes. he had multiple PVCs short runs of SVT during admission, so would be at high risk for arrhythmia causing syncope. magnesium was normal this change lisinopril to metoprolol 12.5 mg daily. consider outpatient event monitor, per PCP. initial concern for UTI given chronic Singh. UA had over 100 WBCs but no bacteria, and culture grew mixed jerry. Treated with Cefepime during admission. His reported that there had been no change in the appearance of his urine. potassium low at 3.1 during admission. 3.5 on day of discharge also additional potassium given. Should have a repeat BMP in a week and recheck CBC. 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 Discussed with that this can be an over read in the elderly, and discuss with PCP and consider if neurology referral would be worth the risk. Status at Discharge Cognitive/behavioral status at discharge: Alert, confused Time Spent with Patient Time attestation: Total time spent providing and/or coordinating discharge services: >30 minutes Exam Narrative: awake and alert, oriented x2 lungs clear decreased in the bases regular rate and rhythm, no murmurs abdomen soft nondistended no nontender Singh catheter in place no edema DS: Data Data Completed and Pending Labs on day of discharge: Labs from last 24 hours 09/06/23 09/06/23 09/06/23 12:01 08:18 07:30 WBC RBC Hgb Hct MCV MCH MCHC RDW Plt Count MPV Immature Gran % (Auto) Neut % (Auto) Lymp
== END 2023-09-06 14:33 | disposition home or self-care (01) | DRG 309 ==
LOC: ANHED 19:29 → ANH3MED 09-04 00:51
PROVIDERS: Emergency Medicine; Physician Assistant; Admitting Provider Internal Medicine; Emergency Provider Physician Assistant; PCP Emergency Medicine; Visit Provider Nurse Practitioner Acute Care
DX: I49.3 Ventricular premature depolarization (principal); I47.29 Other ventricular tachycardia; I69.351 Hemiplegia and hemiparesis following cerebral infarction affecting right dominant side; I34.1 Nonrheumatic mitral (valve) prolapse; I12.9 Hypertensive chronic kidney disease with stage 1 through stage 4 chronic kidney disease, or unspecified chronic kidney disease; N18.30 Chronic kidney disease, stage 3 unspecified; N40.0 Benign prostatic hyperplasia without lower urinary tract symptoms; C61 Malignant neoplasm of prostate; E87.6 Hypokalemia; E11.65 Type 2 diabetes mellitus with hyperglycemia; E78.5 Hyperlipidemia, unspecified; K57.30 Diverticulosis of large intestine without perforation or abscess without bleeding; R82.71 Bacteriuria; M19.90 Unspecified osteoarthritis, unspecified site; G89.29 Other chronic pain; R29.6 Repeated falls; I69.392 Facial weakness following cerebral infarction; I69.320 Aphasia following cerebral infarction; Z79.4 Long term (current) use of insulin; Z86.718 Personal history of other venous thrombosis and embolism; Z87.19 Personal history of other diseases of the digestive system; Z79.82 Long term (current) use of aspirin
CPT/HCPCS: 36415; 70450; 71046; 80048; 80053; 81001; 82550; 82948; 83605; 83735; 85025; 85027; 85055; 85610; 85730; 86140; 87040; 87086; 87088; 93005; 96365; 96366; 99199; 99285; A9270; G0378; J0692; J1650; J1815; J7030; J7040

== ENCOUNTER 2023-10-21 15:04 | Outpatient (NON) | payer MEDICARE, SELFPAY | END 2023-10-21 15:05 | disposition home or self-care (01) | LOC: HOME HLTH 15:07 | PROVIDERS: PCP Emergency Medicine; Visit Provider Urology | DX: N39.0 Urinary tract infection, site not specified (principal); R33.9 Retention of urine, unspecified; I69.351 Hemiplegia and hemiparesis following cerebral infarction affecting right dominant side; I69.393 Ataxia following cerebral infarction; Z46.6 Encounter for fitting and adjustment of urinary device | CPT/HCPCS: 87077; 87086; 87088; 87147; 87181; 87186 ==

== ENCOUNTER 2023-12-01 12:12 | Outpatient (NON) | payer MEDICARE, SELFPAY ==
[2023-12-01 12:55] LABS: Alanine Aminotransferase 20 U/L (6-50); Albumin Level 3.5 g/dL (3.5-5.1); Alkaline Phosphatase 86 U/L (38-126); Anion Gap 4 mmol/L (4-12); Aspartate Amino Transferase 16 U/L (17-59); Bilirubin,Total 1.1 mg/dL (0.2-1.3); Blood Urea Nitrogen 15 mg/dL (9-20); Calcium 8.9 mg/dL (8.4-10.2); Carbon Dioxide 29 mmol/L (22-30); Chloride 106 mmol/L (98-107); Cholesterol 142 mg/dL (0-200); Estimated Glomerular Filt Rate > 60; Glucose 107 mg/dL (65-110); HDL Direct 42 mg/dL; Potassium 3.1 mmol/L (3.4-5.0); Sodium 139 mmol/L (137-145); Triglycerides 96 mg/dL (<150)
[2023-12-01 13:06] LABS: LDL Cholesterol Direct 62 mg/dL
[2023-12-01 13:10] LABS: Creatinine Urine 50.9 mg/dL
[2023-12-01 13:14] LABS: MALB Creatinine Ratio 183.9 mg/g (0-30); Microalbumin Urine Random 93.6 mg/L (0-16.7)
[2023-12-01 13:25] LABS: Vitamin D 25 Hydroxy 49.1 ng/mL
[2023-12-01 13:53] LABS: Hemoglobin A1C 7.7 % (<5.7)
== END 2023-12-01 12:13 | disposition home or self-care (01) ==
PROVIDERS: PCP Emergency Medicine; Visit Provider Emergency Medicine
DX: E55.9 Vitamin D deficiency, unspecified (principal); E78.5 Hyperlipidemia, unspecified; E11.9 Type 2 diabetes mellitus without complications
CPT/HCPCS: 80053; 80061; 82043; 82306; 83036

== ENCOUNTER 2024-04-13 12:46 | Outpatient (NON) | payer MEDICARE, SELFPAY ==
[2024-04-13 13:13] LABS: Alanine Aminotransferase 18 U/L (6-50); Albumin Level 3.2 g/dL (3.5-5.1); Alkaline Phosphatase 88 U/L (38-126); Anion Gap 8 mmol/L (4-12); Aspartate Amino Transferase 18 U/L (17-59); Blood Urea Nitrogen 16 mg/dL (9-20); Calcium 8.7 mg/dL (8.4-10.2); Carbon Dioxide 27 mmol/L (22-30); Chloride 105 mmol/L (98-107); Cholesterol 121 mg/dL (0-200); Estimated Glomerular Filt Rate > 60; Glucose 131 mg/dL (65-110); HDL Direct 35 mg/dL; Potassium 3.7 mmol/L (3.4-5.0); Sodium 140 mmol/L (137-145); Triglycerides 99 mg/dL (<150)
[2024-04-13 13:27] LABS: LDL Cholesterol Direct 53 mg/dL
[2024-04-13 13:46] LABS: Vitamin D 25 Hydroxy 42.5 ng/mL
[2024-04-13 15:10] LABS: Creatinine Urine 72.5 mg/dL
[2024-04-13 17:59] LABS: MALB Creatinine Ratio 54.9 mg/g (0-30); Microalbumin Urine Random 39.8 mg/L (0-16.7)
[2024-04-14 04:07] LABS: Hemoglobin A1C 7.6 % (<5.7)
== END 2024-04-13 12:47 | disposition home or self-care (01) ==
PROVIDERS: PCP Emergency Medicine; Visit Provider Emergency Medicine
DX: E55.9 Vitamin D deficiency, unspecified (principal); E11.9 Type 2 diabetes mellitus without complications; E78.5 Hyperlipidemia, unspecified; Z79.4 Long term (current) use of insulin
CPT/HCPCS: 80053; 80061; 82043; 82306; 83036

== ENCOUNTER 2024-08-10 10:12 | Outpatient (NON) | payer MEDICARE, SELFPAY ==
[2024-08-10 11:32] LABS: Hemoglobin A1C 7.7 % (<5.7)
[2024-08-10 11:42] LABS: Creatinine Urine 127.2 mg/dL
[2024-08-10 11:47] LABS: MALB Creatinine Ratio 53.2 mg/g (0-30); Microalbumin Urine Random 67.7 mg/L (0-16.7)
[2024-08-10 11:56] LABS: Alanine Aminotransferase 18 U/L (6-50); Albumin Level 3.4 g/dL (3.5-5.1); Alkaline Phosphatase 82 U/L (38-126); Anion Gap 5 mmol/L (4-12); Aspartate Amino Transferase 21 U/L (17-59); Bilirubin,Total 1.1 mg/dL (0.2-1.3); Blood Urea Nitrogen 16 mg/dL (9-20); Calcium 9.1 mg/dL (8.4-10.2); Carbon Dioxide 25 mmol/L (22-30); Chloride 107 mmol/L (98-107); Cholesterol 133 mg/dL (0-200); Estimated Glomerular Filt Rate > 60; Glucose 147 mg/dL (65-110); HDL Direct 38 mg/dL; Potassium 3.9 mmol/L (3.4-5.0); Sodium 137 mmol/L (137-145); Total Protein 6.4 g/dL (6.3-8.2); Triglycerides 141 mg/dL (<150)
[2024-08-10 12:06] LABS: LDL Cholesterol Direct 59 mg/dL
[2024-08-10 12:09] LABS: Vitamin D 25 Hydroxy 37.1 ng/mL
== END 2024-08-10 10:13 | disposition home or self-care (01) ==
PROVIDERS: PCP Emergency Medicine; Visit Provider Emergency Medicine
DX: E55.9 Vitamin D deficiency, unspecified (principal); E78.5 Hyperlipidemia, unspecified; E11.9 Type 2 diabetes mellitus without complications; Z79.4 Long term (current) use of insulin
CPT/HCPCS: 80053; 80061; 82043; 82306; 83036

== ENCOUNTER 2024-11-27 10:01 | Outpatient (NON) | payer MEDICARE, SELFPAY ==
--- OUTSIDE RECORDS SUMMARY | 2024-11-27 10:48 | XMS_ITS | Encounter Summary ---
Author Organization [facility] Address [address] [facility] [address] [place] [address] Care Team Providers Care Roll On Man Name Role Phone Quan Uribe MD Primary Care Provide r Encounter Details Date Type Department Care Team (Late st Contact Info) Description 07/14/2016 Orders Only [facility] ProviderSebastián MD [address] [place] [address] Social History Tobacco Use Types Packs/Day Years Used Date Smoking Tobacco: Never Assessed Sex and Gender Information Value Date Recorded Sex Assigned at Not on file 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 Historical Provider [facility] [place] Final Result documented in this encounter Visit Diagnoses Not on filedocumented in this encounter Care Teams Roll On Man Relationship Specialty Start Date End Date Quan Uribe MD [address] [place] [id number] PCP - General Emergency Medicine 08/25/16 documented as of this encounter
--- OUTSIDE RECORDS SUMMARY | 2024-11-27 10:48 | XMS_ITS | Clinical Summary ---
Author Organization [facility] [address] [place] [id number] Care Team Providers Care High [employer] Social Science Teacher Name Role Phone Quan Uribe MD Primary Care Provide r Allergies No known active allergies Medications lisinopriL (PRINIVIL,ZESTRI L) 10 mg tablet 1 tablet (10 mg total) 2 08/07/2016 Active tamsulosin (FLOMAX) 0.4 mg capsule,extended release 24hr 1 capsule (0.4 mg total) Active aspirin (ADULT LOW DOSE ASPIRIN) 81 mg tablet Take 1 tablet (81 mg total) by mouth daily. 11/05/2017 Active insulin glargine (LANTUS) 100 unit/mL injection Inject under the skin 2 (two) times a day 48 units morning 42 units nightly Active amLODIPine (NORVASC) 5 mg tablet Take 5 mg by mouth daily 07/23/2021 Active metoprolol XL (TOPROL-XL) 25 mg extended release tablet Take 0.5 tablets (12.5 mg total) by mouth daily 09/06/2023 Active rosuvastatin (CRESTOR) 40 mg tablet Take 1 tablet (40 mg total) by mouth every morning 09/16/2023 Active levETIRAcetam (KEPPRA) 500 mg tablet Take 1 tablet (500 mg total) by mouth every 12 (twelve) hours 12/07/2023 Active nitrofurantoin monohydrate (MACROBID) 100 mg capsule Take 1 capsule (100 mg total) by mouth daily 01/17/2024 Active cephalexin (KEFLEX) 250 mg capsule Take 1 capsule (250 mg total) by mouth daily 12/18/2023 Active Active Problems Problem Noted Date Diagnosed Date Premature atrial contractions 06/25/2020 Recurrent falls 11/05/2017 Mixed diabetic hyperlipidemi a associated with type 2 diabetes mellitus (CMS/HCC) 11/05/2017 Hypertension associated with diabetes 11/05/2017 CVA, old, hemiparesis 11/05/2017 Dizziness 11/05/2017 LAFB (left anterior fascicular block) 11/05/2017 Type 2 diabetes mellitus wit h hyperglycemia, without long-term current use of insulin 09/08/2016 Type 2 diabetes mellitus with hypoglycemia witho ut coma 09/08/2016 Assessment & Plan (11/26/2016 2:09 PM CDT): Hba1c was 8.0 today, indicating decent DM control 1800 calorie, consistent carb diet recommended 30 min daily aerobic and resistance exercise recommended Prevention and treatment of hyypoglcyemia discussed. Blood glucose monitoring with fingers sticks 1-2 x day . Foot care was discussed. Assessment & Plan (09/08/2016 11:14 AM CDT): Hba1c was 7.2 today, indicating adequate DM control 1800 calorie, consistent carb diet recommended 30 min daily aerobic and resistance exercise recommended Foot care discused. Prevention and treatment of hyypoglcyemia discussed. Lower Glyburide to 5 mg twice a day Stay on Januvia, 50 mg daily Check sugars before meals and fax logs weekly Surgical History Surgery Date Site/Laterality Comments EYE SURGERY LEG SURGERY Medical History Medical History Date Comments Stroke (HCC) Hypertension Prostate cancer (HCC) 2008 Hyperlipidemia Diabetes mellitus Family History Medical History Relation Name Comments Cancer Brother 1 Colon cancer Father Stomach cancer Mother Cancer Sister 1 Cancer Sister 2 Relation Name Status Comments Brother 1 Brother 2 Alive Father Mother Sister 1 Sister 2 Social History Tobacco Use Types Packs/Day Years Used Date Smoking Tobacco: Never Smokeless Tobacco: Never Tobacco Cessation:Counseling Given: Not Answered Alcohol Use Standard Drinks/Week Comments Yes 0 (1 standard drink = 0.6 oz pur e alcohol) Personal Safety Answer Date Recorded Have you ever been in or are you currently in a harmful physical or emotional relationship or is someone making you feel afraid or unsafe? 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 Gender Identity Not on file Sexual Orientation Not on file Obstetrics History Last Filed Vital Signs Vital Sign Reading Time Taken Comments Blood Pressure 145/78 05/26/2024 9:00 PM CDT Pulse 84 05/26/2024 9:00 PM CDT Temperature 36.6 C (97.8 F) 05/26/2024 3:40 PM CDT Respiratory Rate 15 05/26/2024 9:00 PM CDT Oxygen Saturation 97% 05/26/2024 9:00 PM CDT Inhaled Oxygen Concentration - - Weight 72 kg (158 lb 11.7 oz) 05/26/2024 3:40 PM CDT Height 172.7 cm (5' 8) 05/26/2024 3:40 PM CDT Body Mass Index 24.14 05/26/2024 3:40 PM CDT Plan of Treatment Health Maintenance Due Date Last Done Comments Albumin Creatinine Ratio, Urine 1936 Fall Risk Assessment 1936 Dilated Eye Exam 1936 DTaP/Tdap/Td Vaccine (1 - Tdap) 11/26/1947 Hepatitis B Screening 1954 Pneumococcal vaccine 65+ (1 of 2 - PCV) 11/26/1955 Zoster Vaccine (1 of 2) 1986 Well Visit 65+ 2001 Hemoglobin A1C 05/27/2017 11/26/2016, 09/08/2016 Foot Exam 09/08/2017 09/08/2016 Depression Screening 11/26/2017 11/26/2016, 09/09/19 17 Lipid Panel 03/17/2023 03/17/2022, 07/2 06/2021, 06/25/2020, Additional history exists Influenza Vaccine (#1) 2024 eGFR 05/26/2025 05/26/2024 Procedures Procedure Name Priority Date/Time Associated Diagnosis Comments EGFR STAT 05/26/2024 3:48 PM CDT POCT LIPID PANEL Routine 03/17/2022 3:45 PM LINER ASSEMBLER Mixed diabetic hyperlipidemia associated with type 2 diabetes mellitus (HCC) POCT GLYCOSYLATED HEMOGLOBIN (HGB A1C), HOME MONITOR Routine 11/26/2016 2:02 PM CDT Type 2 diabetes mellitus with hyperglycemia, without long-term current use of insulin (HCC) from Last 3 Months or Most Recently Relevant to Health Maintenance Results * eGFR (05/26/2024 3:48 PM CDT) eGFR 84 >=60 mL/min/1. 73 m2 Comment: Interpretive Data Reference Interval Normal >/= 90 mL/min/1.73m2 Mildly decreased* 60 - 89 mL/min/1.73m2 Mildly to moderately decreased 45 - 59 mL/min/1.73m2 Moderately to severely decreased 30 - 44 mL/min/1.73m2 Severely decreased 15 - 29 mL/min/1.73m2 Kidney Failure < 15 mL/min/1.73m2 *Relative to young adult level Estimated glomerular filtration rate is determined by the 2020 CKD-EPI equation recommended by the National Kidney Foundation (A Unifying Approach to GFR Estimation: Recommendations of the NKF-ASK Task Force on Reassessing the Inclusion of Race in Diagnosing Kidney Disease, JASN 2020). The CKD-EPI equation should not be used for patients with unstable renal function and has not been validated in children and those over 70. Current interpretive data was last reviewed 2020. Testing performed by: [facility], [address] [place] [address]., [address] Blood 05/26/2024 3:48 PM CDT 05/26/2024 3:50 PM CDT us Flor Baird MD LAB BLOOD ORDERABLES Final Resul t [facility] [address] [facility] [place] [address] * POCT lipid panel (03/17/2022 3:45 PM LINER ASSEMBLER) Cholesterol, POC 186 mg/dL Comment:GLU = 170 HDL, POC 46 mg/dL Triglycerides, POC 268 mg/dL LDL Cholesterol POC 86 mg/dL Chol/HDL Ratio, POC 1.9 Non-HDL Cholesterol, POC 140 mg/dL Cholesterol Total, POC 186 mg/dL Capillary blood 03/17/2022 3 :45 PM LINER ASSEMBLER Jeremy Camara MD POINT OF CARE TEST ORDER ETTA Final Result * POCT glycosylated hemoglobin (Hb A1C) (11/26/2016 2:02 PM CDT) Hemoglobin A1C, POC 8.0 Blood specimen (specimen) Venous blood specimen / Unknown 11/26/2016 2:02 PM CDT Domi Contreras MD POINT OF CARE TEST ORDERABLES Fi nal Result from Last 3 Months or Most Recently Relevant to Health Maintenance Insurance MEDICARE MEDICARE [place] [address] MEDICARE [facility] Care Teams High School Social Science Teacher Relationship Specialty Start Date End Date Quan Uribe MD [address] [place] [address] PCP - General Emergency Medicine 08/25/16
[2024-11-27 11:29] LABS: Hemoglobin A1C 7.1 % (<5.7)
== END 2024-11-27 10:02 | disposition home or self-care (01) ==
LOC: HOMEHLTHV 10:01
PROVIDERS: PCP Emergency Medicine; Visit Provider Emergency Medicine
DX: E11.9 Type 2 diabetes mellitus without complications (principal); Z79.4 Long term (current) use of insulin
CPT/HCPCS: 36415; 83036

== ENCOUNTER 2024-12-04 09:12 | Outpatient (NON) | payer MEDICARE, SELFPAY ==
[2024-12-04 10:10] LABS: Alanine Aminotransferase 15 U/L (6-50); Albumin Level 3.3 g/dL (3.5-5.1); Alkaline Phosphatase 83 U/L (38-126); Anion Gap 4 mmol/L (4-12); Aspartate Amino Transferase 21 U/L (17-59); Bilirubin,Total 1.4 mg/dL (0.2-1.3); Blood Urea Nitrogen 10 mg/dL (9-20); Calcium 8.5 mg/dL (8.4-10.2); Carbon Dioxide 27 mmol/L (22-30); Chloride 103 mmol/L (98-107); Cholesterol 119 mg/dL (0-200); Estimated Glomerular Filt Rate > 60; Glucose 126 mg/dL (65-110); HDL Direct 33 mg/dL; Potassium 3.4 mmol/L (3.4-5.0); Sodium 134 mmol/L (137-145); Total Protein 6.2 g/dL (6.3-8.2); Triglycerides 141 mg/dL (<150)
[2024-12-04 10:51] LABS: MALB Creatinine Ratio 287.6 mg/g (0-30)
== END 2024-12-04 09:13 | disposition home or self-care (01) ==
PROVIDERS: PCP Emergency Medicine; Visit Provider Emergency Medicine
DX: E78.5 Hyperlipidemia, unspecified (principal); E55.9 Vitamin D deficiency, unspecified; E11.9 Type 2 diabetes mellitus without complications
CPT/HCPCS: 80053; 80061; 82043; 82306

== ENCOUNTER 2025-01-11 10:30 | Inpatient (IN) | payer MEDICARE, SELFPAY ==
--- NOTE | ~2025-01-11 | MR_ITS ---
EXAMINATION: MR brain/brain stem wo/w con COMPARISON: Comparison 01/11/2025 HISTORY: Seizure/altered mental status TECHNIQUE: Sagittal T1, axial T1, T2, FLAIR, diffusion, coronal T1 sequences of the brain were obtained without and with intravenous contrast. FINDINGS: The cerebellar tonsils are in normal location. There is no abnormal signal within the clivus of the cervical spine. Pituitary does not appear enlarged There is no acute infarct or hemorrhage identified There is a remote left basal ganglion lacunar infarct. Moderate probable chronic periventricular ischemic changes are noted. There is no midline shift or hydrocephalus. Appropriate flow voids are maintained. There are no extra-axial fluid collections. 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 The remaining visualized mastoid air cells, sinuses and orbits are unremarkable No abnormal enhancement identified IMPRESSION: 1. No acute infarct or hemorrhage. Reviewed, dictated and finalized at location P. OW GLASS CUTTER OFF
--- NOTE | ~2025-01-11 | US_ITS ---
EXAMINATION: US carotid duplex BI DATE: 01/15/2025 14:34 INDICATION: Left carotid artery stenosis TECHNIQUE: Grayscale, color Doppler, and pulsed Doppler images of the cervical carotid arteries were obtained. The degree of vessel stenosis is placed in one of the following categories: normal, <50%, 50-69%, >=70% but less than near- occlusion, near-occlusion, or total occlusion. Note that percent stenosis relative to normal distal artery lumen diameter is indirectly measured from velocity measurements as described by Ajay, et al. Radiology 2003; 229:340-346. Notes: Normal: Peak systolic velocity <125 centimeters/sec and no plaque <50%. Peak systolic velocity <125 (EDV <40; ICA/CCA PSV ratio <2.0; used these factors only a tandem lesions or low cardiac output or contralateral disease) 50-69 %: PSV 125-230 (EDV 40-100; ratio 2-4) >= 70% but less than near occlusion: PSV greater than 230 (EDV > 100; ratio> 4.0) Near Occlusion: PSV that is variable; markedly narrowed lumen Occlusion: Absent flow on color/spectral Doppler and no lumen on seymour scale. COMPARISON: None. FINDINGS: RIGHT: The right common carotid artery (CCA) peak systolic velocity (PSV) is 66 cm/s. The right internal carotid artery (ICA) PSV is 50 cm/s. The right ICA end- diastolic velocity (EDV) is 0 cm/s. The right ICA/CCA PSV ratio is 0.8. The external carotid artery (ECA) PSV is 53 cm/s. There is antegrade flow in the right vertebral artery. LEFT: The left CCA PSV is 77 cm/s. The left ICA PSV is 72 cm/s. The left ICA EDV is 9 cm/s. The left ICA/CCA PSV ratio is 0.9. The ECA PSV is 133 cm/s. There is antegrade flow in the left vertebral artery. IMPRESSION: 1. Less than 50% stenosis in the right internal carotid artery by sonographic criteria. 2. Less than 50% stenosis in the left internal carotid artery by sonographic criteria. Reviewed, dictated and finalized at location I. UNITY ORGANIZATION AIDE IMPRESSION: 1. Less than 50% stenosis in the right internal carotid artery by sonographic jack rubio. 2. Less than 50% stenosis in the left internal carotid artery by sonographic cricket saldivar.
--- NOTE | ~2025-01-11 | CT_ITS ---
EXAMINATION: CT brain wo kam, 01/11/2025 10:38 FINISHER TAILOR APPRENTICE HISTORY: AMS COMPARISON: No comparisons available. Technique: Axial images obtained of the brain without contrast. One or more of the following dose reduction techniques were used: automated exposure control, adjustment of the mA and/or kV according to patient size, use of iterative reconstruction technique. Findings: There are large remote left basal ganglion lacunar infarcts. No acute infarct or hemorrhage. No midline shift or mass effect. No extra-axial fluid collections. Mastoid air cells unremarkable. The left maxillary sinuses and left orbit demonstrate sequelae of previous trauma otherwise the remaining sinuses, right orbit and mastoid air cells are unremarkable. No acute fracture. No significant facial or scalp soft tissue swelling evident. No radiopaque foreign body is seen. Impression: 1.No acute intracranial abnormality. Reviewed, dictated and finalized at location P. SHER TAILOR APPRENTICE Impression: 1.No acute intracranial abnormality.
--- NOTE | ~2025-01-11 | CT_ITS ---
EXAMINATION: CTA brain carotid, 01/11/2025 10:38 ACETYLENE BURNER HISTORY: AMS COMPARISON: No comparisons available. TECHNIQUE: CTA scan with 3D Reconstructions of the brain and neck was performed with contrast Isovue 300, 92cc injected IV. One or more of the following dose reduction techniques were used: automated exposure control, adjustment of the mA and/or kV according to patient size, use of iterative reconstruction technique. Unless otherwise stated, incidental findings do not require dedicated follow up imaging FINDINGS: CTA brain: Visualized brain parenchyma is unremarkable. The right optic globes unremarkable. Posttraumatic changes noted involving the left maxillary sinus with absence of the left optic globe. The remaining visualized soft tissues appear unremarkable. Basilar artery demonstrates 20% narrowing in its midportion from circumferential plaque. The right posterior cerebral artery is fed predominantly by the [place] of [place] and appears unremarkable. The left posterior cerebral artery appears unremarkable. The right petrous and cavernous ICA segments demonstrate moderate atherosclerotic changes. The right M1, M2 segments and their branches are unremarkable. The right A1 and A2 segments are unremarkable. The left petrous and cavernous ICA segments demonstrate moderate atherosclerotic changes. The left M1, M2 segments and their branches appear unremarkable. The left A1 and A2 segments are unremarkable. CTA NECK: The lung apices demonstrate chronic changes. No sclerotic or lytic lesions identified. The soft tissues appear unremarkable. There are subcentimeter thyroid nodules. The cervical segments of the vertebral arteries are unremarkable. The left vertebral artery is dominant Right CCA unremarkable. Proximal right ICA unremarkable. Left CCA unremarkable. There is 50% stenosis in the proximal left ICA from calcified plaque IMPRESSION: 1. No critical stenosis, occlusion or aneurysm is identified. 2. Significant stenosis of the left ICA. Follow-up is recommended to assess Reviewed, dictated and finalized at location P. YLENE BURNER
--- NOTE | ~2025-01-11 | CT_ITS ---
EXAM: CT chest abdomen pelvis w con INDICATION: Unresponsive episode. Prostate CA COMPARISON: December 31, 2022 PROCEDURE: 100 mL of Isovue 300 was injected IV. Dose reduction technique(s) used. FINDINGS: CHEST: No positive evidence for pulmonary embolism. Lung and Airways: Minimal bilateral dependent atelectasis. Mediastinum and Felisha: No adenopathy or mass. Heart: Normal size. No pericardial effusion. Vessels: Normal arch anatomy. No aneurysm. Pleura: No pleural fluid is seen. There is no pneumothorax is present. Chest Wall and Axillae: Normal. ABDOMEN/PELVIS: Liver: Normal. Gallbladder: The gallbladder is present. There are no radiopaque gallstones. Pancreas: Within normal limits. Spleen: Normal in size and appearance. Adrenal glands: Bilateral small masses. One on the right is completely fatty, consistent with a benign etiology. The largest one on the left is low unenhanced Hounsfield units, consistent with a benign etiology. Others are too small to characterize on this nondedicated study. These findings are unchanged. This is consistent with a benign etiology. Kidneys: There is no hydronephrosis seen on either side. No urinary tract stones are seen. There are no suspicious masses seen. Bilateral cysts. GI tract: There is no evidence of bowel obstruction. The appendix is seen and appears normal. The ascending and transverse colons are collapsed. Commentary on wall thickening cannot be made in these areas. Major vessels: The major vessels are normal in caliber. Sex specific pelvic organs: There is a convex contour deformity at the anterior right side of the prostate. It is enlarged and heterogeneous with some calcifications present. Bladder: Collapsed with a Singh catheter. Bones: Degenerative change and findings consistent with DISH. Minimal anterior subluxation of L4 on L5. IMPRESSION: No acute abnormality is seen. Other findings as described. Reviewed, dictated and finalized at location A. HOLOGIST
[2025-01-11 10:29] VITALS: BP 155/76; PULSE 66; RESP 20; TEMP 36.4; O2SAT 97
--- NOTE | 2025-01-11 10:34 | ECG_ITS ---
Test Date: 2025-01-11 10:52:12 Measurements Intervals [place] Rate: 69 P: 61 [place]: 199 QRS: -57 QRSD: 122 T: 8 QT: 457 QTc: 491 Interpretive Statements SINUS RHYTHM POSSIBLE RIGHT VENTRICULAR CONDUCTION DELAY [RSR (QR) IN V1/V2] LEFT ANTERIOR FASCICULAR BLOCK [QRS AXIS <= -45, QR IN I, RS IN II] NONSPECIFIC ST ABNORMALITY PROLONGED QT INTERVAL ABNORMAL ECG Electronically Signed On 01-11-2025 11:09:01 BEAUTY THERAPIST by Alvaro Naidu M.D.
--- OUTSIDE RECORDS SUMMARY | 2025-01-11 10:41 | XMS_ITS | Patient Health Record ---
Author Organization [facility] Address [address] [place], [place] [id number] Care Team Providers Care Nitrogen Operator Name Role Phone STUART TREVIZO Unavailable [phone] Quan Uribe Unavailable Unavailable Reason For Referral No Information Social History Social History Additional Details Category Social Info Options Details Migrated Social History Migrated Social History History of tobacco use : , Smoking Status : Never smoked Plan Of Treatment No Information Insurance Providers Payer Name Payer Address Payer Phone Subscriber Number Group Number Insured Name Patient Relationship to Insured Coverage Start Date Coverage End Date Medicare Part B [place] [address] [place] [address] [id number] POOJA KO Self - patient is the insured [facility] ([facility]) ATTN CLAIMS [address] [place] [address] [id number] POOJA KO Self - patient is the insured
--- OUTSIDE RECORDS SUMMARY | 2025-01-11 10:41 | XMS_ITS | Encounter Summary ---
Author Organization [facility] Address [address] [facility] [address] [place] [address] Care Team Providers Care Product Promoter Sales Person Name Role Phone Quan Uribe MD Primary Care Provide r Encounter Details Date Type Department Care Team (Late st Contact Info) Description 07/14/2016 Orders Only [facility] ProviderSebastián MD [address] [place] [address] Social History Tobacco Use Types Packs/Day Years Used Date Smoking Tobacco: Never Assessed Sex and Gender Information Value Date Recorded Sex Assigned at Not on file 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
--- OUTSIDE RECORDS SUMMARY | 2025-01-11 10:41 | XMS_ITS | Clinical Summary ---
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 Testing performed by: [facility], [address] [place] [address]., [address] Blood 05/26/2024 3:48 PM CDT 05/26/2024 3:50 PM CDT us Flor Baird MD LAB BLOOD ORDERABLES Final Resul t [id number] [address] [facility] Department [place] [address] * POCT lipid panel (03/17/2022 3:45 PM RESEARCH ASST) Cholesterol, POC 186 mg/dL Comment:GLU = 170 HDL, POC 46 mg/dL Triglycerides, POC 268 mg/dL LDL Cholesterol POC 86 mg/dL Chol/HDL Ratio, POC 1.9 Non-HDL Cholesterol, POC 140 mg/dL Cholesterol Total, POC 186 mg/dL Capillary blood 03/17/2022 3 :45 PM RESEARCH ASST Jeremy Camara MD POINT OF CARE TEST ORDER ETTA Final Result * POCT glycosylated hemoglobin (Hb A1C) (11/26/2016 2:02 PM CDT) Hemoglobin A1C, POC 8.0 Blood specimen (specimen) Venous blood specimen / Unknown 11/26/2016 2:02 PM CDT Domi Contreras MD POINT OF CARE TEST ORDERABLES Fi nal Result from Last 3 Months or Most Recently Relevant to Health Maintenance Insurance MEDICARE [facility] [place] [address] MEDICARE [facility] Care Teams Warehouse Pricing And Inventory Clerk Relationship Specialty Start Date End Date Quan Uribe MD [address] [place], [place] [id number] PCP - General Emergency Medicine 08/25/16
[2025-01-11 11:24] LABS: Hematocrit 34.2 % (42.0-52.0); Hemoglobin 11.2 g/dL (14.0-18.0); Immature Granulocyte Percent A 0.4 % (0-0.5); Immature Platelet Fraction Pct 6.3 % (0.9-11.2); Lymphocytes Absolute Auto 1.59 K/mm3 (0.9-3.2); Mean Corpuscular HGB Conc 32.7 g/dl (32-36); Mean Corpuscular Hemoglobin 29.6 pg (26-34); Mean Corpuscular Volume 90.2 fl (80-100); Nucleated Red Blood Cells Absolute Auto 0.000 K/mm3 (0.0-0.012); Nucleated Red Blood Cells Perc 0.0 % (0.0-0.2); Platelet Count Result 121 k/mm3 (150-375); Red Blood Count 3.79 M/mm3 (4.6-6.20); White Blood Count 7.2 K/mm3 (4.5-10.0)
[2025-01-11 11:30] VITALS: BP 146/80; PULSE 70; RESP 17; O2SAT 98
--- NOTE | 2025-01-11 11:30 | PC.NURSE ---
RN took out existing indwelling catheter and replaced with a new one.
[2025-01-11 11:34] LABS: INR 1.2; Partial Thromboplastin Time 29.2 Seconds (22.3-36.8); Prothrombin Time 15.5 Seconds (11.1-14.7)
[2025-01-11 11:38] LABS: Alanine Aminotransferase 14 U/L (6-50); Albumin Level 2.9 g/dL (3.5-5.1); Alkaline Phosphatase 70 U/L (38-126); Anion Gap 2 mmol/L (4-12); Aspartate Amino Transferase 17 U/L (17-59); Bilirubin,Total 1.0 mg/dL (0.2-1.3); Blood Urea Nitrogen 17 mg/dL (9-20); Calcium 8.1 mg/dL (8.4-10.2); Carbon Dioxide 28 mmol/L (22-30); Chloride 105 mmol/L (98-107); Estimated CRCL calculation 51 ml/min; Estimated Glomerular Filt Rate > 60; Glucose 157 mg/dL (65-110); Lipase 38 U/L (23-300); Magnesium 2.2 mg/dL (1.6-2.3); Potassium 3.4 mmol/L (3.4-5.0); Sodium 135 mmol/L (137-145); Total Protein 5.5 g/dL (6.3-8.2)
[2025-01-11 11:49] LABS: Troponin I 0.016 ng/mL (0.000-0.034)
[2025-01-11 12:00] LABS: Influenza A QL RT-PCR Negative (Negative); Influenza B QL RT-PCR Negative (Negative); RSV RNA, RT-PCR Negative (Negative); SARS-CoV-2 RNA PCR Negative (Negative)
[2025-01-11 12:07] LABS: Thyroid Stimulating Hormone Reflex 5.630 uIU/mL (0.465-4.68)
[2025-01-11 12:13] LABS: Add Urine Microscopic? YES; Appearance Urine Clear (Clear); Budding Yeast Urine Present /hpf; Glucose Urine UA Negative (Negative); Leukocyte Esterase Ur 2+ LEU/UL (Negative); Need Manual Microscopic Reviewed; Nitrate Urine Negative (Negative); Non Pathogenic Casts 0-2; Specific Grav Ur 1.035 (1.001-1.035)
[2025-01-11 12:15] LABS: Cannabinoid Screen Urine Negative (Negative)
--- NOTE | 2025-01-11 12:16 | ED.GENADULT ---
HPI - General Adult General Chief complaint: Altered Mental Status Stated complaint: AMS Time Seen by Provider: 01/11/25 10:34 History of Present Illness HPI narrative: This is an 89-year-old male presenting for an episode of unresponsiveness. Patient is a poor historian. He has no complaints at this time. Per his family at bedside(granddaughter and elderly ) the patient was wheeled out to dinner in his wheelchair. When his white him say hello he was not responsive. They notice trembling of his hands but no seizure-like activity. They could not wake him up and EMS was called. When EMS arrived he was unresponsive but by time they got him to the ambulance he was returning to his baseline mental status. He was then brought to the hospital for evaluation. Last known normal was 9:30. Related Data Home Medications ?Medication ?Instructions ?Recorded ?Confirmed ?Last Taken ?Type aspirin 81 mg tablet,delayed 81 mg PO DAILY 04/11/23 11/21/24 09/03/23 History release cephalexin 250 mg capsule 250 mg PO DAILY 07/25/24 11/21/24 Unknown History nitrofurantoin 100 mg PO DAILY 07/25/24 11/21/24 Unknown History monohydrate/macrocrystals 100 mg capsule (Macrobid) insulin glargine 100 unit/mL (3 48 unit subcut QAM 11/21/24 11/21/24 Unknown History mL) subcutaneous pen (Lantus Solostar U-100 Insulin) levetiracetam 500 mg tablet 500 mg PO BID 11/21/24 Unknown History lisinopril 10 mg tablet 10 mg PO DAILY 11/21/24 Unknown History Allergies Allergy/AdvReac Type Severity Reaction Status Date / Time No Known Allergies Allergy Verified 11/21/24 13:36 [facility] Past Medical History Medical History Seizure disorder Sepsis without septic shock Acute UTI Acute UTI Seizure disorder Cerebrovascular accident (CVA) with left hemiparesis Chronic indwelling Azevedo catheter Blind left eye Mitral valve prolapse Cerebrovascular accident (05/2008) Residual left-sided weakness. Benign prostatic hyperplasia Deep vein thrombosis of right lower extremity Pneumonia UTI (urinary tract infection) Frequent falls Chronic pain Urinary tract infection Anemia Syncope Prostate cancer Diagnosed in 2008. Chronic kidney disease, stage 3 Hyperlipidemia Hypertension Insulin dependent type 2 diabetes mellitus Shingles Arthritis History of rectal polyps Diverticulitis Surgical History Surgical History History of orthopedic surgery ORIF left tib-fib fracture. Family History Family History Sibling Hypertension Cerebrovascular accident Family history of malignant neoplasm Family history of diabetes mellitus in first degree relative Mother Family history of malignant neoplasm, Onset Age: 75 Patient's mother is Father Carcinoma of colon, Onset Age: 67 Patient's father is Social History Social History Social History: Surrogate medical decision maker: Radhatanino Berkowitz, spouse. Code status: Full code. Smoking status: Never smoker Alcohol intake: never Substance use: never Substance use type: does not use Lack of Transportation: No Lack of Food: Never True Current Housing: I Have Housing Concerned About Future Housing: No Difficulty Paying Gas/Electric Bills: No Difficulty Paying for Meds: No Currently Unemployed: Decline to Answer Education: High School Diploma/GED Difficulty w/ Childcare or Family Care: No Additional living arrangements comments: He lives at home with his . Additional occupation/education comments: Retired from [email or web address]. Spiritual care concerns: No Agree to blood products: Yes Exam Narrative: APPEARANCE: No apparent distress. A&O x2 the family says is normal. Patient appears frail. 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 MUSCULOSKELETAl: No obvious deformities NEURO: Alert. Left-sided facial droop which is old per the family, while holding his arms out right he has pronation of the right hand with no drift downward. Strength the legs is intact. Sensation is intact. Cerebellar function is intact. SKIN:: Warm, dry. Normal color PSYCHIATRIC: Normal affect NIH Stroke Scale/Score (NIHSS) from [employer] on 01/11/2025 All calculations should be rechecked by clinician prior to use RESULT SUMMARY: 3 points NIH Stroke Scale INPUTS: 1A: Level of consciousness ?> 0 = Alert; keenly responsive 1B: Ask month and age ?> 1 = 1 question right 1C: 'Blink eyes' & 'squeeze hands' ?> 0 = Performs both tasks 2: Horizontal extraocular movements ?> 0 = Normal 3: Visual meza ?> 0 = No visual loss 4: Facial palsy ?> 1 = Minor paralysis (flat nasolabial fold, smile asymmetry) 5A: Left arm motor drift ?> 0 = No drift for 10 seconds 5B: Right arm motor drift ?> 1 = Drift, but doesn't hit bed 6A: Left leg motor drift ?> 0 = No drift for 5 seconds 6B: Right leg motor drift ?> 0 = No drift for 5 seconds 7: Limb Ataxia ?> 0 = No ataxia 8: Sensation ?> 0 = Normal; no sensory loss 9: Language/aphasia ?> 0 = Normal; no aphasia 10: Dysarthria ?> 0 = Normal 11: Extinction/inattention ?> 0 = No abnormality Course Vital Signs Vital signs: Vital Signs Temperature 97.6 F 01/11/25 10:29 Pulse Rate 66 01/11/25 10:29 Respiratory Rate 20 01/11/25 10:29 Blood Pressure 155/76 H 01/11/25 10:29 Pulse Oximetry 97 01/11/25 10:29 Oxygen Delivery Room Air 01/11/25 10:29 Temperature 97.6 F 01/11/25 10:29 Pulse Rate 68 01/11/25 12:36 Respiratory Rate 14 01/11/25 12:36 Blood Pressure 120/74 01/11/25 12:36 Pulse Oximetry 98 01/11/25 12:36 Oxygen Delivery Room Air 01/11/25 12:34 Medical Decision Making [facility] Narrative Medical decision making narrative: -Course: 89-year-old male presenting with a transient loss of conscious. Last known normal was 9:30 a.m.. On his neurologic exam he does have left-sided facial droop which is family says is chronic. He had very mild pronation of his right hand with extension but no downward drift. He also could not answer the orientation questions appropriately. It is unclear if these are new findings given the patient's poor functional condition at baseline. Per the family he has has a history of CVA and that the facial droop is chronic and that he has poor function overall. CT brain did not show any acute findings. 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 TPA was considered and discussed with the family but given his the unclear chronicity of his symptoms, unclear etiology of his presentation, low NIH w/ mild deficits and advanced age it was felt the risks outweighed the benefits. The patient and his deny any history of seizures although seizure disorder is listed under the EMR and he has a prescription for Keppra. Transient loss of consciousness with a postictal period fits his clinical presentation today although no one witnessed any generalized tonic clonic seizure activity. Unable to assess for urinary incontinence due to Azevedo. Patient will be loaded on 1500 mg Keppra. Rest the patient's workup was significant for possible infection of his urine. Patient has a chronic indwelling Azevedo which makes interpretation of the urinalysis difficult. The Azevedo was replaced and urine sent off of the newly placed Azevedo which had +2 leuk esterase and 51-100 white blood cells. Review of previous microbiology shows he has not had ESBL in the last 6 months although he has had in the past. Per the ED antibiotics UTI or set ceftriaxone is recommended which has been started. The patient will be admitted hospital for further management. -DDX includes but is not limited to: Syncope, seizure, sepsis UTI dehydration pneumonia Vital Signs Vital Signs: Vital Signs Temperature 97.6 F 01/11/25 10:29 Pulse Rate 66 01/11/25 10:29 Respiratory Rate 20 01/11/25 10:29 Blood Pressure 155/76 H 01/11/25 10:29 Pulse Oximetry 97 01/11/25 10:29 Oxygen Delivery Room Air 01/11/25 10:29 Temperature 97.6 F 01/11/25 10:29 Pulse Rate 68 01/11/25 12:36 Respiratory Rate 14 01/11/25 12:36 Blood Pressure 120/74 01/11/25 12:36 Pulse Oximetry 98 01/11/25 12:36 Oxygen Delivery Room Air 01/11/25 12:34 Lab Data 01/11/25 11:12 01/11/25 11:12 Labs: Lab Results 01/11/25 01/11/25 01/11/25 Range/Units 10:56 11:12 11:47 WBC 7.2 (4.5-10.0) K/mm3 RBC 3.79 L (4.6-6.20) M/mm3 Hgb 11.2 L (14.0-18.0) g/dL Hct 34.2 L (42.0-52.0) % MCV 90.2 (80-100) fl MCH 29.6 (26-34) pg MCHC 32.7 (32-36) g/dl RDW 13.9 (11.5-14.5) % Plt Count 121 L (150-375) k/mm3 MPV 11.2 H (7.4-10.4) fl Immature Gran % (Auto) 0.4 (0-0.5) % Neut % (Auto) 71.2 (45.5-73.1) % Lymph % (Auto) 22.0 (18.3-44.2) % [place] % (Auto) 5.7 (2.6-8.5) % Eos % (Auto) 0.6 (0-4.4) % Baso % (Auto) 0.1 L (0.2-1.2) % Lymph # (Auto) 1.59 (0.9-3.2) K/mm3 [place] # (Auto) 0.4 (0.1-0.6) K/mm3 Eos # (Auto) 0.0 (0-0.3) K/mm3 Baso # (Auto) 0.0 (0.0-0.1) K/mm3 Abs Immat Gran (auto) 0.03 (0.00-0.031) K/mm3 Absolute Neuts (auto) 5.2 (1.3-6.7) K/mm3 Absolute Nucleated RBC 0.000 (0.0-0.012) K/mm3 Nucleated RBC % 0.0 (0.0-0.2) % % Immature Plt Fraction 6.3 (0.9-11.2) % PT 15.5 H (11.1-14.7) Seconds INR 1.2 APTT 29.2 (22.3-36.8) Seconds Sodium 135 L (137-145) mmol/L Potassium 3.4 (3.4-5.0) mmol/L Chloride 105 (98-107) mmol/L Carbon Dioxide 28 (22-30) mmol/L Anion Gap 2 L (4-12) mmol/L BUN 17 (9-20) mg/dL Creatinine 0.94 (0.7-1.3) mg/dL Estim Creat Clear Calc 51 ml/min Estimated GFR > 60 (59 - ) Glucose 157 H (65-110) mg/dL POC Capillary Glucose 182 H (65-105) mg/dl Lactic Acid 1.5 (0.7-2.0) mmol/L Calcium 8.1 L (8.4-10.2) mg/dL Phosphorus 3.3 (2.5-4.5) mg/dL Magnesium 2.2 (1.6-2.3) mg/dL Total Bilirubin 1.0 (0.2-1.3) mg/dL AST 17 (17-59) U/L ALT 14 (6-50) U/L Alkaline Phosphatase 70 (38-126) U/L Troponin I 0.016 (0.000-0.034) ng/mL Total Protein 5.5 L (6.3-8.2) g/dL Albumin 2.9 L (3.5-5.1) g/dL Lipase 38 (23-300) U/L TSH (Reflex) 5.630 H (0.465-4.68) uIU/mL Free T4 Pending Urine Color Yellow (Yellow) Urine Appearance Clear (Clear) Urine pH 7.5 (5.0-9.0) Ur Specific [place] 1.035 (1.001-1.035) Urine Protein Negative (Negative) mg/dL Urine Glucose (UA) Negative (Negative) mg/dL Urine Ketones Negative (Negative) mg/dL Ur Blood (Man) Trace (Negative) Urine Nitrate Negative (Negative) Urine Bilirubin Negative (Negative) Urine Urobilinogen 0.2 (<2.0) mg/dL Add Ur Microanalysis Reviewed Leukocyte Esterase Rfl 2+ H (Negative) SARAH/UL Urine RBC 0-2 (0-2) /hpf Urine WBC 51-100 H (0-3) /hpf Ur Squamous Epith Cells None seen (Few) /hpf Urine Bacteria None seen /hpf Urine Casts 0-2 Urine Yeast (Budding) Present H (None) /hpf Urine Opiates Screen Negative (Negative) Urine Methadone Screen Negative (Negative) Ur Barbiturates Screen Negative (Negative) Ur Phencyclidine Scrn Negative (Negative) Ur Amphetamine Screen Negative (Negative) U Benzodiazepines Scrn Negative (Negative) Urine Cocaine Screen Negative (Negative) U Cannabinoids Screen Negative (Negative) Ethyl Alcohol < 10 (<10) mg/dL Influenza A (RT-PCR) Negative (Negative) Influenza B (RT-PCR) Negative (Negative) RSV (RT-PCR) Negative (Negative) SARS-CoV-2 RNA (RT-PCR) Negative (Negative) Discharge Plan Discharge Clinical Impression: Consciousness loss, transient, Abnormal urinalysis Patient Disposition: Still a Patient Condition: Stable Patient Language: Romansh Prescriptions: No Action cephalexin 250 mg capsule 250 mg PO DAILY nitrofurantoin monohyd/m-cryst [Macrobid] 100 mg capsule 100 mg PO DAILY Rx Instructions: must administer with a meal/food levetiracetam 500 mg tablet 500 mg PO BID lisinopril 10 mg tablet 10 mg PO DAILY rosuvastatin 20 mg tablet 20 mg PO DAILY Qty: 90 4RF insulin glargine [Lantus Solostar U-100 Insulin] 100 unit/mL (3 mL) insulin pen 48 unit SUBCUT QAM Rx Instructions: and 42 units nightly aspirin 81 mg Tablet,Delayed Release (Dr/Ec) 81 mg PO DAILY (DME) pen needle, diabetic [BD Ultra-Fine Mini Pen Needle] 31 gauge x 3/16 needle See Rx Instructions .ROUTE .MEDSUPPLY Qty: 100 12RF Rx Instructions: Use twice Daily UTD (DME) hospital bed See Rx Instructions .Route .MEDSUPPLY Qty: 1 0RF Rx Instructions: As directed (DME) trapeze bar See Rx Instructions .Route .MEDSUPPLY Qty: 1 0RF Rx Instructions: As directed (DME) mattress overlay See Rx Instructions .Route .MEDSUPPLY Qty: 1 0RF Rx Instructions: As directed tamsulosin 0.4 mg capsule See Rx Instructions .ROUTE .COMPLEX Qty: 90 2RF Dose Instruction: TAKE 1 CAPSULE BY MOUTH EVERY DAY 30 MINUTES AFTER THE SAME MEAL Rx Instructions: TAKE 1 CAPSULE BY MOUTH EVERY DAY 30 MINUTES AFTER THE SAME MEAL (DME) Dexcom G7 Curriculum Writer Misc See Rx Instructions .Route Qty: 1 11RF Rx Instructions: As directed (DME) OneTouch Ultra Test Strip See Rx Instructions .ROUTE .COMPLEX Qty: 200 2RF Dose Instruction: USE TO TEST BLOOD SUGAR TWICE DAILY Rx Instructions: USE TO TEST BLOOD SUGAR TWICE DAILY (DME) Dexcom G7 Sensor Device See Rx Instructions .Route Qty: 3 11RF Rx Instructions: As directed metoprolol succinate 25 mg tablet extended release 24 hr See Rx Instructions .ROUTE .COMPLEX Qty: 45 3RF Dose Instruction: TAKE ONE-HALF TABLET BY MOUTH EVERY DAY Rx Instructions: TAKE ONE-HALF TABLET BY MOUTH EVERY DAY Follow-up/Referrals: Quan Uribe MD [Primary Care Provider, Internal Medicine]
[2025-01-11 12:36] VITALS: BP 120/74; PULSE 68; RESP 14; O2SAT 98
[2025-01-11] MEDS: cefTRIAXone 1 GM in SODIUM CHLORIDE 0.9% IV 50 ML 100 ML IVPB (12:55)
[2025-01-11 13:34] LABS: Free T4 Free Thyroxine Reflex 0.97 ng/dL (0.78-2.19)
[2025-01-11] MEDS: levETIRAcetam 1500MG/NACL100ML 1,500 MG/100 ML BAG 400 MG IVPB (13:38)
[2025-01-11 13:43] VITALS: BP 145/81; PULSE 71; RESP 14; O2SAT 100
--- NOTE | 2025-01-11 14:04 | WPCEDHO ---
ED Hand Off Checklist All vitals saved:yes IV Site documented:yes All med administrations documented:yes Triage Note Triage Note Pt to the ED via EMS from home, 01/11/25 10:29 pt became unresponsive this morning. Pt had a previous stroke . HX of HTN, and chronic saini. Last known well was 09. Allergies No Known Allergies Allergy (Verified 11/21/24 13:36) Family History (Last Reviewed 01/11/25 @ 12:19 by Arley Wing MD) Sibling Hypertension Cerebrovascular accident Family history of malignant neoplasm Family history of diabetes mellitus in first degree relative Mother Family history of malignant neoplasm Patient's mother is Father Carcinoma of colon Patient's father is Administered/Completed Medications Discontinued Medications Ceftriaxone Sodium 1 gm/ (Sodium Chloride) 50 mls @ 100 mls/hr IVPB ONCE STA Stop: 01/11/25 13:02 Last Infusion: 01/11/25 13:25 Dose: Infused Documented By: Admin: 01/11/25 12:55 Dose: 100 mls/hr Documented By: JUAREZ Levetiracetam (Keppra Iv) 1,500 mg in 100 mls @ 400 mls/hr IVPB ONCE STA Stop: 01/11/25 13:44 Last Admin: 01/11/25 13:38 Dose: 400 mls/hr Documented By: JUAREZ Notes 01/11/25 11:30 (created 01/11/25 14:03) Nurse Note by Robyn Hill RN took out existing indwelling catheter and replaced with a new one. Initialized on 01/11/25 14:03 - END OF NOTE Interventions/Assessments IV / Saline Lock, Insert Start: 01/11/25 10:34 Freq: STAT Status: Active Protocol: Document 01/11/25 10:34 ANT (Rec: 01/11/25 11:09 ANT [id number]) IV Assessment Peripheral Access Left Wrist IV Catheter Access Initiated Before Arrival Catheter Gauge 18 IV Site Assessment WNL IV Care and WNL Maintenance PA: Cardiovascular Assessment Start: 01/11/25 10:23 Freq: Status: Active Protocol: Document 01/11/25 12:34 ANT (Rec: 01/11/25 12:36 ANT [id number]) Cardiovascular Assessment Cardiovascular None Symptoms Skin Description Normal Color Jugular Vein None Distention PA: Neurological Assessment Start: 01/11/25 10:23 Freq: Status: Active Protocol: Document 01/11/25 12:34 ANT (Rec: 01/11/25 12:36 ANT [id number]) Neurological Assessment Level of Awake Consciousness Arousable to Verbal Orientation Oriented to Person,Disoriented to Place,Disoriented to Time Unable to Redirect No Behavior Behavior Cooperative Patient Unable to Comprehend Comprehension Memory Description Unable to Assess Ability to Maintain Impaired Balance Facial Symmetry Left Facial Droop Speech Pattern Garbled Ability to Swallow Normal Tongue Position Midline Joce Coma Scale Eyes Open Verbal Disoriented Motor Follows Commands [place] Coma Total 14 Score PA: Respiratory Assessment Start: 01/11/25 10:23 Freq: Status: Active Protocol: Document 01/11/25 12:34 ANT (Rec: 01/11/25 12:36 ANT [id number]) Respiratory Assessment Symptoms None Effort Normal Pattern Regular Depth Normal Chest Expansion Symmetrical Cough Description None Sputum Amount None Oxygen Delivery Oxygen Delivery Room Air Last Vital Signs Temperature 97.6 F 01/11/25 10:29 Pulse Rate 71 01/11/25 13:43 Respiratory Rate 14 01/11/25 13:43 Pulse Oximetry 100 01/11/25 13:43 Blood Pressure 145/81 H 01/11/25 13:43 Blood Pressure Mean 102 01/11/25 13:43 Oxygen Delivery Room Air 01/11/25 12:34 Weight 78.6 kg 01/11/25 10:29 Last Result - Abnormals Only RBC 3.79 M/mm3 (4.6-6.20) L 01/11/25 11:12 Hgb 11.2 g/dL (14.0-18.0) L 01/11/25 11:12 Hct 34.2 % (42.0-52.0) L 01/11/25 11:12 Plt Count 121 k/mm3 (150-375) L 01/11/25 11:12 MPV 11.2 fl (7.4-10.4) H 01/11/25 11:12 Baso % (Auto) 0.1 % (0.2-1.2) L 01/11/25 11:12 PT 15.5 Seconds (11.1-14.7) H 01/11/25 11:12 Sodium 135 mmol/L (137-145) L 01/11/25 11:12 Anion Gap 2 mmol/L (4-12) L 01/11/25 11:12 Glucose 157 mg/dL (65-110) H 01/11/25 11:12 POC Capillary Glucose 182 mg/dl (65-105) H 01/11/25 10:56 Calcium 8.1 mg/dL (8.4-10.2) L 01/11/25 11:12 Total Protein 5.5 g/dL (6.3-8.2) L 01/11/25 11:12 Albumin 2.9 g/dL (3.5-5.1) L 01/11/25 11:12 TSH (Reflex) 5.630 uIU/mL (0.465-4.68) H 01/11/25 11:12 Leukocyte Esterase Rfl 2+ SARAH/UL (Negative) H 01/11/25 11:47 Urine WBC 51-100 /hpf (0-3) H 01/11/25 11:47 Urine Yeast (Budding) Present /hpf (None) H 01/11/25 11:47
[2025-01-11 14:14] LABS: Troponin I 0.015 ng/mL (0.000-0.034)
[2025-01-11 14:17] LABS: Total Triiodothyronine (T3) 0.77 NG/ML (0.82-1.58)
--- NOTE | 2025-01-11 14:26 | P.HP_ITS ---
H&P: HPI History of Present Illness Date/Time: 01/11/25 14:26 Chief Complaint: Episode of unresponsiveness Narrative: 89-year-old male past medical history of seizures, CVA, chronic Singh, BPH, DVT, CKD stage 3 diabetes hypertension and hyperlipidemia presents the hospital with episode of unresponsiveness. Patient was in his wheelchair being push the dining room whenever he got to the dining room he was unresponsive, EMS was called because they could not wake him up. Per care home staff they did not notice him having a seizure. Patient was back to his normal status intubated in the hospital. Patient states that he does not have a history seizures and does not know why he is on Keppra. Lab work in the ED shows hemoglobin 11.2 INR 1.2, sodium of 135, anion gap 2, glucose of 182, calcium 8.1, troponins 0.016 followed by 0.015, albumin 2.9, TSH 5.630 and T3 of 0.77, UA is negative for nitrates 2+ leukocyte esterase and 100 wbc's with yeast present, toxicology screen is negative, ethanol level negative, influenza A/B, RSV and COVID negative. EKG shows sinus rhythm. Head CT shows no acute findings. CTA shows significant stenosis of the left ICA. Chest abdomen pelvis show no acute findings. Patient had 24 beats of V-tach on environmental monitoring specialist. Could be what caused him to be unresponsive this afternoon. Review of Systems Review of Systems: 12 systems were reviewed and are negativ e except for as per HPI. [facility] Past Medical History Medical History Seizure disorder Sepsis without septic shock Acute UTI Acute UTI Seizure disorder Cerebrovascular accident (CVA) with left hemiparesis Chronic indwelling Singh catheter Blind left eye Mitral valve prolapse Cerebrovascular accident (05/2008) Residual left-sided weakness. Benign prostatic hyperplasia Deep vein thrombosis of right lower extremity Pneumonia UTI (urinary tract infection) Frequent falls Chronic pain Urinary tract infection Anemia Syncope Prostate cancer Diagnosed in 2008. Chronic kidney disease, stage 3 Hyperlipidemia Hypertension Insulin dependent type 2 diabetes mellitus Shingles Arthritis History of rectal polyps Diverticulitis Surgical History Surgical History History of orthopedic surgery ORIF left tib-fib fracture. Family History Family History Sibling Hypertension Cerebrovascular accident Family history of malignant neoplasm Family history of diabetes mellitus in first degree relative Mother Family history of malignant neoplasm, Onset Age: 75 Patient's mother is Father Carcinoma of colon, Onset Age: 67 Patient's father is Social History Social History Social History: Surrogate medical decision maker: Kaye Berkowitz, spouse. Code status: Full code. Smoking status: Never smoker Alcohol intake: never Substance use: never Substance use type: does not use Lack of Transportation: No Lack of Food: Never True Current Housing: I Have Housing Concerned About Future Housing: No Difficulty Paying Gas/Electric Bills: No Difficulty Paying for Meds: No Currently Unemployed: No Education: Decline to Answer Difficulty w/ Childcare or Family Care: No Additional living arrangements comments: He lives at home with his . Additional occupation/education comments: Retired from [employer]. Spiritual care concerns: No Agree to blood products: Yes Meds Home Medications and Allergies Home Medications ?Medication ?Instructions ?Recorded ?Confirmed ?Type pen needle, diabetic 31 gauge x #100 ea 10/08/2211/21 Rx 3/16 (BD Ultra-Fine Mini Pen Needle) hospital bed #1 ea 02/26/23 11/21/24 Rx mattress overlay #1 ea 02/26/23 11/21/24 Rx trapeze bar #1 ea 02/26/23 11/21/24 Rx aspirin 81 mg tablet,delayed 81 mg PO DAILY 04/11/23 1 03/13/24 History release tamsulosin 0.4 mg capsule See Rx Instructions .Route 0 03/21/24 01/11/25 Rx .COMPLEX #90 caps blood-glucose,paraprofessional aide teacher,cont #1 ea 06/08/24 11/21/24 Rx (Dexcom G7 Customer Advocacy Manager) rosuvastatin 20 mg tablet 20 mg PO DAILY #90 tabs 05/1701/11/25 Rx blood sugar diagnostic (OneTouch #200 strips 06/13/24 11/21/24 Rx Ultra Test strips) cephalexin 250 mg capsule 250 mg PO DAILY 07/25/24 History nitrofurantoin 100 mg PO DAILY 07/25/24 History monohydrate/macrocrystals 100 mg capsule (Macrobid) blood-glucose sensor (Dexcom G7 #3 ea 10/17/24 5 Rx Sensor device) insulin glargine 100 unit/mL (3 48 unit subcut QAM 09/0801/11/25 History mL) subcutaneous pen (Lantus Solostar U-100 Insulin) levetiracetam 500 mg tablet 500 mg PO BID 11/21/24 History lisinopril 10 mg tablet 10 mg PO DAILY 11/21/2412/17 History metoprolol succinate 25 mg See Rx Instructions .Route 12/21/24 01/11/25 Rx tablet,extended release 24 hr .COMPLEX #45 tabs Allergies Allergy/AdvReac Type Severity Reaction Status Date / Time No Known Allergies Allergy Verified 01/11/25 14:43 Vital Signs Vital Signs - 24 hr 01/11/25 10:29 01/11/25 11:30 01/11/25 12:34 Temperature 97.6 F Pulse Rate 66 70 Respiratory Rate 20 17 Blood Pressure 155/76 H 146/80 H Pulse Oximetry 97 98 Oxygen Delivery Room Air Room Air 01/11/25 12:36 01/11/25 13:43 Temperature Pulse Rate 68 71 Respiratory Rate 14 14 Blood Pressure 120/74 145/81 H Pulse Oximetry 98 100 Oxygen Delivery Exam Narrative: General: well appearing, appears stated age. HEENT: normocephalic, atraumatic. Mucous membranes moist. Neck supple without JVD, lymphadenopathy, or bruit. Right eye not present, possible skin flap face asymmetrical a baseline Respiratory: clear bilaterally. No rales/rhonic/wheezes. Cardiovascular: Regular rate and rhythm, normal S1-S2. No murmurs, rubs, or clicks. PMI is nondisplaced, capillary refill less than 3 second. Abdomen: Soft, round, no pulsatile masses, nondistended and nontender. No rebound, no guarding. Bowel sounds present to all four quadrants. No high pitch or tinkling sounds, resonant to percussion. Extremities: No cyanosis, clubbing, or edema present. Pulses are palpable 2/2. Generalized weakness Neuro: Alert and orientated x 4. PERRLA. Cranial nerves 2-12 intact without focal deficit. Skin: Warm, dry, and intact, without rash, erythema, or lesion. Psych: pleasant, cooperative, normal speech, normal affect, no hallucinations, no dysarthia H&P: Results Labs Labs: Short CBC 01/11/25 Range/Units 11:12 WBC 7.2 (4.5-10.0) K/mm3 Hgb 11.2 L (14.0-18.0) g/dL Hct 34.2 L (42.0-52.0) % Plt Count 121 L (150-375) k/mm3 BMP 01/11/25 11:12 Sodium 135 L Potassium 3.4 Chloride 105 Carbon Dioxide 28 BUN 17 Creatinine 0.94 Glucose 157 H Calcium 8.1 L Cardiac Enzymes 01/11/25 01/11/25 Range/Units 11:12 13:30 Troponin I 0.016 0.015 (0.000-0.034) ng/mL Liver Function 01/11/25 Range/Units 11:12 Total Bilirubin 1.0 (0.2-1.3) mg/dL AST 17 (17-59) U/L ALT 14 (6-50) U/L Alkaline Phosphatase 70 (38-126) U/L Albumin 2.9 L (3.5-5.1) g/dL Urine 01/11/25 Range/Units 11:47 Urine Color Yellow (Yellow) Urine Appearance Clear (Clear) Urine pH 7.5 (5.0-9.0) Ur Specific [place] 1.035 (1.001-1.035) Urine Protein Negative (Negative) mg/dL Urine Glucose (UA) Negative (Negative) mg/dL Assessment and Plan Assessment and plan (1) V-tach: Code(s): I47.20 - Ventricular tachycardia, unspecified Status: Acute Assessment and Plan: Likely cause of AMS Potassium 3.4, calcium 8.1, phosphorus 3.3, magnesium 2.2 2 g calcium 20 mEq potassium EKG Cards consulted pending recs Transfer to IMU for closer monitoring (2) Altered awareness, transient: Code(s): R40.4 - Transient alteration of awareness Status: Acute Assessment and Plan: cardiac vs Infection versus seizure versus stroke versus syncope Treat underlying infection Seizure precautions Frequent neuro checks There is 50% stenosis in the proximal left ICA from calcified plaque Echo with bubble pending Blood cultures pending (3) Seizure disorder: Code(s): G40.909 - Epilepsy, unspecified, not intractable, without status epilepticus Status: Acute Assessment and Plan: Possible seizure Keppra [facility] Continue Chacho b.i.dBriseida Neurology available by phone EEG pending MRI pending (4) Acute UTI: Code(s): N39.0 - Urinary tract infection, site not specified Status: Suspected Assessment and Plan: Chronic Singh due to urinary tension BPH prostate cancer IV Rocephin Culture and sensitivity pending IVF (5) Insulin dependent type 2 diabetes mellitus: Code(s): E11.9 - Type 2 diabetes mellitus without complications; Z79.4 - buttermaker helper (current) use of insulin Status: Chronic Assessment and Plan: Diabetic diet Accu-Cheks a.c. HS SSI According to med rec patient takes 48 units of Lantus in the morning and 42 at night, will order nighttime Lantus at this time Holding morning Lantus so we can trend blood sugars (6) Elevated INR: Code(s): R79.1 - Abnormal coagulation profile Status: Acute Assessment and Plan: Does not appear to be on anticoagulation PTT INR in a.m. No signs of acute bleeding (7) Hypertension: Code(s): I10 - Essential (primary) hypertension Status: Chronic Assessment and Plan: Continue lisinopril (8) Chronic kidney disease, stage 3: Code(s): N18.3 - Chronic kidney disease, stage 3 (moderate) Status: Chronic Assessment and Plan: At baseline (9) Frailty: Code(s): R54 - Age-related physical debility Status: Acute Assessment and Plan: Wheelchair-bound (10) Benign prostatic hyperplasia: Code(s): N40.0 - Benign prostatic hyperplasia without lower urinary tract symptoms Status: Acute Assessment and Plan: Continue Flomax Quality VTE Prophylaxis VTE prophylaxis: mechanical ordered
[2025-01-11 14:35] VITALS: BMI 24.1; BMI 28.2
--- NOTE | 2025-01-11 15:03 | ADMGEN ---
This patient, Derrell Berkowitz, was admitted to [facility] Room 329-01. Patient/family oriented to hospital policies and general routines including ID bracelet, bed and alarms, visiting hours, pain management, procedures, bathroom and other care routines, personal items, smoking policy, room service/diet, and visiting hours. Information on how to activate the Rapid Response Team has been discussed. Patient/Family are encouraged to report perceived risks to care and to ask questions if they do not understand what they are told or what they should do. received report from guillermo
[2025-01-11] MEDS: SODIUM CHLORIDE 0.9% IV 1,000 ML 75 ML IV CONT ×2 (15:17→23:58)
[2025-01-11 16:00] VITALS: PULSE 60
[2025-01-11 16:16] LABS: Fractional Inspired Oxygen 21 %; HCO3 VBG 25.5 mEq/l (24.0-30.0); PCO2 VBG 50.8 mmHg (42.0-48.0); PO2 VBG 47.0 mmHg (35.0-45.0); pH VBG 7.319 (7.300-7.400)
[2025-01-11] MEDS: DOCUSATE SODIUM 100 MG CAPSULE PO (16:47)
[2025-01-11] MEDS: INSULIN GLARGINE (*BKC) 100 UNITS/ML 42 UNITS SUB-Q (20:11)
--- NOTE | 2025-01-11 21:35 | ECG_ITS ---
Test Date: 2025-01-11 22:06:27 Measurements Intervals [place] Rate: 75 P: 82 OR: 182 QRS: -54 QRSD: 125 T: 2 QT: 429 QTc: 479 Interpretive Statements SINUS RHYTHM WITH SINUS ARRHYTHMIA LEFT ANTERIOR FASCICULAR BLOCK [QRS AXIS <= -45, QR IN I, RS IN II] ABNORMAL ECG Compared to ECG 01/11/2025 10:52:12 PACS ARE SEEN, NO OTHER DIFFERENCE Electronically Signed On 01-12-2025 13:13:46 OUTSIDE ENERGY SALES REPRESENTATIVES by Quan Morales M.D.
[2025-01-11] MEDS: KCL 20 MEQ/SW 100 ML 100 ML 50 MEQ IVPB (21:47)
[2025-01-11 22:00] VITALS: BP 141/70; PULSE 72; RESP 16; TEMP 36.6; O2SAT 98
--- NOTE | 2025-01-11 22:49 | PC.NURSE ---
This patient, Derrell Berkowitz, was received from [facility] on 01/11/25 at 2249 via bed with two RNs and no issues present. Patient/family oriented to unit policies and routines
[2025-01-11] MEDS: CALCIUM GLUC 2,000 MG/NS 100ML 2,000 MG/100 ML BAG 100 MG IVPB (22:57)
--- NOTE | 2025-01-11 23:00 | PC.NURSE ---
2128: Pt had episodes of Vtach; asymptomatic; hospitalist notified; ordered received 2300: Pt transferred to IMU, 201 in stable condition.
--- NOTE | 2025-01-11 23:12 | PC.NURSE ---
This RN called pts /POA to inform her of pt moving to IMU. did not answer the phone and the voicemail box was full, will try again in the morning.
[2025-01-12] VITALS (17 sets, daily range): BP systolic 108–164; BP diastolic 43–73; PULSE 63–115; RESP 16–24; TEMP 36.6–37.1; O2SAT 92–100
--- NOTE | 2025-01-12 | ECHO_ITS ---
Patient Info Name: Derrell Berkowitz Age: 89 years : 1935 Gender: Male Ht: 71 in Wt: 173 lbs BSA: 1.99 m2 HR: 68 bpm BP: 132 / 69 mmHg Heart Rhythm: Sinus Rhythm Technical Quality: Poor Exam Date: 01/12/2025 10:05 AM Patient Status: I Admit Date: 01/11/2025 Exam Type: CA echo dop bubble study w con Complete two-dimentional, color flow and Doppler transthoracic echocardiogram is performed with agitated saline and with contrast to opacify the left ventricle and to improve the delineation of the left ventricle endocardial borders. Staff Referring Physician: Umm Schumacher Respiratory Therapy Manager: Derrell Barxton III Attending Provider: Adi Beatty Contrast/Agitated Saline Contrast/Ag. Saline: Agitated Saline Amount: 16.00 ml Existing IV Access: Yes IV Access Condition: patent with no signs of infiltration Contrast/Ag. Saline: Definity Amount: 2.00 ml Administered By: Derrell Braxton III Existing IV Access: Yes IV Access Condition: patent with no signs of infiltration Reason for Poor Study: poor echocardiographic windows Summary 1. Nurse pushed bubbles for bubble study. Off-axis views, borderline nondiagnostic bubble study due to poor image quality. 2. Normal left and right ventricular size and systolic function, grade 1 diastolic noncompliance. 3. Mildly sclerotic aortic valve with well maintained leaflet separation. 4. Somewhat thickened pericardium with a very small pericardial effusion. 5. Definity contrast used to improve visualization. 6. Agitated saline contrast injection demonstrates no shunt. Left Ventricular Outflow Tract Name Value Normal LVOT 2D LVOT Diameter 2.3 cm LVOT Doppler LVOT Peak Velocity 70 cm/s LVOT Peak Gradient 2 mmHg LVOT Mean Gradient 1 mmHg LVOT VTI 17 cm LVOT VTI/AV VTI Ratio 1.0 LVOT Stroke Volume 70 ml LVOT CO 4.2 l/min LVOT CI 2.1 l/min/m2 Mitral Valve Name Value Normal MV Doppler MV Peak Gradient 3 mmHg MV Mean Gradient 1 mmHg MV Area (Cont Eq VTI) 3.5 cm2 MV Diastolic Function MV E Peak Velocity 41 cm/s MV A Peak Velocity 87 cm/s MV E/A 0.5 MV Decel Time (PW) 366 ms MV Annular TDI MV E/e' (Septal) 10.6 MV E/e' (Lateral) 8.4 MV E/e' (Average) 9.5 Tricuspid Valve Name Value Normal TV Annular TDI TV Lateral Joi s' Velocity 12.8 cm/s >=9.5 Aortic Valve Name Value Normal AV Doppler AV Peak Velocity 106 cm/s AV Peak Gradient 4 mmHg AV Mean Gradient 2 mmHg AV VTI 18 cm AV Area (Cont Eq VTI) 4.0 cm2 >=3.0 AV Area (Cont Eq [place]) 2.7 cm2 AV DI ([place]) 0.66 AV Regurgitation 2D LVOT Area 4.2 cm2 Ventricles Name Value Normal LV Dimensions 2D/MM IVS Diastolic Thickness (2D) 1.4 cm 0.6-1.0 LVID Diastole (2D) 5.0 cm 4.2-5.8 LVIW Diastolic Thickness (2D) 1.1 cm 0.6-1.0 LVID Systole (2D) 3.6 cm 2.5-4.0 LVOT Diameter 2.3 cm LV Mass (2D Cubed) 242.17 g 88.00-224.00 LV Mass Index (2D Cubed) 122 g/m2 49-115 Relative Wall Thickness (2D) 0.44 <=0.42 LV Fractional Shortening/Ejection Fraction 2D/MM LV Fractional Shortening (2D) 23 % 25-43 LV EF (2D Teichholz) 52 % LV Diastolic Volume (4C MOD) 128 ml LV EF (4C MOD) 57 % LV Diastolic Length (4C) 7.9 cm LV Systolic Length (4C) 6.4 cm LV Stroke Volume (4C MOD) 73 ml Atria Name Value Normal LA Dimensions LA Volume (4C A-L) 52 ml Report Signatures
[2025-01-12 03:58] LABS: Hematocrit 37.1 % (42.0-52.0); Hemoglobin 12.0 g/dL (14.0-18.0); Immature Granulocyte Percent A 0.2 % (0-0.5); Immature Platelet Fraction Pct 6.6 % (0.9-11.2); Lymphocytes Absolute Auto 2.80 K/mm3 (0.9-3.2); Mean Corpuscular HGB Conc 32.3 g/dl (32-36); Mean Corpuscular Hemoglobin 29.4 pg (26-34); Mean Corpuscular Volume 90.9 fl (80-100); Nucleated Red Blood Cells Absolute Auto 0.000 K/mm3 (0.0-0.012); Nucleated Red Blood Cells Perc 0.0 % (0.0-0.2); Platelet Count Result 137 k/mm3 (150-375); Red Blood Count 4.08 M/mm3 (4.6-6.20); White Blood Count 9.2 K/mm3 (4.5-10.0)
[2025-01-12 04:10] LABS: Anion Gap 1 mmol/L (4-12); Blood Urea Nitrogen 17 mg/dL (9-20); Calcium 8.9 mg/dL (8.4-10.2); Carbon Dioxide 27 mmol/L (22-30); Chloride 106 mmol/L (98-107); Estimated CRCL calculation 50 ml/min; Estimated Glomerular Filt Rate > 60; Glucose 152 mg/dL (65-110); INR 1.2; Partial Thromboplastin Time 30.1 Seconds (22.3-36.8); Potassium 3.7 mmol/L (3.4-5.0); Prothrombin Time 14.7 Seconds (11.1-14.7); Sodium 134 mmol/L (137-145)
[2025-01-12] MEDS: ROSUVASTATIN 20 MG TABLET PO (08:14)
[2025-01-12] MEDS: cefTRIAXone 1 GM in SODIUM CHLORIDE 0.9% IV 50 ML 100 ML IVPB (08:14)
[2025-01-12] MEDS: METOPROLOL SUCCINATE EXT REL 12.5 MG TABCR BY MOUTH (08:15)
[2025-01-12] MEDS: DOCUSATE SODIUM 100 MG CAPSULE PO ×2 (08:15→17:13)
[2025-01-12] MEDS: ASPIRIN 81 MG ENTERIC TABLET PO (08:16)
[2025-01-12] MEDS: TAMSULOSIN HCL 0.4 MG CAPSULE BY MOUTH (08:16)
--- NOTE | 2025-01-12 08:26 | PM.IMPN ---
Progress Note: A&P Assessment and Plan (1) V-tach: Code(s): I47.20 - Ventricular tachycardia, unspecified Status: Acute (2) Altered awareness, transient: Code(s): R40.4 - Transient alteration of awareness Status: Acute (3) Seizure disorder: Code(s): G40.909 - Epilepsy, unspecified, not intractable, without status epilepticus Status: Acute (4) Acute UTI: Code(s): N39.0 - Urinary tract infection, site not specified Status: Suspected (5) Insulin dependent type 2 diabetes mellitus: Code(s): E11.9 - Type 2 diabetes mellitus without complications; Z79.4 - intermodal customer service (current) use of insulin Status: Chronic (6) Elevated INR: Code(s): R79.1 - Abnormal coagulation profile Status: Acute (7) Hypertension: Code(s): I10 - Essential (primary) hypertension Status: Chronic (8) Chronic kidney disease, stage 3: Code(s): N18.3 - Chronic kidney disease, stage 3 (moderate) Status: Chronic (9) Frailty: Code(s): R54 - Age-related physical debility Status: Acute (10) Benign prostatic hyperplasia: Code(s): N40.0 - Benign prostatic hyperplasia without lower urinary tract symptoms Status: Acute Plan Patient presented with episode of unresponsiveness. Had some trembling of his hands. Wake him up and EMS was called. When EMS arrived he was unresponsive but the time they got into the ambulance he was returning back to his baseline. He was noted to have mild pronator drift on right side with some facial asymmetry. Facial drooping chronic per family. Patient does have history of CVA past. CT brain did not show any acute finding. 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 CP was considered and discussed with the family however given unclear chronicity of his symptoms unclear etiology of his presentation low NIH score and advance age it was felt the risk outweighed the benefits. Prior history of seizures and on Keppra. No witnessed generalized tonic-clonic seizure activity. Loaded with Keppra 1500 mg. Vitals were stable on presentation Laboratory workup with WBC of 7.2 hemoglobin 11.2 platelet count 121. Chem panel showed sodium 135 potassium 3.4. Chloride 105 bicarbonate 28 BUN 17 creatinine 0.9 blood glucose of 157. Lactate was normal at 1.5 TSH 5.6 troponin was negative LFTs were normal. Urinalysis with 51-100 urine WBC with positive leukocyte esterase. Suggestive of UTI. Ethyl alcohol level less than 10. Influenza RSV COVID swab was negative. EKG showed normal sinus rhythm. CT Chest abdomen pelvis showed no acute findings. 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 Patient has chronic indwelling catheter Singh catheter was replaced. Per Neurology follow-up visit he has had recurrent spells of unresponsiveness and has been started on Keppra for that reason. Cardiac monitoring in the past has not revealed any findings. However a loop recorder has been advised in the past with regard to these episodes. Echo with bubble EEG MRI had been ordered and is pending Syncope versus seizure UTI catheter associated IV Rocephin follow urine culture. History of ESBL in the past October 2023 Nonsustained ventricular tachycardia 28 beats in ER. No further episodes. Cardiology consulted. Event monitor at discharge, consideration of loop recorder. 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 No overnight events. Telemetry reviewed. No further nonsustained ventricular tachycardia noted. Frequent PVCs on telemetry. Family at bedside and patient back to his baseline Review of Systems Review of Systems: 12 systems were reviewed and are negative except for as per HPI. Exam Narrative: General: well appearing, appears stated age. HEENT: normocephalic, atraumatic. Mucous membranes moist. Left eye not present, possible skin flap face asymmetrical a baseline Respiratory: clear bilaterally. No rales/rhonic/wheezes. Cardiovascular: Regular rate and rhythm, normal S1-S2. No murmurs, rubs, or clicks Abdomen: Soft, round, no pulsatile masses, nondistended and nontender. Extremities: No cyanosis, clubbing, or edema present. Pulses are palpable 2/2. Generalized weakness Neuro: Alert and orientated x 4. Cranial nerves 2-12 intact without focal deficit. Skin: Warm, dry, and intact, without rash, erythema, or lesion. Psych: pleasant, cooperative, normal speech, normal affect, no hallucinations, no dysarthia Objective Data Vital Signs Vital Signs: Vital Signs - 24 hr 01/11/25 10:29 01/11/25 11:30 01/11/25 12:34 Temperature 97.6 F Pulse Rate 66 70 Respiratory Rate 20 17 Blood Pressure 155/76 H 146/80 H Pulse Oximetry 97 98 Oxygen Delivery Room Air Room Air 01/11/25 12:36 01/11/25 13:43 01/11/25 15:28 Temperature Pulse Rate 68 71 Respiratory Rate 14 14 Blood Pressure 120/74 145/81 H Pulse Oximetry 98 100 Oxygen Delivery Room Air 01/11/25 16:00 01/11/25 22:00 01/11/25 23:39 Temperature 97.8 F Pulse Rate 60 72 Respiratory Rate 16 Blood Pressure 141/70 H Pulse Oximetry 98 Oxygen Delivery Room Air 01/12/25 00:00 01/12/25 00:00 01/12/25 00:06 Temperature 98.0 F Pulse Rate 67 73 Respiratory Rate 16 Blood Pressure 164/71 H Pulse Oximetry 100 Oxygen Delivery Room Air 01/12/25 02:00 01/12/25 04:00 01/12/25 04:00 Temperature Pulse Rate 80 71 Respiratory Rate Blood Pressure Pulse Oximetry Oxygen Delivery Room Air 01/12/25 04:06 01/12/25 06:00 01/12/25 07:43 Temperature 98.2 F 98.1 F Pulse Rate 75 68 79 Respiratory Rate 21 H 24 H Blood Pressure 121/71 132/69 Pulse Oximetry 98 97 Oxygen Delivery 01/12/25 08:15 Temperature Pulse Rate 73 Respiratory Rate Blood Pressure Pulse Oximetry Oxygen Delivery Intake/Output Intake/Output: Intake & Output 01/09/25 01/10/25 01/11/25 01/12/25 23:59 23:59 23:59 23:59 Intake Total 1241.2 610 Output Total 200 425 Balance 1041.2 185 Meds/Results Medications: Active Medications Generic Name Dose Route Start Last Admin Trade Name Freq PRN Reason Stop Dose Admin Acetaminophen 650 mg 01/11/25 14:42 Acetaminophen 325 Mg Tablet PO Q4H PRN Mild Pain (1-3) or Fever Aspirin 81 mg 01/12/25 09:00 01/12/25 08:16 Aspirin 81 Mg Enteric Tablet PO 81 mg DAILY JESSI Administration Dextrose 12.5 gm 01/11/25 14:42 Dextrose 50% 25 Gm/50 Ml Syringe IV PUSH PRN PRN Hypoglycemia Protocol Docusate Sodium 100 mg 01/11/25 17:00 01/12/25 08:15 Docusate Sodium 100 Mg Capsule PO 100 mg BID JESSI Administration Glucagon 1 mg 01/11/25 14:42 Glucagon For Inj 1 Mg Vial IM PRN PRN Hypoglycemia Protocol Glucose 15 gm 01/11/25 14:42 Glucose Oral Gel 15 Gm Of Glucse In 37.5 Gm Tube PO PRN PRN Hypoglycemia Protocol Ceftriaxone Sodium 1 gm/ 50 mls @ 100 mls/hr 01/12/25 09:00 01/12/25 08:14 Sodium Chloride IVPB 100 mls/hr QAM JESSI Administration Sodium Chloride 1,000 mls @ 75 mls/hr 01/11/25 14:45 01/11/25 23:58 Normal Saline Iv IV CONT 75 mls/hr .[id number] JESSI Administration Dextrose 1,000 mls @ 100 mls/hr 01/11/25 14:42 Dextrose 5% 1,000 Ml IVPB PRN PRN Hypoglycemia Protocol Insulin Aspart 2 - 5 units 01/11/25 17:00 01/12/25 08:16 Insulin Aspart (*Bkc) 100 Units/Ml SUB-Q Not Given TIDWM [facility] Protocol Insulin Glargine 48 units 01/12/25 09:00 Insulin Glargine (*Bkc) 100 Units/Ml SUB-Q QAM JESSI Insulin Glargine 42 units 01/11/25 21:00 01/11/25 20:11 Insulin Glargine (*Bkc) 100 Units/Ml SUB-Q 42 units HS JESSI Administration Levetiracetam 500 mg 01/11/25 21:00 01/12/25 08:14 Levetiracetam 500 Mg Tablet PO 500 mg Q12HR JESSI Administration Lisinopril 10 mg 01/12/25 09:00 01/12/25 08:16 Lisinopril 10 Mg Tablet PO 10 mg DAILY JESSI Administration Metoprolol Succinate 12.5 mg 01/12/25 09:00 01/12/25 08:15 Metoprolol Succinate Ext Rel 12.5 Mg Tabcr BY MOUTH 12.5 mg QAM JESSI Administration Perflutren Lipid Microsphere 0 ml 01/11/25 14:50 Perflutren Lipid Microspheres 1.5 Ml Vial Diluted To 10 Ml Total Volume IV PUSH 01/14/25 14:50 ONCE PRN adequate visualization Protocol Rosuvastatin Calcium 20 mg 01/12/25 09:00 01/12/25 08:14 Rosuvastatin 20 Mg Tablet PO 20 mg DAILY JESSI Administration Tamsulosin HCl 0.4 mg 01/12/25 09:00 01/12/25 08:16 Tamsulosin Hcl 0.4 Mg Capsule BY MOUTH 0.4 mg QAM JESSI Administration Radiology Results: ITS Impressions Head CT 01/11/25 10:50 Impression: 1.No acute intracranial abnormality. Head/Neck CTA 01/11/25 10:51 IMPRESSION: 1. No critical stenosis, occlusion or aneurysm is identified. 2. Significant stenosis of the left ICA. Follow-up is recommended to assess Chest/Abdomen/Pelvis CT 01/11/25 10:53 IMPRESSION: No acute abnormality is seen. Other findings as described. Labs Labs: Laboratory Results - last 24 hr 01/11/25 01/11/25 01/11/25 10:56 11:12 11:47 WBC 7.2 RBC 3.79 L Hgb 11.2 L Hct 34.2 L MCV 90.2 MCH 29.6 MCHC 32.7 RDW 13.9 Plt Count 121 L MPV 11.2 H Immature Gran % (Auto) 0.4 Neut % (Auto) 71.2 Lymph % (Auto) 22.0 [place] % (Auto) 5.7 Eos % (Auto) 0.6 Baso % (Auto) 0.1 L Lymph # (Auto) 1.59 [place] # (Auto) 0.4 Eos # (Auto) 0.0 Baso # (Auto) 0.0 Abs Immat Gran (auto) 0.03 Absolute Neuts (auto) 5.2 Absolute Nucleated RBC 0.000 Nucleated RBC % 0.0 % Immature Plt Fraction 6.3 PT 15.5 H INR 1.2 APTT 29.2 VBG pH VBG pCO2 VBG pO2 VBG HCO3 O2 Delivery Device O2 Liters/Min FiO2 Sodium 135 L Potassium 3.4 Chloride 105 Carbon Dioxide 28 Anion Gap 2 L BUN 17 Creatinine 0.94 Estim Creat Clear Calc 51 Estimated GFR > 60 Glucose 157 H POC Capillary Glucose 182 H Lactic Acid 1.5 Calcium 8.1 L Phosphorus 3.3 Magnesium 2.2 Total Bilirubin 1.0 AST 17 ALT 14 Alkaline Phosphatase 70 Troponin I 0.016 Total Protein 5.5 L Albumin 2.9 L Lipase 38 TSH (Reflex) 5.630 H Free T4 0.97 Total T3 0.77 L Urine Color Yellow Urine Appearance Clear Urine pH 7.5 Ur Specific [place] 1.035 Urine Protein Negative Urine Glucose (UA) Negative Urine Ketones Negative Ur Blood (Man) Trace Urine Nitrate Negative Urine Bilirubin Negative Urine Urobilinogen 0.2 Add Ur Microanalysis Reviewed Leukocyte Esterase Rfl 2+ H Urine RBC 0-2 Urine WBC 51-100 H Ur Squamous Epith Cells None seen Urine Bacteria None seen Urine Casts 0-2 Urine Yeast (Budding) Present H Urine Opiates Screen Negative Urine Methadone Screen Negative Ur Barbiturates Screen Negative Ur Phencyclidine Scrn Negative Ur Amphetamine Screen Negative U Benzodiazepines Scrn Negative Urine Cocaine Screen Negative U Cannabinoids Screen Negative Ethyl Alcohol < 10 Influenza A (RT-PCR) Negative Influenza B (RT-PCR) Negative RSV (RT-PCR) Negative SARS-CoV-2 RNA (RT-PCR) Negative 01/11/25 01/11/25 01/11/25 13:30 13:34 16:18 WBC RBC Hgb Hct MCV MCH MCHC RDW Plt Count MPV Immature Gran % (Auto) Neut % (Auto) Lymph % (Auto) [place] % (Auto) Eos % (Auto) Baso % (Auto) Lymph # (Auto) [place] # (Auto) Eos # (Auto) Baso # (Auto) Abs Immat Gran (auto) Absolute Neuts (auto) Absolute Nucleated RBC Nucleated RBC % % Immature Plt Fraction PT INR APTT VBG pH 7.319 VBG pCO2 50.8 H VBG pO2 47.0 H VBG HCO3 25.5 O2 Delivery Device Room air O2 Liters/Min Not Reportable FiO2 21 Sodium Potassium Chloride Carbon Dioxide Anion Gap BUN Creatinine Estim Creat Clear Calc Estimated GFR Glucose POC Capillary Glucose 158 H Lactic Acid Calcium Phosphorus Magnesium Total Bilirubin AST ALT Alkaline Phosphatase Troponin I 0.015 Total Protein Albumin Lipase TSH (Reflex) Free T4 Total T3 Urine Color Urine Appearance Urine pH Ur Specific [place] Urine Protein Urine Glucose (UA) Urine Ketones Ur Blood (Man) Urine Nitrate Urine Bilirubin Urine Urobilinogen Add Ur Microanalysis Leukocyte Esterase Rfl Urine RBC Urine WBC Ur Squamous Epith Cells Urine Bacteria Urine Casts Urine Yeast (Budding) Urine Opiates Screen Urine Methadone Screen Ur Barbiturates Screen Ur Phencyclidine Scrn Ur Amphetamine Screen U Benzodiazepines Scrn Urine Cocaine Screen U Cannabinoids Screen Ethyl Alcohol Influenza A (RT-PCR) Influenza B (RT-PCR) RSV (RT-PCR) SARS-CoV-2 RNA (RT-PCR) 01/11/25 01/12/25 01/12/25 20:07 03:42 07:12 WBC 9.2 RBC 4.08 L Hgb 12.0 L Hct 37.1 L MCV 90.9 MCH 29.4 MCHC 32.3 RDW 14.2 Plt Count 137 L MPV 10.7 H Immature Gran % (Auto) 0.2 Neut % (Auto) 61.7 Lymph % (Auto) 30.4 [place] % (Auto) 6.8 Eos % (Auto) 0.7 Baso % (Auto) 0.2 Lymph # (Auto) 2.80 [place] # (Auto) 0.6 Eos # (Auto) 0.1 Baso # (Auto) 0.0 Abs Immat Gran (auto) 0.02 Absolute Neuts (auto) 5.7 Absolute Nucleated RBC 0.000 Nucleated RBC % 0.0 % Immature Plt Fraction 6.6 PT 14.7 INR 1.2 APTT 30.1 VBG pH VBG pCO2 VBG pO2 VBG HCO3 O2 Delivery Device O2 Liters/Min FiO2 Sodium 134 L Potassium 3.7 Chloride 106 Carbon Dioxide 27 Anion Gap 1 L BUN 17 Creatinine 0.95 Estim Creat Clear Calc 50 Estimated GFR > 60 Glucose 152 H POC Capillary Glucose 286 H 125 H Lactic Acid Calcium 8.9 Phosphorus Magnesium Total Bilirubin AST ALT Alkaline Phosphatase Troponin I Total Protein Albumin Lipase TSH (Reflex) Free T4 Total T3 Urine Color Urine Appearance Urine pH Ur Specific [place] Urine Protein Urine Glucose (UA) Urine Ketones Ur Blood (Man) Urine Nitrate Urine Bilirubin Urine Urobilinogen Add Ur Microanalysis Leukocyte Esterase Rfl Urine RBC Urine WBC Ur Squamous Epith Cells Urine Bacteria Urine Casts Urine Yeast (Budding) Urine Opiates Screen Urine Methadone Screen Ur Barbiturates Screen Ur Phencyclidine Scrn Ur Amphetamine Screen U Benzodiazepines Scrn Urine Cocaine Screen U Cannabinoids Screen Ethyl Alcohol Influenza A (RT-PCR) Influenza B (RT-PCR) RSV (RT-PCR) SARS-CoV-2 RNA (RT-PCR)
[2025-01-12] MEDS: INSULIN GLARGINE (*BKC) 100 UNITS/ML 48 UNITS SUB-Q (08:38)
--- NOTE | 2025-01-12 10:05 | PC.NURSE ---
pt has returned form mri, echo is in room now
--- NOTE | 2025-01-12 10:57 | P.CONCA_ITS ---
Assessment and Plan Assessment and plan (1) NSVT (nonsustained ventricular tachycardia): Code(s): I47.29 - Other ventricular tachycardia Status: Acute Plan This is an 89-year-old man with hypertension, previous stroke with some left hemiplegia presenting with an episode of unresponsiveness that occurred at home. This went on for 15 minutes or more before he regained consciousness in the ambulance. He is now seen to have spontaneous nonsustained ventricular tachycardia in the emergency room and another episode on telemetry up on the floor. Echocardiogram has been requested and is pending. In this setting I have been asked to see him in consultation. Long consultation with the patient and his family in the room regarding evaluation of ventricular arrhythmia such as this. Of course an aggressive approach would involve proceeding with left heart catheterization to determine if these arrhythmias are ischemically driven. A more conservative approach given his advanced age and comorbidities would be medical therapy instead of procedures. Along those lines I am going to advanced his metoprolol dosage at this time. The patient and his family will discuss his wishes in regards to how aggressive he wishes to be in evaluating his ventricular arrhythmias. Quan Morales MD [facility] History of Present Illness History of Present Illness Consult date/time: 01/12/25 10:57 Reason For Visit: Transient Loss of Conscious Narrative: This is an 89-year-old man I am seeing at the request of the hospitalist today because of ventricular tachycardia. He is unknown to me prior to this encounter but is followed in our office by Dr. Leone. Patient has a history of hypertension but no other specific cardiac history. He was brought to the hospital yesterday by his family when he was in the home and witnessed to become unresponsive by the family. They state that he is brought from his bedroom into the kitchen by wheelchair. He has a previous stroke with a left francesco plegia and when he was brought in the kitchen he appeared to be stable and in good spirits. Shortly after that he became unresponsive and his head drooped down and there was some shaking of his arms. There was then some snoring and the family was unable to awaken him. They tried to awaken him for about 15 minutes and they were unsuccessful so they called EMS. He was evaluated by EMS and brought out to the ambulance. Apparently shortly after being put in the ambulance he was beginning to resecure regain consciousness the by the time he was in the emergency room he was responsive again. His CVA which occurred a few years ago I believe left him with a left hemiplegia some speech difficulty as well as a facial droop. His hypertension has been treated with a regimen of low-dose metoprolol succinate, and lisinopril. He did have a seven-day event monitor done in September 2023 who because of an episode of transient syncope that demonstrated sinus rhythm with normal heart rate variability no significant pauses or Aaron arrhythmias but there was 1 5 her 6 beat run of nonsustained VT. The chart here indicates there was a 26 beat run of monomorphic ventricular tachycardia in the emergency room and it looks like on telemetry there was another episode of VT in IMU. The patient feels well at this time he denies any symptoms of chest pain pressure or heaviness he is not experiencing any orthopnea PND or edema. Review of Systems 2 Constitutional: Constitutional: Reports lethargy Eyes: Eyes: Reports no additional eye complaints ENT: Reports system reviewed and no additional complaints, except as documented Cardiovascular: Cardiovascular: Reports no additional cardiovascular complaints Respiratory: Respiratory: Reports no additional respiratory complaints Gastrointestinal: Gastrointestinal: Reports no additional gastrointestinal complaints Musculoskeletal: Musculoskeletal: Reports no additional musculoskeletal complaints Integumentary/Breasts: Skin/Breast: Reports system reviewed and no additional complaints, except as docu Neurologic: Reports as per HPI Comments: Residual sequelae from stroke as detailed above Endocrine: Endocrine: Reports no additional endocrine complaints Hematologic/Lymphatic: Hematologic/Lymphatic: Reports no additional hematologic/lymphatic complaints Allergic/Immunologic: Allergic/Immunologic: Reports no additional allergic/immunologic complaints [facility] Past Medical History Medical History Seizure disorder Sepsis without septic shock Acute UTI Acute UTI Seizure disorder Cerebrovascular accident (CVA) with left hemiparesis Chronic indwelling Singh catheter Blind left eye Mitral valve prolapse Cerebrovascular accident (05/2008) Residual left-sided weakness. Benign prostatic hyperplasia Deep vein thrombosis of right lower extremity Pneumonia UTI (urinary tract infection) Frequent falls Chronic pain Urinary tract infection Anemia Syncope Prostate cancer Diagnosed in 2008. Chronic kidney disease, stage 3 Hyperlipidemia Hypertension Insulin dependent type 2 diabetes mellitus Shingles Arthritis History of rectal polyps Diverticulitis Surgical History Surgical History History of orthopedic surgery ORIF left tib-fib fracture. Family History Family History Sibling Hypertension Cerebrovascular accident Family history of malignant neoplasm Family history of diabetes mellitus in first degree relative Mother Family history of malignant neoplasm, Onset Age: 75 Patient's mother is Father Carcinoma of colon, Onset Age: 67 Patient's father is Social History Social History Social History: Surrogate medical decision maker: Kaye Berkowitz, spouse. Code status: Full code. Smoking status: Never smoker Alcohol intake: never Substance use: never Substance use type: does not use Lack of Transportation: No Lack of Food: Never True Current Housing: I Have Housing Concerned About Future Housing: No Difficulty Paying Gas/Electric Bills: No Difficulty Paying for Meds: No Currently Unemployed: No Education: Decline to Answer Difficulty w/ Childcare or Family Care: No Additional living arrangements comments: He lives at home with his . Additional occupation/education comments: Retired from [employer]. Spiritual care concerns: No Agree to blood products: Yes Meds Home Medications and Allergies Home Medications ?Medication ?Instructions ?Recorded ?Confirmed ?Type pen needle, diabetic 31 gauge x #100 ea 10/08/2201/11 Rx 3/16 (BD Ultra-Fine Mini Pen Needle) hospital bed #1 ea 02/26/23 01/11/25 Rx mattress overlay #1 ea 02/26/23 01/11/25 Rx trapeze bar #1 ea 02/26/23 01/11/25 Rx aspirin 81 mg tablet,delayed 81 mg PO DAILY 04/11/23 1 03/13/24 History release tamsulosin 0.4 mg capsule See Rx Instructions .Route 0 03/21/24 01/11/25 Rx .COMPLEX #90 caps blood-glucose,service order dispatcher,cont #1 ea 06/08/24 01/11/25 Rx (Dexcom G7 Information Technology Director) rosuvastatin 20 mg tablet 20 mg PO DAILY #90 tabs 05/1701/11/25 Rx blood sugar diagnostic (OneTouch #200 strips 06/13/24 01/11/25 Rx Ultra Test strips) cephalexin 250 mg capsule 250 mg PO DAILY 07/25/24 History nitrofurantoin 100 mg PO DAILY 07/25/24 History monohydrate/macrocrystals 100 mg capsule (Macrobid) blood-glucose sensor (Dexcom G7 #3 ea 10/17/24 5 Rx Sensor device) insulin glargine 100 unit/mL (3 48 unit subcut QAM 09/0801/11/25 History mL) subcutaneous pen (Lantus Solostar U-100 Insulin) levetiracetam 500 mg tablet 500 mg PO BID 11/21/24 History lisinopril 10 mg tablet 10 mg PO DAILY 11/21/2412/17 History metoprolol succinate 25 mg See Rx Instructions .Route 12/21/24 01/11/25 Rx tablet,extended release 24 hr .COMPLEX #45 tabs Allergies Allergy/AdvReac Type Severity Reaction Status Date / Time No Known Allergies Allergy Verified 01/11/25 14:43 Vital Signs Vital Signs - 24 hr 01/11/25 11:30 01/11/25 12:34 01/11/25 12:36 Temperature Pulse Rate 70 68 Respiratory Rate 17 14 Blood Pressure 146/80 H 120/74 Pulse Oximetry 98 98 Oxygen Delivery Room Air 01/11/25 13:43 01/11/25 15:28 01/11/25 16:00 Temperature Pulse Rate 71 60 Respiratory Rate 14 Blood Pressure 145/81 H Pulse Oximetry 100 Oxygen Delivery Room Air 01/11/25 22:00 01/11/25 23:39 01/12/25 00:00 Temperature 36.6 C Pulse Rate 72 Respiratory Rate 16 Blood Pressure 141/70 H Pulse Oximetry 98 Oxygen Delivery Room Air Room Air 01/12/25 00:00 01/12/25 00:06 01/12/25 02:00 Temperature 36.7 C Pulse Rate 67 73 80 Respiratory Rate 16 Blood Pressure 164/71 H Pulse Oximetry 100 Oxygen Delivery 01/12/25 04:00 01/12/25 04:00 01/12/25 04:06 Temperature 36.8 C Pulse Rate 71 75 Respiratory Rate 21 H Blood Pressure 121/71 Pulse Oximetry 98 Oxygen Delivery Room Air 01/12/25 06:00 01/12/25 07:43 01/12/25 08:00 Temperature 36.7 C Pulse Rate 68 79 85 Respiratory Rate 24 H Blood Pressure 132/69 Pulse Oximetry 97 Oxygen Delivery 01/12/25 08:15 01/12/25 10:00 Temperature Pulse Rate 73 74 Respiratory Rate Blood Pressure Pulse Oximetry Oxygen Delivery Exam 2 Const: General: comfortable Other: Elderly white male appearing his stated age with previous left eye removal HENMT: Mouth: Yes moist mucous membranes Eyes: Sclera: sclerae normal Neck: Neck: supple and no JVD Other: Carotid pulses are unremarkable bilaterally Resp: Effort & Inspection: normal respiratory effort Auscultation: clear to auscultation bilaterally Cardio: Rate: regular rate Rhythm: regular rhythm Other: Very soft systolic murmur at the left sternal border without radiation GI: GI Palp: Yes Soft to palpation Auscultation: normal bowel sounds Skin: General skin exam: normal color Neuro: Other: Alert and oriented x3 Extrem: General: normal to inspection Other: No edema, adequate perfusion Results Labs and Meds 01/12/25 03:42 01/12/25 03:42 Lab results: Cardiac Enzymes 01/11/25 01/11/25 Range/Units 11:12 13:30 AST 17 (17-59) U/L Troponin I 0.016 0.015 (0.000-0.034) ng/mL Coagulation 01/11/25 01/12/25 Range/Units 11:12 03:42 PT 15.5 H 14.7 (11.1-14.7) Seconds APTT 29.2 30.1 (22.3-36.8) Seconds CBC 01/11/25 01/12/25 Range/Units 11:12 03:42 WBC 7.2 9.2 (4.5-10.0) K/mm3 RBC 3.79 L 4.08 L (4.6-6.20) M/mm3 Hgb 11.2 L 12.0 L (14.0-18.0) g/dL Hct 34.2 L 37.1 L (42.0-52.0) % Plt Count 121 L 137 L (150-375) k/mm3 Lymph # (Auto) 1.59 2.80 (0.9-3.2) K/mm3 Harper # (Auto) 0.4 0.6 (0.1-0.6) K/mm3 Eos # (Auto) 0.0 0.1 (0-0.3) K/mm3 Baso # (Auto) 0.0 0.0 (0.0-0.1) K/mm3 Comprehensive Metabolic Panel 01/11/25 01/12/25 Range/Units 11:12 03:42 Sodium 135 L 134 L (137-145) mmol/L Potassium 3.4 3.7 (3.4-5.0) mmol/L Chloride 105 106 (98-107) mmol/L Carbon Dioxide 28 27 (22-30) mmol/L BUN 17 17 (9-20) mg/dL Creatinine 0.94 0.95 (0.7-1.3) mg/dL Glucose 157 H 152 H (65-110) mg/dL Calcium 8.1 L 8.9 (8.4-10.2) mg/dL AST 17 (17-59) U/L ALT 14 (6-50) U/L Alkaline Phosphatase 70 (38-126) U/L Total Protein 5.5 L (6.3-8.2) g/dL Albumin 2.9 L (3.5-5.1) g/dL Intake and Output 01/11/25 01/12/25 01/12/25 23:59 07:59 15:59 Intake Total 1091.2 610 50 Output Total 200 425 Balance 891.2 185 50 Intake: IV 851.2 50 Sodium Chloride 0.9% IV 1,000 651.2 ml @ 75 mls/hr IV CONT .[id number] [facility] Rx#:[id number] Calcium Gluc 2,000 mg/Ns 100Ml 100 2,000 mg In 100 ml @ 100 mls/hr IVPB ONCE ONE Rx#:[id number] KCl 20 Meq/Sw 100 ml 100 ml @ 100 50 mls/hr IVPB ONCE ONE Rx#: [id number] cefTRIAXone 1 gm In Sodium 50 Chloride 0.9% IV 50 ml @ 100 mls/hr IVPB QAM [facility] Rx#: [id number] Oral 240 610 Output: Catheter Urine 200 425 Urethral Catheter 200 425 Other: Number of Bowel Movements Today 0
[2025-01-12] MEDS: PERFLUTREN LIPID MICROSPHERES 1.5 ML VIAL DILUTED TO 10 ML TOTAL VOLUME IV PUSH (11:41)
--- NOTE | 2025-01-12 11:41 | IVDEFINITY ---
Prior to administration of IV Definity the patient was educated on the risks and benefits of the imaging enhancing agent including potential adverse side effects. The patient verbalized understanding. Allergies were verified. No exclusion criteria were identified and at least one of the following inclusion criteria were met: 1) physician request, 2) patient technically difficult to image (per the [place] [employer]chocardi[employer] guidelines of two or more segments not discernable within the apical view), or 3) questionable left ventricular function. ?
--- NOTE | 2025-01-12 12:33 | ECG_ITS ---
Test Date: 2025-01-12 12:53:51 Measurements Intervals [place] Rate: 63 P: 113 [place]: 160 QRS: -51 QRSD: 132 T: -6 QT: 454 QTc: 468 Interpretive Statements SINUS RHYTHM WITH FREQUENT VENTRICULAR PREMATURE COMPLEXES LEFT ANTERIOR FASCICULAR BLOCK ABNORMAL ECG Compared to ECG 01/11/2025 22:06:27 Ventricular premature complex(es) now present Electronically Signed On 01-12-2025 13:29:13 VENDING ENTERPRISES SUPERVISOR by Quan Morales M.D.
[2025-01-12] MEDS: SODIUM CHLORIDE 0.9% IV 1,000 ML 75 ML IV CONT (12:49)
--- NOTE | 2025-01-12 15:40 | PC.NURSE ---
pt getting eeg now
[2025-01-12] MEDS: INSULIN GLARGINE (*BKC) 100 UNITS/ML 42 UNITS SUB-Q (20:41)
[2025-01-13] VITALS (11 sets, daily range): BP systolic 98–142; BP diastolic 35–60; PULSE 58–82; RESP 18–24; TEMP 36.2–37.1; O2SAT 96–100
[2025-01-13] MEDS: SODIUM CHLORIDE 0.9% IV 1,000 ML 75 ML IV CONT ×2 (02:23→18:05)
[2025-01-13] MEDS: TAMSULOSIN HCL 0.4 MG CAPSULE BY MOUTH (09:04)
[2025-01-13] MEDS: ASPIRIN 81 MG ENTERIC TABLET PO (09:04)
[2025-01-13] MEDS: ROSUVASTATIN 20 MG TABLET PO (09:04)
[2025-01-13] MEDS: METOPROLOL SUCCINATE EXT REL 50 MG TABCR BY MOUTH (09:04)
[2025-01-13] MEDS: cefTRIAXone 1 GM in SODIUM CHLORIDE 0.9% IV 50 ML 100 ML IVPB (10:13)
--- NOTE | 2025-01-13 11:06 | PM.PNCARD ---
Progress Note: A&P Assessment and Plan (1) V-tach: Code(s): I47.20 - Ventricular tachycardia, unspecified Status: Acute Plan 89-year-old man with hypertension, syncope and nonsustained ventricular tachycardia noted. Echocardiogram demonstrates normal left ventricular ejection fraction. He does have some pericardial thickening and a small effusion which does not really pertain to this in my opinion. The patient and family still have not made a decision as to whether they wish a conservative or aggressive approach to this. My personal recommendation is to be conservative because of his advanced age and frailty. An aggressive approach of course would be to bring him for left heart catheterization for further evaluation of his ventricular tachycardia. The patient does not wish to make this decision he is placing this upon his and she is placing this upon her children. For now we will continue treating him with higher dose of metoprolol succinate which I see ordered yesterday and if they make the decision to pursue conservative treatment he can be discharged any time. If they wish to be aggressive we would arrange for left heart catheterization this coming week Quan Morlaes MD [facility] Subjective Date/time seen: Date of service: 01/13/25 11:06 Interval history: Follow-up visit in this 89-year-old man with: Episode of syncope with spontaneous nonsustained VT noted on telemetry. Patient has longstanding hypertension as been followed in the office for this. I increased his metoprolol dosage to 50 mg daily because of the arrhythmias. He feels well today and is reporting no symptoms or complaints. Exam Const: Other: Very pleasant elderly gentleman in no distress HENMT: Mouth: Yes moist mucous membranes Eyes: Sclera: sclerae normal Neck: Neck: supple and no JVD Resp: Effort & Inspection: normal respiratory effort Auscultation: clear to auscultation bilaterally Cardio: Rate: regular rate Rhythm: regular rhythm GI: GI Palp: Yes Soft to palpation Auscultation: normal bowel sounds Skin: General skin exam: normal color Neuro: Other: Alert and oriented x3 Objective Data Vital Signs Vital Signs: Vital Signs - 24 hr 01/12/25 12:00 01/12/25 12:00 01/12/25 13:14 Temperature 37.1 C Pulse Rate 79 67 Respiratory Rate 16 Blood Pressure 144/65 H Pulse Oximetry 96 Oxygen Delivery Room Air 01/12/25 14:00 01/12/25 14:46 01/12/25 16:00 Temperature 36.6 C Pulse Rate 77 115 H Respiratory Rate 18 Blood Pressure 146/73 H Pulse Oximetry 98 Oxygen Delivery Room Air 01/12/25 16:00 01/12/25 18:00 01/12/25 20:00 Temperature 37.0 C Pulse Rate 69 66 63 Respiratory Rate 18 Blood Pressure 108/43 L Pulse Oximetry 92 Oxygen Delivery 01/12/25 20:00 01/12/25 22:00 01/12/25 23:44 Temperature 37.1 C Pulse Rate 69 70 70 Respiratory Rate 18 Blood Pressure 110/55 L Pulse Oximetry 96 Oxygen Delivery 01/13/25 00:00 01/13/25 00:00 01/13/25 04:00 Temperature Pulse Rate 71 67 Respiratory Rate Blood Pressure Pulse Oximetry Oxygen Delivery Room Air Room Air 01/13/25 04:00 01/13/25 06:00 01/13/25 08:00 Temperature 36.4 C L 36.2 C L Pulse Rate 63 63 74 Respiratory Rate 18 20 Blood Pressure 98/35 L 142/57 H Pulse Oximetry 96 100 Oxygen Delivery 01/13/25 09:04 Temperature Pulse Rate 82 Respiratory Rate Blood Pressure Pulse Oximetry Oxygen Delivery Intake/Output Intake/Output: Intake & Output 01/10/25 01/11/25 01/12/25 01/13/25 23:59 23:59 23:59 23:59 Intake Total 1241.2 2822.5 701.3 Output Total 200 1925 700 Balance 1041.2 897.5 1.3 Meds/Results Medications: Active Medications Generic Name Dose Route Start Last Admin Trade Name Walkerq PRN Reason Stop Dose Admin Acetaminophen 650 mg 01/11/25 14:42 Acetaminophen 325 Mg Tablet PO Q4H PRN Mild Pain (1-3) or Fever Aspirin 81 mg 01/12/25 09:00 01/13/25 09:04 Aspirin 81 Mg Enteric Tablet PO 81 mg DAILY JESSI Administration Dextrose 12.5 gm 01/11/25 14:42 Dextrose 50% 25 Gm/50 Ml Syringe IV PUSH PRN PRN Hypoglycemia Protocol Docusate Sodium 100 mg 01/11/25 17:00 01/13/25 09:05 Docusate Sodium 100 Mg Capsule PO Not Given BID JESSI Glucagon 1 mg 01/11/25 14:42 Glucagon For Inj 1 Mg Vial IM PRN PRN Hypoglycemia Protocol Glucose 15 gm 01/11/25 14:42 Glucose Oral Gel 15 Gm Of Glucse In 37.5 Gm Tube PO PRN PRN Hypoglycemia Protocol Ceftriaxone Sodium 1 gm/ 50 mls @ 100 mls/hr 01/12/25 09:00 01/13/25 10:13 Sodium Chloride IVPB 100 mls/hr QAM JESSI Administration Sodium Chloride 1,000 mls @ 75 mls/hr 01/11/25 14:45 01/13/25 02:23 Normal Saline Iv IV CONT 75 mls/hr .[id number] JESSI Administration Dextrose 1,000 mls @ 100 mls/hr 01/11/25 14:42 Dextrose 5% 1,000 Ml IVPB PRN PRN Hypoglycemia Protocol Insulin Aspart 2 - 5 units 01/11/25 17:00 01/13/25 08:14 Insulin Aspart (*Bkc) 100 Units/Ml SUB-Q Not Given TIDWM JESSI Protocol Insulin Glargine 48 units 01/12/25 09:00 01/13/25 08:32 Insulin Glargine (*Bkc) 100 Units/Ml SUB-Q Not Given QAM JESSI Insulin Glargine 42 units 01/11/25 21:00 01/12/25 20:41 Insulin Glargine (*Bkc) 100 Units/Ml SUB-Q 42 units HS JESSI Administration Levetiracetam 500 mg 01/11/25 21:00 01/13/25 09:04 Levetiracetam 500 Mg Tablet PO 500 mg Q12HR JESSI Administration Lisinopril 10 mg 01/12/25 09:00 01/13/25 09:04 Lisinopril 10 Mg Tablet PO 10 mg DAILY JESSI Administration Metoprolol Succinate 50 mg 01/13/25 09:00 01/13/25 09:04 Metoprolol Succinate Ext Rel 50 Mg Tabcr BY MOUTH 50 mg QAM JESSI Administration Rosuvastatin Calcium 20 mg 01/12/25 09:00 01/13/25 09:04 Rosuvastatin 20 Mg Tablet PO 20 mg DAILY JESSI Administration Tamsulosin HCl 0.4 mg 01/12/25 09:00 01/13/25 09:04 Tamsulosin Hcl 0.4 Mg Capsule BY MOUTH 0.4 mg QAM JESSI Administration Radiology Results: ITS Impressions Head CT 01/11/25 10:50 Impression: 1.No acute intracranial abnormality. Head/Neck CTA 01/11/25 10:51 IMPRESSION: 1. No critical stenosis, occlusion or aneurysm is identified. 2. Significant stenosis of the left ICA. Follow-up is recommended to assess Chest/Abdomen/Pelvis CT 01/11/25 10:53 IMPRESSION: No acute abnormality is seen. Other findings as described. Brain MRI 01/12/25 10:42 IMPRESSION: 1. No acute infarct or hemorrhage. Labs Labs: Laboratory Results - last 24 hr 01/12/25 01/12/25 01/12/25 11:13 17:07 20:01 POC Capillary Glucose 148 H 189 H 162 H 01/13/25 01/13/25 07:53 08:28 POC Capillary Glucose 68 119 H
--- NOTE | 2025-01-13 12:03 | P.PNIM_ITS ---
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 Had some trembling of his hands. Wake him up and EMS was called. When EMS arrived he was unresponsive but the time they got into the ambulance he was returning back to his baseline. He was noted to have mild pronator drift on right side with some facial asymmetry. Facial drooping chronic per family. Patient does have history of CVA past. CT brain did not show any acute finding. 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 CP was considered and discussed with the family however given unclear chronicity of his symptoms unclear etiology of his presentation low NIH score and advance age it was felt the risk outweighed the benefits. Prior history of seizures and on Keppra. No witnessed generalized tonic-clonic seizure activity. Loaded with Keppra 1500 mg. Vitals were stable on presentation Laboratory workup with WBC of 7.2 hemoglobin 11.2 platelet count 121. Chem panel showed sodium 135 potassium 3.4. Chloride 105 bicarbonate 28 BUN 17 creatinine 0.9 blood glucose of 157. Lactate was normal at 1.5 TSH 5.6 troponin was negative LFTs were normal. Urinalysis with 51-100 urine WBC with positive leukocyte esterase. Suggestive of UTI. Ethyl alcohol level less than 10. Influenza RSV COVID swab was negative. EKG showed normal sinus rhythm. CT Chest abdomen pelvis showed no acute findings. Telemetry revealed 24 beats of V-tach on nuclear monitoring technician. Patient has chronic indwelling catheter Singh catheter was replaced. Per Neurology follow-up visit he has had recurrent spells of unresponsiveness and has been started on Keppra for that reason. Cardiac monitoring in the past has not revealed any findings. However a loop recorder has been advised in the past with regard to these episodes. Echo with bubble EEG MRI had been ordered and is pending Syncope versus seizure UTI catheter associated IV Rocephin follow urine culture. History of ESBL in the past October 2023. Urine culture pending Nonsustained ventricular tachycardia 28 beats in ER. No further episodes. Cardiology consulted. Event monitor at discharge, consideration of loop recorder. Metoprolol uptitrated as conservative management desired. 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 Telemetry reviewed. Denies any new complaints. Review of Systems Review of Systems: 12 systems were reviewed and are negativ e except for as per HPI. Exam Narrative: General: well appearing, appears stated age. HEENT: normocephalic, atraumatic. Mucous membranes moist. Left eye not present, possible skin flap face asymmetrical a baseline Respiratory: clear bilaterally. No rales/rhonic/wheezes. Cardiovascular: Regular rate and rhythm, normal S1-S2. No murmurs, rubs, or clicks Abdomen: Soft, round, no pulsatile masses, nondistended and nontender. Extremities: No cyanosis, clubbing, or edema present. Pulses are palpable 2/2. Generalized weakness Neuro: Alert and orientated x 4. Cranial nerves 2-12 intact without focal deficit. Skin: Warm, dry, and intact, without rash, erythema, or lesion. Psych: pleasant, cooperative, normal speech, normal affect, no hallucinations, no dysarthia Objective Data Vital Signs Vital Signs: Vital Signs - 24 hr 01/12/25 13:14 01/12/25 14:00 01/12/25 14:46 Temperature Pulse Rate 77 Respiratory Rate Blood Pressure Pulse Oximetry Oxygen Delivery Room Air Room Air 01/12/25 16:00 01/12/25 16:00 01/12/25 18:00 Temperature 97.9 F Pulse Rate 115 H 69 66 Respiratory Rate 18 Blood Pressure 146/73 H Pulse Oximetry 98 Oxygen Delivery 01/12/25 20:00 01/12/25 20:00 01/12/25 22:00 Temperature 98.6 F Pulse Rate 63 69 70 Respiratory Rate 18 Blood Pressure 108/43 L Pulse Oximetry 92 Oxygen Delivery 01/12/25 23:44 01/13/25 00:00 01/13/25 00:00 Temperature 98.7 F Pulse Rate 70 71 Respiratory Rate 18 Blood Pressure 110/55 L Pulse Oximetry 96 Oxygen Delivery Room Air 01/13/25 04:00 01/13/25 04:00 01/13/25 06:00 Temperature 97.5 F L Pulse Rate 67 63 63 Respiratory Rate 18 Blood Pressure 98/35 L Pulse Oximetry 96 Oxygen Delivery Room Air 01/13/25 08:00 01/13/25 09:04 01/13/25 12:00 Temperature 97.1 F L 98.8 F Pulse Rate 74 82 69 Respiratory Rate 20 24 H Blood Pressure 142/57 H 139/59 L Pulse Oximetry 100 97 Oxygen Delivery Intake/Output Intake/Output: Intake & Output 01/10/25 01/11/25 01/12/25 01/13/25 23:59 23:59 23:59 23:59 Intake Total 1241.2 2822.5 701.3 Output Total 200 1925 700 Balance 1041.2 897.5 1.3 Meds/Results Medications: Active Medications Generic Name Dose Route Start Last Admin Trade Name Freq PRN Reason Stop Dose Admin Acetaminophen 650 mg 01/11/25 14:42 Acetaminophen 325 Mg Tablet PO Q4H PRN Mild Pain (1-3) or Fever Aspirin 81 mg 01/12/25 09:00 01/13/25 09:04 Aspirin 81 Mg Enteric Tablet PO 81 mg DAILY JESSI Administration Dextrose 12.5 gm 01/11/25 14:42 Dextrose 50% 25 Gm/50 Ml Syringe IV PUSH PRN PRN Hypoglycemia Protocol Docusate Sodium 100 mg 01/13/25 21:00 Docusate Sodium 100 Mg Capsule PO Q12HR JESSI Glucagon 1 mg 01/11/25 14:42 Glucagon For Inj 1 Mg Vial IM PRN PRN Hypoglycemia Protocol Glucose 15 gm 01/11/25 14:42 Glucose Oral Gel 15 Gm Of Glucse In 37.5 Gm Tube PO PRN PRN Hypoglycemia Protocol Ceftriaxone Sodium 1 gm/ 50 mls @ 100 mls/hr 01/12/25 09:00 01/13/25 10:13 Sodium Chloride IVPB 100 mls/hr QAM JESSI Administration Sodium Chloride 1,000 mls @ 75 mls/hr 01/11/25 14:45 01/13/25 02:23 Normal Saline Iv IV CONT 75 mls/hr .[id number] JESSI Administration Dextrose 1,000 mls @ 100 mls/hr 01/11/25 14:42 Dextrose 5% 1,000 Ml IVPB PRN PRN Hypoglycemia Protocol Insulin Aspart 2 - 5 units 01/11/25 17:00 01/13/25 11:58 Insulin Aspart (*Bkc) 100 Units/Ml SUB-Q Not Given TIDWM [facility] Protocol Insulin Glargine 48 units 01/12/25 09:00 01/13/25 08:32 Insulin Glargine (*Bkc) 100 Units/Ml SUB-Q Not Given QAM JESSI Insulin Glargine 42 units 01/11/25 21:00 01/12/25 20:41 Insulin Glargine (*Bkc) 100 Units/Ml SUB-Q 42 units HS JESSI Administration Levetiracetam 500 mg 01/11/25 21:00 01/13/25 09:04 Levetiracetam 500 Mg Tablet PO 500 mg Q12HR JESSI Administration Lisinopril 10 mg 01/12/25 09:00 01/13/25 09:04 Lisinopril 10 Mg Tablet PO 10 mg DAILY JESSI Administration Metoprolol Succinate 50 mg 01/13/25 09:00 01/13/25 09:04 Metoprolol Succinate Ext Rel 50 Mg Tabcr BY MOUTH 50 mg QAM JESSI Administration Rosuvastatin Calcium 20 mg 01/12/25 09:00 01/13/25 09:04 Rosuvastatin 20 Mg Tablet PO 20 mg DAILY JESSI Administration Tamsulosin HCl 0.4 mg 01/12/25 09:00 01/13/25 09:04 Tamsulosin Hcl 0.4 Mg Capsule BY MOUTH 0.4 mg QAM JESSI Administration Radiology Results: ITS Impressions Head CT 01/11/25 10:50 Impression: 1.No acute intracranial abnormality. Head/Neck CTA 01/11/25 10:51 IMPRESSION: 1. No critical stenosis, occlusion or aneurysm is identified. 2. Significant stenosis of the left ICA. Follow-up is recommended to assess Chest/Abdomen/Pelvis CT 01/11/25 10:53 IMPRESSION: No acute abnormality is seen. Other findings as described. Brain MRI 01/12/25 10:42 IMPRESSION: 1. No acute infarct or hemorrhage. Labs Labs: Laboratory Results - last 24 hr 01/12/25 01/12/25 01/12/25 11:13 17:07 20:01 POC Capillary Glucose 148 H 189 H 162 H 01/13/25 01/13/25 07:53 08:28 POC Capillary Glucose 68 119 H
--- NOTE | 2025-01-13 13:41 | PC.NURSE ---
This patient, Derrell Berkowitz, was transferred to [ [facility]] on 01/13/25 at 1341. Personal belongings sent with patient. Report given to [[email or web address] ]. Appropriate documentation sent with patient.
[2025-01-13] MEDS: DOCUSATE SODIUM 100 MG CAPSULE PO (20:29)
[2025-01-13] MEDS: INSULIN GLARGINE (*BKC) 100 UNITS/ML 42 UNITS SUB-Q (20:33)
[2025-01-14] VITALS (10 sets, daily range): BP systolic 126–138; BP diastolic 66–71; PULSE 59–79; RESP 18; TEMP 36.2–36.6; O2SAT 98–100
--- NOTE | 2025-01-14 01:57 | PC.NURSE ---
0140: SPOT CHECK BLOOD SUGAR OF 52. PHYSICIAN BEDSIDE. AT PATIENT REQUEST, HE WAS GIVEN APPLE JUICE, VLAD CRACKERS AND PEANUT BUTTER. 0200: RECHECK BS 85.
[2025-01-14 05:45] LABS: Hematocrit 33.9 % (42.0-52.0); Hemoglobin 11.0 g/dL (14.0-18.0); Immature Granulocyte Percent A 0.4 % (0-0.5); Immature Platelet Fraction Pct 7.7 % (0.9-11.2); Lymphocytes Absolute Auto 1.91 K/mm3 (0.9-3.2); Mean Corpuscular HGB Conc 32.4 g/dl (32-36); Mean Corpuscular Hemoglobin 29.8 pg (26-34); Mean Corpuscular Volume 91.9 fl (80-100); Nucleated Red Blood Cells Absolute Auto 0.000 K/mm3 (0.0-0.012); Nucleated Red Blood Cells Perc 0.0 % (0.0-0.2); Platelet Count Result 116 k/mm3 (150-375); Red Blood Count 3.69 M/mm3 (4.6-6.20); White Blood Count 7.6 K/mm3 (4.5-10.0)
[2025-01-14 06:04] LABS: Alanine Aminotransferase 19 U/L (6-50); Albumin Level 2.9 g/dL (3.5-5.1); Alkaline Phosphatase 84 U/L (38-126); Anion Gap 1 mmol/L (4-12); Aspartate Amino Transferase 25 U/L (17-59); Bilirubin,Total 0.5 mg/dL (0.2-1.3); Blood Urea Nitrogen 11 mg/dL (9-20); Calcium 8.3 mg/dL (8.4-10.2); Carbon Dioxide 26 mmol/L (22-30); Chloride 110 mmol/L (98-107); Estimated CRCL calculation 61 ml/min; Estimated Glomerular Filt Rate > 60; Glucose 119 mg/dL (65-110); Magnesium 2.2 mg/dL (1.6-2.3); Potassium 3.5 mmol/L (3.4-5.0); Sodium 137 mmol/L (137-145); Total Protein 5.4 g/dL (6.3-8.2)
[2025-01-14] MEDS: ASPIRIN 81 MG ENTERIC TABLET PO (08:38)
[2025-01-14] MEDS: ROSUVASTATIN 20 MG TABLET PO (08:38)
[2025-01-14] MEDS: TAMSULOSIN HCL 0.4 MG CAPSULE BY MOUTH (08:38)
[2025-01-14] MEDS: DOCUSATE SODIUM 100 MG CAPSULE PO ×2 (08:39→21:50)
[2025-01-14] MEDS: cefTRIAXone 1 GM in SODIUM CHLORIDE 0.9% IV 50 ML 100 ML IVPB (08:39)
[2025-01-14] MEDS: METOPROLOL SUCCINATE EXT REL 50 MG TABCR BY MOUTH (08:40)
[2025-01-14] MEDS: INSULIN GLARGINE (*BKC) 100 UNITS/ML 48 UNITS SUB-Q (09:23)
--- NOTE | 2025-01-14 11:40 | PM.IMPN ---
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 Had some trembling of his hands. Wake him up and EMS was called. When EMS arrived he was unresponsive but the time they got into the ambulance he was returning back to his baseline. He was noted to have mild pronator drift on right side with some facial asymmetry. Facial drooping chronic per family. Patient does have history of CVA past. CT brain did not show any acute finding. 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 CP was considered and discussed with the family however given unclear chronicity of his symptoms unclear etiology of his presentation low NIH score and advance age it was felt the risk outweighed the benefits. Prior history of seizures and on Keppra. No witnessed generalized tonic-clonic seizure activity. Loaded with Keppra 1500 mg. Vitals were stable on presentation Laboratory workup with WBC of 7.2 hemoglobin 11.2 platelet count 121. Chem panel showed sodium 135 potassium 3.4. Chloride 105 bicarbonate 28 BUN 17 creatinine 0.9 blood glucose of 157. Lactate was normal at 1.5 TSH 5.6 troponin was negative LFTs were normal. Urinalysis with 51-100 urine WBC with positive leukocyte esterase. Suggestive of UTI. Ethyl alcohol level less than 10. Influenza RSV COVID swab was negative. EKG showed normal sinus rhythm. CT Chest abdomen pelvis showed no acute findings. Telemetry revealed 24 beats of V-tach on secured entrance monitor. Patient has chronic indwelling catheter Singh catheter was replaced. Per Neurology follow-up visit he has had recurrent spells of unresponsiveness and has been started on Keppra for that reason. Cardiac monitoring in the past has not revealed any findings. However a loop recorder has been advised in the past with regard to these episodes. Echo with bubble EEG MRI had been ordered and is pending Syncope versus seizure UTI catheter associated IV Rocephin follow urine culture. History of ESBL in the past October 2023. Urine culture growing Gram-negative bacilli identification pending Nonsustained ventricular tachycardia 28 beats in ER. No further episodes. Cardiology consulted. Event monitor at discharge, consideration of loop recorder. Metoprolol uptitrated as conservative management desired. 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 Repeat brain MRI negative for acute findings Chronic Singh catheter History of DVT right lower extremity December 2022 CKD stage 3 Hypertension Hyperlipidemia Type 2 diabetes on insulin lower insulin dosing BPH Mitral valve prolapse Frequent falls History of prostate cancer diagnosed in 2008 DVT prophylaxis Code status full code Wheelchair-bound status Subjective Date/time seen: 01/14/25 11:40 Interval history: No overnight events. Telemetry reviewed. Denies any new complaints. Review of Systems Review of Systems: 12 systems were reviewed and are negative except for as per HPI. Exam Narrative: General: well appearing, appears stated age. HEENT: normocephalic, atraumatic. Mucous membranes moist. Left eye not present, possible skin flap face asymmetrical a baseline Respiratory: clear bilaterally. No rales/rhonic/wheezes. Cardiovascular: Regular rate and rhythm, normal S1-S2. No murmurs, rubs, or clicks Abdomen: Soft, round, no pulsatile masses, nondistended and nontender. Extremities: No cyanosis, clubbing, or edema present. Pulses are palpable 2/2. Generalized weakness Neuro: Alert and orientated x 4. Cranial nerves 2-12 intact without focal deficit. Skin: Warm, dry, and intact, without rash, erythema, or lesion. Psych: pleasant, cooperative, normal speech, normal affect, no hallucinations, no dysarthia Objective Data Vital Signs Vital Signs: Vital Signs - 24 hr 01/13/25 12:00 01/13/25 12:00 01/13/25 16:00 Temperature 98.8 F Pulse Rate 69 71 64 Respiratory Rate 24 H Blood Pressure 139/59 L Pulse Oximetry 97 Oxygen Delivery 01/13/25 20:00 01/13/25 20:00 01/13/25 20:26 Temperature 97.8 F Pulse Rate 61 58 L Respiratory Rate 18 Blood Pressure 120/60 Pulse Oximetry 97 Oxygen Delivery Room Air 01/13/25 20:52 01/14/25 00:00 01/14/25 04:14 Temperature Pulse Rate 61 79 Respiratory Rate Blood Pressure Pulse Oximetry 96 Oxygen Delivery Room Air 01/14/25 05:13 01/14/25 08:00 01/14/25 08:00 Temperature 97.1 F L Pulse Rate 60 79 Respiratory Rate 18 Blood Pressure 126/66 Pulse Oximetry 98 Oxygen Delivery Room Air 01/14/25 08:40 Temperature Pulse Rate 74 Respiratory Rate Blood Pressure Pulse Oximetry Oxygen Delivery Intake/Output Intake/Output: Intake & Output 01/11/25 01/12/25 01/13/25 01/14/25 23:59 23:59 23:59 23:59 Intake Total 1241.2 2822.5 2231.3 1090 Output Total 200 4046 497 6666 Balance 1041.2 897.5 1531.3 -2510 Meds/Results Medications: Active Medications Generic Name Dose Route Start Last Admin Trade Name Yeny PRN Reason Stop Dose Admin Acetaminophen 650 mg 01/11/25 14:42 Acetaminophen 325 Mg Tablet PO Q4H PRN Mild Pain (1-3) or Fever Aspirin 81 mg 01/12/25 09:00 01/14/25 08:38 Aspirin 81 Mg Enteric Tablet PO 81 mg DAILY JESSI Administration Dextrose 12.5 gm 01/11/25 14:42 Dextrose 50% 25 Gm/50 Ml Syringe IV PUSH PRN PRN Hypoglycemia Protocol Docusate Sodium 100 mg 01/13/25 21:00 01/14/25 08:39 Docusate Sodium 100 Mg Capsule PO 100 mg Q12HR JESSI Administration Glucagon 1 mg 01/11/25 14:42 Glucagon For Inj 1 Mg Vial IM PRN PRN Hypoglycemia Protocol Glucose 15 gm 01/11/25 14:42 Glucose Oral Gel 15 Gm Of Glucse In 37.5 Gm Tube PO PRN PRN Hypoglycemia Protocol Ceftriaxone Sodium 1 gm/ 50 mls @ 100 mls/hr 01/12/25 09:00 01/14/25 08:39 Sodium Chloride IVPB 100 mls/hr QAM JESSI Administration Sodium Chloride 1,000 mls @ 75 mls/hr 01/11/25 14:45 01/13/25 18:05 Normal Saline Iv IV CONT 75 mls/hr .[id number] JESSI Administration Dextrose 1,000 mls @ 100 mls/hr 01/11/25 14:42 Dextrose 5% 1,000 Ml IVPB PRN PRN Hypoglycemia Protocol Insulin Aspart 2 - 5 units 01/11/25 17:00 01/14/25 07:56 Insulin Aspart (*Bkc) 100 Units/Ml SUB-Q Not Given TIDWM JESSI Protocol Insulin Glargine 48 units 01/12/25 09:00 01/14/25 09:23 Insulin Glargine (*Bkc) 100 Units/Ml SUB-Q 48 units QAM JESSI Administration Insulin Glargine 42 units 01/11/25 21:00 01/13/25 20:33 Insulin Glargine (*Bkc) 100 Units/Ml SUB-Q 42 units HS JESSI Administration Levetiracetam 500 mg 01/11/25 21:00 01/14/25 08:39 Levetiracetam 500 Mg Tablet PO 500 mg Q12HR JESSI Administration Lisinopril 10 mg 01/12/25 09:00 01/14/25 08:38 Lisinopril 10 Mg Tablet PO 10 mg DAILY JESSI Administration Metoprolol Succinate 50 mg 01/13/25 09:00 01/14/25 08:40 Metoprolol Succinate Ext Rel 50 Mg Tabcr BY MOUTH 50 mg QAM JESSI Administration Rosuvastatin Calcium 20 mg 01/12/25 09:00 01/14/25 08:38 Rosuvastatin 20 Mg Tablet PO 20 mg DAILY JESSI Administration Tamsulosin HCl 0.4 mg 01/12/25 09:00 01/14/25 08:38 Tamsulosin Hcl 0.4 Mg Capsule BY MOUTH 0.4 mg QAM JESSI Administration Radiology Results: ITS Impressions Head CT 01/11/25 10:50 Impression: 1.No acute intracranial abnormality. Head/Neck CTA 01/11/25 10:51 IMPRESSION: 1. No critical stenosis, occlusion or aneurysm is identified. 2. Significant stenosis of the left ICA. Follow-up is recommended to assess Chest/Abdomen/Pelvis CT 01/11/25 10:53 IMPRESSION: No acute abnormality is seen. Other findings as described. Brain MRI 01/12/25 10:42 IMPRESSION: 1. No acute infarct or hemorrhage. Labs Labs: Laboratory Results - last 24 hr 01/13/25 01/13/25 01/13/25 11:22 17:20 20:33 WBC RBC Hgb Hct MCV MCH MCHC RDW Plt Count MPV Immature Gran % (Auto) Neut % (Auto) Lymph % (Auto) [place] % (Auto) Eos % (Auto) Baso % (Auto) Lymph # (Auto) [place] # (Auto) Eos # (Auto) Baso # (Auto) Abs Immat Gran (auto) Absolute Neuts (auto) Absolute Nucleated RBC Nucleated RBC % % Immature Plt Fraction Sodium Potassium Chloride Carbon Dioxide Anion Gap BUN Creatinine Estim Creat Clear Calc Estimated GFR Glucose POC Capillary Glucose 153 H 103 156 H Calcium Magnesium Total Bilirubin AST ALT Alkaline Phosphatase Total Protein Albumin 01/14/25 01/14/25 01/14/25 00:38 01:27 05:29 WBC 7.6 RBC 3.69 L Hgb 11.0 L Hct 33.9 L MCV 91.9 MCH 29.8 MCHC 32.4 RDW 14.4 Plt Count 116 L MPV 11.6 H Immature Gran % (Auto) 0.4 Neut % (Auto) 67.6 Lymph % (Auto) 25.1 [place] % (Auto) 6.1 Eos % (Auto) 0.7 Baso % (Auto) 0.1 L Lymph # (Auto) 1.91 [place] # (Auto) 0.5 Eos # (Auto) 0.1 Baso # (Auto) 0.0 Abs Immat Gran (auto) 0.03 Absolute Neuts (auto) 5.1 Absolute Nucleated RBC 0.000 Nucleated RBC % 0.0 % Immature Plt Fraction 7.7 Sodium 137 Potassium 3.5 Chloride 110 H Carbon Dioxide 26 Anion Gap 1 L BUN 11 D Creatinine 0.78 Estim Creat Clear Calc 61 Estimated GFR > 60 Glucose 119 H POC Capillary Glucose 52 L* 85 Calcium 8.3 L Magnesium 2.2 Total Bilirubin 0.5 AST 25 ALT 19 Alkaline Phosphatase 84 Total Protein 5.4 L Albumin 2.9 L 01/14/25 07:32 WBC RBC Hgb Hct MCV MCH MCHC RDW Plt Count MPV Immature Gran % (Auto) Neut % (Auto) Lymph % (Auto) [place] % (Auto) Eos % (Auto) Baso % (Auto) Lymph # (Auto) [place] # (Auto) Eos # (Auto) Baso # (Auto) Abs Immat Gran (auto) Absolute Neuts (auto) Absolute Nucleated RBC Nucleated RBC % % Immature Plt Fraction Sodium Potassium Chloride Carbon Dioxide Anion Gap BUN Creatinine Estim Creat Clear Calc Estimated GFR Glucose POC Capillary Glucose 78 Calcium Magnesium Total Bilirubin AST ALT Alkaline Phosphatase Total Protein Albumin
[2025-01-14] MEDS: INSULIN GLARGINE (*BKC) 100 UNITS/ML 20 UNITS SUB-Q (21:51)
[2025-01-14] MEDS: SODIUM CHLORIDE 0.9% IV 1,000 ML 75 ML IV CONT (21:53)
[2025-01-15] VITALS (8 sets, daily range): BP systolic 110–152; BP diastolic 59–65; PULSE 54–82; RESP 16–18; TEMP 36.4; O2SAT 96–100
[2025-01-15 06:05] LABS: Hematocrit 34.8 % (42.0-52.0); Hemoglobin 10.8 g/dL (14.0-18.0); Immature Granulocyte Percent A 0.3 % (0-0.5); Immature Platelet Fraction Pct 10.0 % (0.9-11.2); Lymphocytes Absolute Auto 1.14 K/mm3 (0.9-3.2); Mean Corpuscular HGB Conc 31.0 g/dl (32-36); Mean Corpuscular Hemoglobin 29.1 pg (26-34); Mean Corpuscular Volume 93.8 fl (80-100); Nucleated Red Blood Cells Absolute Auto 0.000 K/mm3 (0.0-0.012); Nucleated Red Blood Cells Perc 0.0 % (0.0-0.2); Platelet Count Result 116 k/mm3 (150-375); Red Blood Count 3.71 M/mm3 (4.6-6.20); White Blood Count 7.7 K/mm3 (4.5-10.0)
[2025-01-15 06:41] LABS: Alanine Aminotransferase 23 U/L (6-50); Albumin Level 2.8 g/dL (3.5-5.1); Alkaline Phosphatase 69 U/L (38-126); Anion Gap 2 mmol/L (4-12); Aspartate Amino Transferase 27 U/L (17-59); Bilirubin,Total 0.5 mg/dL (0.2-1.3); Blood Urea Nitrogen 9 mg/dL (9-20); Calcium 8.4 mg/dL (8.4-10.2); Carbon Dioxide 29 mmol/L (22-30); Chloride 111 mmol/L (98-107); Estimated CRCL calculation 60 ml/min; Estimated Glomerular Filt Rate > 60; Glucose 56 mg/dL (65-110); Magnesium 2.4 mg/dL (1.6-2.3); Potassium 4.1 mmol/L (3.4-5.0); Sodium 142 mmol/L (137-145); Total Protein 5.6 g/dL (6.3-8.2)
[2025-01-15] MEDS: METOPROLOL SUCCINATE EXT REL 50 MG TABCR BY MOUTH (09:19)
[2025-01-15] MEDS: TAMSULOSIN HCL 0.4 MG CAPSULE BY MOUTH (09:19)
[2025-01-15] MEDS: ASPIRIN 81 MG ENTERIC TABLET PO (09:19)
[2025-01-15] MEDS: ROSUVASTATIN 20 MG TABLET PO (09:20)
[2025-01-15] MEDS: cefTRIAXone 1 GM in SODIUM CHLORIDE 0.9% IV 50 ML 100 ML IVPB (09:21)
--- NOTE | 2025-01-15 11:03 | WPDNEURCNPN ---
Assessment and Plan Assessment and plan (1) Seizure disorder: Code(s): G40.909 - Epilepsy, unspecified, not intractable, without status epilepticus Status: Acute Assessment and Plan: patient has history of seizure disorder and has been followed up at my office. I have advised to increase the dose of Keppra to 750 mg twice a day on the last visit on 06/04/2024 but it appears that he is still on 500 mg twice a day palate raises back to 750 mg twice a day. (2) Cerebrovascular accident (CVA) with left hemiparesis: Status: Acute (3) Left carotid artery stenosis: Code(s): I65.22 - Occlusion and stenosis of left carotid artery Status: Acute Assessment and Plan: CT angiogram head and neck shows a 50% narrowing of the left internal carotid artery. I will suggest a carotid ultrasound for further clarification of this finding since there was a question of some right arm weakness and speech difficulty at the time the presentation hence a possibility of transient ischemic attack in the differential diagnosis with the seizure would still be a consideration. (4) Hypertension: Code(s): I10 - Essential (primary) hypertension Status: Chronic (5) NSVT (nonsustained ventricular tachycardia): Code(s): I47.29 - Other ventricular tachycardia Status: Acute Assessment and Plan: Patient is being evaluated by lead etl developer. (6) Hyperlipidemia: Code(s): E78.5 - Hyperlipidemia, unspecified Status: Acute Assessment and Plan: The patient is on rosuvastatin 20 mg a day and that should be continued. Last LDL was 56 on 12/04/2024. (7) Diabetes mellitus: Qualifiers: Diabetes mellitus type: type 2 Diabetes mellitus retirement insulin use: with retirement use Diabetes mellitus complication status: with neurologic complications Diabetes mellitus complication detail: with unspecified neuropathy Qualified Code(s): E11.40 - Type 2 diabetes mellitus with diabetic neuropathy, unspecified; Z79.4 - jail (current) use of insulin Code(s): E11.9 - Type 2 diabetes mellitus without complications Status: Acute Plan As discussed above. Consult date: 01/15/25 HPI: Derrell Berkowitz is a 89 year old male With history of seizure disorder and previous CVA in 2008 with residual mild finding on the left side of the body and loss of left eye came into the hospital with having a spell of loss of consciousness at home. He was seen by me on 06/04/2024 and advised him to increase the dose of Keppra from 500-750 mg twice a day but apparently his records reflect that he is still on 500 mg twice a day. Patient also history diabetes mellitus. CT scan of brain did not show any significant abnormality. CT angiogram of the head and neck shows a 50% narrowing of the left internal carotid artery. There was also a brief ventricular tachycardia for which she is being evaluated by lead etl developer. According to the history was being post to the dining room when he suddenly became unresponsive. EMS was called because the could not wake him up. According to the half-way staff they did not notice him having a seizure. Patient is back to his normal status. Initial workup including toxicology screen was unremarkable. Apparently nobody saw him have any jerking of the body. According to the emergency room notes the patient could not answer to the orientation questions appropriately. At the time of this evaluation patient is able to talk give a reasonable history but he does not know what happened prior to his presentation emergency room. But I saw him on 06/04/2024 in my office I was told that he had 2 spells of seizures and hence I have advised to increase the dose of Keppra to 750 mg twice a day. I noted that on this admission on 2 occasions serum glucose was less than 60. His LDL on 12/09/2024 was 56 and is currently on Crestor 20 mg a day. His GFR is within normal range although there is a history of chronic kidney disease. MRI of the brain was performed which shows significant white matter changes but no acute findings were noted. Review of Systems Review of Systems: Patient denies any headache. Patient with a chronic indwelling Singh catheter. He was started on ceftriaxone in the emergency room In view of the suspicion of urinary tract infection. His WBC count was 7.2. patient denies any weakness of the right side of the body. He does know that he had a stroke in 2008 that left him with weakness in the left side of body. Patient is still somewhat vague about some of the history is. When asked to explain what happened to the left eye and how come he has a skin graft on that he could not tell me exactly what happened. All systems reviewed & are unremarkable except as noted in HPI and below [facility] Past Medical History Medical History (Updated 01/15/25 @ 11:13 by Adin Piper MD) Left carotid artery stenosis Seizure disorder Sepsis without septic shock Acute UTI Acute UTI Seizure disorder Cerebrovascular accident (CVA) with left hemiparesis Chronic indwelling Singh catheter Blind left eye Mitral valve prolapse Cerebrovascular accident (05/2008) Residual left-sided weakness. Benign prostatic hyperplasia Deep vein thrombosis of right lower extremity Pneumonia UTI (urinary tract infection) Frequent falls Chronic pain Urinary tract infection Anemia Syncope Prostate cancer Diagnosed in 2008. Chronic kidney disease, stage 3 Hyperlipidemia Hypertension Insulin dependent type 2 diabetes mellitus Shingles Arthritis History of rectal polyps Diverticulitis Surgical History Surgical History History of orthopedic surgery ORIF left tib-fib fracture. Family History Family History Sibling Hypertension Cerebrovascular accident Family history of malignant neoplasm Family history of diabetes mellitus in first degree relative Mother Family history of malignant neoplasm, Onset Age: 75 Patient's mother is Father Carcinoma of colon, Onset Age: 67 Patient's father is Social History Social History Social History: Surrogate medical decision maker: Edeino Woo, spouse. Code status: Full code. Smoking status: Never smoker Alcohol intake: never Substance use: never Substance use type: does not use Lack of Transportation: No Lack of Food: Never True Current Housing: I Have Housing Concerned About Future Housing: No Difficulty Paying Gas/Electric Bills: No Difficulty Paying for Meds: No Currently Unemployed: No Education: Decline to Answer Difficulty w/ Childcare or Family Care: No Additional living arrangements comments: He lives at home with his . Additional occupation/education comments: Retired from [employer]. Spiritual care concerns: No Agree to blood products: Yes Meds Home Medications and Allergies Home Medications ?Medication ?Instructions ?Recorded ?Confirmed ?Type pen needle, diabetic 31 gauge x #100 ea 10/08/22 01/11/25 Rx 3/16 (BD Ultra-Fine Mini Pen Needle) hospital bed #1 ea 02/26/23 01/11/25 Rx mattress overlay #1 ea 02/26/23 01/11/25 Rx trapeze bar #1 ea 02/26/23 01/11/25 Rx aspirin 81 mg tablet,delayed 81 mg PO DAILY 04/11/23 01/11/25 History release tamsulosin 0.4 mg capsule See Rx Instructions .Route 03/21/24 01/11/25 Rx .COMPLEX #90 caps blood-glucose,nurse gynecology,cont #1 ea 06/08/24 01/11/25 Rx (Dexcom G7 Control Systems Specialist) rosuvastatin 20 mg tablet 20 mg PO DAILY #90 tabs 06/08/24 01/11/25 Rx blood sugar diagnostic (OneTouch #200 strips 06/13/24 01/11/25 Rx Ultra Test strips) cephalexin 250 mg capsule 250 mg PO DAILY 07/25/24 01/11/25 History nitrofurantoin 100 mg PO DAILY 07/25/24 01/11/25 History monohydrate/macrocrystals 100 mg capsule (Macrobid) blood-glucose sensor (Dexcom G7 #3 ea 10/17/24 01/11/25 Rx Sensor device) insulin glargine 100 unit/mL (3 48 unit subcut QAM 11/21/24 01/11/25 History mL) subcutaneous pen (Lantus Solostar U-100 Insulin) levetiracetam 500 mg tablet 500 mg PO BID 11/21/24 01/11/25 History lisinopril 10 mg tablet 10 mg PO DAILY 11/21/24 01/11/25 History metoprolol succinate 25 mg See Rx Instructions .Route 12/21/24 01/11/25 Rx tablet,extended release 24 hr .COMPLEX #45 tabs Allergies Allergy/AdvReac Type Severity Reaction Status Date / Time No Known Allergies Allergy Verified 01/11/25 14:43 Vital Signs Vital Signs - 24 hr 01/14/25 12:00 01/14/25 14:00 01/14/25 16:00 Temperature 97.4 F L Pulse Rate 63 62 59 L Respiratory Rate 18 Blood Pressure 136/71 Pulse Oximetry 100 Oxygen Delivery 01/14/25 20:00 01/14/25 20:00 01/14/25 21:20 Temperature 97.9 F Pulse Rate 61 64 Respiratory Rate 18 Blood Pressure 138/70 Pulse Oximetry 98 Oxygen Delivery Room Air 01/15/25 00:00 01/15/25 04:00 01/15/25 06:00 Temperature 97.5 F L Pulse Rate 55 L 58 L 54 L Respiratory Rate 18 Blood Pressure 110/59 L Pulse Oximetry 100 Oxygen Delivery 01/15/25 09:09 01/15/25 09:19 Temperature Pulse Rate 54 L 54 L Respiratory Rate 16 Blood Pressure 152/65 H Pulse Oximetry 96 Oxygen Delivery Exam Const: General: cooperative and no acute distress HENMT: Head: atraumatic Mouth: Yes oropharynx normal Other: The left has completely cover the skin graft. There is a mild facial asymmetry with weakness of the left side of the face. Patient reports that he cannot see very well the right eye. Eyes: Other: Right pupil is 3-4 mm size and difficult to view reactivity. He states that he cannot see clearly the right eye. Neck: Neck: normal visual inspection and supple Resp: Effort & Inspection: normal respiratory effort Cardio: Heart sounds: S1 normal heart sound present and S2 normal heart sound present Skin: General skin exam: normal color Neuro: Cranial nerves: Yes CN's II-XII intact bilaterally ( Except patient has no left eye and has decreased vision in the right eye) Motor exam (neuro): 5/5 motor strength present throughout ( except for mild loss of rapid alternating movement of the left hand ) Sensory Exam: normal sensation Coordination: [id number] test normal Other: rapid alternating movement of the both lower limbs were normal. Normal strength in both lower limbs. Deep tendon reflexes did not show any significant asymmetry. Extrem: General: normal to inspection Psych: Other: Mental status examination is fair however patient is poor historian. Results Labs 01/15/25 05:13 01/15/25 05:13 Labs: Short CBC 01/15/25 Range/Units 05:13 WBC 7.7 (4.5-10.0) K/mm3 Hgb 10.8 L (14.0-18.0) g/dL Hct 34.8 L (42.0-52.0) % Plt Count 116 L (150-375) k/mm3 BMP 01/15/25 05:13 Sodium 142 Potassium 4.1 Chloride 111 H Carbon Dioxide 29 BUN 9 Creatinine 0.79 Glucose 56 L* Calcium 8.4 Liver Function 01/15/25 Range/Units 05:13 Total Bilirubin 0.5 (0.2-1.3) mg/dL AST 27 (17-59) U/L ALT 23 (6-50) U/L Alkaline Phosphatase 69 (38-126) U/L Albumin 2.8 L (3.5-5.1) g/dL
--- NOTE | 2025-01-15 11:50 | PM.DS ---
DS: Admitting Diagnosis Discharge Date 01/15/2025 Admitting Diagnosis Unresponsive episode DS: Discharge Diagnosis Discharge Diagnosis (1) V-tach: Code(s): I47.20 - Ventricular tachycardia, unspecified Status: Acute (2) Altered awareness, transient: Code(s): R40.4 - Transient alteration of awareness Status: Acute (3) Seizure disorder: Code(s): G40.909 - Epilepsy, unspecified, not intractable, without status epilepticus Status: Acute (4) Acute UTI: Code(s): N39.0 - Urinary tract infection, site not specified Status: Suspected (5) Insulin dependent type 2 diabetes mellitus: Code(s): E11.9 - Type 2 diabetes mellitus without complications; Z79.4 - penitentiary (current) use of insulin Status: Chronic (6) Elevated INR: Code(s): R79.1 - Abnormal coagulation profile Status: Acute (7) Hypertension: Code(s): I10 - Essential (primary) hypertension Status: Chronic (8) Chronic kidney disease, stage 3: Code(s): N18.3 - Chronic kidney disease, stage 3 (moderate) Status: Chronic (9) Frailty: Code(s): R54 - Age-related physical debility Status: Acute (10) Benign prostatic hyperplasia: Code(s): N40.0 - Benign prostatic hyperplasia without lower urinary tract symptoms Status: Acute DS: Summary Hospital Course Hospital Course: Patient presented with episode of unresponsiveness. Had some trembling of his hands. Wake him up and EMS was called. When EMS arrived he was unresponsive but the time they got into the ambulance he was returning back to his baseline. He was noted to have mild pronator drift on right side with some facial asymmetry. Facial drooping chronic per family. Patient does have history of CVA past. CT brain did not show any acute finding. 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 CP was considered and discussed with the family however given unclear chronicity of his symptoms unclear etiology of his presentation low NIH score and advance age it was felt the risk outweighed the benefits. Prior history of seizures and on Keppra. No witnessed generalized tonic-clonic seizure activity. Loaded with Keppra 1500 mg. Vitals were stable on presentation Laboratory workup with WBC of 7.2 hemoglobin 11.2 platelet count 121. Chem panel showed sodium 135 potassium 3.4. Chloride 105 bicarbonate 28 BUN 17 creatinine 0.9 blood glucose of 157. Lactate was normal at 1.5 TSH 5.6 troponin was negative LFTs were normal. Urinalysis with 51-100 urine WBC with positive leukocyte esterase. Suggestive of UTI. Ethyl alcohol level less than 10. Influenza RSV COVID swab was negative. EKG showed normal sinus rhythm. CT Chest abdomen pelvis showed no acute findings. Telemetry revealed 24 beats of V-tach on hospital monitor. Patient has chronic indwelling catheter Singh catheter was replaced. Per Neurology follow-up visit he has had recurrent spells of unresponsiveness and has been started on Keppra for that reason. Cardiac monitoring in the past has not revealed any findings. However a loop recorder has been advised in the past with regard to these episodes. Echo with bubble EEG MRI had been ordered Syncope versus seizure UTI catheter associated IV Rocephin follow urine culture. History of ESBL in the past October 2023. Urine culture growing Gram-negative bacilli identified as Serratia marcescens. Switched to oral antibiotics Nonsustained ventricular tachycardia 28 beats in ER. No further episodes. Cardiology consulted. Event monitor at discharge, consideration of loop recorder. Metoprolol uptitrated as conservative management desired. 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 Repeat brain MRI negative for acute findings Chronic Singh catheter History of DVT right lower extremity December 2022 CKD stage 3 Hypertension Hyperlipidemia Type 2 diabetes on insulin lower insulin dosing BPH Mitral valve prolapse Frequent falls History of prostate cancer diagnosed in 2008 DVT prophylaxis Code status full code Wheelchair-bound status Time Spent with Patient Time attestation: Total time spent providing and/or coordinating discharge services: 40 minutes Exam Narrative: General: well appearing, appears stated age. HEENT: normocephalic, atraumatic. Mucous membranes moist. Left eye not present, possible skin flap face asymmetrical a baseline Respiratory: clear bilaterally. No rales/rhonic/wheezes. Cardiovascular: Regular rate and rhythm, normal S1-S2. No murmurs, rubs, or clicks Abdomen: Soft, round, no pulsatile masses, nondistended and nontender. Extremities: No cyanosis, clubbing, or edema present. Pulses are palpable 2/2. Generalized weakness Neuro: Alert and orientated x 4. Cranial nerves 2-12 intact without focal deficit. Skin: Warm, dry, and intact, without rash, erythema, or lesion. Psych: pleasant, cooperative, normal speech, normal affect, no hallucinations, no dysarthia DS: Data Data Completed and Pending Completed studies during hospitalization: Exam Type: CA echo dop bubble study w con Complete two-dimentional, color flow and Doppler transthoracic echocardiogram is performed with agitated saline and with contrast to opacify the left ventricle and to improve the delineation of the left ventricle endocardial borders. Staff Referring Physician: Umm Schumacher Chain Hooker: Derrell Braxton III Attending Provider: Adi Beatty Contrast/Agitated Saline Contrast/Ag. Saline: Agitated Saline Amount: 16.00 ml Existing IV Access: Yes IV Access Condition: patent with no signs of infiltration Contrast/Ag. Saline: Definity Amount: 2.00 ml Administered By: Derrell Braxton III Existing IV Access: Yes IV Access Condition: patent with no signs of infiltration Reason for Poor Study: poor echocardiographic windows Summary 1. Nurse pushed bubbles for bubble study. Off-axis views, borderline nondiagnostic bubble study due to poor image quality. 2. Normal left and right ventricular size and systolic function, grade 1 diastolic noncompliance. 3. Mildly sclerotic aortic valve with well maintained leaflet separation. 4. Somewhat thickened pericardium with a very small pericardial effusion. 5. Definity contrast used to improve visualization. 6. Agitated saline contrast injection demonstrates no shunt. Labs on day of discharge: Labs from last 24 hours 01/15/25 01/15/25 01/15/25 11:35 07:25 05:13 WBC 7.7 RBC 3.71 L Hgb 10.8 L Hct 34.8 L MCV 93.8 MCH 29.1 MCHC 31.0 L RDW 14.5 Plt Count 116 L MPV 11.7 H Immature Gran % (Auto) 0.3 Neut % (Auto) 78.5 H Lymph % (Auto) 14.7 L Davidson % (Auto) 5.9 Eos % (Auto) 0.5 Baso % (Auto) 0.1 L Lymph # (Auto) 1.14 Davidson # (Auto) 0.5 Eos # (Auto) 0.0 Baso # (Auto) 0.0 Abs Immat Gran (auto) 0.02 Absolute Neuts (auto) 6.1 Absolute Nucleated RBC 0.000 Nucleated RBC % 0.0 % Immature Plt Fraction 10.0 Sodium 142 Potassium 4.1 Chloride 111 H Carbon Dioxide 29 Anion Gap 2 L BUN 9 Creatinine 0.79 Estim Creat Clear Calc 60 Estimated GFR > 60 Glucose 56 L* POC Capillary Glucose 209 H 71 Calcium 8.4 Magnesium 2.4 H Total Bilirubin 0.5 AST 27 ALT 23 Alkaline Phosphatase 69 Total Protein 5.6 L Albumin 2.8 L 01/14/25 01/14/25 01/14/25 19:46 16:41 12:01 WBC RBC Hgb Hct MCV MCH MCHC RDW Plt Count MPV Immature Gran % (Auto) Neut % (Auto) Lymph % (Auto) Davidson % (Auto) Eos % (Auto) Baso % (Auto) Lymph # (Auto) Davidson # (Auto) Eos # (Auto) Baso # (Auto) Abs Immat Gran (auto) Absolute Neuts (auto) Absolute Nucleated RBC Nucleated RBC % % Immature Plt Fraction Sodium Potassium Chloride Carbon Dioxide Anion Gap BUN Creatinine Estim Creat Clear Calc Estimated GFR Glucose POC Capillary Glucose 197 H 162 H 73 Calcium Magnesium Total Bilirubin AST ALT Alkaline Phosphatase Total Protein Albumin Preliminary micro results at discharge 01/11/25 11:28 Blood Culture - Preliminary Blood 01/11/25 11:56 Blood Culture - Preliminary Blood Imaging Radiologist's impression: ITS Impressions Head CT 01/11/25 10:50 Impression: 1.No acute intracranial abnormality. Head/Neck CTA 01/11/25 10:51 IMPRESSION: 1. No critical stenosis, occlusion or aneurysm is identified. 2. Significant stenosis of the left ICA. Follow-up is recommended to assess Chest/Abdomen/Pelvis CT 01/11/25 10:53 IMPRESSION: No acute abnormality is seen. Other findings as described. Brain MRI 01/12/25 10:42 IMPRESSION: 1. No acute infarct or hemorrhage. Discharge Plan Discharge Attending physician on discharge: Dax Zamarripa Consulting providers: Adin Piper Matthew A. Discharging Clinician: Dax Zamarripa Anticipated Discharge Date/Time: 01/15/25 09:00 Patient Disposition: Home with Home Health Service Activity: as tolerated Diet: diabetic Discharge Instructions: Care Coordination: Patient to have [facility] resume services at discharge. They can be reached at [phone] if you have any questions; they will contact you to schedule their visits. accuchecks ac and hs. adjust dose if blood sugar continues to remain low. Patient Instructions: Antibiotic Form Patient Language: Occitan Stand Alone Forms: General Discharge Information Follow-up/Referrals: Alvaro Naidu MD [Physician, Cardiology] - 2 Weeks Quan Uribe MD [Primary Care Provider, Internal Medicine] - 1 Week Adin Piper MD [Physician, Neurology] - 2 Weeks Discharge Medications: New metoprolol succinate 50 mg Tablet Extended Release 24 Hr 50 mg BYMOUTH QAM Qty: 30 0RF levetiracetam 250 mg Tablet 750 mg PO Q12HR Qty: 60 0RF cefpodoxime 200 mg tablet 200 mg PO Q12H Qty: 8 0RF Rx Instructions: must administer with a meal/food Continued cephalexin 250 mg capsule 250 mg PO DAILY levetiracetam 500 mg tablet 500 mg PO BID rosuvastatin 20 mg tablet 20 mg PO DAILY Qty: 90 4RF insulin glargine [Lantus Solostar U-100 Insulin] 100 unit/mL (3 mL) insulin pen 48 unit SUBCUT QAM Rx Instructions: and 42 units nightly aspirin 81 mg Tablet,Delayed Release (Dr/Ec) 81 mg PO DAILY (DME) pen needle, diabetic [BD Ultra-Fine Mini Pen Needle] 31 gauge x 3/16 needle See Rx Instructions .ROUTE .MEDSUPPLY Qty: 100 12RF Rx Instructions: Use twice Daily UTD (DME) hospital bed See Rx Instructions .Route .MEDSUPPLY Qty: 1 0RF Rx Instructions: As directed (DME) trapeze bar See Rx Instructions .Route .MEDSUPPLY Qty: 1 0RF Rx Instructions: As directed (DME) mattress overlay See Rx Instructions .Route .MEDSUPPLY Qty: 1 0RF Rx Instructions: As directed tamsulosin 0.4 mg capsule See Rx Instructions .ROUTE .COMPLEX Qty: 90 2RF Dose Instruction: TAKE 1 CAPSULE BY MOUTH EVERY DAY 30 MINUTES AFTER THE SAME MEAL Rx Instructions: TAKE 1 CAPSULE BY MOUTH EVERY DAY 30 MINUTES AFTER THE SAME MEAL (DME) Dexcom G7 Shop Service Technician Misc See Rx Instructions .Route Qty: 1 11RF Rx Instructions: As directed (DME) OneTouch Ultra Test Strip See Rx Instructions .ROUTE .COMPLEX Qty: 200 2RF Dose Instruction: USE TO TEST BLOOD SUGAR TWICE DAILY Rx Instructions: USE TO TEST BLOOD SUGAR TWICE DAILY (DME) Dexcom G7 Sensor Device See Rx Instructions .Route Qty: 3 11RF Rx Instructions: As directed Discontinued nitrofurantoin monohyd/m-cryst [Macrobid] 100 mg capsule 100 mg PO DAILY Rx Instructions: must administer with a meal/food lisinopril 10 mg tablet 10 mg PO DAILY metoprolol succinate 25 mg tablet extended release 24 hr See Rx Instructions .ROUTE .COMPLEX Qty: 45 3RF Dose Instruction: TAKE ONE-HALF TABLET BY MOUTH EVERY DAY Rx Instructions: TAKE ONE-HALF TABLET BY MOUTH EVERY DAY Other Ambulatory Orders: CA cardiac event monitor (Routine) Timeframe: 1 Day Location: Determined by Patient Ordered By: Dax Zamarripa Date of admission: 01/11/25 13:43 Primary Care Provider: Quan Uribe Admitting Provider: Adi Beatty Attending physician on admission: Adi Beatty Condition: Stable
--- NOTE | 2025-01-15 11:58 | WPDNEUROLOGY ---
Neurology EEG Report General Information Date of Study: 01/12/25 TEST Electroencephalogram DIAGNOSIS seizure disorder CONDITION OF RECORDING bedside recording EEG NUMBER [id number] CLINICAL HISTORY 89-year-old with a spell of unresponsiveness. He has had spells in the past there are thought to be seizure like spell. EEG DESCRIPTION During wakefulness the background activity consists of predominantly theta activity at 6-7 hertz with an amplitude of 15-30 microvolts. This appears mildly formed. Anteriorly low amplitude. The theta activity is seen. There is a mild anteroposterior gradient. Focal slowing was seen intermittently over the left central parietal area which extends to frontal temporal area also on many occasions. Patient did not progress to stage 2 sleep. Hyperventilation or photic stimulation were not performed. IMPRESSION This is an abnormal EEG due to following 1. Mild diffuse background slowing suggestive of generalized encephalopathy 2. Focal slowing was seen over the left hemisphere particularly in the central parietal area extending to frontotemporal area at times. Focal slowing may raise possibility of underlying structural lesion. Clinical and radiographic correlation are recommended.
--- NOTE | 2025-01-15 12:11 | P.NEURO_ITS ---
Neurology EEG Report General Information Date of Study: 01/12/25 TEST Electroencephalogram DIAGNOSIS headaches and muscle spasms of the right eye. Sometimes twitching of the right eye occurs without headache. CONDITION OF RECORDING Neurodiagnostic lab EEG NUMBER [id number] CLINICAL HISTORY Patient is 23 years old with history of spasm in the right eye. She can sometimes feel it happening all day and sometimes even her sleep or while she is awake. She is also complaining of headache. EEG DESCRIPTION During wakefulness the background activity consists of posterior dominant alpha rhythm at 9 hertz with an amplitude of 45-90 microvolts which appears well- formed and reactive drive to. Anteriorly low amplitude mixed frequency activity is seen. There is a good anteroposterior gradient. Hyperventilation was performed during which no significant abnormal background changes were seen. Photic stimulation performed during which symmetric driving response was seen at several flash rates however no abnormal changes were seen. During drowsiness attenuation of background activity was seen however patient did not progress to stage 2 sleep. IMPRESSION This is a normal EEG obtained during awake and drowsy states.
[2025-01-15] MEDS: INSULIN ASPART (*BKC) 100 UNITS/ML SUB-Q (12:29)
--- NOTE | 2025-01-15 14:37 | PC.NURSE ---
pt discharged home with home health, taken via wheelchair to cardiology office to have laboratory monitor placed upon discharge
== END 2025-01-15 14:40 | disposition home health service (06) | DRG 309 ==
LOC: ANHED 13:40 → ANH3MEDSUR 14:05 → ANHIMU 22:54 → ANH3MED 01-15 09:00 → ANHIMU 01-17 10:53
PROVIDERS: Nurse Practitioner Gerontology; Admitting Provider Internal Medicine; Emergency Provider Emergency Medicine; PCP Emergency Medicine; Visit Provider Internal Medicine
DX: I47.20 Ventricular tachycardia, unspecified (principal); I69.354 Hemiplegia and hemiparesis following cerebral infarction affecting left non-dominant side; N39.0 Urinary tract infection, site not specified; I12.9 Hypertensive chronic kidney disease with stage 1 through stage 4 chronic kidney disease, or unspecified chronic kidney disease; N18.30 Chronic kidney disease, stage 3 unspecified; I34.1 Nonrheumatic mitral (valve) prolapse; I65.22 Occlusion and stenosis of left carotid artery; C61 Malignant neoplasm of prostate; E11.22 Type 2 diabetes mellitus with diabetic chronic kidney disease; E78.5 Hyperlipidemia, unspecified; K57.30 Diverticulosis of large intestine without perforation or abscess without bleeding; R33.8 Other retention of urine; N40.1 Benign prostatic hyperplasia with lower urinary tract symptoms; M19.90 Unspecified osteoarthritis, unspecified site; G40.909 Epilepsy, unspecified, not intractable, without status epilepticus; G89.29 Other chronic pain; R79.1 Abnormal coagulation profile; R54 Age-related physical debility; R29.6 Repeated falls; R29.703 NIHSS score 3; Z20.822 Contact with and (suspected) exposure to COVID-19; Z79.82 Long term (current) use of aspirin; Z90.01 Acquired absence of eye; Z86.718 Personal history of other venous thrombosis and embolism; Z79.4 Long term (current) use of insulin
CPT/HCPCS: 36415; 70450; 70496; 70498; 70553; 71260; 74177; 80048; 80053; 80307; 81001; 82077; 82803; 82948; 83605; 83690; 83735; 84100; 84439; 84443; 84480; 84484; 85025; 85055; 85610; 85730; 87040; 87086; 87186; 87637; 93005; 93880; 95816; 96365; 96367; 96375; 97110; 97162; 97166; 97530; 99285; A9270; A9577; C8929; J0613; J0696; J1815; J1953; J3480; J7030; Q9957; Q9967